=== PATIENT | female | born 1955 | race Caucasian/White ===

== ENCOUNTER → 2016-09-04 | Outpatient (CLI) | payer MEDICARE, MEDICAID ==
--- OUTSIDE RECORDS SUMMARY | 2016-09-04 11:51 | XMS REPORT | Continuity of Care Document ---
Author Author [facility] Organization [facility] Address Unknown Phone Unavailable Care Team Providers Care Train Dispatcher Name Role Phone Josh Escobar PCP [phone] Source Comments Some departments are not documenting in the electronic medical record. If you do not see the information that you expected, contact Release of Information in the Health Information Management department at [phone] for further assistance in locating additional records.[facility] Active Allergies and Adverse Reactions No Known Allergies Current Medications Prescription Sig. Disp. Refills Start End Date Status Date ASCORBIC ACID (VITAMIN C Take 1 Tab by mouth Every Active PO) 48 Hours. metoprolol (LOPRESSOR) 50 Take 1 Tab by mouth Twice Active mg tablet Daily. lisinopril (PRINIVIL, Take 1 Tab by mouth Active ZESTRIL) 40 mg tablet Daily. oxycodone/acetaminophen Take 1-2 Tabs by mouth 40 0 08/12/19 Active (PERCOCET) 5/325 mg Every 4-6 Hours as needed 10 tablet for Pain. docusate (COLACE) 100 mg Take 1 Cap by mouth Twice 60 2 08/12/19 Active capsule Daily. 10 ibuprofen (MOTRIN) 600 mg Take 1 Tab by mouth Every 40 0 08/12/19 Active tablet 6 Hours as needed for 10 Pain. famotidine (PEPCID) 20 mg Take 1 Tab by mouth Twice 14 0 08/12/19 Active tablet Daily. 10 metoclopramide (REGLAN) Take 1 Tab by mouth Four 28 0 08/12/19 Active 10 mg tablet Times Daily. 10 ferrous sulfate (IRON, Take 1 Tab by mouth Twice 60 2 08/12/19 Active FERROUS SULFATE,) 325 mg Daily. 10 (65 mg Iron) tablet ibuprofen (MOTRIN) 600 mg Take 600 mg by mouth Active tablet Every 6 Hours as needed for Pain. trimethoprim/sulfamethoxa Take 1 Tab by mouth Twice 20 0 08/17/19 Active zole (BACTRIM DS) 160/800 Daily. 10 mg tablet Active Problems Problem Noted Date Carcinoma of cervix (HCC) 07/02/2009 Overview: DIAGNOSIS: Stage IB1 SCCA of the Cervix. PRIOR THERAPY: Status post laparotomy, radical hysterectomy BSO, LND on 08/07/09. Pathology: Final Diagnosis: A. Lymph node (1), "left internal iliac lymph node", dissection: There is no evidence of malignancy in one lymph node (0/1). B. Fallopian tube and ovary, "right tube and ovary", salpingo-oophorectomy: Ovary: No diagnostic abnormalities. Fallopian tube: Endometriosis, involving paratubal soft tissue. C. Fallopian tube and ovary, "left tube and ovary", salpingo-oophorectomy: No diagnostic abnormalities. D. Fibroadipose tissue, "portion of left parametrium", biopsy: There is no evidence of malignancy. E. Uterus and cervix, "uterus and cervix", hysterectomy: Invasive squamous cell carcinoma of cervix, moderately differentiated, extending to lower uterine segment. See checklist. F. Lymph nodes (3), "left internal and external iliac lymph nodes", excision: There is no evidence of malignancy in three lymph nodes (0/3). G. Lymph nodes (5), "left obturator", excision: There is no evidence of malignancy in five lymph nodes (0/5). H. Lymph nodes (2), "left common", excision: There is no evidence of malignancy in two lymph nodes (0/2). I. Lymph nodes (2), "left perez-aortic", excision: There is no evidence of malignancy in two lymph nodes (0/2). J. Lymph nodes (7), "right internal and external iliac lymph nodes", excision: There is no evidence of malignancy in seven lymph nodes (0/7). K. Lymph nodes (4), "right obturator", excision: There is no evidence of malignancy in four lymph nodes (0/4). L. Lymph nodes (3), "right common precaval", excision: There is no evidence of malignancy in three lymph nodes (0/3). Comment: Cervical Neoplasms Specimen Type: Hysterectomy Histologic Type: Squamous cell carcinoma Histologic grade: Moderately differentiated Tumor Size: 5.6 x 5.5 x 3.0 cm Location: Cervix Depth of tumor invasion: 1.4 cm tumor invasion/ 2.5 cm cervical thickness Vascular Invasion: No Perineural invasion: Absent Vaginal extension: No Uterine corpus extension: Yes, to the lower uterine segment Parametrial involvement: No Surgical Margins: Margins uninvolved by invasive carcinoma: Distance of invasive carcinoma from closest margin: 0.3 cm Specify margin, if possible: vaginal cuff between 9:00 and 12:00 Carcinoma in situ present at distal margin: No Non-neoplastic cervix: Acute inflammation and necrosis. Lymph nodes: 0/27 Pelvic wash: See [id number], negative Prognostic Markers: No Pathologic TNM: [id number] CURRENT THERAPY: Being seen in [place] for postoperative RT. Followup with Dr. Escobar. She will need a pelvic/pap q 3 months for 2 years, q 4 months for 1 year and q 6 months for [address] at the end of the first and second year. 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
[2016-09-04 12:03] LABS: INR 2.5 (0.8-1.4); PROTHROMBIN TIME PATIENT 27.1 SEC (12.2-14.7)
== END ==
LOC: HH 11:47
PROVIDERS: ATTEND Thoracic Surgery (Cardiothoracic Vascular Surgery)
DX: Z51.81 Encounter for therapeutic drug level monitoring (principal); Z79.01 Long term (current) use of anticoagulants
CPT/HCPCS: 85610

== ENCOUNTER → 2018-06-02 | Outpatient (CLI) | payer MEDICARE, MEDICAID ==
--- NOTE | 2018-06-02 11:15 | Diagnostic Imaging Report ---
PROCEDURE: CT urinary tract, rule out kidney stone. TECHNIQUE: Multiple contiguous axial images were obtained through the abdomen and pelvis without the use of intravenous contrast. INDICATION: Left-sided flank pain. Multiple indwelling arterial bypass grafts. COMPARISON: 05/24/2009. FINDINGS: Included portions of the lung bases show mild bilateral atelectasis. CT ABDOMEN: Since the previous exam, there is been interval placement of multiple arterial bypass grafts within the lateral subcutaneous soft tissues, two on the left and one on the right. The more anterior bypass graft on the left appears to anastomose with the left common femoral artery. The inferior anastomosis site of the more posterior bypass graft is not included on this exam. There is however partially visualized large focal fluid collection within the anterior left thigh surrounding the bypass graft that measures 7.8 x 4.2 cm. This extends in a cephalad fashion essentially along the entire course of the bypass graft. The superior end of the bypass graft is also not occluded on the exam, as it extends into the chest. A single bypass graft is also identified on the right which appears to anastomosis with the right common femoral artery. Evaluation of kidneys demonstrates single nonobstructive renal calculus on the right. Ureters cannot be followed in there entirety, but no calculi are seen along the expected course of the ureters on either side. Additionally, there is no hydroureteronephrosis or other evidence of obstruction. Note is made of moderate-sized hypodense cyst on the left. The liver has mildly hypodense appearance suggestive of underlying hepatic steatosis. There is cholelithiasis. The spleen, pancreas, and adrenal glands have an unremarkable noncontrast CT appearance. Small bowel loops are nondistended. Normal appendix is identified. There is colonic diverticulosis, but no CT evidence of acute diverticulitis. There is no loculated fluid collection, free fluid, or free air within the abdomen. No abnormal mesenteric or retroperitoneal adenopathy is seen. Bony structures show no acute abnormalities. Note is also made of postsurgical changes of previous aortofemoral bypass graft placement. Please note, patency of the grafts and little shell tribe arterial structures cannot be assessed given the lack of vascular contrast. CT PELVIS: Urinary bladder is unopacified. There is small droplet of gas within the non-gravity dependent portion of the urinary bladder. No calculi are seen. There is no loculated fluid collection, free fluid, nor free air within the pelvis. No abnormal lymph nodes are identified. Bony structures show no acute abnormalities. IMPRESSION: 1. Multiple bypass grafts within the superficial soft tissues of the abdomen pelvis bilaterally. Again, there is fluid tracking along the course of the more posterior bypass graft on the left. Findings could be on the basis of postsurgical fluid collection such as hematoma or seroma. Abscess cannot be excluded. The fluid does appear to be amenable to ultrasound-guided aspiration. 2. Single nonobstructive right renal calculus. No ureteral calculi, hydroureteronephrosis, or other evidence of obstruction. 3. Hepatic steatosis. 4. Cholelithiasis. 5. Colonic diverticulosis, but no CT evidence of acute diverticulitis. 6. Small droplet of gas within the urinary bladder. Correlation with recent instrumentation is recommended. Alternatively, findings can be seen with gas forming cystitis. Dictated by: Dictated on workstation # [id number]
== END ==
LOC: RAD 10:07
PROVIDERS: ATTEND Nurse Practitioner Family
DX: N20.0 Calculus of kidney (principal); K76.0 Fatty (change of) liver, not elsewhere classified; K80.20 Calculus of gallbladder without cholecystitis without obstruction; K57.30 Diverticulosis of large intestine without perforation or abscess without bleeding; Z95.828 Presence of other vascular implants and grafts
CPT/HCPCS: 74176

== ENCOUNTER → 2018-11-16 | Outpatient (CLI) | payer MEDICARE, MEDICAID ==
[~2018-11-16] MED LIST: HOLD METFORMIN - RECEIVED CONTRAST 20 ML VIAL IV SCH; IOHEXOL 350 MG/ML 100 ML (OMNIPAQUE 350) VIAL IV ONE
--- NOTE | 2018-11-16 16:52 | Diagnostic Imaging Report ---
PROCEDURE: CT abdomen and pelvis with and without contrast. TECHNIQUE: Precontrast acquisitions were acquired through the abdomen and pelvis. Multiple contiguous axial images were obtained through the abdomen and pelvis after the administration of intravenous contrast. Auto Exposure Controls were utilized during the CT exam to meet ALARA standards for radiation dose reduction. INDICATION: Right lower quadrant pain. Patient does have history of kidney stones. Correlation is made with prior CT from 06/02/2018. FINDINGS: The lung bases are clear. No discrete liver mass is identified. There are small stones within the gallbladder. No biliary ductal dilatation is seen. The pancreas and spleen are unremarkable. No adrenal mass is detected. Left kidney does contain 4 cm low-density mass in the lower pole anteriorly most consistent with a cyst. This is stable. Right kidney contains a tiny nonobstructing calculus in the upper pole. No definite ureteral or bladder calculi are seen. Patient does have an aortoiliac graft. There are bilateral iliac stents as well. There appear to be bilateral axillary femoral grafts. A fluid collection surrounds the graft in the left groin, similar to prior study and suggestive of a seroma. Small and large bowel loops are normal caliber. There is no obstruction. The appendix is visualized in right lower quadrant and unremarkable. There is diverticulosis of the descending and sigmoid colon but no evidence of acute diverticulitis. No acute abnormality is detected. IMPRESSION: 1. Cholelithiasis. 2. Nonobstructing right renal calculus. 3. Uncomplicated diverticulosis. 4. Stable left groin seroma. Dictated by: Dictated on workstation # [id number]
== END ==
LOC: RAD 15:23
PROVIDERS: ATTEND Nurse Practitioner Family
DX: K80.20 Calculus of gallbladder without cholecystitis without obstruction (principal); K57.30 Diverticulosis of large intestine without perforation or abscess without bleeding; N20.0 Calculus of kidney; N94.89 Other specified conditions associated with female genital organs and menstrual cycle
CPT/HCPCS: 74178

== ENCOUNTER 2019-01-31 18:25 | Inpatient (IN) | payer MEDICARE, MEDICAID ==
[~2019-01-31] VITALS: Ht 167.6 cm; Wt 92.6 kg
--- NOTE | 2019-01-31 18:40 | NUR ---
i do know pt had chest pain last noc and none now. pt just c/o dyspnea. i will reeval later after tx.
--- NOTE | 2019-01-31 18:40 | NUR ---
ashleigh stick for labs by me and to lab by someone else. now i am also taking this pt, ekg been done alreay.
[2019-01-31 18:44] LABS: BASOPHILS % (AUTO) 0 % (0-10); EOSINOPHILS # (AUTO) 0.1 10^3/uL (0.0-0.3); EOSINOPHILS % (AUTO) 1 % (0-10); HEMATOCRIT 48 % (35-52); HEMOGLOBIN 16.5 G/DL (11.5-16.0); LYMPHOCYTES % (AUTO) 28 % (12-44); MEAN CORPUSCULAR HGB CONC 34 G/DL (32-36); MEAN CORPUSCULAR VOLUME 95 FL (80-99); MEAN PLATELET VOLUME 9.4 FL (7.4-10.4); MONOCYTES % (AUTO) 6 % (0-12); NEUTROPHILS # (AUTO) 11.6 X 10^3 (1.8-7.8); NEUTROPHILS % (AUTO) 65 % (42-75); PLATELET COUNT 198 10^3/uL (130-400); RED CELL DISTRIBUTION WIDTH 13.2 % (10.0-14.5); WHITE BLOOD COUNT 17.7 10^3/uL (4.3-11.0)
[2019-01-31 18:45] LABS: MEAN CORPUSCULAR HEMOGLOBIN 32 PG (25-34)
[2019-01-31] MEDS ORDERED: ASPIRIN 81 MG CHEW (CHILDREN'S ASA) PO ONE (18:45)
[2019-01-31] MEDS ORDERED: RT-ALBUTEROL/IPRATROPIUM 3 ML (DUONEB) VIAL INH ONE ×2 (18:45→19:00)
[2019-01-31] MEDS ORDERED: methylPREDNISolone 125 MG (Solu-MEDROL) VIAL IVP ONE (18:45)
--- NOTE | 2019-01-31 18:47 | NUR ---
resp in room doing neb tx and another nurse doing meds.
[2019-01-31] MEDS ORDERED: RT-ALBUTEROL SULF 2.5 MG/3 ML PRE-MIX VIAL INH STA (18:54)
--- NOTE | 2019-01-31 18:54 | ED Chest Pain ---
General Chief Complaint: Respiratory Problems Stated Complaint: SOB Nursing Triage Note: Pt presents to [facility] via [facility] with complaints of shortness of air that started last night. EMS reports O2 sat 87% on arrival to scene and reports giving a breathing treatment then putting her on 2L, O2 sat is now 94. Pt denies any chest pain at this time. Nursing Sepsis Screen: No Definite Risk Source: patient, EMS Exam Limitations: no limitations History of Present Illness Date Seen by Provider: Jan 31, 2019 Time Seen by Provider: 18:21 Initial Comments This 63-year-old woman presents to the emergency room via EMS with complaints of shortness of air and chest pain. Symptoms started last night when she had fairly abrupt onset of chest pain and then felt very short of breath. The chest pain dissipated but the shortness of breath continued. She was very tight and wheezy for EMS upon arrival. She was tripoding on her hands and knees in the bed on EMSs arrival. They noted an oxygen saturation of 87 percent on room air. After DuoNeb treatment and application of nasal cannula at 2 L/m, patient had an oxygen saturation of 92 percent. She feels much better after the DuoNeb but is still rather wheezy on exam. She reports some mild cough but denies fever. She denies any history of cardiopulmonary problems such as COPD or heart failure. She quit smoking a few years ago. Allergies and Home Medications Allergies Coded Allergies: No Allergy Information Available (Unverified , 11/16/18) Patient Home Medication List Home Medication List Reviewed: Yes Review of Systems Review of Systems Constitutional: no symptoms reported EENTM: No Symptoms Reported Respiratory: See HPI Cardiovascular: See HPI Gastrointestinal: No Symptoms Reported Genitourinary: No Symptoms Reported Musculoskeletal: no symptoms reported Skin: no symptoms reported Psychiatric/Neurological: No Symptoms Reported Endocrine: No Symptoms Reported Hematologic/Lymphatic: No Symptoms Reported Past [id number]-[id number]-Rkuvpj Hx Past Med/Social Hx: Reviewed and Corrections made Patient Social History Alcohol Use: Rarely Uses Recreational Drug Use: No Smoking Status: Former Smoker Recent Foreign Travel: No Contact w/Someone Who Travel: No Recent Infectious Disease Expo: No Recent Hopitalizations: No Physical Abuse: No Sexual Abuse: No Mistreated: No Seasonal Allergies Seasonal Allergies: No Past Medical History Surgeries: Yes (axillary femoral bypass 2011 and 2014) Hysterectomy, Vascular Surgery Respiratory: No Cardiac: Yes Hypertension, Peripheral Vascular 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 oz. 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 Norm as Tested Skin: Normal Color, Warm/Dry Progress/Results/Core Measures Results/Orders Lab Results Laboratory Tests Test 01/31/19 18:36 Range/Units White Blood Count 17.7 H 4.3-11.0 10^3/uL Red Blood Count 5.08 4.35-5.85 10^6/uL Hemoglobin 16.5 H 11.5-16.0 G/DL Hematocrit 48 35-52 % Mean Corpuscular Volume 95 80-99 FL Mean Corpuscular Hemoglobin 32 25-34 PG Mean Corpuscular Hemoglobin Concent 34 32-36 G/DL Red Cell Distribution Width 13.2 10.0-14.5 % Platelet Count 198 130-400 10^3/uL Mean Platelet Volume 9.4 7.4-10.4 FL Neutrophils (%) (Auto) 65 42-75 % Lymphocytes (%) (Auto) 28 12-44 % Monocytes (%) (Auto) 6 0-12 % Eosinophils (%) (Auto) 1 0-10 % Basophils (%) (Auto) 0 0-10 % Neutrophils # (Auto) 11.6 H 1.8-7.8 X 10^3 Lymphocytes # (Auto) 5.0 H 1.0-4.0 X 10^3 Monocytes # (Auto) 1.0 0.0-1.0 X 10^3 Eosinophils # (Auto) 0.1 0.0-0.3 10^3/uL Basophils # (Auto) 0.0 0.0-0.1 10^3/uL Neutrophils % (Manual) 77 % Lymphocytes % (Manual) 14 % Monocytes % (Manual) 5 % Band Neutrophils 4 % Blood Morphology Comment NORMAL Prothrombin Time 27.8 H 12.2-14.7 SEC INR Comment 2.5 H 0.8-1.4 Activated Partial Thromboplast Time 40 H 24-35 SEC D-Dimer 2.05 H 0.00-0.49 UG/ML Sodium Level 141 135-145 MMOL/L Potassium Level 3.6 3.6-5.0 MMOL/L Chloride Level 106 98-107 MMOL/L Carbon Dioxide Level 23 21-32 MMOL/L Anion Gap 12 5-14 MMOL/L Blood Urea Nitrogen 12 7-18 MG/DL Creatinine 0.97 0.60-1.30 MG/DL Estimat Glomerular Filtration Rate 58 BUN/Creatinine Ratio 12 Glucose Level 114 H 70-105 MG/DL Calcium Level 9.2 8.5-10.1 MG/DL Corrected Calcium 9.1 8.5-10.1 MG/DL Magnesium Level 1.7 L 1.8-2.4 MG/DL Total Bilirubin 1.0 0.1-1.0 MG/DL Aspartate Amino Transf (AST/SGOT) 16 5-34 U/L Alanine Aminotransferase (ALT/SGPT) 20 0-55 U/L Alkaline Phosphatase 100 40-136 U/L Myoglobin 67.2 10.0-92.0 NG/ML Troponin I < 0.028 <0.028 NG/ML C-Reactive Protein High Sensitivity 5.11 H 0.00-0.50 MG/DL B-Type Natriuretic Peptide 442.7 H <100.0 PG/ML Total Protein 7.3 6.4-8.2 GM/DL Albumin 4.1 3.2-4.5 GM/DL My Orders Orders - ALENA SANCHEZ MD Cbc With Automated Diff (01/31/19 18:31) Magnesium (01/31/19 18:31) Ekg Tracing (01/31/19 18:31) Cardiac Profile 1 (01/31/19 18:31) Comprehensive Metabolic Panel (01/31/19 18:31) Myoglobin Serum (01/31/19 18:31) Protime With Inr (01/31/19 18:31) Partial Thromboplastin Time (01/31/19 18:31) O2 (01/31/19 18:31) Monitor-Rhythm Ecg Trace Only (01/31/19 18:31) Ed Iv/Invasive Line Start (01/31/19 18:31) BNP (01/31/19 18:31) Fibrin Degradation Products (01/31/19 18:31) Aspirin Chewable Tablet (Baby Aspirin Ch (01/31/19 18:45) Hs C Reactive Protein (01/31/19 18:31) Methylprednisolone Sod Succ (Solu-Medrol (01/31/19 18:45) Chest Pa/Lat (2 View) (01/31/19 18:32) Albuterol/Ipra Inhalation Soln (Duoneb I (01/31/19 18:45) Svn Small Volume Nebulizer (01/31/19 18:32) Manual Differential (01/31/19 18:36) Albuterol Pre-Mix Nebs (Rt) (Proventil (01/31/19 18:54) Albuterol/Ipra Inhalation Soln (Duoneb I (01/31/19 19:00) Svn Small Volume Nebulizer (01/31/19 18:54) Svn Small Volume Nebulizer (01/31/19 18:54) Ct Angio Chest W (01/31/19 19:12) Iohexol Injection (Omnipaque 350 Mg/Ml 1 (01/31/19 19:30) Received Contrast (Hold Metformin- Contr (01/31/19 19:30) Ns (Ivpb) (Sodium Chloride 0.9% Ivpb Bag (01/31/19 19:30) Medications Given in ED Current Medications Medications Dose Ordered Sig/Radha Route Start Time Stop Time Status Last Admin Dose Admin Albuterol/ Ipratropium 3 ml ONCE ONCE INH 01/31/19 18:45 01/31/19 18:46 DC 01/31/19 19:00 3 ML Albuterol/ Ipratropium 3 ml ONCE ONCE INH 01/31/19 19:00 01/31/19 19:01 DC 01/31/19 19:01 3 ML Aspirin 324 mg ONCE ONCE PO 01/31/19 18:45 01/31/19 18:46 DC 01/31/19 18:48 324 MG Iohexol 150 ml ONCE ONCE IV 01/31/19 19:30 01/31/19 19:31 DC 01/31/19 19:37 125 ML Methylprednisolone Sodium Succinate 125 mg ONCE ONCE IVP 01/31/19 18:45 01/31/19 18:46 DC 01/31/19 18:48 125 MG Sodium Chloride 100 ml ONCE ONCE IV 01/31/19 19:30 01/31/19 19:31 DC 01/31/19 19:38 80 ML Vital Signs/I&O 01/31/19 01/31/19 01/31/19 01/31/19 18:26 18:38 19:09 19:12 Temp 97.9 Pulse 80 Resp 20 B/P (MAP) 204/111 (142) Pulse Ox 94 94 95 93 O2 Delivery Nasal Cannula Nasal Cannula Nasal Cannula Nasal Cannula O2 Flow Rate 2.00 2.00 2.00 2.00 01/31/19 19:44 Temp 97.6 Pulse 92 Resp 20 B/P (MAP) 192/88 (122) Pulse Ox 95 O2 Delivery Nasal Cannula O2 Flow Rate 3.00 Blood Pressure Mean: 142 Progress Progress Note #1: Time: 19:54 Progress Note Patient was seen promptly upon arrival. She still had wheezing and delayed expiratory phase after the DuoNeb treatment administered by EMS. A repeat DuoNeb treatment was administered but patient was still wheezy. An hour-long treatment was initiated. Solu-Medrol 125 mg IV was given. Aspirin was given because of the chest pain last night. Lab workup revealed an elevated d-dimer. CT angiogram of the chest was obtained. Report is pending. Patient is stable and has oxygen saturations in the 90s on 2 L nasal cannula. Progress Note #2: Time: 20:[address] angiogram was negative. Patient remained stable on nasal cannula. Repeat examination still demonstrates wheezing and delayed expiratory phase. She is not in respiratory distress and feels better. Case was discussed with Dr. Morrow who is agreeable to admission for COPD exacerbation. Patient also elaborated on her history stating she does actually smoke about once per month. She is also exposed to secondhand smoke and drywall dust. She recently went to a worksite with her boyfriend where there was significant dust. Initial ECG Impression Date: Jan 31, 2019 Initial ECG Impression Time: 18:27 Initial ECG Rate: 75 Initial ECG Rhythm: Normal Sinus Initial ECG Intervals: Normal Initial ECG Impression: Normal Comment Normal sinus rhythm with no ST elevation or depression. No abnormal intervals or axis deviation. Diagnostic Imaging Diagonstic Imaging: Xray Plain Films/CT/US/NM/MRI: chest Comments Chest x-ray viewed by me and report reviewed. See report below: NAME: LUIS ALDANA [facility] REC#: [id number] PT STATUS: REG ER : 1955 PHYSICIAN: ALENA SANCHEZ MD ADMIT DATE: 01/31/19/ER Signed Date of Exam: 01/31/19 CHEST PA/LAT (2 VIEW) INDICATION: Shortness of breath starting last night. O2 sats were reported at 87% upon arrival to the hospital. O2 sats have increased to 94% after breathing treatment. FINDINGS: Frontal and lateral views of the chest demonstrate surgical clips in the upper chest. The lungs are clear. The heart, mediastinum, pulmonary vascularity, and visualized bony thorax are normal. IMPRESSION: There are no acute findings. Dictated by: Dictated on workstation # [id number] Dict: 01/31/191938 Trans: 01/31/191948 Interpreted by: FELICE TOVAR MD Electronically signed by: FELICE TOVAR MD 01/31/191948 Diagonstic Imaging: CT Plain Films/CT/US/NM/MRI: chest Comments CT angiogram of the chest viewed by me and report reviewed. See report below: NAME: LUIS ALDANA [facility] REC#: [id number] PT STATUS: REG ER : 1955 PHYSICIAN: ALENA SANCHEZ MD ADMIT DATE: 01/31/19/ER Draft Date of Exam:01/31/19 CT ANGIO CHEST W PROCEDURE: CT angiography of the chest with contrast. TECHNIQUE: Multiple contiguous axial images were obtained through the chest after uneventful bolus administration of intravenous contrast. 2D reconstructed CTA MIP acquisitions were also performed. Auto Exposure Controls were utilized during the CT exam to meet ALARA standards for radiation dose reduction. INDICATION: Difficulty breathing for 24 hours. COMPARISON STUDY: CT of the abdomen from 11/16/2018. FINDINGS: CTA of the chest demonstrates no pulmonary emboli, aortic dissection, or aneurysm. Heart size is normal. There are no pleural or pericardial effusions. A few small mediastinal lymph nodes are within normal limits. Bilateral subclavian to distal bypass grafts are present. Visualized portions of these are patent. There are actually two on the left side with one being occluded. Small gallstones are present. The lungs are clear. IMPRESSION: 1. No pulmonary emboli, aortic dissection, or aneurysm is present. 2. Cholelithiasis. Dictated on workstation # [id number] Dict: 01/31/191939 Trans: 01/31/192023 [facility] [id number] Interpreted by: FELICE TOVAR MD Departure Communication (Admissions) Time/Spoke to Admitting Phy: 20:45 Dr. Morrow Impression Primary Impression: COPD exacerbation Additional Impression: Chest pain Qualified Codes: R07.9 - Chest pain, unspecified Disposition: ADMITTED INPATIENT Condition: Improved Admissions Decision to Admit Reason: Admit from ER (General) Decision to Admit/Date: Jan 31, 2019 Time/Decision to Admit Time: 18:50 Departure-Patient Inst. Referrals: [facility] (PCP) Primary Care Physician CINDY CALIXTO (Family) Primary Care Physician ALENA SANCHEZ MD Jan 31, 2019 18:54
--- NOTE | 2019-01-31 18:55 | NUR ---
per resp therapy.
--- NOTE | 2019-01-31 18:55 | NUR ---
tart when back from xr. 6 liters. resp therapy starting 1 hr neb tx then off for xr then i will res
[2019-01-31 18:57] LABS: INR 2.5 (0.8-1.4); PROTHROMBIN TIME PATIENT 27.8 SEC (12.2-14.7)
[2019-01-31 19:05] LABS: ALANINE AMINOTRANSFERASE 20 U/L (0-55); ALBUMIN 4.1 GM/DL (3.2-4.5); ALKALINE PHOSPHATASE 100 U/L (40-136); BUN/CREATININE RATIO 12; CALCIUM 9.2 MG/DL (8.5-10.1); CARBON DIOXIDE 23 MMOL/L (21-32); CHLORIDE 106 MMOL/L (98-107); CREATININE SERUM 0.97 MG/DL (0.60-1.30); GFR ESTIMATED 58; GLUCOSE 114 MG/DL (70-105); MAGNESIUM 1.7 MG/DL (1.8-2.4); POTASSIUM 3.6 MMOL/L (3.6-5.0); SODIUM 141 MMOL/L (135-145); TOTAL PROTEIN 7.3 GM/DL (6.4-8.2)
--- NOTE | 2019-01-31 19:10 | NUR ---
pt to xr
--- NOTE | 2019-01-31 19:16 | NUR ---
pt having ct after xr then back here. dr going to tell pt in xr.
[2019-01-31] MEDS ORDERED: NS 100 ML (IVPB) BAG IV ONE (19:30)
[2019-01-31] MEDS ORDERED: IOHEXOL 350 MG/ML 150 ML (OMNIPAQUE 350) VIAL IV ONE (19:30)
[2019-01-31] MEDS ORDERED: HOLD METFORMIN - RECEIVED CONTRAST 20 ML VIAL IV SCH (19:30)
--- NOTE | 2019-01-31 19:34 | NUR ---
pt here by self alert gcs 15. pt denies chest and abd pain. pt back from xr/ct. neb tx restarted 6 liters of air. pt on o2 3/n/c. pt appears with dyspnea appears denise from w/c to bed. resp somewhat labored with some accessory muscle use noted. pt skin mottled face. pt c/o dyspnea. lungs insp wheezes all love bilaterally some audible. abd ? distended tender to palpation rlq " little bit". neg to 1 plus edema bilateral letgs noted. pt has h/o and was inc ua in er. tele applied shows sr 97. bp machine is 192/88 ausc hr 92 reg ausc resp 20 recheck temp 97.[address] but feels slightly febrile like low grade temp. p ox 3/n/c is 95.
[2019-01-31 19:44] VITALS: BP 192/88
--- NOTE | 2019-01-31 19:46 | Diagnostic Imaging Report ---
INDICATION: Shortness of breath starting last night. O2 sats were reported at 87% upon arrival to the hospital. O2 sats have increased to 94% after breathing treatment. FINDINGS: Frontal and lateral views of the chest demonstrate surgical clips in the upper chest. The lungs are clear. The heart, mediastinum, pulmonary vascularity, and visualized bony thorax are normal. IMPRESSION: There are no acute findings. Dictated by: Dictated on workstation # [id number]
--- NOTE | 2019-01-31 20:24 | Diagnostic Imaging Report ---
PROCEDURE: CT angiography of the chest with contrast. TECHNIQUE: Multiple contiguous axial images were obtained through the chest after uneventful bolus administration of intravenous contrast. 2D reconstructed CTA MIP acquisitions were also performed. Auto Exposure Controls were utilized during the CT exam to meet ALARA standards for radiation dose reduction. INDICATION: Difficulty breathing for 24 hours. COMPARISON STUDY: CT of the abdomen from 11/16/2018. FINDINGS: CTA of the chest demonstrates no pulmonary emboli, aortic dissection, or aneurysm. Heart size is normal. There are no pleural or pericardial effusions. A few small mediastinal lymph nodes are within normal limits. Bilateral subclavian to distal bypass grafts are present. Visualized portions of these are patent. There are actually two on the left side with one being occluded. Small gallstones are present. The lungs are clear. IMPRESSION: 1. No pulmonary emboli, aortic dissection, or aneurysm is present. 2. Cholelithiasis. Dictated by: Dictated on workstation # [id number]
--- NOTE | 2019-01-31 20:30 | NUR ---
pt still has little bit neb tx left . i kept it going,
--- NOTE | 2019-01-31 20:39 | NUR ---
pt remains here by self alert gcs 15. neb tx completed. in room telling pt of admit dx. dr said lungs still " tight". pt appears less labored breathing and not mottled now. no audible wheezes noted. bp machine is 186/84 ausc hr 88 reg ausc resp 16 recheck temp 98.0 p ox 3/n/c is [address] 92
[2019-01-31 21:13] LABS: BAND NEUTROPHILS 4 %; LYMPHOCYTES % (MANUAL) 14 %; MONOCYTES % (MANUAL) 5 %; NEUTROPHILS % (MANUAL) 77 %
[2019-01-31 21:14] LABS: RBC MORPH NORMAL
--- NOTE | 2019-01-31 21:19 | NUR ---
i just called report to admit nurse kristine. someone will take pt to admit room timmy. o2 continues to floor. 3/n/c.
--- NOTE | 2019-01-31 21:23 | NUR ---
tech is taking pt to admit room now.
[2019-01-31 21:35] VITALS: BP 166/87
[2019-01-31] MEDS ORDERED: RT-ALBUTEROL SULF 2.5 MG/3 ML PRE-MIX VIAL IH PRN (21:45)
[2019-01-31] MEDS ORDERED: ONDANSETRON 4 MG/2 ML (SDV) Z0FRAN IV PRN (21:45)
[2019-01-31] MEDS ORDERED: KETOROLAC 30 MG/ML VIAL IVP PRN (23:15)
[2019-02-01] VITALS (7 sets, daily range): BP systolic 138–195; BP diastolic 79–90
[2019-02-01] MEDS: RT-ALBUTEROL/IPRATROPIUM 3 ML (DUONEB) VIAL IH SCH ×7 (00:12→22:42)
[2019-02-01] MEDS: methylPREDNISolone 40 MG/ML (Solu-MEDROL) VIAL IV SCH ×2 (00:25→05:44)
--- OUTSIDE RECORDS SUMMARY | 2019-02-01 02:07 | XMS REPORT | Clinical Summary ---
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 If you d o not see the information that you expected, contact Release of Information in [facility] Management department at [phone] for further assistan ce in locating additional records.[facility] Allergies No Known Allergies Medications End Date Status Medication Sig Dispensed Refills Start Date Active ASCORBIC ACID (VITAMIN C Take 1 Tab by 0 PO) mouth Every 48 Hours. Active metoprolol (LOPRESSOR) 50 Take 1 Tab by 0 mg tablet mouth Twice Daily. Active lisinopril (PRINIVIL, Take 1 Tab by 0 ZESTRIL) 40 mg tablet mouth Daily. Active oxycodone/acetaminophen Take 1-2 Tabs 40 0 (PERCOCET) 5/325 mg by mouth 0 tablet Every 4-6 Hours as needed for Pain. Active docusate (COLACE) 100 mg Take 1 Cap by 60 2 capsule mouth Twice 0 Daily. Active ibuprofen (MOTRIN) 600 mg Take 1 Tab by 40 0 tablet mouth Every 6 0 Hours as needed for Pain. Active famotidine (PEPCID) 20 mg Take 1 Tab by 14 0 tablet mouth Twice 0 Daily. Active metoclopramide (REGLAN) Take 1 Tab by 28 0 10 mg tablet mouth Four 0 Times Daily. Active ferrous sulfate (IRON, Take 1 Tab by 60 2 FERROUS SULFATE,) 325 mg mouth Twice 0 (65 mg Iron) tablet Daily. Active ibuprofen (MOTRIN) 600 mg Take 600 mg 0 tablet by mouth Every 6 Hours as needed for Pain. Active trimethoprim/sulfamethoxa Take 1 Tab by 20 0 zole (BACTRIM DS) 160/800 mouth Twice 0 mg tablet Daily. Active Problems Problem Noted Date Carcinoma of cervix 07/02/2009 Overview: DIAGNOSIS: Stage IB1 SCCA of [...] cervix: Acute inflammation and necrosis. Lymph nodes: 0 Pelvic wash: See [id number], negative Prognostic Markers: No Pathologic TNM: [id number] CURRENT THERAPY: Being seen in [place] for postoperative RT. Followup with Dr. Escobar. She will need a pelvic/pap q 3 months for 2 years, q 4 months for 1 year and q 6 months for [address] at the end of the first and second year. Social History Date Tobacco Use Types Packs/Day Years Used Current Every Day Smoker 1 30 Drinks/Week oz/Week Comments Alcohol Use 10 Glasses of wine 50.0 Yes Sex Assigned at Date Recorded Not on file Industry Job Start Date Occupation Not on file Not on file Not on file Travel End Travel History Travel Start No recent travel history available. Last Filed Vital Signs Reading Time Taken Comments Vital Sign 170/85 10/08/2009 1:41 PM CDT Blood Pressure 78 10/08/2009 1:41 PM CDT Pulse 36.8 C (98.2 F) 10/08/2009 1:41 PM CDT Temperature - - Respiratory Rate 97% 08/12/2009 11:00 AM [employer] Oxygen Saturation - - Inhaled Oxygen Concentration 89.4 kg (197 lb) 10/08/2009 1:41 PM CDT Weight 166.4 cm (5' 5.5") 10/08/2009 1:41 PM CDT Height 32.28 10/08/2009 1:41 PM CDT Body Mass Index Plan of Treatment Health Maintenance Due Date Last Done Comments HEPATITIS C SCREENING 1957 PHYSICAL (COMPREHENSIVE) 1964 EXAM HIV SCREENING 1972 DTAP/TDAP VACCINES (1 - 12/25/1975 Tdap) CERVICAL CANCER SCREENING 12/25/1987 BREAST CANCER SCREENING 1997 COLORECTAL CANCER 12/25/2007 SCREENING SHINGLES RECOMBINANT 12/25/2007 VACCINE (1 of 2) INFLUENZA VACCINE 04/12/2019 Results Not on filefrom Last 3 Months
--- OUTSIDE RECORDS SUMMARY | 2019-02-01 02:08 | XMS REPORT ---
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 Name Role Phone CINDY CALIXTO Unavailable PROBLEMS Type Condition ICD9-CM Code JMG86-SM Code Onset Dates Condition Status SNOMED Code Problem Stress incontinence N39.3 Active 05166383 Problem Hyperlipidemia, unspecified E78.5 Active 29854656 Problem Essential hypertension I10 Active 36814656 Problem PVD (peripheral vascular disease) I73.9 Active 825636027 Problem Hereditary and idiopathic peripheral neuropathy G60.9 Active 757753688 ALLERGIES Substance Reaction Event Type Date Status Protamine Sulfate Unknown Drug Allergy Sep, Active ENCOUNTERS Encounter Location Date Diagnosis [place] [id number] [place] [address] [id number] Jan, Hereditary and idiopathic peripheral neuropathy G60.9 [place] [id number] [place] [id number] Jan, [address] [id number] Jan, Acute cystitis with hematuria N30.01 [place] [id number] [place] [address] [id number] Dec, Acute cystitis with hematuria N30.[address] [id number] Dec, Hereditary and idiopathic peripheral neuropathy G60.9 [place] [id number] [place] [address] [id number] November, Hereditary and idiopathic peripheral neuropathy G60.[address] [id number] November, Acute cystitis with hematuria N30.01 [place] [id number] [place] [address] [id number] Oct, Right lower quadrant abdominal pain R10.31 [facility] [place] [id number] [id number] Oct, Hereditary and idiopathic peripheral neuropathy G60.9 [facility] [address] [id number], [place] [id number] Sep, Hereditary and idiopathic peripheral neuropathy G60.9 [facility] [address] [id number], [place] [id number] Sep, Right lower quadrant abdominal pain R10.31 [facility] [place] [id number], [place] [id number] Sep, Essential hypertension I10 ; PVD (peripheral vascular disease) I73.9 ; Hereditary and idiopathic peripheral neuropathy G60.9 and Right lower quadrant abdominal pain R10.31 [facility] [place] [id number] [place] [address] [id number] Aug, Left flank pain R10.9 [facility] [place] [address] [place] [id number] [place] [address] [id number] Jul, Left flank pain R10.9 [facility] [address] [place] [id number] [place] [address] [id number] Jun, Left flank pain R10.9 [facility] [place] [address] [place] [id number] [place] [address] [id number] Jun, Essential hypertension I10 and Abdominal discomfort in left flank R10.9 [facility] [id number] [address] May, [facility] [place] [address] [place] [id number] [place] [address] [id number] May, Left flank pain R10.9 [facility] [place] [id number] [place] [address] [id number] May, Pyelonephritis N12 [facility] [place] [id number] [place] [address] [id number] May, Hereditary and idiopathic peripheral neuropathy G60.9 [facility] [place] [id number] [place] [address] [id number] Apr, Urinary tract infection N39.0 and Back pain M54.9 [facility] [id number] [place] [address] [id number] Apr, Hereditary and idiopathic peripheral neuropathy G60.9 [place] [address] [id number] [place] [address] [id number] Mar, Hereditary and idiopathic peripheral neuropathy G60.[address] [id number] Mar, Essential hypertension I10 and Hereditary and idiopathic peripheral neuropathy G60.9 [place] [address] [place] [id number] [place] [address] [id number] Feb, Hereditary and idiopathic peripheral neuropathy G60.[address] [id number] Jan, Cystitis N30.90 and Hereditary and idiopathic peripheral neuropathy G60.[address] [id number] Dec, Acute cystitis with hematuria N30.01 [facility] [address] [id number] [place] [address] [id number] Dec, Hereditary and idiopathic peripheral neuropathy G60.9 [place] [address] [place] [id number] [place] [address] [id number] November, Hereditary and idiopathic peripheral neuropathy G60.9 and Essential hypertension I10 [place] [address] [place] [address] [id number] [place] [address] [id number] November, Hereditary and idiopathic peripheral neuropathy G60.9 [place] [address] [place] [address] [id number] [place] [address] [id number] Oct, Hereditary and idiopathic peripheral neuropathy G60.9 [place] [address] [place] [id number] [place] [address] [id number] Sep, Hereditary and idiopathic peripheral neuropathy G60.9 [place] [id number] [place] [address] [id number] Aug, Essential hypertension I10 ; Hereditary and idiopathic peripheral neuropathy G60.9 ; PVD (peripheral vascular disease) I73.9 and Infective urethritis N34.2 [place] [id number] [place] [address] [id number] Jul, Hereditary and idiopathic peripheral neuropathy G60.9 [facility] [id number], [place] [id number] May, Hereditary and idiopathic peripheral neuropathy G60.9 [facility] [id number], [place] [id number] May, [facility] [id number] [place] [address] [id number] May, Hereditary and idiopathic peripheral neuropathy G60.9 [place] [id number] [place] [address] [id number] Apr, Hereditary and idiopathic peripheral neuropathy G60.9 [place] [id number] [place] [address] [id number] Apr, Encounter for immunization Z23 [facility] [id number] [place] [address] [id number] Mar, Urinary tract infection, site not specified N39.0 ; Hematuria, unspecified R31.9 ; Hyperlipidemia, unspecified E78.5 and Essential hypertension I10 [facility] [id number] [place] [address] [id number] Mar, Essential hypertension I10 ; Hereditary and idiopathic peripheral neuropathy G60.9 and Acute cystitis with hematuria N30.01 [facility] [id number], [place] [id number] Feb, [place] [address] [place] [id number] [place] [address] [id number] Feb, Hereditary and idiopathic peripheral neuropathy G60.9 [facility] [id number], [place] [id number] Jan, Hereditary and idiopathic peripheral neuropathy G60.9 [place] [id number], [place] [id number] Dec, Essential hypertension I10 and Hereditary and idiopathic peripheral neuropathy G60.9 [facility] [id number], [place] [id number] November, Hereditary and idiopathic peripheral neuropathy G60.[address] [id number], [place] [id number] Oct, Acute cystitis with hematuria N30.01 [address]00565100[place] [id number] Oct, [place] [id number] [place] [address] [id number] Oct, Hereditary and idiopathic peripheral neuropathy G60.9 [address] [place] [address] [id number] Sep, Hereditary and idiopathic peripheral neuropathy G60.9 [place] [id number] [place] [address] [id number] Sep, Fever, unspecified fever cause R50.9 ; Nausea R11.0 and Viral syndrome B34.9 [place] [id number] [place] [address] [id number] Aug, [place] [id number] [place] [address] [id number] Aug, Dysuria R30.0 [place] [id number] [place] [address] [id number] Jul, Essential hypertension I10 and Tobacco abuse disorder Z72.0 [place] [id number] [place] [address] [id number] Apr, Hyperlipidemia, unspecified E78.5 ; Hereditary and idiopathic peripheral neuropathy G60.9 ; Essential hypertension I10 and Urinary tract infection without hematuria, site unspecified N39.0 [address] [place] [address] [id number] Apr, Hyperlipidemia, unspecified E78.5 [address] [place] [address] [id number] Mar, Hyperlipidemia, unspecified E78.5 [address] [place] [address] [id number] Feb, Essential hypertension I10 [facility] [id number] [place] [address] Feb, [address] [place] [address] [id number] Feb, Urinary tract infection, site not specified N39.0 and Hematuria, unspecified R31.9 [facility] [id number], [place] [id number] Jan, Hereditary and idiopathic peripheral neuropathy G60.9 [facility] [id number] [place] [address] [id number] Jan, [place] [id number] [place] [address] [id number] Dec, Well woman exam Z01.419 ; Colon cancer screening Z12.11 ; Breast cancer screening Z12.39 ; Bladder prolapse, female, acquired N81.10 and Rectocele N81.6 [facility] [id number] [place] [address] [id number] Dec, Hereditary and idiopathic peripheral neuropathy G60.9 and Stress incontinence N39.3 [place] [id number] [place] [address] [id number] Dec, [place] [id number] [place] [address] [id number] November, Essential hypertension I10 ; Hereditary and idiopathic peripheral neuropathy G60.9 and PVD (peripheral vascular disease) I73.9 [facility] [id number], [place] [id number] November, [place] [id number] [place] [address] [id number] Oct, [place] [id number] [place] [address] [id number] Aug, [place] [id number] [place] [address] [id number] Aug, Essential hypertension I10 [facility] [id number] [place] [address] [id number] Jul, [facility] [id number] [place] [address] [id number] May, Neuropathy G62.9 [facility] [address] [id number], [place] [phone] May, [facility] [address] [id number], [place] [id number] Jan, [facility] [address] [place] [id number] [id number] Jan, Hyperlipemia 272.4 [facility] [place] [address] [place] [id number], [place] [id number] Jan, Other and unspecified hyperlipidemia 272.4 ; Unspecified essential hypertension 401.9 and Unspecified hereditary and idiopathic peripheral neuropathy 356.9 [facility] [place] [address] [place] [id number], [place] [id number] Oct, [facility] [address]00565100[place] [address] Oct, [facility] [address]00565100[place], [place] [address] Oct, [facility] [place] [address] [place] [id number], [place] [id number] Aug, [facility] [address]00565100[place], [place] [address] Aug, [facility] [address]00565100[place], [place] [address] Jul, [facility] [address]00565100[place], [place] [address] Jul, [facility] [place] [id number], [place] 8[address] Jul, [facility] [place] [address] [place] [id number], [place] [id number] Jul, [facility] [address]65100[place], [place] [address] Jul, [facility] [address] [place] [id number] [address] Jul, [facility] [place] [id number], [place] [id number] Jul, [facility] [place] [address] [place] [id number], [place] [id number] Jun, [facility] [address]00565100[place] [address] Jun, [facility] [place] [address] [facility] [id number], [place] [id number] Jun, [facility] [address] [facility] [id number] [address] Jun, [facility] [place] [address] [facility] [id number], [place] [id number] May, [facility] [address] [facility] [id number][place] [address] May, [facility] [place] [address] [facility] [id number], [place] [id number] Apr, [facility] [address] [facility] [id number][place] [address] Apr, [facility] [place] [address] [facility] [id number], [place] [id number] Mar, [facility] [address]100[place], [place] [address] Mar, [facility] [place] [address] [facility] [id number], [place] [id number] Feb, [facility] [address]65100[place], [place] [address] Feb, [facility] [address]100[place], [place] [address] Feb, [facility] [place] [address] [facility] [id number], [place] [id number] Feb, [facility] [place] [address] [facility] [id number], [place] [id number] Dec, [facility] [address] [facility] [id number][place] [address] Dec, [facility] [address] [facility] [id number][place] [address] Aug, [facility] [address] [facility] [id number][place] [address] Aug, [facility] [address] [facility] [id number], [place] [id number] Jul, [facility] [address] [facility] [id number][place] [address] Jul, [facility] [place] [address] [id number] [place] [id number] Mar, [facility] [address] [facility] [id number][place] [address] Dec, [facility] [address] [id number] [place] [id number] Dec, [facility] [address] [id number] [place] [id number] Jun, [facility] [address] [facility] [id number][place] [address] Jun, [facility] [address] [facility] [id number][place] [address] May, [facility] [address] [place] [address] [id number] [address] May, [facility] [place] [address] [id number], [place] [id number] Apr, [facility] [address] [facility] [id number][place] [address] Apr, [facility] [place] [address] [id number], [place] [id number] Apr, [facility] [address] [facility] [id number][place] [address] Apr, [facility] [address] [id number], [place] [id number] Jan, [facility] [address] [id number] [place] [id number] Jan, [facility] [address] [id number] [place] [id number] November, [facility] [address] [id number] [place] [id number] November, [facility] [address] [id number] [place] [id number] November, [facility] [address] [id number] [place] 7195667[address] Oct, [facility] [address] [id number] [place] 955855138 Oct, [facility] [address] [id number] [place] [id number] 17 Oct, 2011 [facility] [address] [id number] [place] [id number] Oct, [facility] [address] [id number] [place] 913995988 Sep, [facility] [address] [id number] [place] [id number] Sep, [facility] [address] [facility] [id number][place] [address] Aug, [facility] [address] [id number] [address] Jun, [facility] [address] [id number] [address] Jun, [facility] [address] [address] Jun, [facility] [address]100[place], [place] [address] May, [facility] [address]100[place], [place] [address] May, [facility] [address], [place] [address] Jun, [facility] [address] [facility] [id number][place] [address] Jun, [facility] [address] [facility] [id number][place] [address] Jun, [facility] [address] [id number] [address] 13 Oct, 2009 [facility] [address] [id number] [address] Sep, [facility] [address] [facility] [id number] [address] Jun, [facility] [address] [facility] [id number] [address] Jun, [facility] [address] [facility] [id number][place] [address] May, [facility] [address] [facility] [id number] [address] May, [facility] [address] [facility] [id number][place] [address] May, [facility] [address] [id number] [address] May, IMMUNIZATIONS No Known Immunizations SOCIAL HISTORY Never Assessed REASON FOR VISIT here to follow up on PVD and blood pressure, doing well. lazara Story PLAN OF CARE Activity Details Follow Up prn Reason:after ct scan VITAL SIGNS Height 66 in 2018-09-22 Weight 210 lbs 2018-09-22 Temperature 97.5 degrees Fahrenheit 2018-09-22 Heart Rate 80 bpm 2018-09-22 Respiratory Rate 16 2018-09-22 BMI 33.89 kg/m2 2018-09-22 Blood pressure systolic 160 mmHg 2018-09-22 Blood pressure diastolic 90 mmHg 2018-09-22 MEDICATIONS Medication Instructions Dosage Frequency Start Date End Date Duration Status tramadol 50 mg orally 3 times a day PRN must last 28 days 1 Tablet Active Lisinopril 40 mg Orally 2 times a day 1tab 12h Active Plavix 75 MG TAKE ONE (1) TABLET BY MOUTH DAILY... Active Pravastatin Sodium 80 MG TAKE ONE (1) TABLET DAILY AT BEDTIME. Active Warfarin Sodium 5 MG Orally Once a day 1 tablet 24h Active Metoprolol Tartrate 50 mg TAKE 1 TABLET BY MOUTH TWICE DAILY WITH FOOD... Active Gabapentin 800 MG 1 tablet 2 times a day Orally 30 30 30 Active Hydrochlorothiazide 25 MG Orally Once a day 1 tablet in the morning 24h Sep, 30 day(s) Active RESULTS Name Result Date Reference Range CT Scan : Abdomen & Pelvis w/o & w/ Contrast 2018-11-17 PROCEDURES Procedure Date Ordered Result Body Site [facility] VISIT ESTABLISHED PATIENT September 22, 2018 INSTRUCTIONS MEDICATIONS ADMINISTERED No Known Medications MEDICAL (GENERAL) HISTORY Type Description Date Medical History hypertension Medical History cardiovascular disorder- carotid artery occlusive disease- recurrent PVD s/p aortofemoral bypass Medical History gynecologic disorder- hx cervical cancer s/p WILLIAM/BSO and radiation 2009 Medical History Unspecified hereditary and idiopathic peripheral neuropathy Medical History Other and unspecified hyperlipidemia Medical History Detached retina in right eye-surgery 10/28 Surgical History hysterectomy WILLIAM/BSO for squamous cell carcinoma of the cervix 07/2009 Surgical History Right aortofemoral bypass by Dr. Bhakta 04/2012 Surgical History stentinf left external iliac artery, angioplasty left common femoral artery, stenting right external iliac artery 11/2011 Surgical History iliac artery bypass x's 2 at [facility] Aug and September 2014 Surgical History Left aortofemoral bypass by Dr. Bhakta 10/2016 Surgical History Sarnoma drained from left femoral incision site 2 wks post bypass 10/2016 Surgical History Detached retina in right eye 10/28 Hospitalization History surgeries, childbirth
--- OUTSIDE RECORDS SUMMARY | 2019-02-01 02:08 | XMS REPORT ---
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 Name Role Phone ENETA Flores Unavailable PROBLEMS Type Condition ICD9-CM Code ZFM98-XV Code Onset Dates Condition Status SNOMED Code Problem Stress incontinence N39.3 Active 67163930 Problem Hyperlipidemia, unspecified E78.5 Active 53936138 Problem Essential hypertension I10 Active 88501625 Problem PVD (peripheral vascular disease) I73.9 Active 750294442 Problem Hereditary and idiopathic peripheral neuropathy G60.9 Active 309409368 ALLERGIES No Information ENCOUNTERS Encounter Location Date Diagnosis [place] [id number] [place] [address] [id number] Dec, Acute cystitis with hematuria N30.01 [place] [id number] [place] [address] [id number] Dec, Hereditary and idiopathic peripheral neuropathy G60.9 [place] [id number] [place] [address] [id number] November, Hereditary and idiopathic peripheral neuropathy G60.9 [place] [id number] [place] [address] [id number] November, Acute cystitis with hematuria N30.01 [place] [id number] [place] [address] [id number] Oct, Right lower quadrant abdominal pain R10.31 [place] [id number] [place] [address] [id number] Oct, Hereditary and idiopathic peripheral neuropathy G60.9 [facility] [address] [id number] [id number] Sep, Hereditary and idiopathic peripheral neuropathy G60.9 [facility] [address] [id number] [id number] Sep, Right lower quadrant abdominal pain R10.31 [facility] [id number] [place] [address] [id number] Sep, Essential hypertension I10 ; PVD (peripheral vascular disease) I73.9 ; Hereditary and idiopathic peripheral neuropathy G60.9 and Right lower quadrant abdominal pain R10.31 [facility] [address] [id number] [place] [address] [id number] Aug, Left flank pain R10.9 [facility] [address] [id number] Jul, Left flank pain R10.9 [facility] [id number] [place] [address] [id number] Jun, Left flank pain R10.9 [facility] [id number] [place] [address] [id number] Jun, Essential hypertension I10 and Abdominal discomfort in left flank R10.9 [facility] [id number] [place] [address] May, [facility] [id number] [place] [address] [id number] May, Left flank pain R10.9 [facility] [id number] [place] [address] [id number] May, Pyelonephritis N12 [facility] [id number] [place] [address] [id number] May, Hereditary and idiopathic peripheral neuropathy G60.9 [facility] [id number] [place] [address] [id number] Apr, Urinary tract infection N39.0 and Back pain M54.9 [facility] [id number] [place] [address] [id number] Apr, Hereditary and idiopathic peripheral neuropathy G60.9 [facility] [id number] [place] [address] [id number] Mar, Hereditary and idiopathic peripheral neuropathy G60.9 [facility] [id number] [place] [address] [id number] Mar, Essential hypertension I10 and Hereditary and idiopathic peripheral neuropathy G60.9 [facility] [id number] [place] [address] [id number] Feb, Hereditary and idiopathic peripheral neuropathy G60.9 [place] [id number] [place] [address] [id number] Jan, Cystitis N30.90 and Hereditary and idiopathic peripheral neuropathy G60.9 [place] [id number] [place] [address] [id number] Dec, Acute cystitis with hematuria N30.01 [facility] [id number] [place] [address] [id number] Dec, Hereditary and idiopathic peripheral neuropathy G60.[address] [id number] November, Hereditary and idiopathic peripheral neuropathy G60.9 and Essential hypertension I10 [place] [id number] [place] [address] [id number] November, Hereditary and idiopathic peripheral neuropathy G60.9 [facility] [id number] [place] [address] [id number] Oct, Hereditary and idiopathic peripheral neuropathy G60.9 [place] [address] [id number] Sep, Hereditary and idiopathic peripheral neuropathy G60.9 [place] [id number] [place] [address] [id number] Aug, Essential hypertension I10 ; Hereditary and idiopathic peripheral neuropathy G60.9 ; PVD (peripheral vascular disease) I73.9 and Infective urethritis N34.2 [facility] [address] [id number] [place] [address] [id number] Jul, Hereditary and idiopathic peripheral neuropathy G60.9 [place] [id number] [place] [address] [id number] May, Hereditary and idiopathic peripheral neuropathy G60.9 [place] [id number] [place] [address] [id number] May, [place] [id number] [place] [address] [id number] May, Hereditary and idiopathic peripheral neuropathy G60.9 [facility] [id number][place] [id number] Apr, Hereditary and idiopathic peripheral neuropathy G60.9 [place] [id number] [place] [address] [id number] Apr, Encounter for immunization Z23 [place] [id number] [place] [address] [id number] Mar, Urinary tract infection, site not specified N39.0 ; Hematuria, unspecified R31.9 ; Hyperlipidemia, unspecified E78.5 and Essential hypertension I10 [address] [place] [address] [id number] Mar, Essential hypertension I10 ; Hereditary and idiopathic peripheral neuropathy G60.9 and Acute cystitis with hematuria N30.01 [address] [place] [address] [id number] Feb, [place] [address] [place] [id number] [place] [address] [id number] Feb, Hereditary and idiopathic peripheral neuropathy G60.9 [place] [id number] [place] [address] [id number] Jan, Hereditary and idiopathic peripheral neuropathy G60.9 [place] [id number] [place] [address] [id number] Dec, Essential hypertension I10 and Hereditary and idiopathic peripheral neuropathy G60.[id number] [place] [address] [id number] November, Hereditary and idiopathic peripheral neuropathy G60.[address] [id number] [id number] Oct, Acute cystitis with hematuria N30.[id number] [place] [address] [id number] Oct, 2016 [place] [id number] [place] [address] [id number] Oct, Hereditary and idiopathic peripheral neuropathy G60.[address] [id number][place] [id number] Sep, Hereditary and idiopathic peripheral neuropathy G60.9 [address]65100[place] [id number] Sep, Fever, unspecified fever cause R50.9 ; Nausea R11.0 and Viral syndrome B34.9 [facility] [id number] [place] [address] [id number] Aug, [facility] [place] [id number] [place] [address] [id number] Aug, Dysuria R30.0 [facility] [address] [place] [address] [id number] Jul, Essential hypertension I10 and Tobacco abuse disorder Z72.0 [facility] [place] [id number] [place] [address] [id number] Apr, Hyperlipidemia, unspecified E78.5 ; Hereditary and idiopathic peripheral neuropathy G60.9 ; Essential hypertension I10 and Urinary tract infection without hematuria, site unspecified N39.0 [facility] [address] [place] [address] [id number] Apr, Hyperlipidemia, unspecified E78.5 [facility] [address] [place] [address] [id number] Mar, Hyperlipidemia, unspecified E78.5 [facility] [address] [place] [address] [id number] Feb, Essential hypertension I10 [address] [id number] [place] [address] Feb, [address] [id number] Feb, Urinary tract infection, site not specified N39.0 and Hematuria, unspecified R31.9 [address] [place] [address] [id number] Jan, Hereditary and idiopathic peripheral neuropathy G60.9 [address] [place] [address] [id number] Jan, [address] [place] [address] [id number] Dec, Well woman exam Z01.419 ; Colon cancer screening Z12.11 ; Breast cancer screening Z12.39 ; Bladder prolapse, female, acquired N81.10 and Rectocele N81.[address] [id number] Dec, Hereditary and idiopathic peripheral neuropathy G60.9 and Stress incontinence N39.3 [place] [id number] [place] [address] [id number] Dec, [address] [id number] November, Essential hypertension I10 ; Hereditary and idiopathic peripheral neuropathy G60.9 and PVD (peripheral vascular disease) I73.[address] [id number] November, [address] [id number] Oct, [place] [id number] [place] [address] [id number] Aug, [address] [id number] Aug, Essential hypertension I10 [place] [id number] [place] [address] [id number] Jul, [address] [id number] May, Neuropathy G62.[address] [facility] [address] [id number] [id number] May, [facility] [id number] [place] [address] [id number] Jan, [place] [id number] [place] [address] [id number] Jan, Hyperlipemia 272.[address] [id number] Jan, Other and unspecified hyperlipidemia 272.4 ; Unspecified essential hypertension 401.9 and Unspecified hereditary and idiopathic peripheral neuropathy 356.9 [place] [id number] [place] [address] [id number] Oct, [facility] [place] [facility] [address] [id number], [place] [address] Oct, [facility] [place] [facility] [address] [facility] [id number][place] [address] Oct, [facility] [address] [facility] [id number][place] [id number] Aug, [facility] [place] [facility] [address] [facility] [id number][place] [address] Aug, [facility] [place] [facility] [address] [facility] [id number], [place] [address] Jul, [facility] [place] [facility] [address] [facility] [id number], [place] [address] Jul, [facility] [address] [facility] [id number][place] [phone] Jul, [facility] [address] [facility] [id number][place] [id number] Jul, [facility] [place] [facility] [address] [facility] [id number], [place] [address] Jul, [facility] [place] [facility] [address] [facility] [id number][place] [address] Jul, [facility] [address] [id number][place] [id number] Jul, [facility] [address] [id number][place] [phone] Jun, [facility] [place] [facility] [address] [facility] [id number], [place] [address] Jun, [facility] [address] [id number][place] [id number] Jun, [facility] [place] [facility] [address] [facility] [id number], [place] [address] Jun, [facility] [address] [facility] [id number], [place] [id number] May, [facility] [place] [facility] [address] [facility] [id number][place] [address] May, [facility] [address] [id number] [place] [id number] Apr, [facility] [place] [facility] [address] [facility] [id number][place] [address] Apr, [facility] [address] [id number] [place] [id number] Mar, [facility] [place] [facility] [address] [id number], [place] [address] Mar, [facility] [address] [id number] [place] [id number] Feb, [facility] [place] [facility] [address] [facility] [id number][place] [address] Feb, [facility] [place] [facility] [address] [place] [id number], [place] [address] Feb, [facility] [address] [id number][place] [id number] Feb, [facility] [address] [id number], [place] [id number] Dec, [facility] [place] [facility] [address]00565100[place] [address] Dec, [facility] [place] [facility] [address] [facility] [id number], [place] [address] Aug, [facility] [place] [facility] [address] [facility] [id number][place] [address] Aug, [facility] [address] [id number], [place] [id number] Jul, [facility] [place] [facility] [address] [facility] [id number], [place] [address] Jul, [facility] [address] [facility] [id number][place] [id number] Mar, [facility] [place] [facility] [address] [facility] [id number], [place] [address] Dec, [facility] [address] [id number] [place] [id number] Dec, [facility] [address] [id number] [place] [id number] Jun, [facility] [address] [facility] [id number], [place] [address] Jun, [facility] [address] [facility] [id number], [place] [address] May, [facility] [address] [facility] [id number], [place] [address] May, [facility] [address] [id number][place] [id number] Apr, [facility] [address] [facility] [id number], [place] [address] Apr, [facility] [address] [id number], [place] [id number] Apr, [facility] [address]00565100[place], [place] [address] Apr, [facility] [address] [id number] [place] [id number] Jan, [facility] [address] [id number][place] [id number] Jan, [facility] [address] [id number], [place] [id number] November, [facility] [address] [id number] [place] [id number] November, [facility] [address] [id number], [place] [id number] November, [facility] [address] [id number] [place] [id number] Oct, [facility] [address] [id number] [place] [id number] Oct, [facility] [address] [id number][place] [id number] Oct, [facility] [address] [id number], [place] [id number] Oct, [facility] [address] [id number] [place] [id number] Sep, [facility] [address] [id number] [place] [id number] Sep, [facility] [address] [id number] [place] [address] Aug, [facility] [address] [id number] [place] [address] Jun, [facility] [place] [facility] [address] [id number] [place] [address] Jun, [facility] [address] [id number] [place] [address] Jun, [facility] [address] [facility] [id number] [place] [address] May, [facility] [address] [facility] [id number] [place] [address] May, [facility] [address] [id number] [place] [address] Jun, [facility] [place] [facility] [address] [id number] [place] [address] Jun, [facility] [address] [facility] [id number] [place] [address] Jun, [facility] [place] [facility] [address] [id number] [place] [address] Oct, [facility] [place] [facility] [address] [id number] [place] [address] Sep, [facility] [place] [facility] [address] [id number] [place] [address] Jun, [facility] [place] [facility] [address] [id number] [place] [address] Jun, [facility] [place] [facility] [address] [id number] [place] [address] May, [facility] [address] [facility] [id number] [place] [address] May, [facility] [address] [facility] [id number], [place] [address] May, [facility] [address] [facility] [id number] [place] [address] May, IMMUNIZATIONS No Known Immunizations SOCIAL HISTORY Never Assessed REASON FOR VISIT PLAN OF CARE VITAL SIGNS MEDICATIONS No Known Medications RESULTS No Results PROCEDURES Procedure Date Ordered Result Body Site COMPLETE CBC W/AUTO DIFF WBC Jul 25, 2014 RHEUMATOID FACTOR, QUANT Jul 25, 2014 C-REACTIVE PROTEIN Jul 25, 2014 RBC SED RATE, AUTOMATED Jul 25, 2014 ASSAY THYROID STIM HORMONE Jul 25, 2014 LIPID PANEL Jul 25, 2014 COMPREHEN METABOLIC PANEL Jul 25, 2014 VENIPUNCT, ROUTINE* Jul 25, 2014 INSTRUCTIONS MEDICATIONS ADMINISTERED No Known Medications MEDICAL (GENERAL) HISTORY Type Description Date Medical History hypertension Medical History cardiovascular disorder- carotid artery occlusive disease- recurrent PVD s/p aortofemoral bypass Medical History gynecologic disorder- hx cervical cancer s/p IWLLIAM/BSO and radiation 2009 Medical History Unspecified hereditary [...] History iliac artery bypass x's 2 [facility] Aug and September 2014 Surgical History Left aortofemoral bypass by Dr. Bhakta 10/2016 Surgical History Sarnoma drained from left femoral incision site 2 wks post bypass 10/2016 Surgical History Detached retina in right eye 10/28 Hospitalization History surgeries, childbirth
--- OUTSIDE RECORDS SUMMARY | 2019-02-01 02:09 | XMS REPORT ---
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 Name Role Phone Migration, Doctor Unavailable Unavailable PROBLEMS Type Condition ICD9-CM Code YPL31-OB Code Onset Dates Condition Status SNOMED Code Problem Stress incontinence N39.3 Active 29066855 Problem Hyperlipidemia, unspecified E78.5 Active 46430335 Problem Essential hypertension I10 Active 68286317 Problem PVD (peripheral vascular disease) I73.9 Active 980584020 Problem Hereditary and idiopathic peripheral neuropathy G60.9 Active 520998718 ALLERGIES No Information ENCOUNTERS Encounter Location Date Diagnosis [id number] [id number] [id number] Sep, Hereditary and idiopathic peripheral neuropathy G60.[address] [id number] [place] [id number] Sep, Right lower quadrant abdominal pain R10.31 [facility] [id number] [place] [address] [id number] Sep, Essential hypertension I10 ; PVD (peripheral vascular disease) I73.9 ; Hereditary and idiopathic peripheral neuropathy G60.9 and Right lower quadrant abdominal pain R10.31 [facility] [id number] [id number] Aug, Left flank pain R10.9 [facility] [id number] [place] [address] [id number] Jul, Left flank pain R10.9 [facility] [id number] [place] [address] [id number] Jun, Left flank pain R10.9 [facility] [id number] [place] [address] [id number] Jun, Essential hypertension I10 and Abdominal discomfort in left flank R10.9 [facility] [id number] [place] [address] May, [facility] [id number] [place] [address] [id number] May, Left flank pain R10.9 [facility] [id number] [place] [address] [id number] May, Pyelonephritis N12 [facility] [id number] [place] [address] [id number] May, Hereditary and idiopathic peripheral neuropathy G60.9 [facility] [id number] [place] [address] [id number] Apr, Urinary tract infection N39.0 and Back pain M54.9 [id number] [place] [address] [id number] Apr, Hereditary and idiopathic peripheral neuropathy G60.9 [place] [id number] [place] [address] [id number] Mar, Hereditary and idiopathic peripheral neuropathy G60.9 [place] [id number] [place] [address] [id number] Mar, Essential hypertension I10 and Hereditary and idiopathic peripheral neuropathy G60.9 [id number] [place] [address] [id number] Feb, Hereditary and idiopathic peripheral neuropathy G60.9 [place] [id number] [place] [address] [id number] Jan, Cystitis N30.90 and Hereditary and idiopathic peripheral neuropathy G60.9 [place] [id number] [place] [address] [id number] Dec, Acute cystitis with hematuria N30.01 [facility] [id number] [place] [address] [id number] Dec, Hereditary and idiopathic peripheral neuropathy G60.9 [place] [id number] [place] [address] [id number] November, Hereditary and idiopathic peripheral neuropathy G60.9 and Essential hypertension I10 [facility] [id number] [place] [address] [id number] November, Hereditary and idiopathic peripheral neuropathy G60.9 [facility] [id number] [place] [address] [id number] Oct, Hereditary and idiopathic peripheral neuropathy G60.9 [place] [id number] Sep, Hereditary and idiopathic peripheral neuropathy G60.9 [facility] [id number] [place] [address] [id number] Aug, Essential hypertension I10 ; Hereditary and idiopathic peripheral neuropathy G60.9 ; PVD (peripheral vascular disease) I73.9 and Infective urethritis N34.2 [place] [id number] [place] [address] [id number] Jul, Hereditary and idiopathic peripheral neuropathy G60.[address] [id number] May, Hereditary and idiopathic peripheral neuropathy G60.9 [id number] [place] [address] [id number] May, [place] [id number] [place] [address] [id number] May, Hereditary and idiopathic peripheral neuropathy G60.9 [id number] [place] [address] [id number] Apr, Hereditary and idiopathic peripheral neuropathy G60.9 [id number] [place] [address] [id number] Apr, Encounter for immunization Z23 [id number] [place] [address] [id number] Mar, Urinary tract infection, site not specified N39.0 ; Hematuria, unspecified R31.9 ; Hyperlipidemia, unspecified E78.5 and Essential hypertension I10 [address] [place] [address] [id number] Mar, Essential hypertension I10 ; Hereditary and idiopathic peripheral neuropathy G60.9 and Acute cystitis with hematuria N30.01 [id number] [place] [address] [id number] Feb, [id number] [place] [address] [id number] Feb, Hereditary and idiopathic peripheral neuropathy G60.9 [facility] [id number][place] [id number] Jan, Hereditary and idiopathic peripheral neuropathy G60.9 [id number] [place] [address] [id number] Dec, Essential hypertension I10 and Hereditary and idiopathic peripheral neuropathy G60.9 [address] [place] [address] [id number] November, Hereditary and idiopathic peripheral neuropathy G60.9 [facility] [address] [facility] [id number] [place] [id number] Oct, Acute cystitis with hematuria N30.01 [id number] [place] [address] [id number] Oct, [place] [id number] [place] [address] [id number] Oct, Hereditary and idiopathic peripheral neuropathy G60.9 [id number] [place] [address] [id number] Sep, Hereditary and idiopathic peripheral neuropathy G60.9 [address] [place] [address] [id number] Sep, Fever, unspecified fever cause R50.9 ; Nausea R11.0 and Viral syndrome B34.9 [address] [place] [address] [id number] Aug, [id number] [place] [address] [id number] Aug, Dysuria R30.0 [address] [place] [address] [id number] Jul, Essential hypertension I10 and Tobacco abuse disorder Z72.0 [id number] [place] [address] [id number] Apr, Hyperlipidemia, unspecified E78.5 ; Hereditary and idiopathic peripheral neuropathy G60.9 ; Essential hypertension I10 and Urinary tract infection without hematuria, site unspecified N39.0 [id number] [place] [address] [id number] Apr, Hyperlipidemia, unspecified E78.5 [facility] [id number] [place] [address] [id number] Mar, Hyperlipidemia, unspecified E78.5 [address] [place] [address] [id number] Feb, Essential hypertension I10 [address] [address] Feb, [id number] [place] [address] [id number] Feb, Urinary tract infection, site not specified N39.0 and Hematuria, unspecified R31.9 [id number] [place] [address] [id number] Jan, Hereditary and idiopathic peripheral neuropathy G60.9 [id number] [place] [address] [id number] Jan, [id number] [place] [address] [id number] Dec, Well woman exam Z01.419 ; Colon cancer screening Z12.11 ; Breast cancer screening Z12.39 ; Bladder prolapse, female, acquired N81.10 and Rectocele N81.6 [id number] [place] [address] [id number] Dec, Hereditary and idiopathic peripheral neuropathy G60.9 and Stress incontinence N39.3 [id number] [place] [address] [id number] Dec, [id number] [place] [address] [id number] November, Essential hypertension I10 ; Hereditary and idiopathic peripheral neuropathy G60.9 and PVD (peripheral vascular disease) I73.9 [id number] [place] [address] [id number] November, [id number] [place] [address] [id number] Oct, [id number] [place] [address] [id number] Aug, [address] [place] [id number] Aug, Essential hypertension I10 [facility] [place] [address] [id number] [id number] Jul, [facility] [place] [id number], [place] [id number] May, Neuropathy G62.9 [facility] [address] [id number] [place] [id number] May, [facility] [address] [id number] [place] [id number] Jan, [facility] [place] [id number], [place] [id number] Jan, Hyperlipemia 272.4 [facility] [place] [id number] [place] [address] [id number] Jan, Other and unspecified hyperlipidemia 272.4 ; Unspecified essential hypertension 401.9 and Unspecified hereditary and idiopathic peripheral neuropathy 356.9 [facility] [place] [id number], [place] [id number] Oct, [facility] [id number] [place] [address] Oct, [facility] [id number] [place] [address] Oct, [facility] [place] [address] [id number] [id number] Aug, [facility] [id number] [place] [phone] Aug, [facility] [address] [place] [address] Jul, [facility] [id number] [place] [address] Jul, [facility] [place] [address] [id number], [place] [id number] Jul, [facility] [place] [address] [id number][place] [id number] Jul, [facility] [place] [facility] [address] [facility] [id number], [place] [address] Jul, [facility] [place] [facility] [address] [facility] [id number] [place] [address] Jul, [facility] [place] [address] [id number] [place] [id number] Jul, [facility] [place] [address] [id number] [place] [id number] Jun, [facility] [place] [facility] [address] [facility] [id number] [place] [address] Jun, [facility] [place] [address] [id number] [place] [id number] Jun, [facility] [place] [facility] [address] [facility] [id number] [place] [address] Jun, [facility] [place] [address] [facility] [id number], [place] [id number] May, [facility] [place] [facility] [address] [facility] [id number], [place] [address] May, [facility] [place] [address] [facility] [id number], [place] [id number] Apr, [facility] [place] [facility] [address] [facility] [id number], [place] [address] Apr, [facility] [place] [address] [facility] [id number], [place] [id number] Mar, [facility] [place] [facility] [address] [facility] [id number], [place] [address] Mar, [facility] [place] [address] [facility] [id number], [place] [id number] Feb, [facility] [place] [facility] [address] [facility] [id number], [place] [address] Feb, [facility] [place] [facility] [address] [facility] [id number], [place] [address] Feb, [facility] [place] [address] [facility] [id number], [place] [id number] Feb, [facility] [place] [address] [facility] [id number], [place] [id number] Dec, [facility] [place] [facility] [address] [facility] [id number], [place] [address] Dec, [facility] [place] [facility] [address] [facility] [id number], [place] [address] Aug, [facility] [place] [facility] [address] [facility] [id number], [place] [address] Aug, [facility] [place] [address] [facility] [id number], [place] [id number] Jul, [facility] [place] [facility] [address] [facility] [id number], [place] [address] Jul, [facility] [place] [address] [facility] [id number], [place] [id number] Mar, [facility] [place] [facility] [address]00565100[place], [place] [address] Dec, [facility] [place] [address] [facility] [id number], [place] [id number] Dec, [facility] [place] [address] [facility] [id number], [place] [id number] Jun, [facility] [place] [facility] [address] [facility] [id number], [place] [address] Jun, [facility] [place] [facility] [address] [facility] [id number], [place] [address] May, [facility] [place] [facility] [address] [facility] [id number], [place] [address] May, [facility] [place] [address] [facility] [id number], [place] [id number] Apr, [facility] [place] [facility] [address] [facility] [id number], [place] [address] Apr, [facility] [place] [address] [facility] [id number], [place] [id number] Apr, [facility] [place] [facility] [address] [facility] [id number], [place] [address] Apr, [facility] [place] [address] [id number] [place] [id number] Jan, [facility] [place] [address] [id number] [place] [id number] Jan, [facility] [place] [address] [id number] [place] [id number] November, [facility] [place] [address] [id number] [place] [id number] November, [facility] [place] [address] [id number] [place] [id number] November, [facility] [place] [address] [id number] [place] [id number] Oct, [facility] [place] [address] [id number] [place] [id number] Oct, [facility] [place] [address] [id number] [place] [id number] Oct, [facility] [place] [address] [id number] [place] [id number] Oct, [facility] [place] [address] [id number] [place] [id number] Sep, [facility] [place] [address] [id number] [place] [id number] Sep, [facility] [address]00565100[place], [place] [address] Aug, [facility] [address]00565100[place], [place] [address] Jun, [facility] [address]00565100[place], [place] [address] Jun, [facility] [id number] [place] [address] Jun, [facility] [address] [id number], [place] [address] May, [facility] [id number] [place] [address] May, [facility] [address] [id number], [place] [address] 10 Jun, 2010 [facility] [address] [facility] [id number], [place] [address] Jun, [facility] [address] [facility] [id number], [place] [address] Jun, [facility] [address] [facility] [id number], [place] [address] Oct, [facility] [address] [facility] [id number], [place] [address] Sep, [facility] [address] [facility] [id number], [place] [address] Jun, [facility] [address]00565100[place], [place] [address] Jun, [facility] [address]00565100[place], [place] [address] May, [facility] [address]00565100[place], [place] [address] May, [facility] [address]00565100[place], [place] [address] May, [facility] [address] [id number], [place] [address] May, IMMUNIZATIONS No Known Immunizations SOCIAL HISTORY Never Assessed REASON FOR VISIT [facility] PLAN OF CARE VITAL SIGNS MEDICATIONS Medication Instructions Dosage Frequency Start Date End Date Duration Status tramadol 50 mg 1 Tablet by Oral route 2 times per day PRN Jul, Active Diclofenac Sodium 75 mg 1 tablet by Oral route 2 times per day PRN Jul, Active Lisinopril 40 mg take 1 tablet by Oral route 1 time per day NEEDS APPT PRIOR TO FURTHER REFILLS Jul, Active Neurontin 300 mg 2 Tablet by Oral route 2 times per day Aug, Active pravastatin 40 mg 1 tablet by Oral route 1 time per day Take at bedtime Avoid grapefruit juice/products with grapefruit. Jul, Active RESULTS No Results PROCEDURES No Known procedures INSTRUCTIONS MEDICATIONS ADMINISTERED No Known Medications MEDICAL (GENERAL) HISTORY Type Description Date Medical History hypertension Medical History cardiovascular disorder- carotid artery occlusive disease- recurrent PVD s/p aortofemoral bypass Medical History gynecologic disorder- hx cervixcal cancer s/p WILLIAM/BSO and radiation 2009 Medical [...] History iliac artery bypass x's 2 at [facility] Aug and September 2014 Surgical History Left aortofemoral bypass by Dr. Bhakta 10/2016 Surgical History Sarnoma drained from left femoral incision site 2 wks post bypass 10/2016 Surgical History Detached retina in right eye 10/28 Hospitalization History surgeries, childbirth
--- OUTSIDE RECORDS SUMMARY | 2019-02-01 02:09 | XMS REPORT ---
Author Author Migration, Doctor Organization [facility] Address Unknown Phone Unavailable Care Team Providers Care Filler Blender Name Role Phone Migration, Doctor Unavailable Unavailable PROBLEMS Type Condition ICD9-CM Code [id number] Code Onset Dates Condition Status SNOMED Code Problem Stress incontinence N39.3 Active 85627114 Problem Hyperlipidemia, unspecified E78.5 Active 90132245 Problem Essential hypertension I10 Active 68133579 Problem PVD (peripheral vascular disease) I73.9 Active 857625698 Problem Hereditary and idiopathic peripheral neuropathy G60.9 Active 257522574 ALLERGIES No Information ENCOUNTERS Encounter Location Date Diagnosis [id number] [place] [address] [id number] November, Acute cystitis with hematuria N30.01 [place] [id number] [place] [address] [id number] Oct, Right lower quadrant abdominal pain R10.31 [place] [id number] [place] [address] [id number] Oct, Hereditary and idiopathic peripheral neuropathy G60.9 [place] [address] [facility] [address] [id number] [id number] Sep, Hereditary and idiopathic peripheral neuropathy G60.[address] [id number][place] [id number] Sep, Right lower quadrant abdominal pain R10.31 [address] [place] [address] [id number] Sep, Essential hypertension I10 ; PVD (peripheral vascular disease) I73.9 ; Hereditary and idiopathic peripheral neuropathy G60.9 and Right lower quadrant abdominal pain R10.31 [place] [id number] [place] [address] [id number] Aug, Left flank pain R10.9 [place] [id number] [place] [address] [id number] Jul, Left flank pain R10.9 [facility] [id number] [place] [address] [id number] Jun, Left flank pain R10.9 [facility] [id number] [place] [address] [id number] Jun, Essential hypertension I10 and Abdominal discomfort in left flank R10.9 [facility] [id number] [place] [address] May, [facility] [id number] [place] [address] [id number] May, Left flank pain R10.9 [facility] [id number] [place] [address] [id number] May, Pyelonephritis N12 [facility] [id number] [place] [address] [id number] May, Hereditary and idiopathic peripheral neuropathy G60.9 [facility] [id number] [place] [address] [id number] Apr, Urinary tract infection N39.0 and Back pain M54.9 [facility] [id number] [place] [address] [id number] Apr, Hereditary and idiopathic peripheral neuropathy G60.9 [facility] [id number] [place] [address] [id number] Mar, Hereditary and idiopathic peripheral neuropathy G60.9 [facility] [id number] [place] [address] [id number] Mar, Essential hypertension I10 and Hereditary and idiopathic peripheral neuropathy G60.9 [facility] [id number] [place] [address] [id number] Feb, Hereditary and idiopathic peripheral neuropathy G60.9 [facility] [id number] [place] [address] [id number] Jan, Cystitis N30.90 and Hereditary and idiopathic peripheral neuropathy G60.9 [facility] [id number] [place] [address] [id number] Dec, Acute cystitis with hematuria N30.01 [facility] [id number] [place] [address] [id number] Dec, Hereditary and idiopathic peripheral neuropathy G60.9 [facility] [id number] [place] [address] [id number] November, Hereditary and idiopathic peripheral neuropathy G60.9 and Essential hypertension I10 [facility] [id number] [place] [address] [id number] November, Hereditary and idiopathic peripheral neuropathy G60.9 [place] [address] [id number] Oct, Hereditary and idiopathic peripheral neuropathy G60.9 [place] [address] [id number] Sep, Hereditary and idiopathic peripheral neuropathy G60.9 [facility] [address] [id number] Aug, Essential hypertension I10 ; Hereditary and idiopathic peripheral neuropathy G60.9 ; PVD (peripheral vascular disease) I73.9 and Infective urethritis N34.2 [facility] [id number] [place] [address] [id number] Jul, Hereditary and idiopathic peripheral neuropathy G60.[address] [id number] May, Hereditary and idiopathic peripheral neuropathy G60.9 [place] [id number] [place] [address] [id number] May, [place] [id number] [place] [address] [id number] May, Hereditary and idiopathic peripheral neuropathy G60.9 [place] [id number] [place] [address] [id number] Apr, Hereditary and idiopathic peripheral neuropathy G60.9 [place] [address] [id number] Apr, Encounter for immunization Z23 [place] [address] [id number] Mar, Urinary tract infection, site not specified N39.0 ; Hematuria, unspecified R31.9 ; Hyperlipidemia, unspecified E78.5 and Essential hypertension I10 [facility] [address] [id number] [place] [id number] Mar, Essential hypertension I10 ; Hereditary and idiopathic peripheral neuropathy G60.9 and Acute cystitis with hematuria N30.01 [facility] [address] [id number] [place] [id number] Feb, [facility] [id number] [place] [address] [id number] Feb, Hereditary and idiopathic peripheral neuropathy G60.9 [facility] [id number] [place] [address] [id number] Jan, Hereditary and idiopathic peripheral neuropathy G60.9 [place] [id number] [place] [address] [id number] Dec, Essential hypertension I10 and Hereditary and idiopathic peripheral neuropathy G60.9 [place] [id number] [place] [address] [id number] November, Hereditary and idiopathic peripheral neuropathy G60.[address] [id number][place] [id number] Oct, Acute cystitis with hematuria N30.01 [address] [place] [address] [id number] Oct, [place] [id number] [place] [address] [id number] Oct, Hereditary and idiopathic peripheral neuropathy G60.9 [address] [place] [address] [id number] Sep, Hereditary and idiopathic peripheral neuropathy G60.9 [address] [place] [address] [id number] Sep, Fever, unspecified fever cause R50.9 ; Nausea R11.0 and Viral syndrome B34.9 [address] [place] [address] [id number] Aug, [facility] [id number] [place] [address] [id number] Aug, Dysuria R30.0 [place] [id number] [place] [address] [id number] Jul, Essential hypertension I10 and Tobacco abuse disorder Z72.0 [facility] [address] [id number] [place] [id number] Apr, Hyperlipidemia, unspecified E78.5 ; Hereditary and idiopathic peripheral neuropathy G60.9 ; Essential hypertension I10 and Urinary tract infection without hematuria, site unspecified N39.0 [facility] [address] [id number] [place] [id number] Apr, Hyperlipidemia, unspecified E78.5 [facility] [address] [id number] [place] [id number] Mar, Hyperlipidemia, unspecified E78.5 [facility] [place] [id number] [place] [address] [id number] Feb, Essential hypertension I10 [address] [address] Feb, [place] [id number] [place] [id number] Feb, Urinary tract infection, site not specified N39.0 and Hematuria, unspecified R31.9 [facility] [id number] [place] [id number] Jan, Hereditary and idiopathic peripheral neuropathy G60.9 [facility] [address] [id number] [place] [id number] Jan, [place] [id number] [place] [id number] Dec, Well woman exam Z01.419 ; Colon cancer screening Z12.11 ; Breast cancer screening Z12.39 ; Bladder prolapse, female, acquired N81.10 and Rectocele N81.6 [facility] [address] [id number] [place] [id number] Dec, Hereditary and idiopathic peripheral neuropathy G60.9 and Stress incontinence N39.3 [facility] [id number] [place] [address] [id number] Dec, [facility] [id number] [place] [id number] November, Essential hypertension I10 ; Hereditary and idiopathic peripheral neuropathy G60.9 and PVD (peripheral vascular disease) I73.9 [facility] [address] [place] [id number] [place] [id number] November, [facility] [id number] [place] [address] [id number] Oct, [facility] [place] [id number] [place] [id number] Aug, [address] [place] [address] [id number] Aug, Essential hypertension I10 [address] [place] [address] [id number] Jul, [place] [id number] [place] [address] [id number] May, Neuropathy G62.[address] [facility] [address] [id number] [id number] May, [facility] [id number] [place] [address] [id number] Jan, [address] [id number] Jan, Hyperlipemia 272.4 [place] [id number] [place] [address] [id number] Jan, Other and unspecified hyperlipidemia 272.4 ; Unspecified essential hypertension 401.9 and Unspecified hereditary and idiopathic peripheral neuropathy 356.9 [address] [id number] Oct, [facility] [id number] [place] [id number] Oct, [facility] [address] [place] [address] Oct, [address] [place] [address] [id number] Aug, [facility] [id number] [place] [address] Aug, [facility] [address] [place] [address] Jul, [facility] [place] [facility] [address] [facility] [id number], [place] [address] Jul, [facility] [address] [id number] [place] [id number] Jul, [facility] [address] [id number] [place] [id number] Jul, [facility] [place] [facility] [address] [facility] [id number], [place] [address] Jul, [facility] [place] [facility] [address] [facility] [id number], [place] [address] Jul, [facility] [address] [id number] [place] [id number] Jul, [facility] [address] [id number] [place] [id number] Jun, [facility] [place] [facility] [address] [facility] [id number], [place] [address] Jun, [facility] [address] [id number] [place] [id number] Jun, [facility] [place] [facility] [address] [facility] [id number], [place] [address] Jun, [facility] [address] [id number] [place] [id number] May, [facility] [place] [facility] [address] [facility] [id number], [place] [address] May, [facility] [address] [id number] [place] [id number] Apr, [facility] [place] [facility] [address] [facility] [id number], [place] [address] Apr, [facility] [address] [id number] [place] [id number] Mar, [facility] [place] [facility] [address] [facility] [id number], [place] [address] Mar, [facility] [address] [facility] [id number] [place] [id number] Feb, [facility] [address] [facility] [id number], [place] [address] Feb, [facility] [place] [facility] [address] [facility] [id number], [place] [address] Feb, [facility] [address] [facility] [id number] [place] [id number] Feb, [facility] [address] [facility] [id number] [place] [id number] Dec, [facility] [place] [facility] [address] [facility] [id number], [place] [address] Dec, [facility] [place] [facility] [address]00565100[place], [place] [address] Aug, [facility] [place] [facility] [address]00565100[place], [place] [address] Aug, [facility] [address] [facility] [id number] [place] [id number] Jul, [facility] [place] [facility] [address]00565100[place], [place] [address] Jul, [facility] [address] [facility] [id number] [place] [id number] Mar, [facility] [place] [facility] [address] [id number], [place] [address] Dec, [facility] [address] [facility] [id number] [place] [id number] Dec, [facility] [address] [facility] [id number] [place] [id number] Jun, [facility] [place] [facility] [address] [facility] [id number], [place] [address] Jun, [facility] [place] [facility] [address] [facility] [id number], [place] [address] May, [facility] [place] [facility] [address] [id number], [place] [address] May, [facility] [address] [id number] [place] [id number] Apr, [facility] [id number] [place] [address] Apr, [facility] [address] [id number] [place] [id number] Apr, [facility] [address] [place] [address] Apr, [facility] [address] [id number] [place] [id number] Jan, [facility] [address] [id number] [place] [id number] Jan, [facility] [address] [id number] [place] [id number] November, [facility] [address] [id number] [place] [id number] November, [facility] [address] [id number] [place] [id number] November, [facility] [address] [id number] [place] [id number] Oct, [facility] [address] [id number] [place] [id number] Oct, [facility] [address] [id number] [place] [id number] Oct, [facility] [address] [id number] [place] [id number] Oct, [facility] [address] [id number] [place] [id number] Sep, [facility] [address] [id number] [place] [id number] Sep, [facility] [id number] [place] [address] Aug, [facility] [address]65100[place], [place] [address] Jun, [facility] [id number] [place] [address] 13 Jun, 2011 [facility] [address]65100[place], [place] [address] 09 Jun, 2011 [facility] [address]00565100[place], [place] [address] May, [facility] [address]00565100[place], [place] [address] May, [facility] [address]00565100[place], [place] [address] 10 Jun, 2010 [facility] [address] [place] [address] Jun, [facility] [address] [place] [address] Jun, [facility] [address] [place] [address] Oct, [facility] [address]00565100[place], [place] [address] Sep, [facility] [address]00565100[place], [place] [address] Jun, [facility] [address]00565100[place], [place] [address] Jun, [facility] [address]00565100[place], [place] [address] May, [facility] [address]65100[place], [place] [address] May, [facility] [address]65100[place], [place] [address] May, [facility] [address]65100[place], [place] [address] May, IMMUNIZATIONS No Known Immunizations SOCIAL HISTORY Never Assessed REASON FOR VISIT EMR-[facility] [place] PLAN OF CARE VITAL SIGNS MEDICATIONS No Known Medications RESULTS No Results PROCEDURES No Known procedures [...] History iliac artery bypass x's 2 at [facility] Aug and September 2014 Surgical History Left aortofemoral bypass by Dr. Bhakta 10/2016 Surgical History Sarnoma drained from left femoral incision site 2 wks post bypass 10/2016 Surgical History Detached retina in right eye 10/28 Hospitalization History surgeries, childbirth
--- OUTSIDE RECORDS SUMMARY | 2019-02-01 02:09 | XMS REPORT ---
Author Author CINDY CALIXTO [facility] Address [address] [place] [address] Care Team Providers [employer] Name Role Phone CINDY CALIXTO Unavailable PROBLEMS Type Condition ICD9-CM Code JTL38-[place] Code Onset Dates Condition Status SNOMED Code Problem Hyperlipidemia, unspecified E78.5 Active 10296392 Problem Stress incontinence N39.3 Active 47818364 Problem Essential hypertension I10 Active 94827320 Problem Hereditary and idiopathic peripheral neuropathy G60.9 Active 019494706 Problem PVD (peripheral vascular disease) I73.9 Active 879230804 ALLERGIES No Information ENCOUNTERS Encounter Location Date Diagnosis [facility] [address] [id number] Jun, Left flank pain R10.9 [facility] [id number] [place] [address] [id number] Jun, Essential hypertension I10 and Abdominal discomfort in left flank R10.9 [facility] [address] [id number], [place] [address] May, [facility] [id number] [place] [address] [id number] May, Left flank pain R10.9 [facility] [id number] [place] [address] [id number] May, Pyelonephritis N12 [facility] [id number] [place] [address] [id number] May, Hereditary and idiopathic peripheral neuropathy G60.[address] [id number] Apr, Urinary tract infection N39.0 and Back pain M54.9 [id number] [place] [address] [id number] Apr, Hereditary and idiopathic peripheral neuropathy G60.9 [facility] [id number] [id number] Mar, Hereditary and idiopathic peripheral neuropathy G60.9 [facility] [id number] [place] [address] [id number] Mar, Essential hypertension I10 and Hereditary and idiopathic peripheral neuropathy G60.9 [facility] [id number] [place] [address] [id number] Feb, Hereditary and idiopathic peripheral neuropathy G60.9 [facility] [id number] [place] [address] [id number] Jan, Cystitis N30.90 and Hereditary and idiopathic peripheral neuropathy G60.9 [place] [id number] [place] [address] [id number] Dec, Acute cystitis with hematuria N30.01 [facility] [id number] [place] [address] [id number] Dec, Hereditary and idiopathic peripheral neuropathy G60.9 [place] [id number] [place] [address] [id number] November, Hereditary and idiopathic peripheral neuropathy G60.9 and Essential hypertension I10 [facility] [id number] [place] [address] [id number] November, Hereditary and idiopathic peripheral neuropathy G60.9 [facility] [id number] [place] [address] [id number] Oct, Hereditary and idiopathic peripheral neuropathy G60.9 [place] [id number] [place] [address] [id number] Sep, Hereditary and idiopathic peripheral neuropathy G60.9 [facility] [id number] [place] [address] [id number] Aug, Essential hypertension I10 ; Hereditary and idiopathic peripheral neuropathy G60.9 ; PVD (peripheral vascular disease) I73.9 and Infective urethritis N34.2 [facility] [id number] [place] [address] [id number] Jul, Hereditary and idiopathic peripheral neuropathy G60.9 [place] [id number] [place] [address] [id number] May, Hereditary and idiopathic peripheral neuropathy G60.9 [facility] [address] [facility] [id number] [id number] May, [facility] [id number] [place] [address] [id number] May, Hereditary and idiopathic peripheral neuropathy G60.9 [facility] [id number][place] [id number] Apr, Hereditary and idiopathic peripheral neuropathy G60.9 [place] [id number] [place] [address] [id number] Apr, Encounter for immunization Z23 [facility] [id number] [place] [address] [id number] Mar, Urinary tract infection, site not specified N39.0 ; Hematuria, unspecified R31.9 ; Hyperlipidemia, unspecified E78.5 and Essential hypertension I10 [facility] [id number] [place] [address] [id number] Mar, Essential hypertension I10 ; Hereditary and idiopathic peripheral neuropathy G60.9 and Acute cystitis with hematuria N30.01 [facility] [address] [facility] [id number] [id number] Feb, [facility] [id number] [place] [address] [id number] Feb, Hereditary and idiopathic peripheral neuropathy G60.9 [facility] [id number], [place] [id number] Jan, Hereditary and idiopathic peripheral neuropathy G60.9 [place] [id number], [place] [id number] Dec, Essential hypertension I10 and Hereditary and idiopathic peripheral neuropathy G60.9 [facility] [address] [facility] [id number][place] [id number] November, Hereditary and idiopathic peripheral neuropathy G60.9 [facility] [address] [id number][place] [id number] Oct, Acute cystitis with hematuria N30.01 [facility] [address] [facility] [id number], [place] [id number] Oct, [facility] [id number], [place] [id number] Oct, Hereditary and idiopathic peripheral neuropathy G60.9 [place] [id number] [place] [address] [id number] Sep, Hereditary and idiopathic peripheral neuropathy G60.9 [facility] [id number] [place] [address] [id number] Sep, Fever, unspecified fever cause R50.9 ; Nausea R11.0 and Viral syndrome B34.9 [facility] [id number] [place] [address] [id number] Aug, [facility] [place] [id number] [place] [address] [id number] Aug, Dysuria R30.0 [facility] [id number] [place] [address] [id number] Jul, Essential hypertension I10 and Tobacco abuse disorder Z72.0 [place] [id number] [place] [address] [id number] Apr, Hyperlipidemia, unspecified E78.5 ; Hereditary and idiopathic peripheral neuropathy G60.9 ; Essential hypertension I10 and Urinary tract infection without hematuria, site unspecified N39.0 [address] [place] [address] [id number] Apr, Hyperlipidemia, unspecified E78.5 [address] [place] [address] [id number] Mar, Hyperlipidemia, unspecified E78.5 [address] [place] [address] [id number] Feb, Essential hypertension I[facility] [id number] [place] [address] Feb, [address] [place] [address] [id number] Feb, Urinary tract infection, site not specified N39.0 and Hematuria, unspecified R31.9 [address] [place] [address] [id number] Jan, Hereditary and idiopathic peripheral neuropathy G60.9 [facility] [id number][place] [id number] 07 Jan, 2016 [place] [id number] [place] [address] [id number] Dec, Well woman exam Z01.419 ; Colon cancer screening Z12.11 ; Breast cancer screening Z12.39 ; Bladder prolapse, female, acquired N81.10 and Rectocele N81.6 [facility] [id number] [place] [address] [id number] 13 Dec, 2015 Hereditary and idiopathic peripheral neuropathy G60.9 and Stress incontinence N39.3 [facility] [place] [id number] [place] [address] [id number] Dec, [place] [id number] [place] [address] [id number] November, Essential hypertension I10 ; Hereditary and idiopathic peripheral neuropathy G60.9 and PVD (peripheral vascular disease) I73.9 [facility] [id number] [place] [address] [id number] November, [facility] [id number] [place] [address] [id number] Oct, [place] [id number] [place] [address] [id number] Aug, [facility] [id number] [place] [address] [id number] Aug, Essential hypertension I10 [facility] [id number] [place] [address] [id number] Jul, [place] [id number] [place] [address] [id number] May, Neuropathy G62.[address] [facility] [address] [id number] [id number] May, [facility] [place] [address] [id number][place] [id number] Jan, [facility] [place] [id number] [place] [address] [id number] Jan, Hyperlipemia 272.4 [place] [id number] [place] [address] [id number] Jan, Other and unspecified hyperlipidemia 272.4 ; Unspecified essential hypertension 401.9 and Unspecified hereditary and idiopathic peripheral neuropathy 356.9 [facility] [place] [id number], [place] [id number] Oct, [facility] [address]00565[address], [place] [address] Oct, [facility] [address]00565100[place], [place] [address] Oct, [facility] [place] [id number], [place] [id number] Aug, [facility] [id number] [place] [address] Aug, [facility] [address]00565100[place], [place] [address] Jul, [facility] [address]00565100[place], [place] [address] Jul, [facility] [place] [id number], [place] [id number] Jul, [facility] [place] [id number], [place] [id number] Jul, [facility] [address]005[address], [place] [address] Jul, [facility] [address]00565100[place], [place] [address] Jul, [facility] [place] [address] [id number], [place] [id number] Jul, [facility] [place] [address] [id number], [place] [id number] Jun, [facility] [address]00565100[place], [place] [address] Jun, [facility] [place] [address] [id number], [place] [id number] Jun, [facility] [address]00565100[place], [place] [address] Jun, [facility] [place] [address] [facility] [id number] [place] [id number] May, [facility] [place] [facility] [address] [facility] [id number], [place] [address] May, [facility] [place] [address] [id number] [place] [id number] Apr, [facility] [place] [facility] [address] [facility] [id number], [place] [address] Apr, [facility] [place] [address] [facility] [id number] [place] [id number] Mar, [facility] [place] [facility] [address] [facility] [id number], [place] [address] Mar, [facility] [place] [address] [id number] [place] [id number] Feb, [facility] [place] [facility] [address]00565100[place], [place] [address] Feb, [facility] [place] [facility] [address] [id number], [place] [address] Feb, [facility] [place] [address] [id number], [place] [id number] Feb, [facility] [place] [address] [facility] [id number][place] [id number] Dec, [facility] [place] [facility] [address]65100[place], [place] [address] Dec, [facility] [place] [facility] [address] [facility] [id number], [place] [address] Aug, [facility] [place] [facility] [address] [facility] [id number], [place] [address] Aug, [facility] [place] [address] [facility] [id number], [place] [id number] Jul, [facility] [place] [facility] [address] [id number], [place] [address] Jul, [facility] [place] [address] [id number], [place] [id number] Mar, [facility] [address] [facility] [id number], [place] [address] Dec, [facility] [place] [address] [id number], [place] [id number] Dec, [facility] [place] [address] [id number], [place] [id number] Jun, [facility] [place] [facility] [address] [facility] [id number], [place] [address] Jun, [facility] [address] [facility] [id number], [place] [address] May, [facility] [place] [facility] [address] [facility] [id number], [place] [address] May, [facility] [place] [address] [id number], [place] [id number] Apr, [facility] [address] [facility] [id number], [place] [address] Apr, [facility] [place] [address] [id number], [place] [id number] Apr, [facility] [address] [facility] [id number], [place] [address] Apr, [facility] [place] [address] [id number], [place] [id number] Jan, [facility] [place] [address] [id number], [place] [id number] Jan, [facility] [address] [id number], [place] [id number] November, [facility] [address] [id number], [place] [id number] November, [facility] [place] [address] [id number], [place] [id number] November, [facility] [place] [address] [id number], [place] [id number] Oct, [facility] [place] [address] [id number], [place] [id number] Oct, [facility] [place] [address] [id number] [place] [id number] 17 Oct, 2011 [facility] [place] [address] [id number] [place] [id number] 10 Oct, 2011 [facility] [place] [address] [id number] [place] [id number] 20 Sep, 2011 [facility] [place] [address] [id number] [place] [id number] Sep, [facility] [address] [facility] [id number] [place] [address] Aug, [facility] [place] [facility] [address] [facility] [id number] [place] [address] Jun, [facility] [place] [facility] [address] [facility] [id number] [place] [address] Jun, [facility] [place] [facility] [address] [id number] [place] [address] Jun, [facility] [place] [facility] [address] [id number] [place] [address] May, [facility] [place] [facility] [address] [id number] [place] [address] May, [facility] [place] [facility] [address] [id number] [place] [address] Jun, [facility] [place] [facility] [address] [id number] [place] [address] Jun, [facility] [place] [facility] [address] [facility] [id number], [place] [address] Jun, [facility] [place] [facility] [address] [facility] [id number] [place] [address] Oct, [facility] [place] [facility] [address] [facility] [id number] [place] [address] Sep, [facility] [place] [facility] [address] [id number] [place] [address] Jun, [facility] [address] [facility] [id number], [place] [address] Jun, [facility] [address] [facility] [id number], [place] [address] May, [facility] [address] [facility] [id number], [place] [address] May, [facility] [address] [facility] [id number], [place] [address] May, [facility] [address] [facility] [id number], [place] [address] May, IMMUNIZATIONS No Known Immunizations SOCIAL HISTORY Never Assessed REASON FOR VISIT PLAN OF CARE VITAL SIGNS MEDICATIONS Medication Instructions Dosage Frequency Start Date End Date Duration Status tramadol 50 mg orally 3 times a day PRN must last 28 days 1 Tablet 28 days Active RESULTS No Results PROCEDURES No Known [...] artery bypass x's 2 at [facility] Aug and September 2014 Surgical History Left aortofemoral bypass by Dr. Bhakta 10/2016 Surgical History Sarnoma drained from left femoral incision site 2 wks post bypass 10/2016 Surgical History Detached retina in right eye 10/28 Hospitalization History surgeries, childbirth
--- OUTSIDE RECORDS SUMMARY | 2019-02-01 02:10 | XMS REPORT ---
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 Name Role Phone CINDY CALIXTO Unavailable PROBLEMS Type Condition ICD9-CM Code ZMJ77-NM Code Onset Dates Condition Status SNOMED Code Problem Hyperlipidemia, unspecified E78.5 Active 67784610 Problem Stress incontinence N39.3 Active 83683821 Problem Essential hypertension I10 Active 78247379 Problem Hereditary and idiopathic peripheral neuropathy G60.9 Active 953215633 Problem PVD (peripheral vascular disease) I73.9 Active 299761546 ALLERGIES Substance Reaction Event Type Date Status Protamine Sulfate Unknown Drug Allergy May, Active ENCOUNTERS Encounter Location Date Diagnosis [facility] [id number] [place] [address] [phone] Jun, [facility] [address] [address] May, [facility] [id number] [place] [address] [id number] May, Left flank pain R10.9 [facility] [id number] [place] [address] [id number] May, Pyelonephritis N12 [place] [id number] [place] [address] [id number] May, Hereditary and idiopathic peripheral neuropathy G60.9 [facility] [id number] [place] [address] [id number] Apr, Urinary tract infection N39.0 and Back pain M54.9 [facility] [id number] [place] [address] [id number] Apr, Hereditary and idiopathic peripheral neuropathy G60.9 [facility] [id number] [place] [address] [id number] Mar, Hereditary and idiopathic peripheral neuropathy G60.9 [facility] [id number] [place] [id number] Mar, Essential hypertension I10 and Hereditary and idiopathic peripheral neuropathy G60.9 [facility] [id number] [place] [address] [id number] Feb, Hereditary and idiopathic peripheral neuropathy G60.9 [facility] [id number] [place] [address] [id number] Jan, Cystitis N30.90 and Hereditary and idiopathic peripheral neuropathy G60.9 [facility] [id number] [place] [address] [id number] Dec, Acute cystitis with hematuria N30.01 [facility] [id number] [place] [address] [id number] Dec, Hereditary and idiopathic peripheral neuropathy G60.9 [facility] [id number] [place] [address] [id number] November, Hereditary and idiopathic peripheral neuropathy G60.9 and Essential hypertension I10 [facility] [id number] [place] [address] [id number] November, Hereditary and idiopathic peripheral neuropathy G60.9 [place] [id number] [place] [address] [id number] Oct, Hereditary and idiopathic peripheral neuropathy G60.9 [facility] [id number] [place] [address] [id number] Sep, Hereditary and idiopathic peripheral neuropathy G60.9 [place] [id number] [place] [address] [id number] Aug, Essential hypertension I10 ; Hereditary and idiopathic peripheral neuropathy G60.9 ; PVD (peripheral vascular disease) I73.9 and Infective urethritis N34.2 [facility] [id number] [place] [address] [id number] Jul, Hereditary and idiopathic peripheral neuropathy G60.9 [facility] [id number] [place] [address] [id number] May, Hereditary and idiopathic peripheral neuropathy G60.9 [place] [id number] [place] [address] [id number] May, [facility] [id number] [place] [id number] May, Hereditary and idiopathic peripheral neuropathy G60.9 [facility] [id number] [place] [address] [id number] Apr, Hereditary and idiopathic peripheral neuropathy G60.9 [place] [id number] [place] [address] [id number] Apr, Encounter for immunization Z23 [facility] [id number] [place] [address] [id number] Mar, Urinary tract infection, site not specified N39.0 ; Hematuria, unspecified R31.9 ; Hyperlipidemia, unspecified E78.5 and Essential hypertension I10 [place] [id number] [place] [address] [id number] Mar, Essential hypertension I10 ; Hereditary and idiopathic peripheral neuropathy G60.9 and Acute cystitis with hematuria N30.01 [place] [id number] [place] [address] [id number] Feb, [facility] [id number] [place] [address] [id number] Feb, Hereditary and idiopathic peripheral neuropathy G60.9 [place] [id number] [place] [address] [id number] Jan, Hereditary and idiopathic peripheral neuropathy G60.9 [place] [id number] [place] [address] [id number] Dec, Essential hypertension I10 and Hereditary and idiopathic peripheral neuropathy G60.9 [facility] [id number] [place] [id number] November, Hereditary and idiopathic peripheral neuropathy G60.9 [facility] [id number] [phone] Oct, Acute cystitis with hematuria N30.01 [facility] [address] [facility] [id number] [place] [id number] 13 Oct, 2016 [facility] [id number] [place] [address] [id number] Oct, Hereditary and idiopathic peripheral neuropathy G60.9 [place] [id number] [place] [id number] Sep, Hereditary and idiopathic peripheral neuropathy G60.9 [facility] [place] [id number] [place] [address] [id number] Sep, Fever, unspecified fever cause R50.9 ; Nausea R11.0 and Viral syndrome B34.9 [facility] [id number] [place] [address] [id number] Aug, [facility] [place] [id number] [place] [address] [id number] Aug, Dysuria R30.0 [facility] [id number] [place] [address] [id number] Jul, Essential hypertension I10 and Tobacco abuse disorder Z72.0 [facility] [id number] [place] [address] [id number] Apr, Hyperlipidemia, unspecified E78.5 ; Hereditary and idiopathic peripheral neuropathy G60.9 ; Essential hypertension I10 and Urinary tract infection without hematuria, site unspecified N39.0 [facility] [id number] [place] [address] [id number] Apr, Hyperlipidemia, unspecified E78.5 [facility] [id number] [place] [address] [id number] Mar, Hyperlipidemia, unspecified E78.5 [facility] [id number] [place] [address] [id number] Feb, Essential hypertension I10 [address] [id number] [place] [address] Feb, [address] [id number] [place] [phone] Feb, Urinary tract infection, site not specified N39.0 and Hematuria, unspecified R31.9 [facility] [address]00565100[address] [id number] Jan, Hereditary and idiopathic peripheral neuropathy G60.9 [facility] [address]00565100[place] [id number] Jan, [facility] [id number] [place] [address] [id number] Dec, Well woman exam Z01.419 ; Colon cancer screening Z12.11 ; Breast cancer screening Z12.39 ; Bladder prolapse, female, acquired N81.10 and Rectocele N81.6 [place] [id number] [place] [address] [id number] 13 Dec, 2015 Hereditary and idiopathic peripheral neuropathy G60.9 and Stress incontinence N39.3 [place] [id number] [place] [address] [id number] Dec, [id number] [place] [address] [id number] November, Essential hypertension I10 ; Hereditary and idiopathic peripheral neuropathy G60.9 and PVD (peripheral vascular disease) I73.9 [facility] [id number] [place] [address] [id number] November, [id number] [place] [address] [id number] Oct, [place] [id number] [place] [address] [id number] Aug, [place] [id number] [place] [address] [id number] Aug, Essential hypertension I10 [id number] [place] [address] [id number] Jul, [id number] [place] [address] [id number] May, Neuropathy G62.9 [facility] [address] [id number] [phone] May, [facility] [address] [id number] [id number] Jan, [id number] [place] [address] [id number] Jan, Hyperlipemia 272.[id number] [place] [address] [id number] Jan, Other and unspecified hyperlipidemia 272.4 ; Unspecified essential hypertension 401.9 and Unspecified hereditary and idiopathic peripheral neuropathy 356.9 [facility] [place] [address] [facility] [id number] [place] [id number] Oct, [facility] [address]00565100[place], [place] [address] Oct, [facility] [place] [facility] [address] [facility] [id number], [place] [address] Oct, [facility] [address] [facility] [id number] [place] [id number] Aug, [facility] [place] [facility] [address] [facility] [id number], [place] [address] Aug, [facility] [place] [facility] [address]00565100[place], [place] [address] Jul, [facility] [place] [facility] [address]00565100[place], [place] [address] Jul, [facility] [id number] [place] [id number] Jul, [facility] [address] [facility] [id number] [place] [id number] Jul, [facility] [address]00565100[place], [place] [address] Jul, [facility] [address] [id number], [place] [address] Jul, [facility] [address] [facility] [id number] [place] [id number] Jul, [facility] [address] [facility] [id number] [place] [id number] Jun, [facility] [address] [id number], [place] [address] Jun, [facility] [address] [facility] [id number] [place] [id number] Jun, [facility] [place] [facility] [address] [id number], [place] [address] Jun, [facility] [address] [id number] [place] [id number] May, [facility] [place] [facility] [address] [id number] [place] [address] May, [facility] [address] [id number] [place] [id number] Apr, [facility] [place] [facility] [address] [facility] [id number] [place] [address] Apr, [facility] [address] [id number] [place] [id number] Mar, [facility] [place] [facility] [address] [id number] [place] [address] Mar, [facility] [address] [id number] [place] [id number] Feb, [facility] [place] [facility] [address] [facility] [id number], [place] [address] Feb, [facility] [place] [facility] [address] [facility] [id number] [place] [address] Feb, [facility] [address] [id number] [place] [id number] Feb, [facility] [address] [facility] [id number] [place] [id number] Dec, [facility] [place] [facility] [address] [facility] [id number], [place] [address] Dec, [facility] [place] [facility] [address] [facility] [id number], [place] [address] Aug, [facility] [place] [facility] [address] [facility] [id number], [place] [address] Aug, [facility] [address] [id number] [place] [id number] Jul, [facility] [place] [facility] [address] [facility] [id number] [place] [address] Jul, [facility] [address] [facility] [id number] [place] [id number] Mar, [facility] [place] [facility] [address] [facility] [id number], [place] [address] Dec, [facility] [address] [id number] [place] [id number] Dec, [facility] [address] [id number] [place] [id number] Jun, [facility] [address] [facility] [id number], [place] [address] Jun, [facility] [address] [facility] [id number], [place] [address] May, [facility] [address] [facility] [id number], [place] [address] May, [facility] [address] [id number] [place] [id number] Apr, [facility] [address] [facility] [id number], [place] [address] Apr, [facility] [address] [id number] [place] [id number] Apr, [facility] [address] [facility] [id number], [place] [address] Apr, [facility] [address] [id number] [place] [id number] Jan, [facility] [address] [id number] [place] [id number] Jan, [facility] [address] [id number] [place] [id number] November, [facility] [address] [id number] [place] [id number] November, [facility] [address] [id number] [place] [id number] November, [facility] [address] [id number] [place] [id number] Oct, [facility] [address] [id number] [place] 950[address] Oct, [facility] [address] [id number] [place] 670452467 Oct, [facility] [address] [id number] [place] [id number] Oct, [facility] [address] [id number] [place] [id number] 20 Sep, 2011 [facility] [address] [id number] [place] [id number] Sep, [facility] [address] [id number] [place] [address] Aug, [facility] [address] [id number] [place] [address] Jun, [facility] [address] [facility] [id number] [place] [address], [place] [address] Jun, [facility] [id number] [address] Jun, [facility] [address] [address] May, [facility] [address] [facility] [id number], [place] [address] May, [facility] [address] [address] Jun, [facility] [address] [facility] [id number], [place] [address] 07 Jun, 2010 [facility] [place] [facility] [id number] [address] 06 Jun, 2010 [facility] [place] [facility] [address] [facility] [id number], [place] [address] 13 Oct, 2009 [facility] [place] [facility] [address] [facility] [id number] [place] [address] 11 Sep, 2009 [facility] [place] [facility] [address] [facility] [id number] [place] [address] 23 Jun, 2009 [facility] [address] [facility] [id number], [place] [address] Jun, [facility] [address] [facility] [id number], [place] [address] May, [facility] [address] [facility] [id number], [place] [address] May, [facility] [address] [facility] [id number], [place] [address] May, [facility] [address] [facility] [id number], [place] [address] May, IMMUNIZATIONS Vaccine Route Administration Date Status ROCEPHIN 1 GM (IM) IM Intramuscular May 31, 2018 Administered SOCIAL HISTORY Never Assessed REASON FOR VISIT Pt c/c left flank pain/swelling. fever on Thursday, frothy urine Addison SAMPSON PLAN OF CARE Activity Details Follow Up 2 - 3 Days Reason:flank pain VITAL SIGNS Height 66 in 2018-05-31 Weight 211.2 lbs 2018-05-31 Temperature 96.7 degrees Fahrenheit 2018-05-31 Heart Rate 100 bpm 2018-05-31 Respiratory Rate 20 2018-05-31 BMI 34.08 kg/m2 2018-05-31 Blood pressure systolic 122 mmHg 2018-05-31 Blood pressure diastolic 70 mmHg 2018-05-31 MEDICATIONS Medication Instructions Dosage Frequency Start Date End Date Duration Status Gabapentin 800 MG 1 tablet 2 times a day Orally 30 30 30 30 Active Cipro 500 MG Orally every 12 hrs 1 tablet 12h May, 10 day(s) Active Warfarin Sodium 5 MG Orally Once a day 1 tablet 24h Active Metoprolol Tartrate 50 mg TAKE 1 TABLET BY MOUTH TWICE DAILY WITH FOOD... Active Plavix 75 MG TAKE ONE (1) TABLET BY MOUTH DAILY... Active Lisinopril 40 mg Orally 2 times a day 1tab 12h 90 Active tramadol 50 mg orally 3 times a day PRN must last 28 days 1 Tablet 28 days Active Pravastatin Sodium 80 MG TAKE ONE (1) TABLET DAILY AT BEDTIME. 90 Active RESULTS No Results PROCEDURES Procedure Date Ordered Result Body Site [facility] VISIT ESTABLISHED PATIENT May 31, 2018 URINALYSIS, AUTO, W/O SCOPE May 31, 2018 LAB NOT BILLED BY [facility] May 31, 2018 THER/PROPH/DIAG INJ, SC/IM May 31, 2018 ROCEPHIN 1 GM (IM) May 31, 2018 INSTRUCTIONS MEDICATIONS ADMINISTERED No Known Medications [...]
--- OUTSIDE RECORDS SUMMARY | 2019-02-01 02:10 | XMS REPORT ---
Author Author CINDY CALIXTO Organization [facility] Address [address] [place] [address] Care Team Providers Care Insurance Claims Supervisor Name Role Phone CINDY CALIXTO Unavailable PROBLEMS Type Condition ICD9-CM Code [id number] Code Onset Dates Condition Status SNOMED Code Problem Hyperlipidemia, unspecified E78.5 Active 14743800 Problem Stress incontinence N39.3 Active 13423186 Problem Essential hypertension I10 Active 49335008 Problem Hereditary and idiopathic peripheral neuropathy G60.9 Active 885128752 Problem PVD (peripheral vascular disease) I73.9 Active [id number] ALLERGIES No Information ENCOUNTERS Encounter Location Date Diagnosis [facility] [address] [id number] Jun, [facility] [address] [address] May, [facility] [address] [id number] May, Left flank pain R10.9 [place] [address] [id number] May, Pyelonephritis N12 [address] [id number] May, Hereditary and idiopathic peripheral neuropathy G60.9 [facility] [address] [id number] Apr, Urinary tract infection N39.0 and Back pain M54.[address] [id number] Apr, Hereditary and idiopathic peripheral neuropathy G60.9 [place] [address] [id number] Mar, Hereditary and idiopathic peripheral neuropathy G60.[address] [place] [id number] Mar, Essential hypertension I10 and Hereditary and idiopathic peripheral neuropathy G60.9 [place] [address] [place] [id number] [place] [address] [id number] Feb, Hereditary and idiopathic peripheral neuropathy G60.9 [place] [address] [place] [id number] [place] [address] [id number] Jan, Cystitis N30.90 and Hereditary and idiopathic peripheral neuropathy G60.9 [place] [id number] [place] [address] [id number] Dec, Acute cystitis with hematuria N30.01 [place] [id number] [place] [address] [id number] Dec, Hereditary and idiopathic peripheral neuropathy G60.[address] [id number] November, Hereditary and idiopathic peripheral neuropathy G60.9 and Essential hypertension I10 [address] [id number] November, Hereditary and idiopathic peripheral neuropathy G60.9 [place] [id number] [place] [address] [id number] Oct, Hereditary and idiopathic peripheral neuropathy G60.9 [place] [id number] [place] [address] [id number] Sep, Hereditary and idiopathic peripheral neuropathy G60.9 [place] [id number] [place] [address] [id number] Aug, Essential hypertension I10 ; Hereditary and idiopathic peripheral neuropathy G60.9 ; PVD (peripheral vascular disease) I73.9 and Infective urethritis N34.2 [place] [id number] [place] [address] [id number] Jul, Hereditary and idiopathic peripheral neuropathy G60.9 [place] [id number] [place] [address] [id number] May, Hereditary and idiopathic peripheral neuropathy G60.9 [place] [id number] [place] [address] [id number] May, [address] [id number] May, Hereditary and idiopathic peripheral neuropathy G60.9 [facility] [id number] [place] [address] [id number] Apr, Hereditary and idiopathic peripheral neuropathy G60.9 [facility] [id number] [place] [address] [id number] Apr, Encounter for immunization Z23 [facility] [address] [place] [id number] [place] [address] [id number] Mar, Urinary tract infection, site not specified N39.0 ; Hematuria, unspecified R31.9 ; Hyperlipidemia, unspecified E78.5 and Essential hypertension I10 [place] [address] [place] [id number] [place] [address] [id number] Mar, Essential hypertension I10 ; Hereditary and idiopathic peripheral neuropathy G60.9 and Acute cystitis with hematuria N30.01 [facility] [address] [place] [address] [id number] Feb, [facility] [address] [place] [id number] [place] [address] [id number] Feb, Hereditary and idiopathic peripheral neuropathy G60.9 [facility] [id number] [place] [address] [id number] Jan, Hereditary and idiopathic peripheral neuropathy G60.9 [facility] [place] [address] [place] [id number] [place] [address] [id number] Dec, Essential hypertension I10 and Hereditary and idiopathic peripheral neuropathy G60.9 [facility] [place] [id number] [place] [address] [id number] November, Hereditary and idiopathic peripheral neuropathy G60.9 [facility] [id number] [id number] Oct, Acute cystitis with hematuria N30.[id number] [place] [address] [id number] Oct, [facility] [id number] [place] [address] [id number] Oct, Hereditary and idiopathic peripheral neuropathy G60.9 [facility] [place] [id number] [place] [id number] Sep, Hereditary and idiopathic peripheral neuropathy G60.9 [facility] [place] [id number] [place] [address] [id number] Sep, Fever, unspecified fever cause R50.9 ; Nausea R11.0 and Viral syndrome B34.9 [facility] [place] [id number] [place] [address] [id number] Aug, [facility] [address] [id number] Aug, Dysuria R30.0 [facility] [place] [id number] [place] [address] [id number] Jul, Essential hypertension I10 and Tobacco abuse disorder Z72.0 [facility] [place] [id number] [place] [address] [id number] Apr, Hyperlipidemia, unspecified E78.5 ; Hereditary and idiopathic peripheral neuropathy G60.9 ; Essential hypertension I10 and Urinary tract infection without hematuria, site unspecified N39.0 [place] [id number] [place] [address] [id number] Apr, Hyperlipidemia, unspecified E78.5 [facility] [address] [place] [address] [id number] Mar, Hyperlipidemia, unspecified E78.5 [facility] [id number] [place] [address] [id number] Feb, Essential hypertension I10 [address] [id number] [place] [address] Feb, [place] [id number] [place] [address] [id number] Feb, Urinary tract infection, site not specified N39.0 and Hematuria, unspecified R31.[address] [place] [address] [id number] Jan, Hereditary and idiopathic peripheral neuropathy G60.9 [address] [place] [address] [id number] Jan, [address] [place] [address] [id number] Dec, Well woman exam Z01.419 ; Colon cancer screening Z12.11 ; Breast cancer screening Z12.39 ; Bladder prolapse, female, acquired N81.10 and Rectocele N81.6 [place] [id number] [place] [address] [id number] Dec, Hereditary and idiopathic peripheral neuropathy G60.9 and Stress incontinence N39.3 [place] [id number] [place] [address] [id number] Dec, [address] [id number] November, Essential hypertension I10 ; Hereditary and idiopathic peripheral neuropathy G60.9 and PVD (peripheral vascular disease) I73.9 [place] [id number] [place] [address] [id number] November, [place] [id number] [place] [address] [id number] Oct, [address] [id number] Aug, [place] [id number] [place] [address] [id number] Aug, Essential hypertension I10 [place] [id number] [place] [address] [id number] Jul, [place] [id number] [place] [address] [id number] May, Neuropathy G62.[address] [facility] [address] [id number] [id number] May, [facility] [address] [id number][place] [id number] Jan, [address] [place] [address] [id number] Jan, Hyperlipemia 272.[address] [id number] Jan, Other and unspecified hyperlipidemia 272.4 ; Unspecified essential hypertension 401.9 and Unspecified hereditary and idiopathic peripheral neuropathy 356.[address] [id number] Oct, [facility] [place] [facility] [address] [facility] [id number] [place] [address] Oct, [facility] [place] [facility] [address] [facility] [id number], [place] [address] Oct, [facility] [address] [facility] [id number] [place] [id number] Aug, [facility] [place] [facility] [address] [facility] [id number], [place] [address] Aug, [facility] [place] [facility] [address] [facility] [id number] [place] [address] Jul, [facility] [place] [facility] [address] [facility] [id number], [place] [address] Jul, [facility] [address] [facility] [id number] [place] [id number] Jul, [facility] [address] [facility] [id number] [place] [id number] Jul, [facility] [place] [facility] [address], [place] [address] Jul, [facility] [place] [facility] [address]00565[address], [place] [address] Jul, [facility] [address] [id number] [place] [id number] Jul, [facility] [address] [facility] [id number] [place] [id number] Jun, [facility] [place] [facility] [address] [facility] [id number], [place] [address] Jun, [facility] [address] [facility] [id number] [place] [id number] Jun, [facility] [place] [facility] [address] [facility] [id number], [place] [address] Jun, [facility] [address] [facility] [id number] [place] [id number] May, [facility] [place] [facility] [address] [facility] [id number], [place] [address] May, [facility] [address] [facility] [id number] [place] [id number] Apr, [facility] [place] [facility] [address] [facility] [id number], [place] [address] Apr, [facility] [address] [facility] [id number] [place] [id number] Mar, [facility] [place] [facility] [address] [facility] [id number], [place] [address] Mar, [facility] [address] [facility] [id number] [place] [id number] Feb, [facility] [place] [facility] [address] [facility] [id number], [place] [address] Feb, [facility] [place] [facility] [address]00565[address], [place] [address] Feb, [facility] [address] [facility] [id number] [place] [id number] Feb, [facility] [address] [facility] [id number] [place] [id number] Dec, [facility] [place] [facility] [address] [id number], [place] [address] Dec, [facility] [place] [facility] [address] [place] [id number], [place] [address] Aug, [facility] [place] [facility] [address] [facility] [id number], [place] [address] Aug, [facility] [address] [facility] [id number] [place] [id number] Jul, [facility] [place] [facility] [address] [facility] [id number][place] [address] Jul, [facility] [address] [facility] [id number] [place] [id number] Mar, [facility] [place] [facility] [address] [facility] [id number], [place] [address] Dec, [facility] [address] [id number] [place] [id number] Dec, [facility] [address] [id number] [place] [id number] Jun, [facility] [address] [facility] [id number] [place] [address] Jun, [facility] [address] [facility] [id number], [place] [address] May, [facility] [address] [facility] [id number] [place] [address] May, [facility] [address] [id number] [place] [id number] Apr, [facility] [address] [facility] [id number] [place] [address] Apr, [facility] [address] [id number] [place] [id number] Apr, [facility] [address] [facility] [id number], [place] [address] Apr, [facility] [address] [id number] [place] [id number] Jan, [facility] [address] [id number] [place] [id number] Jan, [facility] [address] [id number] [place] [id number] November, [facility] [address] [id number] [place] [id number] November, [facility] [address] [id number] [place] [id number] November, [facility] [address] [id number] [place] [id number] Oct, [facility] [address] [id number] [place] [id number] Oct, [facility] [address] [id number] [place] [id number] Oct, [facility] [address] [id number] [place] [id number] 10 Oct, 2011 [facility] [address] [id number] [place] [id number] 20 Sep, 2011 [facility] [address] [id number] [place] [id number] Sep, [facility] [address] [facility] [id number], [place] [address] 03 Aug, 2011 [facility] [place] [facility] [address] [id number], [place] [address] Jun, [facility] [place] [facility] [address] [id number] [place] [address] Jun, [facility] [place] [facility] [address] [facility] [id number], [place] [address] Jun, [facility] [place] [facility] [address] [facility] [id number], [place] [address] May, [facility] [place] [facility] [address] [id number], [place] [address] May, [facility] [place] [facility] [address] [id number], [place] [address] Jun, [facility] [place] [facility] [address] [facility] [id number], [place] [address] Jun, [facility] [place] [facility] [address] [facility] [id number], [place] [address] Jun, [facility] [place] [facility] [address] [id number], [place] [address] 13 Oct, 2009 [facility] [place] [facility] [address] [id number], [place] [address] Sep, [facility] [place] [facility] [address] [facility] [id number], [place] [address] 23 Jun, 2009 [facility] [place] [facility] [address] [facility] [id number], [place] [address] 14 Jun, 2009 [facility] [place] [facility] [address] [facility] [id number] [place] [address] May, [facility] [address] [facility] [id number] [place] [address] May, [facility] [address] [facility] [id number] [place] [address] May, [facility] [address] [facility] [id number] [place] [address] May, IMMUNIZATIONS No Known Immunizations SOCIAL HISTORY Never Assessed REASON FOR VISIT CT scan PLAN OF CARE VITAL SIGNS MEDICATIONS Unknown Medications RESULTS No Results PROCEDURES No Known [...] History iliac artery bypass x's 2 at [facility] Aug and September 2014 Surgical History Left aortofemoral bypass by Dr. Bhakta 10/2016 Surgical History Sarnoma drained from left femoral incision site 2 wks post bypass 10/2016 Surgical History Detached retina in right eye 10/28 Hospitalization History surgeries, childbirth
--- OUTSIDE RECORDS SUMMARY | 2019-02-01 02:11 | XMS REPORT ---
Author Author CINDY CALIXTO [facility] Address [address] [place] [address] Care Team Providers Care Rate Inserter Name Role Phone CINDY CALIXTO Unavailable PROBLEMS Type Condition ICD9-CM Code QPU73-LT Code Onset Dates Condition Status SNOMED Code Problem Hyperlipidemia, unspecified E78.5 Active 28333568 Problem Stress incontinence N39.3 Active 75772313 Problem Essential hypertension I10 Active 73866705 Problem Hereditary and idiopathic peripheral neuropathy G60.9 Active 826697492 Problem PVD (peripheral vascular disease) I73.9 Active 617628990 ALLERGIES Substance Reaction Event Type Date Status Protamine Sulfate Unknown Drug Allergy May, Active ENCOUNTERS Encounter Location Date Diagnosis [facility] [id number] [place] [address] [phone] Jun, [facility] [address] [address] May, [facility] [id number] [place] [address] [id number] May, Left flank pain R10.9 [facility] [id number] [place] [address] [id number] May, Pyelonephritis N12 [place] [id number] [place] [address] [id number] May, Hereditary and idiopathic peripheral neuropathy G60.9 [facility] [id number] [place] [address] [id number] Apr, Urinary tract infection N39.0 and Back pain M54.9 [facility] [id number] [place] [address] [id number] Apr, Hereditary and idiopathic peripheral neuropathy G60.9 [facility] [id number] [place] [address] [id number] Mar, Hereditary and idiopathic peripheral neuropathy G60.9 [facility] [id number] [id number] Mar, Essential hypertension I10 and Hereditary and idiopathic peripheral neuropathy G60.9 [facility] [id number] [place] [address] [id number] Feb, Hereditary and idiopathic peripheral neuropathy G60.9 [facility] [id number] [place] [address] [id number] Jan, Cystitis N30.90 and Hereditary and idiopathic peripheral neuropathy G60.9 [facility] [id number] [place] [address] [id number] Dec, Acute cystitis with hematuria N30.01 [facility] [id number] [place] [address] [id number] Dec, Hereditary and idiopathic peripheral neuropathy G60.9 [facility] [id number] [place] [address] [id number] November, Hereditary and idiopathic peripheral neuropathy G60.9 and Essential hypertension I10 [facility] [id number] [place] [address] [id number] November, Hereditary and idiopathic peripheral neuropathy G60.9 [place] [id number] [place] [address] [id number] Oct, Hereditary and idiopathic peripheral neuropathy G60.9 [facility] [id number] [place] [address] [id number] Sep, Hereditary and idiopathic peripheral neuropathy G60.9 [place] [id number] [place] [address] [id number] Aug, Essential hypertension I10 ; Hereditary and idiopathic peripheral neuropathy G60.9 ; PVD (peripheral vascular disease) I73.9 and Infective urethritis N34.2 [facility] [id number] [place] [address] [id number] Jul, Hereditary and idiopathic peripheral neuropathy G60.9 [facility] [id number] [place] [address] [id number] May, Hereditary and idiopathic peripheral neuropathy G60.9 [place] [id number] [place] [address] [id number] May, [facility] [id number] [place] [id number] May, Hereditary and idiopathic peripheral neuropathy G60.9 [facility] [id number] [place] [address] [id number] Apr, Hereditary and idiopathic peripheral neuropathy G60.9 [place] [id number] [place] [address] [id number] Apr, Encounter for immunization Z23 [facility] [id number] [place] [address] [id number] Mar, Urinary tract infection, site not specified N39.0 ; Hematuria, unspecified R31.9 ; Hyperlipidemia, unspecified E78.5 and Essential hypertension I10 [place] [id number] [place] [address] [id number] Mar, Essential hypertension I10 ; Hereditary and idiopathic peripheral neuropathy G60.9 and Acute cystitis with hematuria N30.01 [place] [id number] [place] [address] [id number] Feb, [facility] [id number] [place] [address] [id number] Feb, Hereditary and idiopathic peripheral neuropathy G60.9 [place] [id number] [place] [address] [id number] Jan, Hereditary and idiopathic peripheral neuropathy G60.9 [place] [id number] [place] [address] [id number] Dec, Essential hypertension I10 and Hereditary and idiopathic peripheral neuropathy G60.9 [facility] [id number] [place] [phone] November, Hereditary and idiopathic peripheral neuropathy G60.9 [facility] [id number] [phone] Oct, Acute cystitis with hematuria N30.01 [facility] [address] [facility] [id number] [place] [id number] 13 Oct, 2016 [facility] [id number] [place] [address] [id number] Oct, Hereditary and idiopathic peripheral neuropathy G60.9 [place] [id number] [place] [id number] Sep, Hereditary and idiopathic peripheral neuropathy G60.9 [facility] [place] [id number] [place] [address] [id number] Sep, Fever, unspecified fever cause R50.9 ; Nausea R11.0 and Viral syndrome B34.9 [facility] [id number] [place] [address] [id number] Aug, [facility] [place] [id number] [place] [address] [id number] Aug, Dysuria R30.0 [facility] [id number] [place] [address] [id number] Jul, Essential hypertension I10 and Tobacco abuse disorder Z72.0 [facility] [address] [place] [address] [id number] Apr, Hyperlipidemia, unspecified E78.5 ; Hereditary and idiopathic peripheral neuropathy G60.9 ; Essential hypertension I10 and Urinary tract infection without hematuria, site unspecified N39.0 [facility] [address] [place] [address] [id number] Apr, Hyperlipidemia, unspecified E78.5 [facility] [address] [place] [address] [id number] Mar, Hyperlipidemia, unspecified E78.5 [facility] [address] [place] [address] [id number] Feb, Essential hypertension I10 [address] [id number] [place] [address] Feb, [address] [id number] [place] [id number] Feb, Urinary tract infection, site not specified N39.0 and Hematuria, unspecified R31.9 [facility] [address]00565100[place] [id number] Jan, Hereditary and idiopathic peripheral neuropathy G60.9 [facility] [address]00565100[place] [id number] Jan, [facility] [id number] [place] [address] [id number] Dec, Well woman exam Z01.419 ; Colon cancer screening Z12.11 ; Breast cancer screening Z12.39 ; Bladder prolapse, female, acquired N81.10 and Rectocele N81.6 [place] [id number] [place] [address] [id number] 13 Dec, 2015 Hereditary and idiopathic peripheral neuropathy G60.9 and Stress incontinence N39.3 [address] [id number] [place] [address] [id number] Dec, [id number] [place] [address] [id number] November, Essential hypertension I10 ; Hereditary and idiopathic peripheral neuropathy G60.9 and PVD (peripheral vascular disease) I73.9 [facility] [id number] [place] [address] [id number] November, [id number] [place] [address] [id number] Oct, [place] [id number] [place] [address] [id number] Aug, [address] [id number] [place] [address] [id number] Aug, Essential hypertension I10 [address] [place] [address] [id number] Jul, [id number] [place] [address] [id number] May, Neuropathy G62.9 [facility] [address] [id number] [phone] May, [facility] [address] [id number][place] [phone] Jan, [address] [place] [address] [id number] Jan, Hyperlipemia 272.[address] [place] [address] [id number] Jan, Other and unspecified hyperlipidemia 272.4 ; Unspecified essential hypertension 401.9 and Unspecified hereditary and idiopathic peripheral neuropathy 356.9 [facility] [place] [address] [facility] [id number] [place] [phone] Oct, [facility] [address]00565100[place] [address] Oct, [facility] [place] [facility] [address] [facility] [id number][place] [address] Oct, [facility] [address] [facility] [id number] [place] [phone] Aug, [facility] [place] [facility] [address] [facility] [id number][place] [address] Aug, [facility] [place] [facility] [address]00565100[place], [place] [address] Jul, [facility] [place] [facility] [address]00565100[place], [place] [address] Jul, [facility] [id number] [place] [id number] Jul, [facility] [address] [facility] [id number] [place] [id number] Jul, [facility] [address]00565100[place], [place] [address] Jul, [facility] [id number], [place] [address] Jul, [facility] [address] [facility] [id number] [place] [id number] Jul, [facility] [address] [facility] [id number] [place] [id number] Jun, [facility] [address] [id number] [address] Jun, [facility] [address] [facility] [id number] [place] [id number] Jun, [facility] [place] [facility] [address] [id number] [address] Jun, [facility] [address] [id number] [place] [id number] May, [facility] [place] [facility] [address] [id number] [place] [address] May, [facility] [address] [id number] [place] [id number] Apr, [facility] [place] [facility] [address] [facility] [id number] [place] [address] Apr, [facility] [address] [id number] [place] [id number] Mar, [facility] [place] [facility] [address] [id number] [place] [address] Mar, [facility] [address] [id number] [place] [id number] Feb, [facility] [place] [facility] [address] [facility] [id number], [place] [address] Feb, [facility] [place] [facility] [address] [facility] [id number] [place] [address] Feb, [facility] [address] [id number] [place] [id number] Feb, [facility] [address] [facility] [id number] [place] [id number] Dec, [facility] [place] [facility] [address] [facility] [id number], [place] [address] Dec, [facility] [place] [facility] [address] [facility] [id number], [place] [address] Aug, [facility] [place] [facility] [address] [facility] [id number][place] [address] Aug, [facility] [address] [id number] [place] [id number] Jul, [facility] [place] [facility] [address] [facility] [id number] [place] [address] Jul, [facility] [address] [facility] [id number] [place] [id number] Mar, [facility] [place] [facility] [address] [facility] [id number], [place] [address] Dec, [facility] [address] [id number] [place] [id number] Dec, [facility] [address] [id number] [place] [id number] Jun, [facility] [address] [facility] [id number], [place] [address] Jun, [facility] [address] [facility] [id number], [place] [address] May, [facility] [address] [facility] [id number][place] [address] May, [facility] [address] [id number] [place] [id number] Apr, [facility] [address] [facility] [id number], [place] [address] Apr, [facility] [address] [id number] [place] [id number] Apr, [facility] [address] [facility] [id number], [place] [address] Apr, [facility] [address] [id number] [place] [id number] Jan, [facility] [address] [id number] [place] [id number] Jan, [facility] [address] [id number] [place] [id number] November, [facility] [address] [id number] [place] [id number] November, [facility] [address] [id number] [place] [id number] November, [facility] [address] [id number] [place] [id number] Oct, [facility] [address] [id number] [place] [id number] Oct, [facility] [address] [id number] [place] [id number] Oct, [facility] [address] [id number] [place] [id number] Oct, [facility] [address] [id number] [place] [id number] 20 Sep, 2011 [facility] [address] [id number] [place] [id number] Sep, [facility] [address] [id number] [place] [address] Aug, [facility] [address] [id number] [place] [address] Jun, [facility] [address] [facility] [id number] [place] [address], [place] [address] Jun, [facility] [id number] [place] [address] Jun, [facility] [id number] [place] [address] May, [facility] [address] [facility] [id number], [place] [address] May, [facility] [id number] [place] [address] Jun, [facility] [address] [facility] [id number], [place] [address] 07 Jun, 2010 [facility] [place] [facility] [address] [id number] [place] [address] 06 Jun, 2010 [facility] [place] [facility] [address] [facility] [id number], [place] [address] 13 Oct, 2009 [facility] [place] [facility] [address] [facility] [id number] [place] [address] 11 Sep, 2009 [facility] [place] [facility] [address] [facility] [id number] [place] [address] 23 Jun, 2009 [facility] [address] [facility] [id number], [place] [address] Jun, [facility] [address] [facility] [id number], [place] [address] May, [facility] [address] [id number] [address] May, [facility] [address] [facility] [id number], [place] [address] May, [facility] [address] [id number], [place] [address] May, IMMUNIZATIONS Vaccine Route Administration Date Status ROCEPHIN 1 GM (IM) IM Intramuscular Jun 02, 2018 Administered SOCIAL HISTORY Never Assessed REASON FOR VISIT infection F/U from uti [facility] ADRIÁN PLAN OF CARE Activity Details Follow Up 4-5 d Reason:flank pain VITAL SIGNS Height 66 in 2018-06-02 Weight 209.2 lbs 2018-06-02 Temperature 99 degrees Fahrenheit 2018-06-02 Heart Rate 76 bpm 2018-06-02 Respiratory Rate 18 2018-06-02 BMI 33.76 kg/m2 2018-06-02 Blood pressure systolic 150 mmHg 2018-06-02 Blood pressure diastolic 92 mmHg 2018-06-02 MEDICATIONS Medication Instructions Dosage Frequency Start Date End Date Duration Status Cipro 500 MG Orally every 12 hrs 1 tablet 12h May, Active tramadol 50 mg orally 3 times a day PRN must last 28 days 1 Tablet Active Warfarin Sodium 5 MG Orally Once a day 1 tablet 24h Active Lisinopril 40 mg Orally 2 times a day 1tab 12h 90 Active Gabapentin 800 MG 1 tablet 2 times a day Orally 30 30 30 30 Active Plavix 75 MG TAKE ONE (1) TABLET BY MOUTH DAILY... Active Pravastatin Sodium 80 MG TAKE ONE (1) TABLET DAILY AT BEDTIME. 90 Active Metoprolol Tartrate 50 mg TAKE 1 TABLET BY MOUTH TWICE DAILY WITH FOOD... Active RESULTS Name Result Date Reference Range UA LONG DIP (IN HOUSE) 2018-06-02 Lot # [id number] Exp date 12/10/18 Clarity clear Color yellow Odor no GLU neg SAMEER neg KET neg SG 1.015 BLO trace pH 7.0 Protein neg URO 0.2 NIT neg [place] trace Lot # Exp date CT Scan : Abd & Pelvis w/o contrast (STONE PROTOCOL) 2018-06-02 PROCEDURES Procedure Date Ordered Result Body Site [facility] VISIT ESTABLISHED PATIENT Jun 02, 2018 THER/PROPH/DIAG INJ, SC/IM Jun 02, 2018 ROCEPHIN 1 GM (IM) Jun 02, 2018 URINALYSIS, AUTO, W/O SCOPE Jun 02, 2018 INSTRUCTIONS MEDICATIONS ADMINISTERED No Known Medications [...] iliac artery bypass x's 2 at [facility] Aug and September 2014 Surgical History Left aortofemoral bypass by Dr. Bhakta 10/2016 Surgical History Sarnoma drained from left femoral incision site 2 wks post bypass 10/2016 Surgical History Detached retina in right eye 10/28 Hospitalization History surgeries, childbirth
--- OUTSIDE RECORDS SUMMARY | 2019-02-01 02:11 | XMS REPORT ---
Author Author CINDY CALIXTO Organization [facility] Address [address] [place] [address] Care Team Providers Care Coverage Specialist Name Role Phone CINDY CALIXTO Unavailable PROBLEMS Type Condition ICD9-CM Code NSV16-VG Code Onset Dates Condition Status SNOMED Code Problem Hyperlipidemia, unspecified E78.5 Active 46552547 Problem Stress incontinence N39.3 Active 91336953 Problem Essential hypertension I10 Active 35485430 Problem Hereditary and idiopathic peripheral neuropathy G60.9 Active 618617606 Problem PVD (peripheral vascular disease) I73.9 Active [id number] ALLERGIES No Information ENCOUNTERS Encounter Location Date Diagnosis [address] [id number] May, Hereditary and idiopathic peripheral neuropathy G60.[address] [id number] Apr, Urinary tract infection N39.0 and Back pain M54.[address] [id number] Apr, Hereditary and idiopathic peripheral neuropathy G60.[address] [id number] Mar, Hereditary and idiopathic peripheral neuropathy G60.[address] [id number] Mar, Essential hypertension I10 and Hereditary and idiopathic peripheral neuropathy G60.9 [place] [id number] [place] [address] [id number] Feb, Hereditary and idiopathic peripheral neuropathy G60.[address] [id number] Jan, Cystitis N30.90 and Hereditary and idiopathic peripheral neuropathy G60.[address] [id number] Dec, Acute cystitis with hematuria N30.[address] [place] [address] [id number] Dec, Hereditary and idiopathic peripheral neuropathy G60.9 [place] [id number] [place] [address] [id number] November, Hereditary and idiopathic peripheral neuropathy G60.9 and Essential hypertension I10 [address] [id number] November, Hereditary and idiopathic peripheral neuropathy G60.9 [place] [id number] [place] [address] [id number] Oct, Hereditary and idiopathic peripheral neuropathy G60.[address] [id number] Sep, Hereditary and idiopathic peripheral neuropathy G60.9 [place] [id number] [place] [address] [id number] Aug, Essential hypertension I10 ; Hereditary and idiopathic peripheral neuropathy G60.9 ; PVD (peripheral vascular disease) I73.9 and Infective urethritis N34.2 [place] [id number] [place] [address] [id number] Jul, Hereditary and idiopathic peripheral neuropathy G60.9 [place] [id number] [place] [address] [id number] May, Hereditary and idiopathic peripheral neuropathy G60.9 [address] [place] [address] [id number] May, [address] [id number] May, Hereditary and idiopathic peripheral neuropathy G60.9 [address] [place] [address] [id number] Apr, Hereditary and idiopathic peripheral neuropathy G60.[address] [id number] Apr, Encounter for immunization Z23 [place] [id number] [place] [address] [id number] Mar, Urinary tract infection, site not specified N39.0 ; Hematuria, unspecified R31.9 ; Hyperlipidemia, unspecified E78.5 and Essential hypertension I10 [place] [id number] [place] [address] [id number] Mar, Essential hypertension I10 ; Hereditary and idiopathic peripheral neuropathy G60.9 and Acute cystitis with hematuria N30.01 [facility] [address] [place] [address] [id number] Feb, [place] [id number] [place] [address] [id number] Feb, Hereditary and idiopathic peripheral neuropathy G60.9 [place] [id number] [place] [address] [id number] Jan, Hereditary and idiopathic peripheral neuropathy G60.9 [place] [id number] [place] [address] [id number] Dec, Essential hypertension I10 and Hereditary and idiopathic peripheral neuropathy G60.9 [place] [id number] [place] [address] [id number] November, Hereditary and idiopathic peripheral neuropathy G60.[address] [id number] [id number] Oct, Acute cystitis with hematuria N30.[address] [place] [address] [id number] Oct, 2016 [address] [place] [address] [id number] Oct, Hereditary and idiopathic peripheral neuropathy G60.9 [address] [place] [address] [id number] Sep, Hereditary and idiopathic peripheral neuropathy G60.9 [address] [place] [address] [id number] Sep, Fever, unspecified fever cause R50.9 ; Nausea R11.0 and Viral syndrome B34.9 [address] [place] [address] [id number] Aug, [place] [id number] [place] [address] [id number] Aug, Dysuria R30.0 [facility] [id number] [id number] Jul, Essential hypertension I10 and Tobacco abuse disorder Z72.0 [address] [place] [address] [id number] Apr, Hyperlipidemia, unspecified E78.5 ; Hereditary and idiopathic peripheral neuropathy G60.9 ; Essential hypertension I10 and Urinary tract infection without hematuria, site unspecified N39.0 [facility] [address] [place] [address] [id number] Apr, Hyperlipidemia, unspecified E78.5 [facility] [place] [id number] [place] [address] [id number] Mar, Hyperlipidemia, unspecified E78.5 [address] [place] [address] [id number] Feb, Essential hypertension I10 [address] [address] Feb, [address] [place] [address] [id number] Feb, Urinary tract infection, site not specified N39.0 and Hematuria, unspecified R31.9 [address] [place] [address] [id number] Jan, Hereditary and idiopathic peripheral neuropathy G60.9 [address] [place] [address] [id number] Jan, [place] [id number] [place] [address] [id number] Dec, Well woman exam Z01.419 ; Colon cancer screening Z12.11 ; Breast cancer screening Z12.39 ; Bladder prolapse, female, acquired N81.10 and Rectocele N81.6 [place] [id number] [place] [address] [id number] Dec, Hereditary and idiopathic peripheral neuropathy G60.9 and Stress incontinence N39.3 [place] [id number] [place] [address] [id number] Dec, [address] [id number] November, Essential hypertension I10 ; Hereditary and idiopathic peripheral neuropathy G60.9 and PVD (peripheral vascular disease) I73.9 [facility] [id number][place] [id number] November, [facility] [id number], [place] [id number] Oct, [facility] [id number] [place] [address] [id number] Aug, [facility] [address] [place] [id number] [place] [address] [id number] Aug, Essential hypertension I10 [facility] [address] [id number] [place] [address] [id number] Jul, [facility] [address] [place] [id number] [place] [address] [id number] May, Neuropathy G62.[address] [facility] [address] [id number] [id number] May, [facility] [id number] [place] [address] [id number] Jan, [place] [id number] [place] [address] [id number] Jan, Hyperlipemia 272.4 [facility] [id number] [place] [address] [id number] Jan, Other and unspecified hyperlipidemia 272.4 ; Unspecified essential hypertension 401.9 and Unspecified hereditary and idiopathic peripheral neuropathy 356.9 [facility] [id number][place] [id number] Oct, [facility] [id number] [place] [address] Oct, [facility] [id number] [place] [address] Oct, [facility] [id number] [place] [address] [id number] Aug, [facility] [id number] [place] [address] Aug, [facility] [place] [facility] [address] [facility] [id number] [address] Jul, [facility] [place] [facility] [address] [facility] [id number] [place] [address] Jul, [facility] [address] [facility] [id number][place] [id number] Jul, [facility] [address] [facility] [id number][place] [id number] Jul, [facility] [place] [facility] [address] [facility] [id number] [place] [address] Jul, [facility] [place] [facility] [address] [facility] [id number] [place] [address] Jul, [facility] [address] [facility] [id number][place] [id number] Jul, [facility] [address] [facility] [id number][place] [id number] Jun, [facility] [place] [facility] [address] [facility] [id number] [place] [address] Jun, [facility] [address] [facility] [id number], [place] [id number] Jun, [facility] [place] [facility] [address]00565100[address] [address] Jun, [facility] [address] [facility] [id number], [place] [id number] May, [facility] [place] [facility] [address] [facility] [id number] [place] [address] May, [facility] [address] [facility] [id number], [place] [id number] Apr, [facility] [place] [facility] [address] [facility] [id number] [place] [address] Apr, [facility] [address] [facility] [id number], [place] [id number] Mar, [facility] [place] [facility] [address] [facility] [id number] [place] [address] Mar, [facility] [address] [facility] [id number] [place] [id number] Feb, [facility] [place] [facility] [address] [facility] [id number] [place] [address] Feb, [facility] [place] [facility] [address] [facility] [id number] [address] Feb, [facility] [address] [id number][place] [id number] Feb, [facility] [address] [facility] [id number] [place] [id number] Dec, [facility] [place] [facility] [address] [facility] [id number] [place] [address] Dec, [facility] [place] [facility] [address]00565100[place] [address] Aug, [facility] [place] [facility] [address]00565100[place] [address] Aug, [facility] [address] [facility] [id number] [place] [id number] Jul, [facility] [place] [facility] [address]00565100[place] [address] Jul, [facility] [address] [facility] [id number] [place] [id number] Mar, [facility] [place] [facility] [address] [facility] [id number] [place] [address] Dec, [facility] [address] [id number], [place] [id number] Dec, [facility] [address] [facility] [id number] [place] [id number] Jun, [facility] [place] [facility] [address] [facility] [id number] [place] [address] Jun, [facility] [place] [facility] [address] [facility] [id number] [place] [address] May, [facility] [place] [facility] [address] [facility] [id number] [place] [address] May, [facility] [address] [id number] [place] [id number] Apr, [facility] [place] [facility] [address] [facility] [id number] [place] [address] Apr, [facility] [address] [id number] [place] [id number] Apr, [facility] [address] [facility] [id number] [place] [address] Apr, [facility] [address] [id number] [place] [id number] Jan, [facility] [address] [id number] [place] [id number] Jan, [facility] [address] [id number] [place] [id number] November, [facility] [address] [id number] [place] [id number] November, [facility] [address] [id number] [place] [id number] November, [facility] [address] [id number] [place] [id number] Oct, [facility] [address] [id number] [place] [id number] Oct, [facility] [address] [id number] [place] [id number] Oct, [facility] [address] [id number], [place] [id number] Oct, [facility] [address] [id number] [place] [id number] Sep, [facility] [address] [id number], [place] [id number] Sep, [facility] [address] [facility] [id number] [place] [address] Aug, [facility] [address]65[address] [address] 20 Jun, 2011 [facility] [address] [facility] [id number] [place] [address] 13 Jun, 2011 [facility] [address] [facility] [id number] [place] [address] 09 Jun, 2011 [facility] [address] [facility] [id number] [place] [address] May, [facility] [address] [facility] [id number] [place] [address] May, [facility] [address] [facility] [id number] [place] [address] Jun, [facility] [address] [facility] [id number] [place] [address] 07 Jun, 2010 [facility] [address] [facility] [id number] [place] [address] Jun, [facility] [address] [facility] [id number] [place] [address] 13 Oct, 2009 [facility] [address] [facility] [id number] [place] [address] Sep, [facility] [address] [facility] [id number] [place] [address] Jun, [facility] [address] [facility] [id number] [place] [address] Jun, [facility] [address] [facility] [id number] [place] [address] May, [facility] [address] [facility] [id number] [place] [address] May, [facility] [address] [facility] [id number] [place] [address] May, [facility] [address] [facility] [id number] [place] [address] May, IMMUNIZATIONS No Known Immunizations SOCIAL HISTORY Never Assessed REASON FOR VISIT Controlled Med Refill PLAN OF CARE VITAL SIGNS MEDICATIONS Medication [...] iliac artery bypass x's 2 [facility] Aug and September 2014 Surgical History Left aortofemoral bypass by Dr. Bhakta 10/2016 Surgical History Sarnoma drained from left femoral incision site 2 wks post bypass 10/2016 Surgical History Detached retina in right eye 10/28 Hospitalization History surgeries, childbirth
--- OUTSIDE RECORDS SUMMARY | 2019-02-01 02:12 | XMS REPORT ---
Author Author CINDY CALIXTO Organization [facility] Address [address] [place] [address] Care Team Providers Care Qa Analyst Name Role Phone CINDY CALIXTO Unavailable PROBLEMS Type Condition ICD9-CM Code IQI41-MR Code Onset Dates Condition Status SNOMED Code Problem Hyperlipidemia, unspecified E78.5 Active 06714209 Problem Stress incontinence N39.3 Active 25932519 Problem Essential hypertension I10 Active 96348813 Problem Hereditary and idiopathic peripheral neuropathy G60.9 Active 577324538 Problem PVD (peripheral vascular disease) I73.9 Active 893189176 ALLERGIES No Information ENCOUNTERS Encounter Location Date Diagnosis [address] [id number] Apr, Hereditary and idiopathic peripheral neuropathy G60.[address] [id number] Mar, Hereditary and idiopathic peripheral neuropathy G60.[address] [id number] Mar, Essential hypertension I10 and Hereditary and idiopathic peripheral neuropathy G60.9 [place] [id number] [place] [address] [id number] Feb, Hereditary and idiopathic peripheral neuropathy G60.[address] [id number] Jan, Cystitis N30.90 and Hereditary and idiopathic peripheral neuropathy G60.[address] [id number] Dec, Acute cystitis with hematuria N30.[address] [id number] Dec, Hereditary and idiopathic peripheral neuropathy G60.9 [place] [id number] [place] [address] [id number] November, Hereditary and idiopathic peripheral neuropathy G60.9 and Essential hypertension I10 [place] [address] [place] [id number] [place] [address] [id number] November, Hereditary and idiopathic peripheral neuropathy G60.9 [place] [address] [place] [id number] [place] [address] [id number] Oct, Hereditary and idiopathic peripheral neuropathy G60.[address] [id number] Sep, Hereditary and idiopathic peripheral neuropathy G60.9 [place] [address] [place] [id number] [place] [address] [id number] Aug, Essential hypertension I10 ; Hereditary and idiopathic peripheral neuropathy G60.9 ; PVD (peripheral vascular disease) I73.9 and Infective urethritis N34.2 [place] [id number] [place] [address] [id number] Jul, Hereditary and idiopathic peripheral neuropathy G60.[address] [id number] May, Hereditary and idiopathic peripheral neuropathy G60.9 [place] [id number] [place] [address] [id number] May, [address] [id number] May, Hereditary and idiopathic peripheral neuropathy G60.9 [place] [id number] [place] [address] [id number] Apr, Hereditary and idiopathic peripheral neuropathy G60.9 [place] [id number] [place] [address] [id number] Apr, Encounter for immunization Z23 [place] [id number] [place] [address] [id number] Mar, Urinary tract infection, site not specified N39.0 ; Hematuria, unspecified R31.9 ; Hyperlipidemia, unspecified E78.5 and Essential hypertension I10 [address] [place] [address] [id number] Mar, Essential hypertension I10 ; Hereditary and idiopathic peripheral neuropathy G60.9 and Acute cystitis with hematuria N30.01 [facility] [address] [facility] [id number] [id number] Feb, [facility] [place] [id number] [place] [address] [id number] Feb, Hereditary and idiopathic peripheral neuropathy G60.9 [facility] [place] [id number][place] [id number] Jan, Hereditary and idiopathic peripheral neuropathy G60.9 [facility] [address] [place] [address] [id number] Dec, Essential hypertension I10 and Hereditary and idiopathic peripheral neuropathy G60.9 [facility] [place] [address] [facility] [id number] [place] [address] [id number] November, Hereditary and idiopathic peripheral neuropathy G60.[address] [id number] [place] [id number] Oct, Acute cystitis with hematuria N30.[address] [place] [address] [id number] Oct, [place] [id number] [place] [address] [id number] Oct, Hereditary and idiopathic peripheral neuropathy G60.9 [address] [place] [address] [id number] Sep, Hereditary and idiopathic peripheral neuropathy G60.9 [address] [place] [address] [id number] Sep, Fever, unspecified fever cause R50.9 ; Nausea R11.0 and Viral syndrome B34.9 [address] [id number] Aug, [id number] [place] [address] [id number] Aug, Dysuria R30.0 [place] [id number] [place] [address] [id number] Jul, Essential hypertension I10 and Tobacco abuse disorder Z72.0 [address] [place] [address] [id number] Apr, Hyperlipidemia, unspecified E78.5 ; Hereditary and idiopathic peripheral neuropathy G60.9 ; Essential hypertension I10 and Urinary tract infection without hematuria, site unspecified N39.0 [facility] [place] [id number] [place] [address] [id number] Apr, Hyperlipidemia, unspecified E78.5 [facility] [place] [address] [id number][place] [id number] Mar, Hyperlipidemia, unspecified E78.5 [facility] [place] [id number] [place] [address] [id number] Feb, Essential hypertension I10 [facility] [address] [address] Feb, [facility] [address] [place] [id number] [place] [address] [id number] Feb, Urinary tract infection, site not specified N39.0 and Hematuria, unspecified R31.9 [place] [address] [id number] [place] [address] [id number] Jan, Hereditary and idiopathic peripheral neuropathy G60.9 [facility] [address] [id number] [place] [address] [id number] Jan, [place] [address] [place] [id number] [place] [address] [id number] Dec, Well woman exam Z01.419 ; Colon cancer screening Z12.11 ; Breast cancer screening Z12.39 ; Bladder prolapse, female, acquired N81.10 and Rectocele N81.6 [facility] [address] [id number] [place] [address] [id number] Dec, Hereditary and idiopathic peripheral neuropathy G60.9 and Stress incontinence N39.3 [facility] [id number] [place] [address] [id number] Dec, [place] [id number] [place] [address] [id number] November, Essential hypertension I10 ; Hereditary and idiopathic peripheral neuropathy G60.9 and PVD (peripheral vascular disease) I73.9 [facility] [address] [id number] [place] [address] [id number] November, [facility] [address] [id number][place] [id number] Oct, [facility] [place] [address] [place] [id number][place] [id number] Aug, [facility] [place] [address] [place] [id number][place] [id number] Aug, Essential hypertension I10 [facility] [place] [id number], [place] [id number] Jul, [facility] [place] [id number] [place] [address] [id number] May, Neuropathy G62.9 [facility] [place] [id number] [place] [id number] May, [facility] [place] [address] [id number] [place] [id number] Jan, [facility] [address] [id number] Jan, Hyperlipemia 272.4 [facility] [address]65100[place] [id number] Jan, Other and unspecified hyperlipidemia 272.4 ; Unspecified essential hypertension 401.9 and Unspecified hereditary and idiopathic peripheral neuropathy 356.9 [facility] [address]65100[place] [id number] Oct, [facility] [address]005[address] [address] Oct, [facility] [address] [place] [id number] [place] [address] Oct, [facility] [place] [address] [place] [id number], [place] [id number] Aug, [facility] [address] [place] [id number] [place] [address] Aug, [facility] [address] [place] [id number] [place] [address] Jul, [facility] [address] [place] [id number] [place] [address] Jul, [facility] [place] [address] [id number] [place] [id number] Jul, [facility] [place] [address] [id number] [place] [id number] Jul, [facility] [place] [facility] [address] [facility] [id number] [place] [address] Jul, [facility] [place] [facility] [address] [facility] [id number] [place] [address] Jul, [facility] [place] [address] [id number] [place] [id number] Jul, [facility] [place] [address] [id number] [place] [id number] Jun, [facility] [place] [facility] [address] [facility] [id number] [address] Jun, [facility] [place] [address] [id number][place] [id number] Jun, [facility] [place] [facility] [address] [facility] [id number] [address] Jun, [facility] [place] [address] [id number] [place] [id number] May, [facility] [place] [facility] [address] [facility] [id number], [place] [address] May, [facility] [place] [address] [facility] [id number][place] [id number] Apr, [facility] [place] [facility] [address] [facility] [id number], [place] [address] Apr, [facility] [place] [address] [id number], [place] [id number] Mar, [facility] [place] [facility] [address] [facility] [id number][place] [address] Mar, [facility] [place] [address] [facility] [id number], [place] [id number] Feb, [facility] [place] [facility] [address] [facility] [id number][place] [address] Feb, [facility] [place] [facility] [address] [facility] [id number], [place] [address] Feb, [facility] [place] [address] [id number] [place] [id number] Feb, [facility] [place] [address] [facility] [id number] [place] [id number] Dec, [facility] [address] [facility] [id number][place] [address] Dec, [facility] [place] [facility] [address] [facility] [id number][place] [address] Aug, [facility] [place] [facility] [address] [facility] [id number], [place] [address] Aug, [facility] [place] [address] [facility] [id number], [place] [id number] Jul, [facility] [address]00565100[place], [place] [address] Jul, [facility] [place] [address] [facility] [id number], [place] [id number] Mar, [facility] [address] [facility] [id number][place] [address] Dec, [facility] [place] [address] [facility] [id number], [place] [id number] Dec, [facility] [place] [address] [facility] [id number], [place] [id number] Jun, [facility] [address] [facility] [id number][place] [address] Jun, [facility] [place] [facility] [address] [facility] [id number][place] [address] May, [facility] [place] [facility] [address] [facility] [id number], [place] [address] May, [facility] [place] [address] [facility] [id number], [place] [id number] Apr, [facility] [address] [facility] [id number][place] [address] Apr, [facility] [place] [address] [id number] [place] [id number] Apr, [facility] [address] [facility] [id number][place] [address] Apr, [facility] [place] [address] [id number] [place] [id number] Jan, [facility] [place] [address] [id number] [place] [id number] Jan, [facility] [place] [address] [id number] [place] [id number] November, [facility] [place] [address] [id number] [place] [id number] November, [facility] [place] [address] [id number] [place] [address]27[address] November, [facility] [place] [address] [id number] [place] [id number] Oct, [facility] [place] [address] [id number] [place] [id number] Oct, [facility] [place] [address] [id number] [place] [id number] Oct, [facility] [place] [address] [id number] [place] [id number] Oct, [facility] [place] [address] [id number] [place] [id number] Sep, [facility] [place] [address] [id number] [place] [id number] Sep, [facility] [address]65100[place], [place] [address] Aug, [facility] [address] [facility] [id number][place] [address] Jun, [facility] [address] [facility] [id number][place] [address] Jun, [facility] [address] [place] [id number] [address] Jun, [facility] [address]00565100[place], [place] [address] May, [facility] [address]00565100[place], [place] [address] May, [facility] [address]00565100[place], [place] [address] Jun, [facility] [address] [place] [address] Jun, [facility] [address] [facility] [id number][place] [address] Jun, [facility] [id number] [place] [address] Oct, [facility] [address]00565100[place], [place] [address] Sep, [facility] [address]00565100[place], [place] [address] Jun, [facility] [address]65100[place], [place] [address] Jun, [facility] [address]00565100[place], [place] [address] May, [facility] [address]65100[place], [place] [address] May, [facility] [address]00565100[place], [place] [address] May, [facility] [address] [place] [id number], [place] [address] May, IMMUNIZATIONS No Known Immunizations SOCIAL HISTORY Never Assessed REASON FOR VISIT RX-Tramadol refill PLAN OF CARE VITAL SIGNS MEDICATIONS Medication Instructions Dosage Frequency Start Date End Date Duration Status tramadol 50 mg orally 3 times a day PRN must last 28 days 1 Tablet Jul, Active RESULTS No Results PROCEDURES No [...] History iliac artery bypass x's [address] [facility] Aug and September 2014 Surgical History Left aortofemoral bypass by Dr. Bhakta 10/2016 Surgical History Sarnoma drained from left femoral incision site 2 wks post bypass 10/2016 Surgical History Detached retina in right eye 10/28 Hospitalization History surgeries, childbirth
--- OUTSIDE RECORDS SUMMARY | 2019-02-01 02:12 | XMS REPORT ---
Author Author CINDY CALIXTO [facility] Address [address] [place] [address] Care Team Providers Care Head Orthopedic Team Physician Name Role Phone CINDY CALIXTO Unavailable PROBLEMS ALLERGIES ENCOUNTERS IMMUNIZATIONS No Known Immunizations SOCIAL HISTORY No smoking Hx information available REASON FOR VISIT PLAN OF CARE VITAL SIGNS MEDICATIONS RESULTS No Results PROCEDURES INSTRUCTIONS MEDICATIONS ADMINISTERED No Known Medications MEDICAL (GENERAL) HISTORY
--- OUTSIDE RECORDS SUMMARY | 2019-02-01 02:12 | XMS REPORT ---
Author Author LINDSAY DOMINGUEZ [facility] Address [address] [place] [address] Care Team Providers Care Brilliandeer Lopper Name Role Phone ALBERTO LINDSAY Unavailable PROBLEMS Type Condition ICD9-CM Code CTE78-NS Code Onset Dates Condition Status SNOMED Code Problem Hyperlipidemia, unspecified E78.5 Active 08708492 Problem Stress incontinence N39.3 Active 83840600 Problem Essential hypertension I10 Active 99607161 Problem Hereditary and idiopathic peripheral neuropathy G60.9 Active 563225073 Problem PVD (peripheral vascular disease) I73.9 Active 688782527 ALLERGIES Substance Reaction Event Type Date Status Protamine Sulfate Unknown Drug Allergy Apr, Active ENCOUNTERS Encounter Location Date Diagnosis [address] [id number] Apr, Urinary tract infection N39.0 and Back pain M54.[address] [id number] Apr, Hereditary and idiopathic peripheral neuropathy G60.[address] [id number] Mar, Hereditary and idiopathic peripheral neuropathy G60.[address] [id number] Mar, Essential hypertension I10 and Hereditary and idiopathic peripheral neuropathy G60.[address] [id number] Feb, Hereditary and idiopathic peripheral neuropathy G60.[address] [id number] Jan, Cystitis N30.90 and Hereditary and idiopathic peripheral neuropathy G60.9 [place] [id number] [place] [address] [id number] Dec, Acute cystitis with hematuria N30.[id number] [place] [address] [id number] Dec, Hereditary and idiopathic peripheral neuropathy G60.9 [place] [id number] [place] [address] [id number] November, Hereditary and idiopathic peripheral neuropathy G60.9 and Essential hypertension I10 [place] [address] [id number] November, Hereditary and idiopathic peripheral neuropathy G60.9 [place] [id number] [place] [address] [id number] Oct, Hereditary and idiopathic peripheral neuropathy G60.[address] [id number] Sep, Hereditary and idiopathic peripheral neuropathy G60.9 [place] [id number] [place] [address] [id number] Aug, Essential hypertension I10 ; Hereditary and idiopathic peripheral neuropathy G60.9 ; PVD (peripheral vascular disease) I73.9 and Infective urethritis N34.2 [place] [id number] [place] [address] [id number] Jul, Hereditary and idiopathic peripheral neuropathy G60.[address] [id number] May, Hereditary and idiopathic peripheral neuropathy G60.[address] [place] [address] [id number] May, [place] [id number] [place] [address] [id number] May, Hereditary and idiopathic peripheral neuropathy G60.9 [id number] [place] [address] [id number] Apr, Hereditary and idiopathic peripheral neuropathy G60.[address] [id number] Apr, Encounter for immunization Z23 [id number] [place] [address] [id number] Mar, Urinary tract infection, site not specified N39.0 ; Hematuria, unspecified R31.9 ; Hyperlipidemia, unspecified E78.5 and Essential hypertension I10 [facility] [place] [address] [id number] [place] [id number] Mar, Essential hypertension I10 ; Hereditary and idiopathic peripheral neuropathy G60.9 and Acute cystitis with hematuria N30.01 [facility] [place] [address] [id number] [place] [id number] Feb, [facility] [place] [address] [id number] [place] [address] [id number] Feb, Hereditary and idiopathic peripheral neuropathy G60.9 [facility] [place] [id number] [place] [address] [id number] Jan, Hereditary and idiopathic peripheral neuropathy G60.9 [facility] [place] [address] [place] [id number] [place] [address] [id number] Dec, Essential hypertension I10 and Hereditary and idiopathic peripheral neuropathy G60.9 [facility] [place] [id number] [place] [address] [id number] November, Hereditary and idiopathic peripheral neuropathy G60.9 [address] [id number] Oct, Acute cystitis with hematuria N30.01 [place] [id number] [place] [address] [id number] Oct, [place] [id number] [place] [address] [id number] Oct, Hereditary and idiopathic peripheral neuropathy G60.9 [address] [place] [address] [id number] Sep, Hereditary and idiopathic peripheral neuropathy G60.9 [facility] [id number] [place] [address] [id number] Sep, Fever, unspecified fever cause R50.9 ; Nausea R11.0 and Viral syndrome B34.9 [place] [id number] [place] [address] [id number] Aug, [facility] [address] [facility] [id number] [place] [id number] Aug, Dysuria R30.0 [place] [address] [place] [id number] [place] [address] [id number] Jul, Essential hypertension I10 and Tobacco abuse disorder Z72.0 [facility] [place] [address] [id number] [place] [id number] Apr, Hyperlipidemia, unspecified E78.5 ; Hereditary and idiopathic peripheral neuropathy G60.9 ; Essential hypertension I10 and Urinary tract infection without hematuria, site unspecified N39.0 [facility] [place] [id number] [place] [address] [id number] Apr, Hyperlipidemia, unspecified E78.5 [facility] [place] [id number] [place] [address] [id number] Mar, Hyperlipidemia, unspecified E78.5 [facility] [place] [address] [place] [id number] [place] [address] [id number] Feb, Essential hypertension I10 [facility] [address] [address] Feb, [facility] [place] [id number] [place] [address] [id number] Feb, Urinary tract infection, site not specified N39.0 and Hematuria, unspecified R31.9 [facility] [place] [id number] [place] [address] [id number] Jan, Hereditary and idiopathic peripheral neuropathy G60.9 [facility] [id number] [place] [address] [id number] Jan, [facility] [place] [id number] [place] [address] [id number] Dec, Well woman exam Z01.419 ; Colon cancer screening Z12.11 ; Breast cancer screening Z12.39 ; Bladder prolapse, female, acquired N81.10 and Rectocele N81.6 [facility] [place] [id number] [place] [address] [id number] Dec, Hereditary and idiopathic peripheral neuropathy G60.9 and Stress incontinence N39.3 [facility] [address] [id number] [place] [address] [id number] Dec, [facility] [id number] [place] [address] [id number] November, Essential hypertension I10 ; Hereditary and idiopathic peripheral neuropathy G60.9 and PVD (peripheral vascular disease) I73.9 [facility] [id number] [place] [id number] November, [facility] [place] [id number] [place] [address] [id number] Oct, [facility] [place] [id number] [place] [address] [id number] Aug, [facility] [place] [address] [place] [id number] [place] [address] [id number] Aug, Essential hypertension I10 [facility] [id number] [place] [address] [id number] Jul, [facility] [place] [id number] [place] [address] [phone] May, Neuropathy G62.9 [facility] [place] [address] [id number] [phone] May, [facility] [place] [id number] [place] [address] [id number] Jan, [address]100[place] [id number] Jan, Hyperlipemia 272.[id number] [place] [address] [id number] Jan, Other and unspecified hyperlipidemia 272.4 ; Unspecified essential hypertension 401.9 and Unspecified hereditary and idiopathic peripheral neuropathy 356.9 [id number] [place] [id number] Oct, [facility] [address] [place] [id number] [place] [address] Oct, [facility] [address] [place] [id number] [place] [address] Oct, [facility] [id number] [place] [address] [id number] Aug, [facility] [address] [place] [id number] [place] [address] Aug, [facility] [place] [facility] [address] [id number] [place] [address] Jul, [facility] [place] [facility] [address] [facility] [id number] [place] [address] Jul, [facility] [address] [id number] [place] [id number] Jul, [facility] [address] [id number] [place] [id number] Jul, [facility] [place] [facility] [address] [facility] [id number] [place] [address] Jul, [facility] [place] [facility] [address] [facility] [id number] [place] [address] Jul, [facility] [address] [id number] [place] [id number] Jul, [facility] [address] [id number] [place] [id number] Jun, [facility] [place] [facility] [address] [facility] [id number], [place] [address] Jun, [facility] [address] [facility] [id number] [place] [phone] Jun, [facility] [place] [facility] [address] [facility] [id number], [place] [address] Jun, [facility] [address] [facility] [id number] [place] [phone] May, [facility] [place] [facility] [address] [facility] [id number], [place] [address] May, [facility] [address] [id number] [place] [id number] Apr, [facility] [place] [facility] [address] [facility] [id number] [place] [address] Apr, [facility] [address] [id number] [place] [id number] Mar, [facility] [place] [facility] [address] [facility] [id number], [place] [address] Mar, [facility] [address] [id number] [place] [id number] Feb, [facility] [place] [facility] [address] [facility] [id number], [place] [address] Feb, [facility] [place] [facility] [address] [facility] [id number], [place] [address] Feb, [facility] [address] [facility] [id number] [place] [id number] Feb, [facility] [address] [facility] [id number] [place] [phone] Dec, [facility] [place] [facility] [address] [facility] [id number], [place] [address] Dec, [facility] [place] [facility] [address] [place] [id number], [place] [address] Aug, [facility] [place] [facility] [address], [place] [address] Aug, [facility] [address] [facility] [id number] [place] [id number] Jul, [facility] [place] [facility] [address]65[address], [place] [address] Jul, [facility] [address] [facility] [id number] [place] [id number] Mar, [facility] [place] [facility] [address] [facility] [id number], [place] [address] Dec, [facility] [address] [facility] [id number] [place] [id number] Dec, [facility] [address] [facility] [id number] [place] [id number] Jun, [facility] [place] [facility] [address] [facility] [id number], [place] [address] Jun, [facility] [place] [facility] [address] [facility] [id number], [place] [address] May, [facility] [place] [facility] [address] [facility] [id number], [place] [address] May, [facility] [address] [id number] [place] [id number] Apr, [facility] [address] [facility] [id number], [place] [address] Apr, [facility] [address] [id number] [place] [id number] Apr, [facility] [address], [place] [address] Apr, [facility] [address] [id number] [place] [id number] Jan, [facility] [address] [id number] [place] [id number] Jan, [facility] [address] [id number] [place] [id number] November, [facility] [address] [id number] [place] [id number] November, [facility] [address] [id number] [place] [id number] November, [facility] [address] [id number] [place] [id number] Oct, [facility] [address] [id number] [place] [id number] Oct, [facility] [address] [id number] [place] [id number] Oct, [facility] [address] [id number] [place] [id number] Oct, [facility] [address] [id number] [place] [id number] Sep, [facility] [address] [id number] [place] [id number] Sep, [facility] [address]65[address], [place] [address] Aug, [facility] [address] [place] [id number], [place] [address] Jun, [facility] [address]65[address], [place] [address] 13 Jun, 2011 [facility] [address] [facility] [id number], [place] [address] 09 Jun, 2011 [facility] [address] [facility] [id number], [place] [address] May, [facility] [address] [facility] [id number], [place] [address] 21 May, 2011 [facility] [address] [facility] [id number], [place] [address] 10 Jun, 2010 [facility] [address] [facility] [id number] [place] [address] 07 Jun, 2010 [facility] [address] [facility] [id number], [place] [address] Jun, [facility] [address]65100[place], [place] [address] 13 Oct, 2009 [facility] [address]65100[place], [place] [address] Sep, [facility] [address]65100[place], [place] [address] Jun, [facility] [address]65[address], [place] [address] 14 Jun, 2009 [facility] [address]65[address], [place] [address] May, [facility] [address] [place] [id number], [place] [address] May, [facility] [address]65[address], [place] [address] May, [facility] [address]65[address], [place] [address] May, IMMUNIZATIONS No Known Immunizations SOCIAL HISTORY Never Assessed REASON FOR VISIT Pt c/c "kidney pain" started a month ago, odor has gotten worse [place] PLAN OF CARE Activity Details Follow Up prn Reason: VITAL SIGNS Height 66 in 2018-05-07 Weight 208 lbs 2018-05-07 Temperature 97.3 degrees Fahrenheit 2018-05-07 Heart Rate 80 bpm 2018-05-07 Respiratory Rate 16 2018-05-07 BMI 33.57 kg/m2 2018-05-07 Blood pressure systolic 130 mmHg 2018-05-07 Blood pressure diastolic 78 mmHg 2018-05-07 MEDICATIONS Medication Instructions Dosage Frequency Start Date End Date Duration Status Gabapentin 800 MG 1 tablet 2 times a day Orally 30 30 30 30 Active Warfarin Sodium 5 MG Orally Once a day 1 tablet 24h Active Metoprolol Tartrate 50 mg TAKE 1 TABLET BY MOUTH TWICE DAILY WITH FOOD... Active tramadol 50 mg orally 3 times a day PRN must last 28 days 1 Tablet Jul, Active Lisinopril 40 mg Orally 2 times a day 1tab 12h 90 Active Macrobid 100 mg Orally every 12 hrs 1 capsule with food 12h Apr, Apr, 5 days Active Plavix 75 MG TAKE ONE (1) TABLET BY MOUTH DAILY... Active Pravastatin Sodium 80 MG TAKE ONE (1) TABLET DAILY AT BEDTIME. 90 Active RESULTS No Results PROCEDURES Procedure Date Ordered Result Body Site [facility] VISIT ESTABLISHED PATIENT May 07, 2018 LAB NOT BILLED BY [facility] May 07, 2018 URINALYSIS, AUTO, W/O SCOPE May 07, 2018 INSTRUCTIONS MEDICATIONS ADMINISTERED No Known Medications [...]
--- OUTSIDE RECORDS SUMMARY | 2019-02-01 02:13 | XMS REPORT ---
Author Author CINDY CALIXTO [facility] Address [address] [place] [address] Care Team Providers Care [employer] Tender Name Role Phone CINDY CALIXTO Unavailable PROBLEMS Type Condition ICD9-CM Code PEX46-CA Code Onset Dates Condition Status SNOMED Code Problem Hyperlipidemia, unspecified E78.5 Active 56797073 Problem Stress incontinence N39.3 Active 29681056 Problem Essential hypertension I10 Active 53839508 Problem Hereditary and idiopathic peripheral neuropathy G60.9 Active 280056796 Problem PVD (peripheral vascular disease) I73.9 Active 655753104 ALLERGIES Substance Reaction Event Type Date Status Protamine Sulfate Unknown Drug Allergy Dec, Active ENCOUNTERS Encounter Location Date Diagnosis [address] [id number] Mar, Hereditary and idiopathic peripheral neuropathy G60.[address] [id number] Mar, Essential hypertension I10 and Hereditary and idiopathic peripheral neuropathy G60.[address] [id number] Feb, Hereditary and idiopathic peripheral neuropathy G60.[address] [id number] Jan, Cystitis N30.90 and Hereditary and idiopathic peripheral neuropathy G60.[address] [id number] Dec, Acute cystitis with hematuria N30.[address] [id number] Dec, Hereditary and idiopathic peripheral neuropathy G60.[address] [id number] November, Hereditary and idiopathic peripheral neuropathy G60.9 and Essential hypertension I10 [id number] [place] [address] [id number] November, Hereditary and idiopathic peripheral neuropathy G60.[address] [id number] Oct, Hereditary and idiopathic peripheral neuropathy G60.[address] [id number] Sep, Hereditary and idiopathic peripheral neuropathy G60.[address] [id number] Aug, Essential hypertension I10 ; Hereditary and idiopathic peripheral neuropathy G60.9 ; PVD (peripheral vascular disease) I73.9 and Infective urethritis N34.[address] [id number] Jul, Hereditary and idiopathic peripheral neuropathy G60.[address] [id number] May, Hereditary and idiopathic peripheral neuropathy G60.[address] [id number] May, [address] [id number] May, Hereditary and idiopathic peripheral neuropathy G60.[address] [id number] Apr, Hereditary and idiopathic peripheral neuropathy G60.[address] [id number] Apr, Encounter for immunization Z23 [place] [id number] [place] [address] [id number] Mar, Urinary tract infection, site not specified N39.0 ; Hematuria, unspecified R31.9 ; Hyperlipidemia, unspecified E78.5 and Essential hypertension I10 [place] [id number] [place] [address] [id number] Mar, Essential hypertension I10 ; Hereditary and idiopathic peripheral neuropathy G60.9 and Acute cystitis with hematuria N30.01 [place] [id number] [place] [address] [id number] Feb, [facility] [address] [facility] [id number][place] [id number] Feb, Hereditary and idiopathic peripheral neuropathy G60.9 [facility] [id number][place] [id number] Jan, Hereditary and idiopathic peripheral neuropathy G60.9 [place] [id number] [place] [address] [id number] Dec, Essential hypertension I10 and Hereditary and idiopathic peripheral neuropathy G60.9 [facility] [address] [facility] [id number], [place] [id number] November, Hereditary and idiopathic peripheral neuropathy G60.9 [address]65100[place] [id number] Oct, Acute cystitis with hematuria N30.[id number] [place] [address] [id number] Oct, [place] [id number] [place] [address] [id number] Oct, Hereditary and idiopathic peripheral neuropathy G60.9 [address] [place] [address] [id number] Sep, Hereditary and idiopathic peripheral neuropathy G60.9 [place] [id number] [place] [address] [id number] Sep, Fever, unspecified fever cause R50.9 ; Nausea R11.0 and Viral syndrome B34.[address] [place] [address] [id number] Aug, [address]65100[place] [id number] Aug, Dysuria R30.0 [place] [id number] [place] [address] [id number] Jul, Essential hypertension I10 and Tobacco abuse disorder Z72.0 [address] [place] [address] [id number] Apr, Hyperlipidemia, unspecified E78.5 ; Hereditary and idiopathic peripheral neuropathy G60.9 ; Essential hypertension I10 and Urinary tract infection without hematuria, site unspecified N39.0 [facility] [place] [address] [id number], [place] [id number] Apr, Hyperlipidemia, unspecified E78.5 [facility] [place] [address] [id number], [place] [id number] Mar, Hyperlipidemia, unspecified E78.5 [facility] [address] [id number], [place] [id number] Feb, Essential hypertension I10 [address]65[address], [place] [address] Feb, [facility] [id number] [place] [address] [id number] Feb, Urinary tract infection, site not specified N39.0 and Hematuria, unspecified R31.9 [facility] [address] [id number], [place] [id number] Jan, Hereditary and idiopathic peripheral neuropathy G60.9 [facility] [address] [id number] [place] [address] [id number] Jan, [facility] [id number] [place] [address] [id number] Dec, Well woman exam Z01.419 ; Colon cancer screening Z12.11 ; Breast cancer screening Z12.39 ; Bladder prolapse, female, acquired N81.10 and Rectocele N81.6 [facility] [id number] [place] [address] [id number] Dec, Hereditary and idiopathic peripheral neuropathy G60.9 and Stress incontinence N39.3 [facility] [id number] [place] [address] [id number] Dec, [facility] [address] [id number] [place] [address] [id number] November, Essential hypertension I10 ; Hereditary and idiopathic peripheral neuropathy G60.9 and PVD (peripheral vascular disease) I73.9 [facility] [address] [id number], [place] [id number] November, [place] [id number] [place] [address] [id number] Oct, [facility] [address] [id number], [place] [id number] Aug, [facility] [place] [address] [place] [id number][place] [id number] Aug, Essential hypertension I10 [facility] [place] [id number], [place] [id number] Jul, [facility] [place] [address] [place] [address] [id number], [place] [id number] May, Neuropathy G62.9 [facility] [address] [id number] [id number] May, [facility] [address] [id number], [place] [id number] Jan, [facility] [place] [id number], [place] [id number] Jan, Hyperlipemia 272.4 [facility] [address] [place] [address] [id number] Jan, Other and unspecified hyperlipidemia 272.4 ; Unspecified essential hypertension 401.9 and Unspecified hereditary and idiopathic peripheral neuropathy 356.9 [facility] [place] [id number], [place] [id number] Oct, [facility] [address]00565100[place] [address] Oct, [facility] [address]00565100[place] [address] Oct, [facility] [place] [address] [place] [address] [id number], [place] [id number] Aug, [facility] [address]00565100[place] [address] Aug, [facility] [address] [place] [id number] [place] [address] Jul, [facility] [address]00565100[place] [address] Jul, [facility] [place] [id number] [place] [address] [id number] Jul, [facility] [place] [address] [id number] [place] [id number] Jul, [facility] [address] [facility] [id number] [address] Jul, [facility] [address] [facility] [id number] [address] Jul, [facility] [place] [address] [id number] [place] [id number] Jul, [facility] [place] [address] [facility] [id number] [place] [id number] Jun, [facility] [address] [facility] [id number] [address] Jun, [facility] [place] [address] [facility] [id number], [place] [id number] Jun, [facility] [address]65100[place] [address] Jun, [facility] [place] [address] [facility] [id number], [place] [id number] May, [facility] [address] [facility] [id number] [address] May, [facility] [place] [address] [facility] [id number], [place] [id number] Apr, [facility] [address] [facility] [id number] [address] Apr, [facility] [place] [address] [facility] [id number], [place] [id number] Mar, [facility] [address] [facility] [id number] [place] [address] Mar, [facility] [place] [address] [facility] [id number], [place] [id number] Feb, [facility] [address] [facility] [id number] [place] [address] Feb, [facility] [address] [facility] [id number] [address] Feb, [facility] [place] [address] [id number] [place] [id number] Feb, [facility] [place] [address] [id number] [place] [id number] Dec, [facility] [address] [facility] [id number] [address] Dec, [facility] [address] [facility] [id number] [address] Aug, [facility] [address] [facility] [id number] [place] [address] Aug, [facility] [place] [address] [facility] [id number] [place] [id number] Jul, [facility] [address] [place] [id number] [address] Jul, [facility] [place] [address] [facility] [id number], [place] 834[address] Mar, [facility] [address] [facility] [id number] [place] [address] Dec, [facility] [place] [address] [id number], [place] [id number] Dec, [facility] [place] [address] [facility] [id number], [place] [id number] Jun, [facility] [address] [facility] [id number] [address] Jun, [facility] [address] [facility] [id number] [place] [address] May, [facility] [address] [facility] [id number] [place] [address] May, [facility] [place] [address] [facility] [id number], [place] [id number] Apr, [facility] [address] [facility] [id number] [place] [address] Apr, [facility] [place] [address] [id number] [place] [id number] Apr, [facility] [address] [facility] [id number] [place] [address] Apr, [facility] [place] [address] [id number] [place] [id number] Jan, [facility] [place] [address] [id number] [place] [address] Jan, [facility] [place] [address] [id number] [place] [id number] November, [facility] [place] [address] [id number] [place] [id number] November, [facility] [place] [address] [id number] [place] [id number] November, [facility] [place] [address] [id number] [place] [id number] Oct, [facility] [place] [address] [id number] [place] [id number] Oct, [facility] [place] [address] [id number] [place] [address]44[address] Oct, [facility] [place] [address] [id number] [place] [id number] Oct, [facility] [place] [address] [id number] [place] [id number] Sep, [facility] [place] [address] [id number] [place] [id number] Sep, [facility] [address]00565100[place] [address] Aug, [facility] [address] [facility] [id number] [place] [address] Jun, [facility] [address] [place] [id number] [place] [address] Jun, [facility] [address] [facility] [id number] [address] Jun, [facility] [id number] [place] [address] May, [facility] [address] [place] [address] [id number] [address] May, [facility] [address]00565100[place] [address] Jun, [facility] [address]00565100[place] [address] Jun, [facility] [address]00565100[place] [address] Jun, [facility] [address]00565100[place] [address] Oct, [facility] [address]00565100[place] [address] Sep, [facility] [address]00565100[place] [address] Jun, [facility] [address]00565100[place] [address] Jun, [facility] [address]00565100[place] [address] May, [facility] [address]00565100[place] [address] May, [facility] [address]00565100[place] [address] May, [facility] [address] [id number] [address] May, IMMUNIZATIONS No Known Immunizations SOCIAL HISTORY Never Assessed REASON FOR VISIT having UTI symptoms x 2 days, burning with urination and urinary urgency. Rojelio mckinney lpn PLAN OF CARE Activity Details Follow Up prn Reason: VITAL SIGNS Height 66 in 2017-12-30 Weight 208.2 lbs 2017-12-30 Temperature 98.2 degrees Fahrenheit 2017-12-30 Heart Rate 90 bpm 2017-12-30 Respiratory Rate 16 2017-12-30 BMI 33.60 kg/m2 2017-12-30 Blood pressure systolic 140 mmHg 2017-12-30 Blood pressure diastolic 76 mmHg 2017-12-30 MEDICATIONS Medication Instructions Dosage Frequency Start Date End Date Duration Status Metoprolol Tartrate 50 mg TAKE 1 TABLET BY MOUTH TWICE DAILY WITH FOOD... Active Lisinopril 40 mg Orally 2 times a day 1tab am .5 tab pm 12h 90 Active Gabapentin 800 MG 1 tablet 2 times a day Orally 30 30 30 30 Active Warfarin Sodium 5 MG Orally Once a day 1 tablet 24h Active Plavix 75 MG TAKE ONE (1) TABLET BY MOUTH DAILY... Active tramadol 50 mg orally 3 times a day PRN must last 28 days 1 Tablet 12 Jul, 2014 0 days Active Nitrofurantoin Monohyd Macro 100 mg Orally every 12 hrs 1 capsule with food 12h Dec, Dec, 7 day(s) Active Pravastatin Sodium 80 MG TAKE ONE (1) TABLET DAILY AT BEDTIME. 90 Active RESULTS Name Result Date Reference Range UA LONG DIP (IN HOUSE) 2017-12-30 Lot # [id number] Exp date 11/09/18 Clarity slightly cloudy Color yellow Odor no GLU neg SAMEER neg KET neg SG 1.020 BLO 2+ pH 7.0 Protein 1+ URO 0.2 NIT pos [place] 3+ Lot # Exp date PROCEDURES Procedure Date Ordered Result Body Site URINALYSIS, AUTO, W/O SCOPE December 30, 2017 [facility] VISIT ESTABLISHED PATIENT December 30, 2017 INSTRUCTIONS MEDICATIONS ADMINISTERED No Known Medications MEDICAL [...] History iliac artery bypass x's 2 at [facility] Aug and September 2014 Surgical History Left aortofemoral bypass by Dr. Bhakta 10/2016 Surgical History Sarnoma drained from left femoral incision site 2 wks post bypass 10/2016 Surgical History Detached retina in right eye 10/28 Hospitalization History surgeries, childbirth
--- OUTSIDE RECORDS SUMMARY | 2019-02-01 02:13 | XMS REPORT ---
Author Author CINDY CALIXTO Organization [facility] Address [address] [place] [address] Care Team Providers Care Bookie Name Role Phone CINDY CALIXTO Unavailable PROBLEMS Type Condition ICD9-CM Code KOL40-RJ Code Onset Dates Condition Status SNOMED Code Problem Hyperlipidemia, unspecified E78.5 Active 79263349 Problem Stress incontinence N39.3 Active 39822455 Problem Essential hypertension I10 Active 23168992 Problem Hereditary and idiopathic peripheral neuropathy G60.9 Active 349733514 Problem PVD (peripheral vascular disease) I73.9 Active [id number] ALLERGIES No Information ENCOUNTERS Encounter Location Date Diagnosis [address] [id number] Mar, Hereditary and idiopathic peripheral neuropathy G60.[address] [id number] Mar, Essential hypertension I10 and Hereditary and idiopathic peripheral neuropathy G60.[address] [id number] Feb, Hereditary and idiopathic peripheral neuropathy G60.[address] [id number] Jan, Cystitis N30.90 and Hereditary and idiopathic peripheral neuropathy G60.[address] [id number] Dec, Acute cystitis with hematuria N30.[address] [id number] Dec, Hereditary and idiopathic peripheral neuropathy G60.[address] [id number] November, Hereditary and idiopathic peripheral neuropathy G60.9 and Essential hypertension I10 [address] [id number] November, Hereditary and idiopathic peripheral neuropathy G60.9 [place] [id number] [place] [address] [id number] Oct, Hereditary and idiopathic peripheral neuropathy G60.9 [place] [id number] [place] [address] [id number] Sep, Hereditary and idiopathic peripheral neuropathy G60.9 [place] [id number] [place] [address] [id number] Aug, Essential hypertension I10 ; Hereditary and idiopathic peripheral neuropathy G60.9 ; PVD (peripheral vascular disease) I73.9 and Infective urethritis N34.[address] [id number] Jul, Hereditary and idiopathic peripheral neuropathy G60.9 [place] [id number] [place] [address] [id number] May, Hereditary and idiopathic peripheral neuropathy G60.9 [place] [id number] [place] [address] [id number] May, [place] [id number] [place] [address] [id number] May, Hereditary and idiopathic peripheral neuropathy G60.9 [place] [id number] [place] [address] [id number] Apr, Hereditary and idiopathic peripheral neuropathy G60.9 [place] [id number] [place] [address] [id number] Apr, Encounter for immunization Z23 [place] [id number] [place] [address] [id number] Mar, Urinary tract infection, site not specified N39.0 ; Hematuria, unspecified R31.9 ; Hyperlipidemia, unspecified E78.5 and Essential hypertension I10 [place] [id number] [place] [address] [id number] Mar, Essential hypertension I10 ; Hereditary and idiopathic peripheral neuropathy G60.9 and Acute cystitis with hematuria N30.01 [place] [id number] [place] [address] [id number] Feb, [address] [id number] Feb, Hereditary and idiopathic peripheral neuropathy G60.9 [place] [id number] [place] [address] [id number] Jan, Hereditary and idiopathic peripheral neuropathy G60.9 [facility] [id number] [place] [address] [id number] Dec, Essential hypertension I10 and Hereditary and idiopathic peripheral neuropathy G60.9 [place] [id number], [place] [id number] November, Hereditary and idiopathic peripheral neuropathy G60.[address] [id number] [id number] Oct, Acute cystitis with hematuria N30.01 [facility] [id number] [place] [address] [id number] Oct, [address] [place] [address] [id number] Oct, Hereditary and idiopathic peripheral neuropathy G60.9 [place] [id number] [place] [address] [id number] Sep, Hereditary and idiopathic peripheral neuropathy G60.9 [place] [id number] [place] [address] [id number] Sep, Fever, unspecified fever cause R50.9 ; Nausea R11.0 and Viral syndrome B34.9 [address] [place] [address] [id number] Aug, [place] [id number] [place] [address] [id number] Aug, Dysuria R30.0 [address] [place] [address] [id number] Jul, Essential hypertension I10 and Tobacco abuse disorder Z72.0 [place] [id number] [place] [address] [id number] Apr, Hyperlipidemia, unspecified E78.5 ; Hereditary and idiopathic peripheral neuropathy G60.9 ; Essential hypertension I10 and Urinary tract infection without hematuria, site unspecified N39.[address] [id number] [id number] Apr, Hyperlipidemia, unspecified E78.5 [facility] [id number] [place] [address] [id number] Mar, Hyperlipidemia, unspecified E78.5 [facility] [id number], [place] [id number] Feb, Essential hypertension I10 [id number] [place] [address] Feb, [facility] [id number] [place] [address] [id number] Feb, Urinary tract infection, site not specified N39.0 and Hematuria, unspecified R31.9 [place] [id number] [place] [address] [id number] Jan, Hereditary and idiopathic peripheral neuropathy G60.9 [address] [place] [address] [id number] Jan, [place] [id number] [place] [address] [id number] Dec, Well woman exam Z01.419 ; Colon cancer screening Z12.11 ; Breast cancer screening Z12.39 ; Bladder prolapse, female, acquired N81.10 and Rectocele N81.6 [place] [id number] [place] [address] [id number] Dec, Hereditary and idiopathic peripheral neuropathy G60.9 and Stress incontinence N39.3 [address] [place] [address] [id number] Dec, [place] [id number] [place] [address] [id number] November, Essential hypertension I10 ; Hereditary and idiopathic peripheral neuropathy G60.9 and PVD (peripheral vascular disease) I73.9 [address] [place] [address] [id number] November, [address] [place] [address] [id number] Oct, [place] [id number] [place] [address] [id number] Aug, [facility] [place] [address] [facility] [id number] [id number] Aug, Essential hypertension I10 [facility] [place] [address] [id number][place] [id number] Jul, [facility] [place] [address] [place] [id number] [id number] May, Neuropathy G62.9 [facility] [place] [address] [id number] [id number] May, [facility] [place] [address] [id number][place] [id number] Jan, [facility] [place] [id number], [place] [id number] Jan, Hyperlipemia 272.4 [facility] [place] [id number], [place] [id number] Jan, Other and unspecified hyperlipidemia 272.4 ; Unspecified essential hypertension 401.9 and Unspecified hereditary and idiopathic peripheral neuropathy 356.9 [facility] [place] [address] [place] [id number] [id number] Oct, [facility] [address] [place] [address] Oct, [facility] [address]00565100[place] [address] Oct, [facility] [place] [address] [place] [id number], [place] [id number] Aug, [facility] [address]00565100[place] [address] Aug, [facility] [address] [place] [address] Jul, [facility] [address]00565100[place] [address] Jul, [facility] [address] [place] [id number], [place] [id number] Jul, [facility] [place] [address] [place] [id number], [place] [id number] Jul, [facility] [address] [id number] [address] Jul, [facility] [place] [facility] [address] [facility] [id number] [place] [address] Jul, [facility] [place] [address] [id number], [place] [id number] Jul, [facility] [place] [address] [id number], [place] [id number] Jun, [facility] [place] [facility] [address] [facility] [id number] [place] [address] Jun, [facility] [place] [address] [facility] [id number], [place] [id number] Jun, [facility] [place] [facility] [address] [place] [id number] [address] Jun, [facility] [place] [address] [facility] [id number], [place] [id number] May, [facility] [place] [facility] [address] [facility] [id number] [place] [address] May, [facility] [place] [address] [facility] [id number], [place] [id number] Apr, [facility] [place] [facility] [address] [facility] [id number] [place] [address] Apr, [facility] [place] [address] [facility] [id number], [place] [id number] Mar, [facility] [place] [facility] [address] [facility] [id number] [place] [address] Mar, [facility] [place] [address] [facility] [id number], [place] [id number] Feb, [facility] [place] [facility] [address] [facility] [id number] [place] [address] Feb, [facility] [place] [facility] [address] [facility] [id number] [place] [address] Feb, [facility] [place] [address] [facility] [id number], [place] [id number] Feb, [facility] [place] [address] [facility] [id number], [place] [id number] Dec, [facility] [place] [facility] [address] [facility] [id number] [place] [address] Dec, [facility] [place] [facility] [address] [facility] [id number] [place] [address] Aug, [facility] [place] [facility] [address] [facility] [id number] [place] [address] Aug, [facility] [place] [address] [facility] [id number], [place] [id number] Jul, [facility] [place] [facility] [address]00565100[place] [address] Jul, [facility] [place] [id number], [place] [id number] Mar, [facility] [place] [facility] [address]00565100[place] [address] Dec, [facility] [place] [address] [facility] [id number], [place] [id number] Dec, [facility] [place] [address] [facility] [id number], [place] [id number] Jun, [facility] [place] [facility] [address]00565100[place] [address] Jun, [facility] [place] [facility] [address]00565100[place] [address] May, [facility] [place] [facility] [address] [facility] [id number] [place] [address] May, [facility] [place] [address] [facility] [id number], [place] [id number] Apr, [facility] [place] [facility] [address] [facility] [id number] [place] [address] Apr, [facility] [place] [address] [facility] [id number], [place] [id number] Apr, [facility] [address] [facility] [id number] [place] [address] Apr, [facility] [place] [address] [id number] [place] [id number] Jan, [facility] [place] [address] [id number] [place] [id number] Jan, [facility] [place] [address] [id number] [place] [id number] November, [facility] [place] [address] [id number] [place] [id number] November, [facility] [place] [address] [id number] [place] [id number] November, [facility] [place] [address] [id number] [place] [id number] Oct, [facility] [place] [address] [id number] [place] [id number] Oct, [facility] [place] [address] [id number] [place] 036753867 Oct, [facility] [place] [address] [id number] [place] [id number] Oct, [facility] [place] [address] [id number] [place] [id number] Sep, [facility] [place] [address] [id number] [place] [id number] Sep, [facility] [address]00565100[place] [address] Aug, [facility] [place] [facility] [address]00565100[place] [address] Jun, [facility] [address]00565100[place] [address] Jun, [facility] [place] [facility] [address] [place] [id number] [address] Jun, [facility] [address]00565100[place] [address] May, [facility] [address]00565100[place] [address] May, [facility] [address]00565100[place] [address] Jun, [facility] [address]00565100[place] [address] Jun, [facility] [address]00565100[place] [address] Jun, [facility] [address]00565100[place] [address] Oct, [facility] [address] [place] [address] Sep, [facility] [address] [place] [address] Jun, [facility] [address] [place] [id number] [place] [address] Jun, [facility] [address]65100[place] [address] May, [facility] [address]00565100[place] [address] May, [facility] [address]00565100[place] [address] May, [facility] [address]00565100[place] [address] May, IMMUNIZATIONS No Known Immunizations SOCIAL HISTORY [...] History iliac artery bypass x's 2 at [facility] Aug and September 2014 Surgical History Left aortofemoral bypass by Dr. Bhakta 10/2016 Surgical History Sarnoma drained from left femoral incision site 2 wks post bypass 10/2016 Surgical History Detached retina in right eye 10/28 Hospitalization History surgeries, childbirth
--- OUTSIDE RECORDS SUMMARY | 2019-02-01 02:14 | XMS REPORT ---
Author Author CINDY CALIXTO [facility] Address [address] [place] [address] Care Team Providers Care Leather Carver Name Role Phone CINDY CALIXTO Unavailable PROBLEMS Type Condition ICD9-CM Code ZGQ05-LP Code Onset Dates Condition Status SNOMED Code Problem Hyperlipidemia, unspecified E78.5 Active 62127331 Problem Stress incontinence N39.3 Active 73213542 Problem Essential hypertension I10 Active 37819486 Problem Hereditary and idiopathic peripheral neuropathy G60.9 Active 303207707 Problem PVD (peripheral vascular disease) I73.9 Active 053502363 ALLERGIES Substance Reaction Event Type Date Status Protamine Sulfate Unknown Drug Allergy Jan, Active ENCOUNTERS Encounter Location Date Diagnosis [place] [id number] [place] [address] [id number] Mar, [address] [id number] Feb, Hereditary and idiopathic peripheral neuropathy G60.9 [place] [id number] [place] [address] [id number] Jan, Cystitis N30.90 and Hereditary and idiopathic peripheral neuropathy G60.[address] [place] [id number] [place] [address] [id number] Dec, Acute cystitis with hematuria N30.[address] [id number] Dec, Hereditary and idiopathic peripheral neuropathy G60.9 [place] [id number] [place] [address] [id number] November, Hereditary and idiopathic peripheral neuropathy G60.9 and Essential hypertension I10 [place] [id number] [place] [address] [id number] November, Hereditary and idiopathic peripheral neuropathy G60.[address] [id number] Oct, Hereditary and idiopathic peripheral neuropathy G60.9 [place] [id number] [place] [address] [id number] Sep, Hereditary and idiopathic peripheral neuropathy G60.9 [place] [address] [place] [id number] [place] [address] [id number] Aug, Essential hypertension I10 ; Hereditary and idiopathic peripheral neuropathy G60.9 ; PVD (peripheral vascular disease) I73.9 and Infective urethritis N34.2 [facility] [address] [id number] [place] [address] [id number] Jul, Hereditary and idiopathic peripheral neuropathy G60.9 [place] [id number] [place] [address] [id number] May, Hereditary and idiopathic peripheral neuropathy G60.9 [place] [address] [place] [id number] [place] [address] [id number] May, [place] [id number] [place] [address] [id number] May, Hereditary and idiopathic peripheral neuropathy G60.9 [place] [address] [place] [id number] [place] [address] [id number] Apr, Hereditary and idiopathic peripheral neuropathy G60.[address] [id number] Apr, Encounter for immunization Z23 [place] [id number] [place] [address] [id number] Mar, Urinary tract infection, site not specified N39.0 ; Hematuria, unspecified R31.9 ; Hyperlipidemia, unspecified E78.5 and Essential hypertension I10 [place] [id number] [place] [address] [id number] Mar, Essential hypertension I10 ; Hereditary and idiopathic peripheral neuropathy G60.9 and Acute cystitis with hematuria N30.01 [place] [address] [place] [id number] [place] [address] [id number] Feb, [place] [id number] [place] [address] [id number] Feb, Hereditary and idiopathic peripheral neuropathy G60.9 [place] [address] [id number] [id number] Jan, Hereditary and idiopathic peripheral neuropathy G60.9 [place] [id number] [place] [address] [id number] Dec, Essential hypertension I10 and Hereditary and idiopathic peripheral neuropathy G60.9 [place] [id number], [place] [id number] November, Hereditary and idiopathic peripheral neuropathy G60.[address] [id number] [place] [id number] Oct, Acute cystitis with hematuria N30.[address] [place] [address] [id number] Oct, [place] [id number] [place] [address] [id number] Oct, Hereditary and idiopathic peripheral neuropathy G60.9 [address] [place] [address] [id number] Sep, Hereditary and idiopathic peripheral neuropathy G60.9 [address] [place] [address] [id number] Sep, Fever, unspecified fever cause R50.9 ; Nausea R11.0 and Viral syndrome B34.[address] [place] [address] [id number] Aug, [address] [place] [address] [id number] Aug, Dysuria R30.0 [address] [place] [address] [id number] Jul, Essential hypertension I10 and Tobacco abuse disorder Z72.0 [address] [place] [address] [id number] Apr, Hyperlipidemia, unspecified E78.5 ; Hereditary and idiopathic peripheral neuropathy G60.9 ; Essential hypertension I10 and Urinary tract infection without hematuria, site unspecified N39.0 [address] [place] [address] [id number] Apr, Hyperlipidemia, unspecified E78.[address] [id number][place] [id number] Mar, Hyperlipidemia, unspecified E78.5 [place] [address] [place] [id number] [place] [address] [id number] Feb, Essential hypertension I10 [address] [address] Feb, [place] [id number] [place] [address] [id number] Feb, Urinary tract infection, site not specified N39.0 and Hematuria, unspecified R31.9 [place] [id number] [place] [address] [id number] Jan, Hereditary and idiopathic peripheral neuropathy G60.9 [place] [id number] [place] [address] [id number] Jan, [place] [id number] [place] [address] [id number] Dec, Well woman exam Z01.419 ; Colon cancer screening Z12.11 ; Breast cancer screening Z12.39 ; Bladder prolapse, female, acquired N81.10 and Rectocele N81.6 [place] [id number] [place] [address] [id number] Dec, Hereditary and idiopathic peripheral neuropathy G60.9 and Stress incontinence N39.[address] [place] [address] [id number] Dec, [place] [id number] [place] [address] [id number] November, Essential hypertension I10 ; Hereditary and idiopathic peripheral neuropathy G60.9 and PVD (peripheral vascular disease) I73.9 [address] [place] [address] [id number] November, [address] [place] [address] [id number] Oct, [address] [place] [address] [id number] Aug, [place] [id number] [place] [address] [id number] Aug, Essential hypertension I10 [facility] [place] [address] [facility] [id number][place] [id number] Jul, [facility] [place] [id number], [place] [id number] May, Neuropathy G62.[address] [facility] [address] [id number] [place] [id number] May, [facility] [address] [id number] [place] [id number] Jan, [facility] [place] [address] [facility] [id number][place] [id number] Jan, Hyperlipemia 272.4 [facility] [place] [id number] [place] [address] [id number] Jan, Other and unspecified hyperlipidemia 272.4 ; Unspecified essential hypertension 401.9 and Unspecified hereditary and idiopathic peripheral neuropathy 356.9 [facility] [place] [address]00565[address] [id number] Oct, [facility] [address]00565100[place], [place] [address] Oct, [facility] [address] [place] [id number] [place] [address] Oct, [facility] [place] [address] [place] [id number][place] [id number] Aug, [facility] [address]00565100[place], [place] [address] Aug, [facility] [address]00565100[place], [place] [address] Jul, [facility] [address] [place] [address] Jul, [facility] [place] [address] [place] [id number], [place] [id number] Jul, [facility] [place] [address] [place] [id number], [place] [id number] Jul, [facility] [address] [id number], [place] [address] Jul, [facility] [address] [id number], [place] [address] Jul, [facility] [place] [address] [id number] [place] [id number] Jul, [facility] [place] [address] [id number] [place] [id number] Jun, [facility] [address] [id number], [place] [address] Jun, [facility] [place] [address] [id number] [place] [id number] Jun, [facility] [address] [facility] [id number], [place] [address] Jun, [facility] [place] [address] [id number] [place] [id number] May, [facility] [address] [facility] [id number], [place] [address] May, [facility] [place] [address] [id number], [place] [id number] Apr, [facility] [address] [facility] [id number], [place] [address] Apr, [facility] [place] [address] [id number], [place] [id number] Mar, [facility] [address] [facility] [id number], [place] [address] Mar, [facility] [place] [address] [id number], [place] [id number] Feb, [facility] [address] [facility] [id number], [place] [address] Feb, [facility] [address] [facility] [id number], [place] [address] Feb, [facility] [place] [address] [id number] [place] [id number] Feb, [facility] [place] [address] [id number], [place] [id number] Dec, [facility] [address] [facility] [id number], [place] [address] Dec, [facility] [address] [place] [address] [id number], [place] [address] Aug, [facility] [address] [facility] [id number], [place] [address] Aug, [facility] [place] [address] [facility] [id number], [place] [id number] Jul, [facility] [address] [facility] [id number], [place] [address] Jul, [facility] [place] [address] [place] [address] [id number], [place] [id number] Mar, [facility] [address]00565100[place], [place] [address] Dec, [facility] [place] [address] [facility] [id number], [place] [id number] Dec, [facility] [place] [address] [facility] [id number], [place] [id number] Jun, [facility] [address]65100[place], [place] [address] Jun, [facility] [address] [facility] [id number], [place] [address] May, [facility] [address] [facility] [id number], [place] [address] May, [facility] [place] [address] [facility] [id number], [place] [id number] Apr, [facility] [address] [facility] [id number], [place] [address] Apr, [facility] [place] [address] [facility] [id number], [place] [id number] Apr, [facility] [address] [facility] [id number], [place] [address] Apr, [facility] [place] [address] [id number] [place] [id number] Jan, [facility] [place] [address] [id number] [place] [id number] Jan, [facility] [place] [address] [id number] [place] [id number] November, [facility] [place] [address] [id number] [place] [id number] November, [facility] [place] [address] [id number] [place] [id number] November, [facility] [place] [address] [id number] [place] [id number] Oct, [facility] [place] [address] [id number] [place] [id number] Oct, [facility] [place] [address] [id number] [place] [id number] Oct, [facility] [place] [address] [id number] [place] [id number] Oct, [facility] [place] [address] [id number] [place] [id number] Sep, [facility] [place] [address] [id number] [place] [id number] Sep, [facility] [address]65100[place], [place] [address] Aug, [facility] [address]65100[place], [place] [address] Jun, [facility] [address]65100[place], [place] [address] Jun, [facility] [address]65100[place], [place] [address] Jun, [facility] [address]65100[place], [place] [address] May, [facility] [address]65100[place], [place] [address] May, [facility] [address]65100[place], [place] [address] 10 Jun, 2010 [facility] [address]65100[place], [place] [address] 07 Jun, 2010 [facility] [address]65100[place], [place] [address] 06 Jun, 2010 [facility] [address]65100[place], [place] [address] 13 Oct, 2009 [facility] [address]00565100[place], [place] [address] Sep, [facility] [id number] [place] [address] Jun, [facility] [address]65100[place], [place] [address] 14 Jun, 2009 [facility] [address]65100[place], [place] [address] May, [facility] [address]00565100[place], [place] [address] 12 May, 2009 [facility] [address]65100[place], [place] [address] May, [facility] [address]65100[place], [place] [address] May, IMMUNIZATIONS No Known Immunizations SOCIAL HISTORY Never Assessed REASON FOR VISIT UTI symptoms- burning and urgency Addison SAMPSON PLAN OF CARE Activity Details Follow Up 2 Weeks Reason:lanie ua VITAL SIGNS Height 66 in 2018-01-19 Weight 210.6 lbs 2018-01-19 Temperature 97 degrees Fahrenheit 2018-01-19 Heart Rate 88 bpm 2018-01-19 Respiratory Rate 16 2018-01-19 BMI 33.99 kg/m2 2018-01-19 Blood pressure systolic 138 mmHg 2018-01-19 Blood pressure diastolic 70 mmHg 2018-01-19 MEDICATIONS Medication Instructions Dosage Frequency Start Date End Date Duration Status tramadol 50 mg orally 3 times a day PRN must last 28 days 1 Tablet Jul, 0 days Active Gabapentin 800 MG 1 tablet 2 times a day Orally 30 30 30 30 Active Metoprolol Tartrate 50 mg TAKE 1 TABLET BY MOUTH TWICE DAILY WITH FOOD... Active Warfarin Sodium 5 MG Orally Once a day 1 tablet 24h Active Pravastatin Sodium 80 MG TAKE ONE (1) TABLET DAILY AT BEDTIME. 90 Active Lisinopril 40 mg Orally 2 times a day 1tab am .5 tab pm 12h 90 Active Plavix 75 MG TAKE ONE (1) TABLET BY MOUTH DAILY... Active Cipro 500 mg Orally every 12 hrs 1 tablet 12h 10 Jan, 2018 Jan, 07 days Active RESULTS No Results PROCEDURES Procedure Date Ordered Result Body Site LAB NOT BILLED BY [employer] January 19, 2018 [facility] VISIT ESTABLISHED PATIENT January 19, 2018 URINALYSIS, AUTO, W/O SCOPE January 19, 2018 INSTRUCTIONS MEDICATIONS ADMINISTERED No Known Medications [...] History iliac artery bypass x's 2 at [facility] Aug and September 2014 Surgical History Left aortofemoral bypass by Dr. Bahkta 10/2016 Surgical History Sarnoma drained from left femoral incision site 2 wks post bypass 10/2016 Surgical History Detached retina in right eye 10/28 Hospitalization History surgeries, childbirth
--- OUTSIDE RECORDS SUMMARY | 2019-02-01 02:14 | XMS REPORT ---
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 Name Role Phone CINDY CALIXTO Unavailable PROBLEMS Type Condition ICD9-CM Code ARL41-CE Code Onset Dates Condition Status SNOMED Code Problem Hyperlipidemia, unspecified E78.5 Active 14153257 Problem Stress incontinence N39.3 Active 16087922 Problem Essential hypertension I10 Active 13846583 Problem Hereditary and idiopathic peripheral neuropathy G60.9 Active 486129732 Problem PVD (peripheral vascular disease) I73.9 Active 915213900 ALLERGIES Substance Reaction Event Type Date Status Protamine Sulfate Unknown Drug Allergy November, Active ENCOUNTERS Encounter Location Date Diagnosis [address] [id number] Mar, [address] [id number] Jan, Cystitis N30.90 and Hereditary and idiopathic peripheral neuropathy G60.[address] [id number] Dec, Acute cystitis with hematuria N30.01 [place] [id number] [place] [address] [id number] Dec, Hereditary and idiopathic peripheral neuropathy G60.[address] [id number] November, Hereditary and idiopathic peripheral neuropathy G60.9 and Essential hypertension I10 [address] [id number] November, Hereditary and idiopathic peripheral neuropathy G60.9 [place] [id number] [place] [address] [id number] Oct, Hereditary and idiopathic peripheral neuropathy G60.[address] [id number] Sep, Hereditary and idiopathic peripheral neuropathy G60.9 [place] [id number] [place] [address] [id number] Aug, Essential hypertension I10 ; Hereditary and idiopathic peripheral neuropathy G60.9 ; PVD (peripheral vascular disease) I73.9 and Infective urethritis N34.2 [place] [id number] [place] [address] [id number] Jul, Hereditary and idiopathic peripheral neuropathy G60.9 [place] [address] [place] [id number] [place] [address] [id number] May, Hereditary and idiopathic peripheral neuropathy G60.9 [place] [id number] [place] [address] [id number] May, [place] [id number] [place] [address] [id number] May, Hereditary and idiopathic peripheral neuropathy G60.9 [place] [id number] [place] [address] [id number] Apr, Hereditary and idiopathic peripheral neuropathy G60.9 [place] [address] [place] [id number] [place] [address] [id number] Apr, Encounter for immunization Z23 [place] [id number] [place] [address] [id number] Mar, Urinary tract infection, site not specified N39.0 ; Hematuria, unspecified R31.9 ; Hyperlipidemia, unspecified E78.5 and Essential hypertension I10 [place] [id number] [place] [address] [id number] Mar, Essential hypertension I10 ; Hereditary and idiopathic peripheral neuropathy G60.9 and Acute cystitis with hematuria N30.[address] [place] [address] [id number] Feb, [place] [id number] [place] [address] [id number] Feb, Hereditary and idiopathic peripheral neuropathy G60.9 [place] [id number] [place] [address] [id number] Jan, Hereditary and idiopathic peripheral neuropathy G60.9 [place] [id number] [id number] Dec, Essential hypertension I10 and Hereditary and idiopathic peripheral neuropathy G60.[address] [place] [address] [id number] November, Hereditary and idiopathic peripheral neuropathy G60.[address] [id number] [id number] Oct, Acute cystitis with hematuria N30.[address] [place] [address] [id number] Oct, [place] [id number] [place] [address] [id number] Oct, Hereditary and idiopathic peripheral neuropathy G60.9 [place] [id number] [place] [address] [id number] Sep, Hereditary and idiopathic peripheral neuropathy G60.9 [place] [id number] [place] [address] [id number] Sep, Fever, unspecified fever cause R50.9 ; Nausea R11.0 and Viral syndrome B34.[address] [place] [address] [id number] Aug, [place] [id number] [place] [address] [id number] Aug, Dysuria R30.0 [place] [id number] [place] [address] [id number] Jul, Essential hypertension I10 and Tobacco abuse disorder Z72.0 [address] [place] [address] [id number] Apr, Hyperlipidemia, unspecified E78.5 ; Hereditary and idiopathic peripheral neuropathy G60.9 ; Essential hypertension I10 and Urinary tract infection without hematuria, site unspecified N39.0 [address] [place] [address] [id number] Apr, Hyperlipidemia, unspecified E78.5 [address] [place] [address] [id number] Mar, Hyperlipidemia, unspecified E78.[address] [id number] [id number] Feb, Essential hypertension I10 [facility] MOIS[facility] Torrez [id number] [place] [address] Feb, [facility] [id number] [place] [address] [id number] Feb, Urinary tract infection, site not specified N39.0 and Hematuria, unspecified R31.9 [facility] [address] [place] [id number] [place] [address] [id number] Jan, Hereditary and idiopathic peripheral neuropathy G60.9 [place] [id number] [place] [address] [id number] Jan, [place] [id number] [place] [address] [id number] Dec, Well woman exam Z01.419 ; Colon cancer screening Z12.11 ; Breast cancer screening Z12.39 ; Bladder prolapse, female, acquired N81.10 and Rectocele N81.6 [facility] [address] [id number] [place] [address] [id number] Dec, Hereditary and idiopathic peripheral neuropathy G60.9 and Stress incontinence N39.3 [place] [id number] [place] [address] [id number] Dec, [place] [id number] [place] [address] [id number] November, Essential hypertension I10 ; Hereditary and idiopathic peripheral neuropathy G60.9 and PVD (peripheral vascular disease) I73.9 [facility] [address] [id number] November, [id number] [place] [address] [id number] Oct, [address] [place] [address] [id number] Aug, [place] [id number] [place] [address] [id number] Aug, Essential hypertension I10 [address] [place] [address] [id number] Jul, [place] [address] [facility] [id number] [id number] May, Neuropathy G62.9 [facility] [address] [id number] [id number] May, [facility] [address] [address] [id number] [id number] Jan, [facility] [place] [id number][place] [id number] Jan, Hyperlipemia 272.4 [facility] [place] [address] [facility] [id number][place] [id number] Jan, Other and unspecified hyperlipidemia 272.4 ; Unspecified essential hypertension 401.9 and Unspecified hereditary and idiopathic peripheral neuropathy 356.9 [facility] [place] [address] [place] [id number] [id number] Oct, [facility] [address]00565100[place] [address] Oct, [facility] [address]65[address] [address] Oct, [facility] [place] [address] [facility] [id number][place] [id number] Aug, [facility] [address]65100[place] [address] Aug, [facility] [address]65100[place] [address] Jul, [facility] [address]65100[place] [address] Jul, [facility] [place] [address] [facility] [id number][place] [id number] Jul, [facility] [place] [id number][place] [id number] Jul, [facility] [address]65100[place] [address] Jul, [facility] [address]65100[place] [address] Jul, [facility] [place] [address] [id number] [place] [id number] Jul, [facility] [place] [address] [id number] [place] [id number] Jun, [facility] [address] [facility] [id number] [place] [address] Jun, [facility] [place] [address] [id number] [place] [id number] Jun, [facility] [address] [facility] [id number] [place] [address] Jun, [facility] [place] [address] [id number] [place] [id number] May, [facility] [address] [facility] [id number] [place] [address] May, [facility] [place] [address] [facility] [id number][place] [id number] Apr, [facility] [address]65100[place] [address] Apr, [facility] [place] [address] [id number], [place] [id number] Mar, [facility] [address] [address] Mar, [facility] [place] [address] [id number][place] [id number] Feb, [facility] [address] [facility] [id number] [place] [address] Feb, [facility] [address] [facility] [id number] [place] [address] Feb, [facility] [place] [address] [id number][place] [id number] Feb, [facility] [place] [address] [id number], [place] [id number] Dec, [facility] [address] [facility] [id number] [place] [address] Dec, [facility] [address] [facility] [id number] [place] [address] Aug, [facility] [address] [facility] [id number] [place] [address] Aug, [facility] [place] [address] [facility] [id number][place] [id number] Jul, [facility] [address] [facility] [id number] [place] [address] Jul, [facility] [place] [address] [facility] [id number][place] [id number] Mar, [facility] [address] [facility] [id number] [place] [address] Dec, [facility] [place] [address] [facility] [id number][place] [id number] Dec, [facility] [place] [address] [facility] [id number][place] [id number] Jun, [facility] [address] [facility] [id number] [place] [address] Jun, [facility] [address] [facility] [id number] [place] [address] May, [facility] [address] [facility] [id number] [place] [address] May, [facility] [place] [address] [id number][place] [id number] Apr, [facility] [address] [facility] [id number] [place] [address] Apr, [facility] [place] [address] [facility] [id number][place] [id number] Apr, [facility] [address] [facility] [id number] [place] [address] Apr, [facility] [place] [address] [id number], [place] [id number] Jan, [facility] [place] [address] [id number] [place] [id number] Jan, [facility] [place] [address] [id number] [place] [id number] November, [facility] [place] [address] [id number] [place] [id number] November, [facility] [place] [address] [id number] [place] [id number] November, [facility] [place] [address] [id number] [place] [id number] Oct, [facility] [place] [address] [id number] [place] [id number] Oct, [facility] [place] [address] [id number] [place] [id number] Oct, [facility] [place] [address] [id number] [place] [id number] Oct, [facility] [place] [address] [id number] [place] [id number] Sep, [facility] [place] [address] [id number] [place] [id number] Sep, [facility] [address]00565100[place] [address] Aug, [facility] [address]65100[place] [address] Jun, [facility] [address]00565100[place] [address] Jun, [facility] [address]65100[place] [address] Jun, [facility] [address] [id number] [address] May, [facility] [address] [id number] [place] [address] May, [facility] [address]00565100[place] [address] Jun, [facility] [address] [place] [id number] [address] 07 Jun, 2010 [facility] [address]65100[place] [address] 06 Jun, 2010 [facility] [address]00565100[place] [address] 13 Oct, 2009 [facility] [address]00565100[place] [address] 11 Sep, 2009 [facility] [id number] [address] Jun, [facility] [id number] [place] [address] Jun, [facility] [address]00565100[place] [address] May, [facility] [address]65100[place] [address] May, [facility] [address]65100[place] [address] May, [facility] [id number] [address] May, IMMUNIZATIONS No Known Immunizations SOCIAL HISTORY Never Assessed REASON FOR VISIT 3 month follow up on chronic pain management. Doing well. lazara Story PLAN OF CARE Activity Details Follow Up 3 Months Reason:neruopathy VITAL SIGNS Height 66 in 2017-11-19 Weight 207.6 lbs 2017-11-19 Temperature 97.6 degrees Fahrenheit 2017-11-19 Heart Rate 80 bpm 2017-11-19 Respiratory Rate 16 2017-11-19 BMI 33.50 kg/m2 2017-11-19 Blood pressure systolic 170 mmHg 2017-11-19 Blood pressure diastolic 100 mmHg 2017-11-19 MEDICATIONS Medication Instructions Dosage Frequency Start Date End Date Duration Status tramadol 50 mg orally 3 times a day PRN must last 28 days 1 Tablet Jul, Active Warfarin Sodium 5 MG Orally Once a day 1 tablet 24h Active Pravastatin Sodium 80 MG Orally Once a day at hs 1 tablet 0 Active Gabapentin 800 MG 1 tablet 2 times a day Orally 30 30 30 30 Active Lisinopril 40 mg Orally 2 times a day 1tab am .5 tab pm 12h 90 Active Metoprolol Tartrate 50 mg TAKE 1 TABLET BY MOUTH TWICE DAILY WITH FOOD... Active Plavix 75 MG TAKE ONE (1) TABLET BY MOUTH DAILY... Active RESULTS No Results PROCEDURES Procedure Date Ordered Result Body Site [facility] VISIT ESTABLISHED PATIENT November 19, 2017 INSTRUCTIONS MEDICATIONS ADMINISTERED No Known Medications [...] History iliac artery bypass x's 2 at [facility] Aug and September 2014 Surgical History Left aortofemoral bypass by Dr. Bhakta 10/2016 Surgical History Sarnoma drained from left femoral incision site 2 wks post bypass 10/2016 Surgical History Detached retina in right eye 10/28 Hospitalization History surgeries, childbirth
--- OUTSIDE RECORDS SUMMARY | 2019-02-01 02:14 | XMS REPORT ---
Author Author CINDY CALIXTO Organization [facility] Address [address] [place] [address] Care Team Providers Care Teacher Advisor Name Role Phone CINDY CALIXTO Unavailable PROBLEMS Type Condition ICD9-CM Code TEO00-DU Code Onset Dates Condition Status SNOMED Code Problem Hyperlipidemia, unspecified E78.5 Active 03461022 Problem Stress incontinence N39.3 Active 83731493 Problem Essential hypertension I10 Active 79943106 Problem Hereditary and idiopathic peripheral neuropathy G60.9 Active 398558241 Problem PVD (peripheral vascular disease) I73.9 Active 122259743 ALLERGIES No Information ENCOUNTERS Encounter Location Date Diagnosis [address] [id number] Mar, Hereditary and idiopathic peripheral neuropathy G60.[address] [id number] Mar, Essential hypertension I10 and Hereditary and idiopathic peripheral neuropathy G60.[address] [id number] Feb, Hereditary and idiopathic peripheral neuropathy G60.[address] [id number] Jan, Cystitis N30.90 and Hereditary and idiopathic peripheral neuropathy G60.[address] [id number] Dec, Acute cystitis with hematuria N30.[address] [id number] Dec, Hereditary and idiopathic peripheral neuropathy G60.[address] [id number] November, Hereditary and idiopathic peripheral neuropathy G60.9 and Essential hypertension I10 [address] [id number] November, Hereditary and idiopathic peripheral neuropathy G60.9 [place] [id number] [place] [address] [id number] Oct, Hereditary and idiopathic peripheral neuropathy G60.9 [place] [id number] [place] [address] [id number] Sep, Hereditary and idiopathic peripheral neuropathy G60.9 [place] [id number] [place] [address] [id number] Aug, Essential hypertension I10 ; Hereditary and idiopathic peripheral neuropathy G60.9 ; PVD (peripheral vascular disease) I73.9 and Infective urethritis N34.[address] [id number] Jul, Hereditary and idiopathic peripheral neuropathy G60.9 [place] [id number] [place] [address] [id number] May, Hereditary and idiopathic peripheral neuropathy G60.9 [place] [id number] [place] [address] [id number] May, [place] [id number] [place] [address] [id number] May, Hereditary and idiopathic peripheral neuropathy G60.9 [place] [id number] [place] [address] [id number] Apr, Hereditary and idiopathic peripheral neuropathy G60.9 [place] [id number] [place] [address] [id number] Apr, Encounter for immunization Z23 [place] [id number] [place] [address] [id number] Mar, Urinary tract infection, site not specified N39.0 ; Hematuria, unspecified R31.9 ; Hyperlipidemia, unspecified E78.5 and Essential hypertension I10 [place] [id number] [place] [address] [id number] Mar, Essential hypertension I10 ; Hereditary and idiopathic peripheral neuropathy G60.9 and Acute cystitis with hematuria N30.01 [place] [id number] [place] [address] [id number] Feb, [address] [id number] Feb, Hereditary and idiopathic peripheral neuropathy G60.9 [place] [id number] [place] [address] [id number] Jan, Hereditary and idiopathic peripheral neuropathy G60.9 [facility] [id number] [place] [address] [id number] Dec, Essential hypertension I10 and Hereditary and idiopathic peripheral neuropathy G60.9 [place] [id number] [id number] November, Hereditary and idiopathic peripheral neuropathy G60.[address] [id number] [id number] Oct, Acute cystitis with hematuria N30.01 [facility] [id number] [place] [address] [id number] Oct, [address] [place] [address] [id number] Oct, Hereditary and idiopathic peripheral neuropathy G60.9 [place] [id number] [place] [address] [id number] Sep, Hereditary and idiopathic peripheral neuropathy G60.9 [place] [id number] [place] [address] [id number] Sep, Fever, unspecified fever cause R50.9 ; Nausea R11.0 and Viral syndrome B34.[address] [place] [address] [id number] Aug, [place] [id number] [place] [address] [id number] Aug, Dysuria R30.[address] [place] [address] [id number] Jul, Essential hypertension I10 and Tobacco abuse disorder Z72.0 [place] [id number] [place] [address] [id number] Apr, Hyperlipidemia, unspecified E78.5 ; Hereditary and idiopathic peripheral neuropathy G60.9 ; Essential hypertension I10 and Urinary tract infection without hematuria, site unspecified N39.[address] [id number] [id number] Apr, Hyperlipidemia, unspecified E78.5 [facility] [id number] [place] [address] [id number] Mar, Hyperlipidemia, unspecified E78.5 [facility] [id number], [place] [id number] Feb, Essential hypertension I10 [id number] [place] [address] Feb, [facility] [id number] [place] [address] [id number] Feb, Urinary tract infection, site not specified N39.0 and Hematuria, unspecified R31.9 [place] [id number] [place] [address] [id number] Jan, Hereditary and idiopathic peripheral neuropathy G60.9 [address] [place] [address] [id number] Jan, [place] [id number] [place] [address] [id number] Dec, Well woman exam Z01.419 ; Colon cancer screening Z12.11 ; Breast cancer screening Z12.39 ; Bladder prolapse, female, acquired N81.10 and Rectocele N81.6 [place] [id number] [place] [address] [id number] Dec, Hereditary and idiopathic peripheral neuropathy G60.9 and Stress incontinence N39.[address] [place] [address] [id number] Dec, [place] [id number] [place] [address] [id number] November, Essential hypertension I10 ; Hereditary and idiopathic peripheral neuropathy G60.9 and PVD (peripheral vascular disease) I73.9 [address] [place] [address] [id number] November, [address] [place] [address] [id number] Oct, [place] [id number] [place] [address] [id number] Aug, [facility] [place] [address] [facility] [id number][place] [id number] Aug, Essential hypertension I10 [facility] [place] [address] [id number], [place] [phone] Jul, [facility] [place] [address] [place] [id number] [id number] May, Neuropathy G62.9 [facility] [address] [id number] [phone] May, [facility] [place] [id number][place] [phone] Jan, [facility] [place] [id number], [place] [phone] Jan, Hyperlipemia 272.4 [facility] [place] [id number][place] [phone] Jan, Other and unspecified hyperlipidemia 272.4 ; Unspecified essential hypertension 401.9 and Unspecified hereditary and idiopathic peripheral neuropathy 356.9 [facility] [place] [address] [place] [id number][place] [phone] Oct, [facility] [address] [place] [address] Oct, [facility] [address], [place] [address] Oct, [facility] [place] [address] [place] [address] [id number][place] [phone] Aug, [facility] [address], [place] [address] Aug, [facility] [address] [place] [address] Jul, [facility] [address], [place] [address] Jul, [facility] [address] [place] [id number], [place] [id number] Jul, [facility] [place] [address] [place] [id number][place] [id number] Jul, [facility] [address] [id number], [place] [address] Jul, [facility] [place] [facility] [address] [facility] [id number], [place] [address] Jul, [facility] [place] [address] [id number][place] [id number] Jul, [facility] [place] [address] [id number], [place] [id number] Jun, [facility] [place] [facility] [address] [facility] [id number] [place] [address] Jun, [facility] [place] [address] [facility] [id number], [place] [id number] Jun, [facility] [place] [facility] [address] [place] [id number], [place] [address] Jun, [facility] [place] [address] [facility] [id number][place] [id number] May, [facility] [place] [facility] [address] [facility] [id number], [place] [address] May, [facility] [place] [address] [facility] [id number][place] [id number] Apr, [facility] [place] [facility] [address] [facility] [id number], [place] [address] Apr, [facility] [place] [address] [facility] [id number][place] [id number] Mar, [facility] [place] [facility] [address] [facility] [id number], [place] [address] Mar, [facility] [place] [address] [facility] [id number][place] [id number] Feb, [facility] [place] [facility] [address] [facility] [id number] [place] [address] Feb, [facility] [place] [facility] [address] [facility] [id number], [place] [address] Feb, [facility] [place] [address] [facility] [id number], [place] [id number] Feb, [facility] [place] [address] [facility] [id number], [place] [id number] Dec, [facility] [place] [facility] [address] [facility] [id number], [place] [address] Dec, [facility] [place] [facility] [address] [facility] [id number], [place] [address] Aug, [facility] [place] [facility] [address] [facility] [id number], [place] [address] Aug, [facility] [place] [address] [facility] [id number], [place] [id number] Jul, [facility] [place] [facility] [address], [place] [address] Jul, [facility] [place] [id number], [place] [id number] Mar, [facility] [place] [facility] [address], [place] [address] Dec, [facility] [place] [address] [facility] [id number], [place] [id number] Dec, [facility] [place] [address] [facility] [id number], [place] [id number] Jun, [facility] [place] [facility] [address], [place] [address] Jun, [facility] [place] [facility] [address], [place] [address] May, [facility] [place] [facility] [address] [facility] [id number], [place] [address] May, [facility] [place] [address] [facility] [id number], [place] [id number] Apr, [facility] [place] [facility] [address] [facility] [id number], [place] [address] Apr, [facility] [place] [address] [facility] [id number], [place] [id number] Apr, [facility] [address] [facility] [id number], [place] [address] Apr, [facility] [place] [address] [id number] [place] [id number] Jan, [facility] [place] [address] [id number] [place] [id number] Jan, [facility] [place] [address] [id number] [place] [id number] November, [facility] [place] [address] [id number] [place] [id number] November, [facility] [place] [address] [id number] [place] [id number] November, [facility] [place] [address] [id number] [place] [address]79[address] Oct, [facility] [place] [address] [id number] [place] 726006566 Oct, [facility] [place] [address] [id number] [place] [id number] Oct, [facility] [place] [address] [id number] [place] [id number] Oct, [facility] [place] [address] [id number] [place] 7555[address] Sep, [facility] [place] [address] [id number] [place] [id number] Sep, [facility] [address], [place] [address] Aug, [facility] [place] [facility] [address], [place] [address] Jun, [facility] [address], [place] [address] Jun, [facility] [place] [facility] [address] [place] [id number], [place] [address] Jun, [facility] [address], [place] [address] May, [facility] [address], [place] [address] May, [facility] [address], [place] [address] Jun, [facility] [address]65100[place], [place] [address] Jun, [facility] [address], [place] [address] Jun, [facility] [address], [place] [address] Oct, [facility] [id number] [place] [address] Sep, [facility] [address] [place] [address] Jun, [facility] [id number] [place] [address] Jun, [facility] [address], [place] [address] May, [facility] [address], [place] [address] May, [facility] [address], [place] [address] May, [facility] [address], [place] [address] May, IMMUNIZATIONS No Known Immunizations SOCIAL HISTORY Never Assessed REASON FOR VISIT Controlled Med Refill PLAN OF CARE VITAL SIGNS MEDICATIONS Medication Instructions Dosage Frequency Start Date End Date Duration Status tramadol 50 mg orally 3 times a day PRN must last 28 days 1 Tablet Jul, 0 days Active RESULTS No Results PROCEDURES No [...] History iliac artery bypass x's 2 at [facility] Aug and September 2014 Surgical History Left aortofemoral bypass by Dr. Bhakta 10/2016 Surgical History Sarnoma drained from left femoral incision site 2 wks post bypass 10/2016 Surgical History Detached retina in right eye 10/28 Hospitalization History surgeries, childbirth
--- OUTSIDE RECORDS SUMMARY | 2019-02-01 02:15 | XMS REPORT ---
Author Author CINDY CALIXTO Organization [facility] Address [address] [place] [address] Care Team Providers Care Roads Supervisor Name Role Phone CINDY CALIXTO Unavailable PROBLEMS Type Condition ICD9-CM Code MPN86-OA Code Onset Dates Condition Status SNOMED Code Problem Hyperlipidemia, unspecified E78.5 Active 41565715 Problem Stress incontinence N39.3 Active 58969175 Problem Essential hypertension I10 Active 16725119 Problem Hereditary and idiopathic peripheral neuropathy G60.9 Active 766559297 Problem PVD (peripheral vascular disease) I73.9 Active [id number] ALLERGIES No Information ENCOUNTERS Encounter Location Date Diagnosis [address] [id number] Jan, Cystitis N30.90 and Hereditary and idiopathic peripheral neuropathy G60.[address] [id number] Dec, Acute cystitis with hematuria N30.01 [place] [id number] [place] [address] [id number] Dec, Hereditary and idiopathic peripheral neuropathy G60.9 [place] [id number] [place] [address] [id number] November, Hereditary and idiopathic peripheral neuropathy G60.9 and Essential hypertension I10 [facility] [address] [id number] November, Hereditary and idiopathic peripheral neuropathy G60.9 [place] [id number] [place] [address] [id number] Oct, Hereditary and idiopathic peripheral neuropathy G60.[address] [id number] Sep, Hereditary and idiopathic peripheral neuropathy G60.[address] [id number] Aug, Essential hypertension I10 ; Hereditary and idiopathic peripheral neuropathy G60.9 ; PVD (peripheral vascular disease) I73.9 and Infective urethritis N34.2 [place] [address] [place] [id number] [place] [address] [id number] Jul, Hereditary and idiopathic peripheral neuropathy G60.9 [place] [id number] [place] [address] [id number] May, Hereditary and idiopathic peripheral neuropathy G60.9 [place] [address] [place] [id number] [place] [address] [id number] May, [place] [address] [place] [id number] [place] [address] [id number] May, Hereditary and idiopathic peripheral neuropathy G60.9 [place] [id number] [place] [address] [id number] Apr, Hereditary and idiopathic peripheral neuropathy G60.9 [place] [id number] [place] [address] [id number] Apr, Encounter for immunization Z23 [place] [id number] [place] [address] [id number] Mar, Urinary tract infection, site not specified N39.0 ; Hematuria, unspecified R31.9 ; Hyperlipidemia, unspecified E78.5 and Essential hypertension I10 [place] [id number] [place] [address] [id number] Mar, Essential hypertension I10 ; Hereditary and idiopathic peripheral neuropathy G60.9 and Acute cystitis with hematuria N30.[id number] [place] [address] [id number] Feb, [place] [id number] [place] [address] [id number] Feb, Hereditary and idiopathic peripheral neuropathy G60.9 [place] [id number] [place] [address] [id number] Jan, Hereditary and idiopathic peripheral neuropathy G60.9 [id number] [place] [address] [id number] Dec, Essential hypertension I10 and Hereditary and idiopathic peripheral neuropathy G60.9 [place] [address] [id number] November, Hereditary and idiopathic peripheral neuropathy G60.9 [facility] [address] [id number] [id number] Oct, Acute cystitis with hematuria N30.01 [facility] [id number] [id number] Oct, [place] [id number] [place] [address] [id number] Oct, Hereditary and idiopathic peripheral neuropathy G60.9 [id number] [place] [address] [id number] Sep, Hereditary and idiopathic peripheral neuropathy G60.9 [place] [id number] [place] [address] [id number] Sep, Fever, unspecified fever cause R50.9 ; Nausea R11.0 and Viral syndrome B34.9 [id number] [place] [address] [id number] Aug, [place] [id number] [place] [address] [id number] Aug, Dysuria R30.0 [place] [id number] [place] [address] [id number] Jul, Essential hypertension I10 and Tobacco abuse disorder Z72.0 [address] [place] [address] [id number] Apr, Hyperlipidemia, unspecified E78.5 ; Hereditary and idiopathic peripheral neuropathy G60.9 ; Essential hypertension I10 and Urinary tract infection without hematuria, site unspecified N39.0 [id number] [place] [address] [id number] Apr, Hyperlipidemia, unspecified E78.5 [id number] [place] [address] [id number] Mar, Hyperlipidemia, unspecified E78.5 [id number] [place] [address] [id number] Feb, Essential hypertension I10 [address] [id number] [place] [address] Feb, [place] [id number] [id number] Feb, Urinary tract infection, site not specified N39.0 and Hematuria, unspecified R31.9 [facility] [id number] [place] [id number] Jan, Hereditary and idiopathic peripheral neuropathy G60.9 [id number] [place] [address] [id number] Jan, [address] [place] [address] [id number] Dec, Well woman exam Z01.419 ; Colon cancer screening Z12.11 ; Breast cancer screening Z12.39 ; Bladder prolapse, female, acquired N81.10 and Rectocele N81.[id number] [place] [address] [id number] Dec, Hereditary and idiopathic peripheral neuropathy G60.9 and Stress incontinence N39.3 [address] [place] [address] [id number] Dec, [address] [place] [address] [id number] November, Essential hypertension I10 ; Hereditary and idiopathic peripheral neuropathy G60.9 and PVD (peripheral vascular disease) I73.9 [facility] [address] [facility] [id number] [id number] November, [address] [id number] Oct, [facility] [id number] [place] [id number] Aug, [id number] [place] [address] [id number] Aug, Essential hypertension I10 [facility] [address] [id number] Jul, [address] [id number] [place] [id number] May, Neuropathy G62.9 [facility] [address] [id number] [id number] May, [facility] [address] [id number][place] [id number] Jan, [facility] [place] [address] [facility] [id number] [place]ANK[place] [id number] Jan, Hyperlipemia 272.4 [facility] [place] [address] [facility] [id number] [place] [id number] Jan, Other and unspecified hyperlipidemia 272.4 ; Unspecified essential hypertension 401.9 and Unspecified hereditary and idiopathic peripheral neuropathy 356.9 [facility] [place] [address] [facility] [id number] [place] [id number] Oct, [facility] [address]00565100[place], [place] [address] Oct, [facility] [address]00565100[place], [place] [address] Oct, [facility] [place] [address] [facility] [id number] [place] [id number] Aug, [facility] [address]00565100[place], [place] [address] Aug, [facility] [address]00565100[place], [place] [address] Jul, [facility] [address]00565100[place], [place] [address] Jul, [facility] [place] [address] [facility] [id number] [place] [id number] Jul, [facility] [place] [address] [facility] [id number] [place] [id number] Jul, [facility] [address]00565100[place], [place] [address] Jul, [facility] [address] [place] [id number], [place] [address] Jul, [facility] [place] [address] [facility] [id number] [place] [id number] Jul, [facility] [place] [address] [facility] [id number] [place] [id number] Jun, [facility] [address] [facility] [id number], [place] [address] Jun, [facility] [place] [address] [facility] [id number] [place]ANK[place] [id number] Jun, [facility] [address] [facility] [id number], [place] [address] Jun, [facility] [place] [address] [facility] [id number] [place] [id number] May, [facility] [address] [facility] [id number], [place] [address] May, [facility] [place] [address] [facility] [id number] [place]ANK[place] [id number] Apr, [facility] [address]00565100[place], [place] [address] Apr, [facility] [place] [address] [place] [id number] [id number] Mar, [facility] [address]00565100[place], [place] [address] Mar, [facility] [place] [address] [place] [id number] [place] [id number] Feb, [facility] [address]00565100[place], [place] [address] Feb, [facility] [address] [facility] [id number], [place] [address] Feb, [facility] [place] [address] [facility] [id number] [place] [id number] Feb, [facility] [place] [address] [facility] [id number] [place] [id number] Dec, [facility] [address] [facility] [id number], [place] [address] Dec, [facility] [address]00565100[place], [place] [address] Aug, [facility] [address] [facility] [id number], [place] [address] Aug, [facility] [place] [address] [id number] [place] [id number] Jul, [facility] [address] [facility] [id number], [place] [address] Jul, [facility] [place] [address] [id number] [place] [id number] Mar, [facility] [address] [facility] [id number], [place] [address] Dec, [facility] [place] [address] [id number] [place] [id number] Dec, [facility] [place] [address] [facility] [id number] [place] [id number] Jun, [facility] [address]00565100[place], [place] [address] Jun, [facility] [address] [facility] [id number], [place] [address] May, [facility] [address] [facility] [id number], [place] [address] May, [facility] [place] [address] [facility] [id number] [place] [id number] Apr, [facility] [address] [facility] [id number], [place] [address] Apr, [facility] [place] [address] [id number] [place] [id number] Apr, [facility] [address] [facility] [id number], [place] [address] Apr, [facility] [place] [address] [id number] [place]ANK[place] [id number] Jan, [facility] [place] [address] [id number] [place] [id number] Jan, [facility] [place] [address] [id number] [place] [id number] November, [facility] [place] [address] [id number] [place] [id number] November, [facility] [place] [address] [id number] [place] [id number] November, [facility] [place] [address] [id number] [place] [id number] Oct, [facility] [place] [address] [id number] [place] [id number] Oct, [facility] [place] [address] [id number] [place] [id number] Oct, [facility] [place] [address] [id number] [place] [id number] Oct, [facility] [place] [address] [id number] [place] [id number] Sep, [facility] [place] [address] [id number] [place] [id number] Sep, [facility] [address] [place] [id number] [place] [address] Aug, [facility] [address]00565100[place], [place] [address] Jun, [facility] [address] [place] [id number] [place] [address] Jun, [facility] [address]00565100[place], [place] [address] Jun, [facility] [address]00565100[place], [place] [address] May, [facility] [address]00565100[place], [place] [address] May, [facility] [address] [place] [address] [id number] [place] [address] Jun, [facility] [address]65100[place], [place] [address] Jun, [facility] [address] [place] [address] [id number] [place] [address] Jun, [facility] [address] [address] [id number], [place] [address] Oct, [facility] [address]00565100[place], [place] [address] Sep, [facility] [address] [place] [id number], [place] [address] Jun, [facility] [address]00565100[place], [place] [address] Jun, [facility] [address]00565100[place], [place] [address] May, [facility] [address]00565100[place], [place] [address] May, [facility] [address]65100[place], [place] [address] May, [facility] [address]65100[place], [place] [address] May, IMMUNIZATIONS No Known Immunizations SOCIAL HISTORY Never Assessed REASON FOR VISIT 09/21/1790-MQ-[id number] refill PLAN OF CARE VITAL SIGNS MEDICATIONS Medication Instructions Dosage Frequency Start Date End Date Duration Status tramadol 50 mg orally 3 times a day PRN must last 1 mon 1 Tablet Jul, 0 days Active RESULTS [...] History iliac artery bypass x's 2 at [facility] Aug and September 2014 Surgical History Left aortofemoral bypass by Dr. Bhakta 10/2016 Surgical History Sarnoma drained from left femoral incision site 2 wks post bypass 10/2016 Surgical History Detached retina in right eye 10/28 Hospitalization History surgeries, childbirth
--- OUTSIDE RECORDS SUMMARY | 2019-02-01 02:15 | XMS REPORT ---
Author Author CINDY CALIXTO Organization [facility] Address [address] [place] [address] Care Team Providers Care Planer Hand Name Role Phone CINDY CALIXTO Unavailable PROBLEMS Type Condition ICD9-CM Code SQV14-JA Code Onset Dates Condition Status SNOMED Code Problem Hyperlipidemia, unspecified E78.5 Active 08649642 Problem Stress incontinence N39.3 Active 36068586 Problem Essential hypertension I10 Active 85515430 Problem Hereditary and idiopathic peripheral neuropathy G60.9 Active 324873338 Problem PVD (peripheral vascular disease) I73.9 Active [id number] ALLERGIES No Information ENCOUNTERS Encounter Location Date Diagnosis [address] [id number] Mar, [address] [id number] Jan, Cystitis N30.90 and Hereditary and idiopathic peripheral neuropathy G60.[address] [id number] Dec, Acute cystitis with hematuria N30.[address] [id number] Dec, Hereditary and idiopathic peripheral neuropathy G60.[address] [id number] November, Hereditary and idiopathic peripheral neuropathy G60.9 and Essential hypertension I10 [address] [id number] November, Hereditary and idiopathic peripheral neuropathy G60.[address] [id number] Oct, Hereditary and idiopathic peripheral neuropathy G60.9 [place] [id number] [place] [address] [id number] Sep, Hereditary and idiopathic peripheral neuropathy G60.9 [facility] [id number] [id number] Aug, Essential hypertension I10 ; Hereditary and idiopathic peripheral neuropathy G60.9 ; PVD (peripheral vascular disease) I73.9 and Infective urethritis N34.2 [facility] [id number] [place] [address] [id number] Jul, Hereditary and idiopathic peripheral neuropathy G60.9 [facility] [address] [place] [id number] [place] [address] [id number] May, Hereditary and idiopathic peripheral neuropathy G60.9 [facility] [address] [place] [id number] [place] [address] [id number] May, [facility] [address] [id number] May, Hereditary and idiopathic peripheral neuropathy G60.9 [place] [address] [place] [place] [id number] [place] [address] [id number] Apr, Hereditary and idiopathic peripheral neuropathy G60.9 [facility] [address] [place] [id number] [place] [address] [id number] Apr, Encounter for immunization Z23 [place] [address] [place] [place] [id number] [place] [address] [id number] Mar, Urinary tract infection, site not specified N39.0 ; Hematuria, unspecified R31.9 ; Hyperlipidemia, unspecified E78.5 and Essential hypertension I10 [facility] [address] [place] [place] [id number] [place] [address] [id number] Mar, Essential hypertension I10 ; Hereditary and idiopathic peripheral neuropathy G60.9 and Acute cystitis with hematuria N30.01 [facility] [id number] [place] [address] [id number] Feb, [facility] [address] [place] [place] [id number] [place] [address] [id number] Feb, Hereditary and idiopathic peripheral neuropathy G60.9 [facility] [address] [place] [place] [id number] [place] [address] [id number] Jan, Hereditary and idiopathic peripheral neuropathy G60.9 [facility] [address] [place] [id number] [place] [address] [id number] Dec, Essential hypertension I10 and Hereditary and idiopathic peripheral neuropathy G60.9 [facility] [id number][place] [id number] November, Hereditary and idiopathic peripheral neuropathy G60.9 [facility] [place] [address] [facility] [id number] [id number] Oct, Acute cystitis with hematuria N30.[address] [place] [address] [id number] Oct, [facility] [place] [id number] [place] [address] [id number] Oct, Hereditary and idiopathic peripheral neuropathy G60.9 [place] [id number] [place] [address] [id number] Sep, Hereditary and idiopathic peripheral neuropathy G60.9 [place] [id number] [place] [address] [id number] Sep, Fever, unspecified fever cause R50.9 ; Nausea R11.0 and Viral syndrome B34.9 [place] [id number] [place] [address] [id number] Aug, [place] [id number] [place] [address] [id number] Aug, Dysuria R30.0 [place] [id number] [place] [address] [id number] Jul, Essential hypertension I10 and Tobacco abuse disorder Z72.0 [place] [id number] [place] [address] [id number] Apr, Hyperlipidemia, unspecified E78.5 ; Hereditary and idiopathic peripheral neuropathy G60.9 ; Essential hypertension I10 and Urinary tract infection without hematuria, site unspecified N39.0 [place] [id number] [place] [address] [id number] Apr, Hyperlipidemia, unspecified E78.[address] [place] [address] [id number] Mar, Hyperlipidemia, unspecified E78.5 [place] [id number] [place] [address] [id number] Feb, Essential hypertension I10 [facility] Tor[facility] [id number] [place] [address] Feb, [facility] [address] [place] [place] [id number] [place] [address] [id number] Feb, Urinary tract infection, site not specified N39.0 and Hematuria, unspecified R31.9 [facility] [address] [place] [id number] [place] [address] [id number] Jan, Hereditary and idiopathic peripheral neuropathy G60.9 [facility] [address] [place] [address] [id number] Jan, [place] [id number] [place] [address] [id number] Dec, Well woman exam Z01.419 ; Colon cancer screening Z12.11 ; Breast cancer screening Z12.39 ; Bladder prolapse, female, acquired N81.10 and Rectocele N81.6 [place] [id number] [place] [address] [id number] Dec, Hereditary and idiopathic peripheral neuropathy G60.9 and Stress incontinence N39.3 [facility] [id number] [place] [address] [id number] Dec, [place] [id number] [place] [address] [id number] November, Essential hypertension I10 ; Hereditary and idiopathic peripheral neuropathy G60.9 and PVD (peripheral vascular disease) I73.9 [facility] [address]00565[address] [id number] November, [facility] [id number][place] [id number] Oct, [facility] [id number], [place] [id number] Aug, [place] [id number] [place] [address] [id number] Aug, Essential hypertension I10 [facility] [id number] [place] [address] [id number] Jul, [facility] [address] [place] [id number] [place] [address] [id number] May, Neuropathy G62.9 [facility] [address] [id number] [id number] May, [facility] [place] [address] [id number][place] [id number] Jan, [facility] [place] [address] [facility] [id number][place] [id number] Jan, Hyperlipemia 272.4 [facility] [place] [id number], [place] [id number] Jan, Other and unspecified hyperlipidemia 272.4 ; Unspecified essential hypertension 401.9 and Unspecified hereditary and idiopathic peripheral neuropathy 356.9 [facility] [place] [address] [place] [id number] [id number] Oct, [facility] [address]100[place], [place] [address] Oct, [facility] [address]65100[place], [place] [address] Oct, [facility] [place] [address] [facility] [id number][place] [id number] Aug, [facility] [address]00565100[place], [place] [address] Aug, [facility] [address]00565100[place], [place] [address] Jul, [facility] [address]00565100[place], [place] [address] Jul, [facility] [place] [address] [facility] [id number], [place] [id number] Jul, [facility] [place] [address] [facility] [id number], [place] [id number] Jul, [facility] [address], [place] [address] Jul, [facility] [address] [place] [id number], [place] [address] Jul, [facility] [place] [address] [id number] [place] [id number] Jul, [facility] [place] [address] [id number] [place] [id number] Jun, [facility] [address] [facility] [id number][place] [address] Jun, [facility] [place] [address] [facility] [id number] [place] [id number] Jun, [facility] [address] [facility] [id number][place] [address] Jun, [facility] [place] [address] [facility] [id number] [place] [id number] May, [facility] [address] [facility] [id number], [place] [address] May, [facility] [place] [address] [facility] [id number], [place] [id number] Apr, [facility] [address] [facility] [id number], [place] [address] Apr, [facility] [place] [address] [facility] [id number][place] [id number] Mar, [facility] [address]100[place], [place] [address] Mar, [facility] [place] [address] [facility] [id number], [place] [id number] Feb, [facility] [address] [facility] [id number][place] [address] Feb, [facility] [address] [facility] [id number], [place] [address] Feb, [facility] [place] [address] [facility] [id number] [place] [id number] Feb, [facility] [place] [address] [facility] [id number], [place] [id number] Dec, [facility] [address] [facility] [id number], [place] [address] Dec, [facility] [address] [facility] [id number], [place] [address] Aug, [facility] [address] [facility] [id number], [place] [address] Aug, [facility] [place] [address] [id number][place] [id number] Jul, [facility] [address] [facility] [id number], [place] [address] Jul, [facility] [place] [address] [id number], [place] [id number] Mar, [facility] [address] [facility] [id number], [place] [address] Dec, [facility] [place] [address] [facility] [id number], [place] [id number] Dec, [facility] [place] [address] [facility] [id number][place] [id number] Jun, [facility] [address] [facility] [id number][place] [address] Jun, [facility] [address] [facility] [id number], [place] [address] May, [facility] [address] [facility] [id number], [place] [address] May, [facility] [place] [address] [facility] [id number], [place] [id number] Apr, [facility] [address] [facility] [id number], [place] [address] Apr, [facility] [place] [address] [facility] [id number], [place] [id number] Apr, [facility] [address] [facility] [id number], [place] [address] Apr, [facility] [place] [address] [id number], [place] [id number] Jan, [facility] [place] [address] [id number], [place] [id number] Jan, [facility] [place] [address] [id number] [place] [id number] November, [facility] [place] [address] [id number] [place] [id number] November, [facility] [place] [address] [id number] [place] [address] November, [facility] [place] [address] [id number] [place] [address] Oct, [facility] [place] [address] [id number] [place] [address] Oct, [facility] [place] [address] [id number] [place] [id number] Oct, [facility] [place] [address] [id number] [place] [id number] Oct, [facility] [place] [address] [id number] [place] [id number] Sep, [facility] [place] [address] [id number] [place] [id number] Sep, [facility] [address]65100[place], [place] [address] Aug, [facility] [address] [place] [id number] [place] [address] Jun, [facility] [address] [place] [id number] [place] [address] Jun, [facility] [address] [place] [id number] [place] [address] Jun, [facility] [id number] [place] [address] May, [facility] [address] [place] [id number] [place] [address] May, [facility] [address] [place] [id number] [place] [address] Jun, [facility] [address] [place] [id number] [place] [address] Jun, [facility] [address] [place] [id number], [place] [address] Jun, [facility] [address]65100[place], [place] [address] Oct, [facility] [address] [place] [id number], [place] [address] Sep, [facility] [address]65100[place], [place] [address] Jun, [facility] [address]65100[place], [place] [address] Jun, [facility] [address]65100[place], [place] [address] May, [facility] [address]65100[place], [place] [address] May, [facility] [address], [place] [address] May, [facility] [address] [place] [id number], [place] [address] May, IMMUNIZATIONS No Known Immunizations SOCIAL HISTORY [...] History iliac artery bypass x's 2 at [facility] Aug and September 2014 Surgical History Left aortofemoral bypass by Dr. Bhakta 10/2016 Surgical History Sarnoma drained from left femoral incision site 2 wks post bypass 10/2016 Surgical History Detached retina in right eye 10/28 Hospitalization History surgeries, childbirth
--- OUTSIDE RECORDS SUMMARY | 2019-02-01 02:15 | XMS REPORT ---
Author Author CINDY CALIXTO Organization [facility] Address [address] [place] [address] Care Team Providers Care [employer] Administrator Name Role Phone CINDY CALIXTO Unavailable PROBLEMS Type Condition ICD9-CM Code OHK16-CG Code Onset Dates Condition Status SNOMED Code Problem Hyperlipidemia, unspecified E78.5 Active 33340515 Problem Stress incontinence N39.3 Active 43506945 Problem Essential hypertension I10 Active 39994099 Problem Hereditary and idiopathic peripheral neuropathy G60.9 Active 046362604 Problem PVD (peripheral vascular disease) I73.9 Active [id number] ALLERGIES No Information ENCOUNTERS Encounter Location Date Diagnosis [address] [id number] Jan, Cystitis N30.90 and Hereditary and idiopathic peripheral neuropathy G60.[address] [id number] Dec, Acute cystitis with hematuria N30.01 [place] [id number] [place] [address] [id number] Dec, Hereditary and idiopathic peripheral neuropathy G60.9 [place] [id number] [place] [address] [id number] November, Hereditary and idiopathic peripheral neuropathy G60.9 and Essential hypertension I10 [facility] [address] [id number] November, Hereditary and idiopathic peripheral neuropathy G60.9 [place] [id number] [place] [address] [id number] Oct, Hereditary and idiopathic peripheral neuropathy G60.[address] [id number] Sep, Hereditary and idiopathic peripheral neuropathy G60.[address] [id number] Aug, Essential hypertension I10 ; Hereditary and idiopathic peripheral neuropathy G60.9 ; PVD (peripheral vascular disease) I73.9 and Infective urethritis N34.2 [place] [address] [place] [id number] [place] [address] [id number] Jul, Hereditary and idiopathic peripheral neuropathy G60.9 [place] [id number] [place] [address] [id number] May, Hereditary and idiopathic peripheral neuropathy G60.9 [place] [address] [place] [id number] [place] [address] [id number] May, [place] [address] [place] [id number] [place] [address] [id number] May, Hereditary and idiopathic peripheral neuropathy G60.9 [place] [id number] [place] [address] [id number] Apr, Hereditary and idiopathic peripheral neuropathy G60.9 [place] [id number] [place] [address] [id number] Apr, Encounter for immunization Z23 [place] [id number] [place] [address] [id number] Mar, Urinary tract infection, site not specified N39.0 ; Hematuria, unspecified R31.9 ; Hyperlipidemia, unspecified E78.5 and Essential hypertension I10 [place] [id number] [place] [address] [id number] Mar, Essential hypertension I10 ; Hereditary and idiopathic peripheral neuropathy G60.9 and Acute cystitis with hematuria N30.[address] [place] [address] [id number] Feb, [place] [id number] [place] [address] [id number] Feb, Hereditary and idiopathic peripheral neuropathy G60.9 [place] [id number] [place] [address] [id number] Jan, Hereditary and idiopathic peripheral neuropathy G60.9 [address] [place] [address] [id number] Dec, Essential hypertension I10 and Hereditary and idiopathic peripheral neuropathy G60.9 [place] [address] [id number] November, Hereditary and idiopathic peripheral neuropathy G60.9 [facility] [place] [facility] [address] [id number][place] [id number] Oct, Acute cystitis with hematuria N30.01 [facility] [id number][place] [id number] Oct, [place] [id number] [place] [address] [id number] Oct, Hereditary and idiopathic peripheral neuropathy G60.9 [address] [place] [address] [id number] Sep, Hereditary and idiopathic peripheral neuropathy G60.9 [place] [id number] [place] [address] [id number] Sep, Fever, unspecified fever cause R50.9 ; Nausea R11.0 and Viral syndrome B34.9 [address] [place] [address] [id number] Aug, [place] [id number] [place] [address] [id number] Aug, Dysuria R30.0 [place] [id number] [place] [address] [id number] Jul, Essential hypertension I10 and Tobacco abuse disorder Z72.0 [address] [place] [address] [id number] Apr, Hyperlipidemia, unspecified E78.5 ; Hereditary and idiopathic peripheral neuropathy G60.9 ; Essential hypertension I10 and Urinary tract infection without hematuria, site unspecified N39.0 [address] [place] [address] [id number] Apr, Hyperlipidemia, unspecified E78.5 [address] [place] [address] [id number] Mar, Hyperlipidemia, unspecified E78.5 [address] [place] [address] [id number] Feb, Essential hypertension I10 [address] [id number] [place] [address] Feb, [place] [id number], [place] [id number] Feb, Urinary tract infection, site not specified N39.0 and Hematuria, unspecified R31.9 [facility] [id number], [place] [id number] Jan, Hereditary and idiopathic peripheral neuropathy G60.9 [address] [place] [address] [id number] Jan, [address] [place] [address] [id number] Dec, Well woman exam Z01.419 ; Colon cancer screening Z12.11 ; Breast cancer screening Z12.39 ; Bladder prolapse, female, acquired N81.10 and Rectocele N81.[address] [place] [address] [id number] Dec, Hereditary and idiopathic peripheral neuropathy G60.9 and Stress incontinence N39.3 [address] [place] [address] [id number] Dec, [address] [place] [address] [id number] November, Essential hypertension I10 ; Hereditary and idiopathic peripheral neuropathy G60.9 and PVD (peripheral vascular disease) I73.9 [facility] [address] [facility] [id number][place] [id number] November, [address] [id number] Oct, [facility] [id number], [place] [id number] Aug, [id number] [place] [address] [id number] Aug, Essential hypertension I10 [facility] [address]100[place] [id number] Jul, [address] [id number], [place] [id number] May, Neuropathy G62.9 [facility] [place] [address] [id number][place] [id number] May, [facility] [place] [address] [id number][place] [id number] Jan, [facility] [place] [address] [facility] [id number][place] [id number] Jan, Hyperlipemia 272.4 [facility] [place] [address] [facility] [id number], [place] [id number] Jan, Other and unspecified hyperlipidemia 272.4 ; Unspecified essential hypertension 401.9 and Unspecified hereditary and idiopathic peripheral neuropathy 356.9 [facility] [place] [address] [facility] [id number], [place] [id number] Oct, [facility] [address]00565100[place], [place] [address] Oct, [facility] [address]00565100[place], [place] [address] Oct, [facility] [place] [address] [facility] [id number], [place] [id number] Aug, [facility] [address]00565100[place], [place] [address] Aug, [facility] [address]100[place], [place] [address] Jul, [facility] [address]00565100[place], [place] [address] Jul, [facility] [place] [address] [facility] [id number], [place] [id number] Jul, [facility] [place] [address] [facility] [id number], [place] [id number] Jul, [facility] [address]005[address]100[place], [place] [address] Jul, [facility] [address] [place] [id number], [place] [address] Jul, [facility] [place] [address] [facility] [id number], [place] [id number] Jul, [facility] [place] [address] [facility] [id number] [place] [id number] Jun, [facility] [address] [facility] [id number], [place] [address] Jun, [facility] [place] [address] [facility] [id number], [place] [id number] Jun, [facility] [address] [facility] [id number], [place] [address] Jun, [facility] [place] [address] [facility] [id number] [place] [id number] May, [facility] [address] [facility] [id number], [place] [address] May, [facility] [place] [address] [facility] [id number], [place] [id number] Apr, [facility] [address]00565100[place], [place] [address] Apr, [facility] [place] [address] [place] [id number], [place] [id number] Mar, [facility] [address], [place] [address] Mar, [facility] [place] [address] [place] [id number], [place] [id number] Feb, [facility] [address], [place] [address] Feb, [facility] [address] [facility] [id number], [place] [address] Feb, [facility] [place] [address] [facility] [id number], [place] [address] Feb, [facility] [place] [address] [facility] [id number], [place] [id number] Dec, [facility] [address] [facility] [id number], [place] [address] Dec, [facility] [address]00565100[place], [place] [address] Aug, [facility] [address] [facility] [id number], [place] [address] Aug, [facility] [place] [address] [id number] [place] [id number] Jul, [facility] [address] [facility] [id number], [place] [address] Jul, [facility] [place] [address] [id number] [place] [id number] Mar, [facility] [address] [facility] [id number], [place] [address] Dec, [facility] [place] [address] [id number] [place] [id number] Dec, [facility] [place] [address] [facility] [id number], [place] [id number] Jun, [facility] [address]00565100[place], [place] [address] Jun, [facility] [address] [facility] [id number], [place] [address] May, [facility] [address] [facility] [id number], [place] [address] May, [facility] [place] [address] [facility] [id number], [place] [id number] Apr, [facility] [address] [facility] [id number], [place] [address] Apr, [facility] [place] [address] [id number], [place] [id number] Apr, [facility] [address] [facility] [id number], [place] [address] Apr, [facility] [place] [address] [id number], [place] [id number] Jan, [facility] [place] [address] [id number] [place] [id number] Jan, [facility] [place] [address] [id number], [place] [id number] November, [facility] [place] [address] [id number] [place] [id number] November, [facility] [place] [address] [id number] [place] [id number] November, [facility] [place] [address] [id number] [place] [address] Oct, [facility] [place] [address] [id number] [place] [id number] Oct, [facility] [place] [address] [id number] [place] [address] Oct, [facility] [place] [address] [id number] [place] [id number] Oct, [facility] [place] [address] [id number] [place] [id number] Sep, [facility] [place] [address] [id number] [place] [id number] Sep, [facility] [address] [place] [id number] [place] [address] Aug, [facility] [address]00565100[place], [place] [address] Jun, [facility] [address] [place] [id number] [place] [address] Jun, [facility] [address]00565100[place], [place] [address] Jun, [facility] [address]00565100[place], [place] [address] May, [facility] [address]65100[place], [place] [address] May, [facility] [address] [place] [address] [id number] [place] [address] Jun, [facility] [address]00565100[place], [place] [address] Jun, [facility] [address] [place] [address] [id number] [place] [address] 06 Jun, 2010 [facility] [id number], [place] [address] Oct, [facility] [address]00565100[place], [place] [address] Sep, [facility] [address] [place] [id number], [place] [address] Jun, [facility] [address]00565100[place], [place] [address] Jun, [facility] [address]00565100[place], [place] [address] May, [facility] [address]00565100[place], [place] [address] May, [facility] [address]00565100[place], [place] [address] May, [facility] [address] [place] [id number], [place] [address] May, IMMUNIZATIONS No Known Immunizations SOCIAL HISTORY Never Assessed REASON FOR VISIT Controlled Med Refill PLAN OF CARE VITAL SIGNS MEDICATIONS Medication Instructions Dosage Frequency Start Date End Date Duration Status tramadol 50 mg orally 3 times a day PRN must last 28 days 1 Tablet Jul, Oct, 0 days Active RESULTS No Results PROCEDURES [...] History iliac artery bypass x's 2 at [facility] Aug and September 2014 Surgical History Left aortofemoral bypass by Dr. Bhakta 10/2016 Surgical History Sarnoma drained from left femoral incision site 2 wks post bypass 10/2016 Surgical History Detached retina in right eye 10/28 Hospitalization History surgeries, childbirth
--- OUTSIDE RECORDS SUMMARY | 2019-02-01 02:16 | XMS REPORT ---
Author Author CINDY CALIXTO Organization [facility] Address [address] [place] [address] Care Team Providers Care Speech And Language Tutor Name Role Phone CINDY CALIXTO Unavailable PROBLEMS Type Condition ICD9-CM Code EPQ71-OB Code Onset Dates Condition Status SNOMED Code Problem Hyperlipidemia, unspecified E78.5 Active 10300398 Problem Stress incontinence N39.3 Active 50145575 Problem Essential hypertension I10 Active 14283650 Problem Hereditary and idiopathic peripheral neuropathy G60.9 Active 628923421 Problem PVD (peripheral vascular disease) I73.9 Active 877637445 ALLERGIES No Information ENCOUNTERS Encounter Location Date Diagnosis [address] [id number] November, Hereditary and idiopathic peripheral neuropathy G60.9 and Essential hypertension I10 [address] [id number] November, Hereditary and idiopathic peripheral neuropathy G60.[address] [id number] Oct, Hereditary and idiopathic peripheral neuropathy G60.[address] [id number] Sep, Hereditary and idiopathic peripheral neuropathy G60.[address] [id number] Aug, Essential hypertension I10 ; Hereditary and idiopathic peripheral neuropathy G60.9 ; PVD (peripheral vascular disease) I73.9 and Infective urethritis N34.[address] [id number] Jul, Hereditary and idiopathic peripheral neuropathy G60.[address] [id number] May, Hereditary and idiopathic peripheral neuropathy G60.[address] [id number] [place] [id number] May, [facility] [id number] [place] [address] [id number] May, Hereditary and idiopathic peripheral neuropathy G60.9 [facility] [id number] [place] [id number] Apr, Hereditary and idiopathic peripheral neuropathy G60.9 [place] [id number] [place] [address] [id number] Apr, Encounter for immunization Z23 [facility] [id number] [place] [id number] Mar, Urinary tract infection, site not specified N39.0 ; Hematuria, unspecified R31.9 ; Hyperlipidemia, unspecified E78.5 and Essential hypertension I10 [facility] [id number] [place] [id number] Mar, Essential hypertension I10 ; Hereditary and idiopathic peripheral neuropathy G60.9 and Acute cystitis with hematuria N30.01 [facility] [id number] [place] [id number] Feb, [facility] [id number] [place] [address] [id number] Feb, Hereditary and idiopathic peripheral neuropathy G60.9 [facility] [id number] [place] [id number] Jan, Hereditary and idiopathic peripheral neuropathy G60.9 [place] [id number] [place] [id number] Dec, Essential hypertension I10 and Hereditary and idiopathic peripheral neuropathy G60.9 [facility] [address] [facility] [id number] [place] [id number] November, Hereditary and idiopathic peripheral neuropathy G60.9 [facility] [id number] [id number] Oct, Acute cystitis with hematuria N30.01 [facility] [address] [facility] [id number] [place] [id number] Oct, [facility] [id number] [place] [address] [id number] Oct, Hereditary and idiopathic peripheral neuropathy G60.9 [place] [id number] [place] [address] [id number] Sep, Hereditary and idiopathic peripheral neuropathy G60.9 [place] [address] [place] [id number] [place] [address] [id number] Sep, Fever, unspecified fever cause R50.9 ; Nausea R11.0 and Viral syndrome B34.9 [facility] [address] [place] [id number] [place] [address] [id number] Aug, [facility] [place] [address] [place] [id number] [place] [address] [id number] Aug, Dysuria R30.0 [place] [address] [place] [id number] [place] [address] [id number] Jul, Essential hypertension I10 and Tobacco abuse disorder Z72.0 [place] [id number] [place] [address] [id number] Apr, Hyperlipidemia, unspecified E78.5 ; Hereditary and idiopathic peripheral neuropathy G60.9 ; Essential hypertension I10 and Urinary tract infection without hematuria, site unspecified N39.[id number] [place] [address] [id number] Apr, Hyperlipidemia, unspecified E78.5 [facility] [id number] [place] [address] [id number] Mar, Hyperlipidemia, unspecified E78.5 [facility] [id number] [place] [address] [id number] Feb, Essential hypertension I10 [address] [id number] [place] [address] Feb, [id number] [place] [address] [id number] Feb, Urinary tract infection, site not specified N39.0 and Hematuria, unspecified R31.9 [facility] [place] [id number] [place] [id number] Jan, Hereditary and idiopathic peripheral neuropathy G60.9 [address] [place] [address] [id number] Jan, [facility] [address] [place] [id number] [place] [id number] Dec, Well woman exam Z01.419 ; Colon cancer screening Z12.11 ; Breast cancer screening Z12.39 ; Bladder prolapse, female, acquired N81.10 and Rectocele N81.6 [facility] [address] [place] [id number] [place] [address] [id number] Dec, Hereditary and idiopathic peripheral neuropathy G60.9 and Stress incontinence N39.3 [facility] [address] [place] [id number] [place] [address] [id number] Dec, [place] [id number] [place] [address] [id number] November, Essential hypertension I10 ; Hereditary and idiopathic peripheral neuropathy G60.9 and PVD (peripheral vascular disease) I73.9 [facility] [address] [place] [id number] [place] [address] [id number] November, [facility] [address] [place] [id number] [place] [address] [id number] Oct, [facility] [id number] [place] [address] [id number] Aug, [place] [address] [place] [id number] [place] [address] [id number] Aug, Essential hypertension I10 [facility] [id number] [place] [address] [id number] Jul, [place] [id number] [place] [address] [id number] May, Neuropathy G62.9 [facility] [place] [address] [id number] [id number] May, [facility] [place] [address] [id number][place] [id number] Jan, [facility] [place] [address] [place] [id number] [place] [address] [id number] Jan, Hyperlipemia 272.4 [facility] [place] [id number] [place] [address] [id number] Jan, Other and unspecified hyperlipidemia 272.4 ; Unspecified essential hypertension 401.9 and Unspecified hereditary and idiopathic peripheral neuropathy 356.9 [facility] [id number] [place] [id number] Oct, [facility] [address]00565100[place], [place] [address] Oct, [facility] [address]00565100[place], [place] [address] Oct, [facility] [id number] [place] [id number] Aug, [facility] [address]00565100[place], [place] [address] Aug, [facility] [address] [place] [id number] [place] [address] Jul, [facility] [address]00565100[place], [place] [address] Jul, [facility] [id number] [place] [id number] Jul, [facility] [id number] [place] [id number] Jul, [facility] [address]00565100[place], [place] [address] Jul, [facility] [address]00565100[place], [place] [address] Jul, [facility] [id number] [place] [id number] Jul, [facility] [address] [place] [id number] [place] [id number] Jun, [facility] [address]00565100[place], [place] [address] Jun, [facility] [address] [place] [id number] [place] [id number] Jun, [facility] [address]00565100[place], [place] [address] Jun, [facility] [address] [facility] [id number] [place] [id number] May, [facility] [address] [facility] [id number], [place] [address] May, [facility] [address] [facility] [id number] [place] [id number] Apr, [facility] [address] [facility] [id number], [place] [address] Apr, [facility] [address] [facility] [id number] [place] [id number] Mar, [facility] [address] [facility] [id number], [place] [address] Mar, [facility] [address] [facility] [id number] [place] [id number] Feb, [facility] [address]00565100[place], [place] [address] Feb, [facility] [address]00565100[place], [place] [address] Feb, [facility] [address] [facility] [id number] [place] [id number] Feb, [facility] [address] [facility] [id number] [place] [id number] Dec, [facility] [address]00565100[place], [place] [address] Dec, [facility] [address] [facility] [id number], [place] [address] Aug, [facility] [address] [facility] [id number], [place] [address] Aug, [facility] [address] [facility] [id number] [place] [id number] Jul, [facility] [address] [facility] [id number], [place] [address] Jul, [facility] [address] [facility] [id number] [place] [id number] Mar, [facility] [address] [facility] [id number], [place] [address] Dec, [facility] [address] [id number] [place] [id number] Dec, [facility] [address] [id number] [place] [id number] Jun, [facility] [address] [facility] [id number], [place] [address] Jun, [facility] [address] [facility] [id number], [place] [address] May, [facility] [address] [facility] [id number], [place] [address] May, [facility] [address] [id number] [place] [id number] Apr, [facility] [address] [facility] [id number], [place] [address] Apr, [facility] [address] [id number] [place] [id number] Apr, [facility] [address] [facility] [id number], [place] [address] Apr, [facility] [address] [id number] [place] [id number] Jan, [facility] [address] [id number] [place] [id number] Jan, [facility] [address] [id number] [place] [id number] November, [facility] [address] [id number] [place] [id number] November, [facility] [address] [id number] [place] [address] November, [facility] [address] [id number] [place] [address] Oct, [facility] [address] [id number] [place] [id number] Oct, [facility] [address] [id number] [place] [id number] 17 Oct, 2011 [facility] [address] [id number] [place] [id number] 10 Oct, 2011 [facility] [address] [id number] [place] [id number] 20 Sep, 2011 [facility] [address] [facility] [id number] [place] [id number] Sep, [facility] [address] [id number], [place] [address] Aug, [facility] [address] [facility] [id number], [place] [address] Jun, [facility] [address] [facility] [id number], [place] [address] Jun, [facility] [address] [place] [id number], [place] [address] Jun, [facility] [address] [facility] [id number], [place] [address] May, [facility] [address] [facility] [id number], [place] [address] May, [facility] [address] [place] [id number], [place] [address] Jun, [facility] [address] [place] [id number], [place] [address] Jun, [facility] [address] [facility] [id number], [place] [address] Jun, [facility] [address] [facility] [id number], [place] [address] 13 Oct, 2009 [facility] [address] [facility] [id number], [place] [address] Sep, [facility] [address] [facility] [id number], [place] [address] Jun, [facility] [address] [facility] [id number] [place] [address] Jun, [facility] [address] [facility] [id number], [place] [address] May, [facility] [address] [facility] [id number], [place] [address] May, [facility] [address] [facility] [id number], [place] [address] May, [facility] [address] [facility] [id number], [place] [address] May, IMMUNIZATIONS No Known Immunizations SOCIAL HISTORY Never Assessed REASON FOR VISIT med refill PLAN OF CARE VITAL SIGNS MEDICATIONS [...]
--- OUTSIDE RECORDS SUMMARY | 2019-02-01 02:16 | XMS REPORT ---
Author Author CINDY CALIXTO Organization [facility] Address [address] [place] [address] Care Team Providers Care General Maintenance Technician Name Role Phone CINDY CALIXTO Unavailable PROBLEMS Type Condition ICD9-CM Code YXV51-WA Code Onset Dates Condition Status SNOMED Code Problem Hyperlipidemia, unspecified E78.5 Active 72937833 Problem Stress incontinence N39.3 Active 84902763 Problem Essential hypertension I10 Active 18605810 Problem Hereditary and idiopathic peripheral neuropathy G60.9 Active 155420748 Problem PVD (peripheral vascular disease) I73.9 Active 166052671 ALLERGIES No Information ENCOUNTERS Encounter Location Date Diagnosis [address] [id number] November, Hereditary and idiopathic peripheral neuropathy G60.9 and Essential hypertension I10 [address] [id number] November, Hereditary and idiopathic peripheral neuropathy G60.[address] [id number] Oct, Hereditary and idiopathic peripheral neuropathy G60.[address] [id number] Sep, Hereditary and idiopathic peripheral neuropathy G60.[address] [id number] Aug, Essential hypertension I10 ; Hereditary and idiopathic peripheral neuropathy G60.9 ; PVD (peripheral vascular disease) I73.9 and Infective urethritis N34.[address] [id number] Jul, Hereditary and idiopathic peripheral neuropathy G60.[address] [id number] May, Hereditary and idiopathic peripheral neuropathy G60.[address] [id number] [place] [id number] May, [facility] [id number] [place] [address] [id number] May, Hereditary and idiopathic peripheral neuropathy G60.9 [facility] [id number] [place] [id number] Apr, Hereditary and idiopathic peripheral neuropathy G60.9 [place] [id number] [place] [address] [id number] Apr, Encounter for immunization Z23 [facility] [id number] [place] [id number] Mar, Urinary tract infection, site not specified N39.0 ; Hematuria, unspecified R31.9 ; Hyperlipidemia, unspecified E78.5 and Essential hypertension I10 [facility] [id number] [place] [id number] Mar, Essential hypertension I10 ; Hereditary and idiopathic peripheral neuropathy G60.9 and Acute cystitis with hematuria N30.01 [facility] [id number] [place] [id number] Feb, [facility] [id number] [place] [address] [id number] Feb, Hereditary and idiopathic peripheral neuropathy G60.9 [facility] [id number] [place] [id number] Jan, Hereditary and idiopathic peripheral neuropathy G60.9 [place] [address] [id number] [place] [id number] Dec, Essential hypertension I10 and Hereditary and idiopathic peripheral neuropathy G60.9 [facility] [address] [facility] [id number] [place] [id number] November, Hereditary and idiopathic peripheral neuropathy G60.9 [facility] [place] [facility] [id number] [id number] Oct, Acute cystitis with hematuria N30.01 [facility] [address] [facility] [id number] [place] [id number] Oct, [facility] [id number] [place] [address] [id number] Oct, Hereditary and idiopathic peripheral neuropathy G60.9 [place] [id number] [place] [address] [id number] Sep, Hereditary and idiopathic peripheral neuropathy G60.9 [place] [address] [place] [id number] [place] [address] [id number] Sep, Fever, unspecified fever cause R50.9 ; Nausea R11.0 and Viral syndrome B34.9 [facility] [address] [place] [id number] [place] [address] [id number] Aug, [facility] [place] [address] [place] [id number] [place] [address] [id number] Aug, Dysuria R30.0 [place] [address] [place] [id number] [place] [address] [id number] Jul, Essential hypertension I10 and Tobacco abuse disorder Z72.0 [place] [id number] [place] [address] [id number] Apr, Hyperlipidemia, unspecified E78.5 ; Hereditary and idiopathic peripheral neuropathy G60.9 ; Essential hypertension I10 and Urinary tract infection without hematuria, site unspecified N39.0 [id number] [place] [address] [id number] Apr, Hyperlipidemia, unspecified E78.5 [facility] [id number] [place] [address] [id number] Mar, Hyperlipidemia, unspecified E78.5 [facility] [id number] [place] [address] [id number] Feb, Essential hypertension I10 [address] [id number] [place] [address] Feb, [id number] [place] [address] [id number] Feb, Urinary tract infection, site not specified N39.0 and Hematuria, unspecified R31.9 [facility] [place] [id number] [place] [id number] Jan, Hereditary and idiopathic peripheral neuropathy G60.9 [address] [place] [address] [id number] Jan, [facility] [address] [place] [id number] [place] [id number] Dec, Well woman exam Z01.419 ; Colon cancer screening Z12.11 ; Breast cancer screening Z12.39 ; Bladder prolapse, female, acquired N81.10 and Rectocele N81.6 [facility] [address] [place] [id number] [place] [address] [id number] Dec, Hereditary and idiopathic peripheral neuropathy G60.9 and Stress incontinence N39.3 [facility] [address] [place] [id number] [place] [address] [id number] Dec, [place] [id number] [place] [address] [id number] November, Essential hypertension I10 ; Hereditary and idiopathic peripheral neuropathy G60.9 and PVD (peripheral vascular disease) I73.9 [facility] [address] [place] [id number] [place] [address] [id number] November, [facility] [address] [place] [id number] [place] [address] [id number] Oct, [facility] [id number] [place] [address] [id number] Aug, [place] [address] [place] [id number] [place] [address] [id number] Aug, Essential hypertension I10 [facility] [id number] [place] [address] [id number] Jul, [place] [id number] [place] [address] [id number] May, Neuropathy G62.9 [facility] [place] [id number][place] [id number] May, [facility] [place] [address] [id number][place] [id number] Jan, [facility] [address] [place] [id number] [place] [address] [id number] Jan, Hyperlipemia 272.4 [facility] [place] [id number] [place] [address] [id number] Jan, Other and unspecified hyperlipidemia 272.4 ; Unspecified essential hypertension 401.9 and Unspecified hereditary and idiopathic peripheral neuropathy 356.9 [facility] [id number] [place] [id number] Oct, [facility] [address]00565100[place], [place] [address] Oct, [facility] [address]00565100[place], [place] [address] Oct, [facility] [id number] [place] [id number] Aug, [facility] [address]00565100[place], [place] [address] Aug, [facility] [address] [place] [id number] [place] [address] Jul, [facility] [address]00565100[place], [place] [address] Jul, [facility] [id number] [place] [id number] Jul, [facility] [id number] [place] [id number] Jul, [facility] [address]00565100[place], [place] [address] Jul, [facility] [address]00565100[place], [place] [address] Jul, [facility] [id number] [place] [id number] Jul, [facility] [address] [place] [id number] [place] [id number] Jun, [facility] [address]65100[place], [place] [address] Jun, [facility] [address] [place] [id number] [place] [id number] Jun, [facility] [address]00565100[place], [place] [address] Jun, [facility] [address] [facility] [id number] [place] [id number] May, [facility] [address] [facility] [id number], [place] [address] May, [facility] [address] [facility] [id number] [place] [id number] Apr, [facility] [address] [facility] [id number], [place] [address] Apr, [facility] [address] [facility] [id number] [place] [id number] Mar, [facility] [address] [facility] [id number], [place] [address] Mar, [facility] [address] [facility] [id number] [place] [id number] Feb, [facility] [address]65100[place], [place] [address] Feb, [facility] [address]00565100[place], [place] [address] Feb, [facility] [address] [facility] [id number] [place] [id number] Feb, [facility] [address] [facility] [id number] [place] [id number] Dec, [facility] [address]00565100[place], [place] [address] Dec, [facility] [address] [facility] [id number], [place] [address] Aug, [facility] [address] [facility] [id number], [place] [address] Aug, [facility] [address] [facility] [id number] [place] [id number] Jul, [facility] [address] [facility] [id number], [place] [address] Jul, [facility] [address] [facility] [id number] [place] [id number] Mar, [facility] [address] [facility] [id number], [place] [address] Dec, [facility] [address] [id number] [place] 12[address] Dec, [facility] [address] [id number] [place] [id number] Jun, [facility] [address] [facility] [id number], [place] [address] Jun, [facility] [address] [facility] [id number], [place] [address] May, [facility] [address] [facility] [id number], [place] [address] May, [facility] [address] [id number] [place] [id number] Apr, [facility] [address] [facility] [id number], [place] [address] Apr, [facility] [address] [id number] [place] [id number] Apr, [facility] [address] [facility] [id number], [place] [address] Apr, [facility] [address] [id number] [place] [id number] Jan, [facility] [address] [id number] [place] [address] Jan, [facility] [address] [id number] [place] [id number] November, [facility] [address] [id number] [place] [id number] November, [facility] [address] [id number] [place] [id number] November, [facility] [address] [id number] [place] [id number] Oct, [facility] [address] [id number] [place] [id number] Oct, [facility] [address] [id number] [place] [id number] 17 Oct, 2011 [facility] [address] [id number] [place] [id number] 10 Oct, 2011 [facility] [address] [id number] [place] [id number] 20 Sep, 2011 [facility] [address] [facility] [id number] [place] [phone] Sep, [facility] [address] [id number], [place] [address] Aug, [facility] [address] [facility] [id number], [place] [address] Jun, [facility] [address] [facility] [id number], [place] [address] Jun, [facility] [address] [place] [id number], [place] [address] Jun, [facility] [address] [facility] [id number], [place] [address] May, [facility] [address] [facility] [id number], [place] [address] May, [facility] [address] [place] [id number], [place] [address] Jun, [facility] [address] [place] [id number], [place] [address] Jun, [facility] [address] [facility] [id number], [place] [address] Jun, [facility] [address] [facility] [id number], [place] [address] 13 Oct, 2009 [facility] [address] [facility] [id number], [place] [address] Sep, [facility] [address] [facility] [id number], [place] [address] Jun, [facility] [address] [facility] [id number] [place] [address] 14 Jun, 2009 [facility] [address] [facility] [id number], [place] [address] May, [facility] [address] [facility] [id number], [place] [address] May, [facility] [address] [facility] [id number], [place] [address] May, [facility] [address] [facility] [id number], [place] [address] May, IMMUNIZATIONS No Known Immunizations SOCIAL HISTORY Never Assessed REASON FOR VISIT Refill request PLAN OF CARE VITAL SIGNS MEDICATIONS No [...] History iliac artery bypass x's 2 at [facility] Aug and September 2014 Surgical History Left aortofemoral bypass by Dr. Bhakta 10/2016 Surgical History Sarnoma drained from left femoral incision site 2 wks post bypass 10/2016 Surgical History Detached retina in right eye 10/28 Hospitalization History surgeries, childbirth
--- OUTSIDE RECORDS SUMMARY | 2019-02-01 02:16 | XMS REPORT ---
Author Author NEETA SAUCEDO [facility] [employer] Address Unknown Phone Unavailable Care Team Providers Care Wireless Team Member Name Role Phone NEETA SAUCEDO Unavailable Allergies No Known Allergies Problems Problem Type Condition Code Onset Dates Condition Status Problem Pain in joint, multiple sites 719.49 Active Problem Unspecified hereditary and idiopathic peripheral neuropathy 356.9 Active Problem Hyperlipemia 272.4 Active Problem Other and unspecified hyperlipidemia 272.4 Active Problem Unspecified essential hypertension 401.9 Active Medications Medication Code System Code Instructions Start Date End Date Status Dosage tramadol NDC 0 50 mg orally 2 times a day as needed Jul 24, 2014 1 Tablet Results No Known Results Summary Purpose eClinical[employer] Submission
--- OUTSIDE RECORDS SUMMARY | 2019-02-01 02:17 | XMS REPORT ---
Author Author NEETA SAUCEDO [facility] [employer] Address Unknown Phone Unavailable Care Team Providers Care Patient Case Manager Name Role Phone NEETA SAUCEDO Unavailable Allergies No Known Allergies Problems Problem Type Condition Code Onset Dates Condition Status Problem Pain in joint, multiple sites 719.49 Active Problem Unspecified hereditary and idiopathic peripheral neuropathy 356.9 Active Problem Hyperlipemia 272.4 Active Problem Other and unspecified hyperlipidemia 272.4 Active Problem Unspecified essential hypertension 401.9 Active Medications No Known Medications Results No Known Results Summary Purpose [employer]ClinicalWorks Submission
--- OUTSIDE RECORDS SUMMARY | 2019-02-01 02:17 | XMS REPORT ---
Author Author CINDY CALIXTO Organization [employer] Address Unknown Phone Unavailable Care Team Providers Care Wrecking Supervisor Name Role Phone CINDY CALIXTO CP Unavailable Allergies No Known Allergies Problems Problem Type Condition Code Onset Dates Condition Status Problem Essential hypertension I10 Active Problem Hereditary and idiopathic peripheral neuropathy G60.9 Active Problem Stress incontinence N39.3 Active Problem Pain in joint, multiple sites 719.49 Active Assessment Essential hypertension I10 Active Problem PVD (peripheral vascular disease) I73.9 Active Problem Hyperlipemia 272.4 Active Medications Medication Code System Code Instructions Start Date End Date Status Dosage Norvasc [facility] [address]-69 5 mg Orally Once a day 1 tablet Lisinopril [facility] [address]-52 40 mg Orally Once a day Jul 24, 2014 1 tablet Results No Known Results Summary Purpose [employer] Submission
--- OUTSIDE RECORDS SUMMARY | 2019-02-01 02:17 | XMS REPORT ---
Author Author CINDY CALIXTO Organization [employer] Address Unknown Phone Unavailable Care Team Providers Care Collection Systems Consultant Name Role Phone CINDY CALIXTO CP Unavailable Allergies No Known Allergies Problems Problem Type Condition Code Onset Dates Condition Status Problem Essential hypertension I10 Active Problem Hereditary and idiopathic peripheral neuropathy G60.9 Active Problem Stress incontinence N39.3 Active Problem Pain in joint, multiple sites 719.49 Active Problem PVD (peripheral vascular disease) I73.9 Active Problem Hyperlipemia 272.4 Active Medications Medication Code System Code Instructions Start Date End Date Status Dosage tramadol NDC 0 50 mg orally 3 times a day PRN Jul 24, 2014 1 Tablet Results No Known Results Summary Purpose [employer]ClinicalWorks Submission
--- OUTSIDE RECORDS SUMMARY | 2019-02-01 02:17 | XMS REPORT ---
Author Author CINDY CALIXTO Organization [facility] Address [address] [place] [address] Care Team Providers Care Postal Supervisor Name Role Phone CINDY CALIXTO Unavailable PROBLEMS Type Condition ICD9-CM Code WWY33-AR Code Onset Dates Condition Status SNOMED Code Problem Hyperlipidemia, unspecified E78.5 Active 72995095 Problem Stress incontinence N39.3 Active 91937318 Problem Essential hypertension I10 Active 19887718 Problem Hereditary and idiopathic peripheral neuropathy G60.9 Active 116073967 Problem PVD (peripheral vascular disease) I73.9 Active 275632924 ALLERGIES No Information ENCOUNTERS Encounter Location Date Diagnosis [address] [id number] Sep, Hereditary and idiopathic peripheral neuropathy G60.[address] [id number] Aug, Essential hypertension I10 ; Hereditary and idiopathic peripheral neuropathy G60.9 ; PVD (peripheral vascular disease) I73.9 and Infective urethritis N34.2 [place] [id number] [place] [address] [id number] Jul, Hereditary and idiopathic peripheral neuropathy G60.[address] [id number] May, Hereditary and idiopathic peripheral neuropathy G60.[address] [id number] May, [address] [id number] May, Hereditary and idiopathic peripheral neuropathy G60.9 [place] [id number] [place] [address] [id number] Apr, Hereditary and idiopathic peripheral neuropathy G60.[address] [id number] Apr, Encounter for immunization Z23 [facility] [address] [facility] [id number][place] [id number] Mar, Urinary tract infection, site not specified N39.0 ; Hematuria, unspecified R31.9 ; Hyperlipidemia, unspecified E78.5 and Essential hypertension I10 [facility] [id number] [id number] Mar, Essential hypertension I10 ; Hereditary and idiopathic peripheral neuropathy G60.9 and Acute cystitis with hematuria N30.01 [facility] [id number], [place] [id number] Feb, [place] [id number] [place] [address] [id number] Feb, Hereditary and idiopathic peripheral neuropathy G60.9 [place] [id number] [place] [address] [id number] Jan, Hereditary and idiopathic peripheral neuropathy G60.9 [place] [id number] [place] [address] [id number] Dec, Essential hypertension I10 and Hereditary and idiopathic peripheral neuropathy G60.[address] [id number], [place] [id number] November, Hereditary and idiopathic peripheral neuropathy G60.[address] [id number] [place] [id number] Oct, Acute cystitis with hematuria N30.[address] [id number], [place] [id number] Oct, [facility] [id number], [place] [id number] Oct, Hereditary and idiopathic peripheral neuropathy G60.[address] [id number][place] [id number] Sep, Hereditary and idiopathic peripheral neuropathy G60.9 [facility] [id number] [place] [address] [id number] Sep, Fever, unspecified fever cause R50.9 ; Nausea R11.0 and Viral syndrome B34.9 [facility] [id number] Aug, [facility] [address] [place] [address] [id number] Aug, Dysuria R30.0 [facility] [address] [place] [address] [id number] Jul, Essential hypertension I10 and Tobacco abuse disorder Z72.0 [facility] [address] [place] [address] [id number] Apr, Hyperlipidemia, unspecified E78.5 ; Hereditary and idiopathic peripheral neuropathy G60.9 ; Essential hypertension I10 and Urinary tract infection without hematuria, site unspecified N39.0 [facility] [address] [place] [address] [id number] Apr, Hyperlipidemia, unspecified E78.5 [facility] [address] [place] [address] [id number] Mar, Hyperlipidemia, unspecified E78.5 [facility] [place] [id number] [place] [address] [id number] Feb, Essential hypertension I10 [address] [id number] [place] [address] Feb, [address] [place] [address] [id number] Feb, Urinary tract infection, site not specified N39.0 and Hematuria, unspecified R31.[address] [place] [address] [id number] Jan, Hereditary and idiopathic peripheral neuropathy G60.9 [address] [place] [address] [id number] Jan, [address] [place] [address] [id number] Dec, Well woman exam Z01.419 ; Colon cancer screening Z12.11 ; Breast cancer screening Z12.39 ; Bladder prolapse, female, acquired N81.10 and Rectocele N81.[address] [place] [address] [id number] Dec, Hereditary and idiopathic peripheral neuropathy G60.9 and Stress incontinence N39.3 [address]65[address] [id number] Dec, [place] [id number] [place] [address] [id number] November, Essential hypertension I10 ; Hereditary and idiopathic peripheral neuropathy G60.9 and PVD (peripheral vascular disease) I73.9 [address] [place] [address] [id number] November, [place] [id number] [place] [address] [id number] Oct, [address] [place] [address] [id number] Aug, [place] [id number] [place] [address] [id number] Aug, Essential hypertension I10 [place] [id number] [place] [address] [id number] Jul, [place] [id number] [place] [address] [id number] May, Neuropathy G62.9 [facility] [address] [id number] [place] [phone] May, [facility] [address] [id number] [place] [id number] Jan, [address] [place] [address] [id number] Jan, Hyperlipemia 272.[address] [place] [address] [id number] Jan, Other and unspecified hyperlipidemia 272.4 ; Unspecified essential hypertension 401.9 and Unspecified hereditary and idiopathic peripheral neuropathy 356.9 [place] [id number] [place] [address] [id number] Oct, [facility] [id number] [place] [address] Oct, [facility] [address] [place] [address] Oct, [facility] [address] [facility] [id number][place] [id number] Aug, [facility] [place] [facility] [address] [facility] [id number] [place] [address] Aug, [facility] [place] [facility] [address] [facility] [id number], [place] [address] Jul, [facility] [place] [facility] [address] [facility] [id number] [place] [address] Jul, [facility] [address] [id number], [place] [id number] Jul, [facility] [address] [facility] [id number] [place] [id number] Jul, [facility] [place] [facility] [address] [facility] [id number], [place] [address] Jul, [facility] [place] [facility] [address]005[address], [place] [address] Jul, [facility] [address] [facility] [id number], [place] [phone] Jul, [facility] [address] [facility] [id number] [place] [id number] Jun, [facility] [place] [facility] [address] [facility] [id number], [place] [address] Jun, [facility] [address] [facility] [id number], [place] [id number] Jun, [facility] [place] [facility] [address] [facility] [id number], [place] [address] Jun, [facility] [address] [facility] [id number], [place] [id number] May, [facility] [place] [facility] [address] [facility] [id number], [place] [address] May, [facility] [address] [facility] [id number], [place] [phone] Apr, [facility] [place] [facility] [address] [facility] [id number], [place] [address] Apr, [facility] [address] [id number] [place] [id number] Mar, [facility] [place] [facility] [address] [facility] [id number] [place] [address] Mar, [facility] [address] [id number] [place] [id number] Feb, [facility] [place] [facility] [address] [facility] [id number] [place] [address] Feb, [facility] [place] [facility] [address] [facility] [id number], [place] [address] Feb, [facility] [address] [id number] [place] [id number] Feb, [facility] [address] [facility] [id number], [place] [id number] Dec, [facility] [place] [facility] [address] [facility] [id number], [place] [address] Dec, [facility] [place] [facility] [address] [facility] [id number], [place] [address] Aug, [facility] [place] [facility] [address] [facility] [id number], [place] [address] Aug, [facility] [address] [facility] [id number], [place] [id number] Jul, [facility] [place] [facility] [address] [facility] [id number], [place] [address] Jul, [facility] [address] [facility] [id number], [place] [id number] Mar, [facility] [place] [facility] [address] [facility] [id number], [place] [address] Dec, [facility] [address] [id number], [place] [id number] Dec, [facility] [address] [id number] [place] [phone] Jun, [facility] [place] [facility] [address] [facility] [id number], [place] [address] Jun, [facility] [address] [facility] [id number], [place] [address] May, [facility] [address] [facility] [id number], [place] [address] May, [facility] [address] [id number], [place] [id number] Apr, [facility] [address] [facility] [id number], [place] [address] Apr, [facility] [address] [id number], [place] [id number] Apr, [facility] [address]00565[address], [place] [address] Apr, [facility] [address] [id number], [place] [id number] Jan, [facility] [id number] [place] [address] [id number] Jan, [facility] [address] [id number], [place] [phone] November, [facility] [address] [id number] [place] [id number] November, [facility] [address] [id number], [place] [id number] November, [facility] [address] [id number], [place] [id number] Oct, [facility] [address] [id number], [place] [id number] Oct, [facility] [address] [id number], [place] [phone] Oct, [facility] [address] [id number] [place] [id number] Oct, [facility] [address] [id number], [place] [id number] Sep, [facility] [address] [id number], [place] [id number] Sep, [facility] [id number] [place] [address] 03 Aug, 2011 [facility] [address] [id number] [place] [address] 20 Jun, 2011 [facility] [address] [id number] [place] [address] 13 Jun, 2011 [facility] [address] [id number] [place] [address] Jun, [facility] [address] [id number] [place] [address] May, [facility] [address] [id number] [place] [address] May, [facility] [address] [id number] [place] [address] Jun, [facility] [address] [id number] [place] [address] Jun, [facility] [address] [id number] [place] [address] Jun, [facility] [address] [id number] [place] [address] Oct, [facility] [address] [id number] [place] [address] Sep, [facility] [address] [id number] [place] [address] Jun, [facility] [address] [id number] [place] [address] 14 Jun, 2009 [facility] [address] [id number] [place] [address] May, [facility] [address] [id number] [place] [address] May, [facility] [address] [id number] [place] [address] May, [facility] [address] [facility] [id number] [place] [address] May, IMMUNIZATIONS No Known Immunizations SOCIAL HISTORY Never Assessed REASON FOR VISIT Pain management (chronic)--NAGI Thompson, HTN f/u PLAN OF CARE Activity Details Follow Up 3 Months Reason:htn VITAL SIGNS Height 66 in 2016-12-22 Weight 208.0 lbs 2016-12-22 Temperature 98.4 degrees Fahrenheit 2016-12-22 Heart Rate 84 bpm 2016-12-22 Respiratory Rate 18 2016-12-22 BMI 33.57 kg/m2 2016-12-22 Blood pressure systolic 186 mmHg 2016-12-22 Blood pressure diastolic 110 mmHg 2016-12-22 MEDICATIONS Medication Instructions Dosage Frequency Start Date End Date Duration Status Lisinopril 40 mg 1 tablet Once a day Orally Active tramadol 50 mg orally 3 times a day PRN must last 1 mon 1 Tablet Jul, Active Plavix 75 MG 1 tablet Once a day Orally Active Metoprolol Tartrate 50 MG Orally Twice a day 1 tablet with food 12h Active Gabapentin 800 MG 1 tablet 2 times a day Orally 30 30 30 Active Pravastatin Sodium 80 MG Orally Once a day at hs 1 tablet Active Warfarin Sodium ... Orally Once a day 1 tablet 24h Active RESULTS No Results PROCEDURES Procedure Date Ordered Result Body Site [facility] VISIT ESTABLISHED PATIENT December 22, 2016 INSTRUCTIONS MEDICATIONS ADMINISTERED No Known Medications MEDICAL (GENERAL) HISTORY Type Description Date Medical History hypertension Medical History cardiovascular disorder- carotid artery occlusive disease- recurrent PVD s/p aortofemoral bypass Medical History gynecologic disorder- hx cervixcal cancer s/p WILLIAM/BSO and radiation 2009 Medical History Unspecified hereditary and idiopathic peripheral neuropathy Medical History Other and unspecified hyperlipidemia Surgical History hysterectomy WILLIAM/BSO for squamous cell carcinoma of the cervix 07/2009 Surgical History Right aortofemoral bypass by Dr. Bhakta 04/2012 Surgical History stentinf left external iliac artery, angioplasty left common femoral artery, stenting right external iliac artery 11/2011 Surgical History iliac artery bypass x's 2 at [facility] Aug and September 2014 Surgical History Left aortofemoral bypass by Dr. Bhakta 10/2016 Surgical History Sarnoma drained from left femoral incision site 2 wks post bypass 10/2016 Hospitalization History surgeries, childbirth
--- OUTSIDE RECORDS SUMMARY | 2019-02-01 02:17 | XMS REPORT ---
Author Author CINDY CALIXTO [facility] Address [address] [place] [address] Care Team Providers Care Disability Insurance Hearing Officer Name Role Phone CINDY CALIXTO Unavailable PROBLEMS Type Condition ICD9-CM Code SOF72-MI Code Onset Dates Condition Status SNOMED Code Problem Pain in joint, multiple sites 719.49 Active 25980651 Problem Hyperlipidemia, unspecified E78.5 Active 38786151 Problem Stress incontinence N39.3 Active 36440287 Problem Essential hypertension I10 Active 11522012 Problem Hyperlipemia 272.4 Active 26105047 Problem Hereditary and idiopathic peripheral neuropathy G60.9 Active 569264291 Problem PVD (peripheral vascular disease) I73.9 Active 175214506 ALLERGIES No Information SOCIAL HISTORY Never Assessed PLAN OF CARE VITAL SIGNS MEDICATIONS Medication Instructions Dosage Frequency Start Date End Date Duration Status tramadol 50 mg orally 3 times a day PRN must last 1 mon 1 Tablet Jul, Active RESULTS No Results PROCEDURES No Known procedures IMMUNIZATIONS No Known Immunizations MEDICAL (GENERAL) HISTORY Type Description Date Medical [...] History iliac artery bypass x's 2 at [facility] Aug and September 2014 Surgical History Left aortofemoral bypass by Dr. Bhakta 10/2016 Surgical History Sarnoma drained from left femoral incision site 2 wks post bypass 10/2016 Hospitalization History surgeries, childbirth
--- OUTSIDE RECORDS SUMMARY | 2019-02-01 02:17 | XMS REPORT ---
Author Author CINDY CALIXTO Organization [facility] Address [address] [place] [address] Care Team Providers Care Steel Chipper Name Role Phone CINDY CALIXTO Unavailable PROBLEMS Type Condition ICD9-CM Code SYP26-GV Code Onset Dates Condition Status SNOMED Code Problem Pain in joint, multiple sites 719.49 Active 08093988 Problem Hyperlipidemia, unspecified E78.5 Active 33012533 Problem Stress incontinence N39.3 Active 69997498 Problem Essential hypertension I10 Active 63495775 Problem Hyperlipemia 272.4 Active 03684198 Problem Hereditary and idiopathic peripheral neuropathy G60.9 Active 394139277 Problem PVD (peripheral vascular disease) I73.9 Active 036140929 ALLERGIES No Known Allergies SOCIAL HISTORY No smoking Hx information available PLAN OF CARE VITAL SIGNS MEDICATIONS Medication Instructions Dosage Frequency Start Date End Date Duration Status Macrobid 100 mg Orally every 12 hrs 1 capsule with food 12h Aug, Aug, 7 day(s) Active RESULTS Name Result Date Reference Range UA LONG DIP (IN HOUSE) 2016-08-20 Lot # [id number] Exp date 05/29 Clarity sl cloudy Color dark yellow Odor no GLU neg SAMEER neg KET neg SG 1.020 BLO 3+ pH 6.0 Protein 2+ URO 0.2 NIT positive [place] 3+ Lot # Exp date PROCEDURES Procedure Date Ordered Related Diagnosis Body Site URINALYSIS, AUTO, W/O SCOPE Aug 20, 2016 IMMUNIZATIONS No Known Immunizations
--- OUTSIDE RECORDS SUMMARY | 2019-02-01 02:17 | XMS REPORT ---
Author Author CIND[facility] CALIXTO [facility] Address [address] [place] [address] Care Team Providers Care Laborer [employer] Name Role Phone CINDY CALIXTO Unavailable PROBLEMS Type Condition ICD9-CM Code LNE30-WH Code Onset Dates Condition Status SNOMED Code Problem Pain in joint, multiple sites 719.49 Active 15996391 Problem Hyperlipidemia, unspecified E78.5 Active 07889203 Problem Stress incontinence N39.3 Active 83526202 Problem Essential hypertension I10 Active 88838729 Problem Hyperlipemia 272.4 Active 78424437 Problem Hereditary and idiopathic peripheral neuropathy G60.9 Active 307490041 Problem PVD (peripheral vascular disease) I73.9 Active 455822681 ALLERGIES No Information SOCIAL HISTORY Never Assessed PLAN OF CARE VITAL SIGNS MEDICATIONS No [...] History iliac artery bypass x's 2 at [facility] Aug and September 2014 Surgical History Left aortofemoral bypass by Dr. Bhakta 10/2016 Surgical History Sarnoma drained from left femoral incision site 2 wks post bypass 10/2016 Hospitalization History surgeries, childbirth
--- OUTSIDE RECORDS SUMMARY | 2019-02-01 02:17 | XMS REPORT ---
Author Author NEETA SAUCEDO [facility] [employer] Address Unknown Phone Unavailable Care Team Providers Care Public Address Systems Mechanic Name Role Phone NEETA SAUCEDO Unavailable Allergies No Known Allergies Problems Problem Type Condition Code Onset Dates Condition Status Assessment Hematuria, unspecified R31.9 Active Problem Essential hypertension I10 Active Problem Hereditary and idiopathic peripheral neuropathy G60.9 Active Problem Stress incontinence N39.3 Active Problem Pain in joint, multiple sites 719.49 Active Assessment Urinary tract infection, site not specified N39.0 Active Problem PVD (peripheral vascular disease) I73.9 Active Problem Hyperlipemia 272.4 Active Medications Medication Code System Code Instructions Start Date End Date Status Dosage Pyridium [facility] [address]-74 200 mg Orally Three times a day Feb 18, 2016 Feb 21, 2016 1 tablet after meals Ciprofloxacin HCl [facility] [address]-76 500 MG Orally Twice a day Feb 18, 2016 Feb 25, 2016 1 tablet Procedures Procedure Coding System Code Date URINALYSIS, AUTO, W/O SCOPE CPT-4 25578 Feb 18, 2016 [facility] NO[facility] Feb 18, 2016 Results No Known Results Summary Purpose eClinical[employer] Submission
--- OUTSIDE RECORDS SUMMARY | 2019-02-01 02:17 | XMS REPORT ---
Author Author CINDY CALIXTO Organization [employer] Address Unknown Phone Unavailable Care Team Providers Care Truck Loader And Unloader Name Role Phone CINDY CALIXTO CP Unavailable Allergies, Adverse Reactions, Alerts Substance Reaction Event Type N.K.D.A. Info Not Available Non Drug Allergy Problems Problem Type Condition Code Onset Dates Condition Status Problem Essential hypertension I10 Active Problem Hereditary and idiopathic peripheral neuropathy G60.9 Active Problem Stress incontinence N39.3 Active Problem Pain in joint, multiple sites 719.49 Active Assessment Hereditary and idiopathic peripheral neuropathy G60.9 Active Problem PVD (peripheral vascular disease) I73.9 Active Problem Hyperlipemia 272.4 Active Medications Medication Code System Code Instructions Start Date End Date Status Dosage Plavix [facility] [address]-51 75 MG Orally Once a day 1 tablet Norvasc [facility] [address]-37 5 MG Orally Once a day 1 tablet Gabapentin [facility] [address]-67 800 MG Orally 2 times a day 1 tablet tramadol NDC 0 50 mg orally 3 times a day PRN must last 1 mon Jul 24, 2014 1 Tablet Lisinopril [facility] [address]-02 40 MG Orally Once a day Jul 24, 2014 1 tablet Pravastatin Sodium [facility] 44948855639 40MG Orally Once a day at hs 1 tablet Procedures Procedure Coding System Code Date Office Visit, Est Pt., Level 3 CPT-4 28541 February 05, 2016 [facility] V[facility]IT ESTABLISHED PATIENT CPT-4 G0467 February 05, 2016 Vital Signs Date/Time: February 05, 2016 Cardiac Monitoring Heart Rate 77 bpm Weight 208 lbs Height 66 in BMI 33.57 Index Blood Pressure Diastolic 84 mmHg Blood Pressure Systolic 130 mmHg Results No Known Results Summary Purpose [employer]Clinical[employer] Submission
--- OUTSIDE RECORDS SUMMARY | 2019-02-01 02:17 | XMS REPORT ---
Author Author NEETA SAUCEDO [facility] [employer] Address Unknown Phone Unavailable Care Team Providers Care Senior Sas Programmer Name Role Phone NEETA SAUCEDO Unavailable Allergies [...]
--- OUTSIDE RECORDS SUMMARY | 2019-02-01 02:17 | XMS REPORT ---
Author Author CINDY CALIXTO Organization [facility] Address [address] [place] [address] Care Team Providers Care Aluminum Can Collector Name Role Phone CINDY CALIXTO Unavailable PROBLEMS Type Condition ICD9-CM Code ZEF55-YV Code Onset Dates Condition Status SNOMED Code Problem Hyperlipidemia, unspecified E78.5 Active 44026443 Problem Stress incontinence N39.3 Active 96812889 Problem Essential hypertension I10 Active 72959894 Problem Hereditary and idiopathic peripheral neuropathy G60.9 Active 107209029 Problem PVD (peripheral vascular disease) I73.9 Active 525471450 ALLERGIES No Information ENCOUNTERS Encounter Location Date Diagnosis [address] [id number] November, Hereditary and idiopathic peripheral neuropathy G60.9 and Essential hypertension I10 [address] [id number] November, Hereditary and idiopathic peripheral neuropathy G60.[address] [id number] Oct, Hereditary and idiopathic peripheral neuropathy G60.[address] [id number] Sep, Hereditary and idiopathic peripheral neuropathy G60.[address] [id number] Aug, Essential hypertension I10 ; Hereditary and idiopathic peripheral neuropathy G60.9 ; PVD (peripheral vascular disease) I73.9 and Infective urethritis N34.[address] [id number] Jul, Hereditary and idiopathic peripheral neuropathy G60.[address] [id number] May, Hereditary and idiopathic peripheral neuropathy G60.[address] [id number][place] [id number] May, [facility] [id number] [place] [address] [id number] May, Hereditary and idiopathic peripheral neuropathy G60.9 [facility] [id number], [place] [id number] Apr, Hereditary and idiopathic peripheral neuropathy G60.9 [place] [id number] [place] [address] [id number] Apr, Encounter for immunization Z23 [facility] [id number], [place] [id number] Mar, Urinary tract infection, site not specified N39.0 ; Hematuria, unspecified R31.9 ; Hyperlipidemia, unspecified E78.5 and Essential hypertension I10 [facility] [id number], [place] [id number] Mar, Essential hypertension I10 ; Hereditary and idiopathic peripheral neuropathy G60.9 and Acute cystitis with hematuria N30.01 [facility] [id number], [place] [id number] Feb, [facility] [id number] [place] [address] [id number] Feb, Hereditary and idiopathic peripheral neuropathy G60.9 [facility] [id number], [place] [id number] Jan, Hereditary and idiopathic peripheral neuropathy G60.9 [place] [id number], [place] [id number] Dec, Essential hypertension I10 and Hereditary and idiopathic peripheral neuropathy G60.9 [facility] [address] [facility] [id number], [place] [id number] November, Hereditary and idiopathic peripheral neuropathy G60.9 [facility] [place] [facility] [id number][place] [id number] Oct, Acute cystitis with hematuria N30.01 [facility] [address] [facility] [id number][place] [id number] Oct, [facility] [id number] [place] [address] [id number] Oct, Hereditary and idiopathic peripheral neuropathy G60.9 [place] [id number] [place] [address] [id number] Sep, Hereditary and idiopathic peripheral neuropathy G60.9 [place] [address] [place] [id number] [place] [address] [id number] Sep, Fever, unspecified fever cause R50.9 ; Nausea R11.0 and Viral syndrome B34.9 [facility] [address] [place] [id number] [place] [address] [id number] Aug, [facility] [place] [address] [place] [id number] [place] [address] [id number] Aug, Dysuria R30.0 [place] [address] [place] [id number] [place] [address] [id number] Jul, Essential hypertension I10 and Tobacco abuse disorder Z72.0 [place] [id number] [place] [address] [id number] Apr, Hyperlipidemia, unspecified E78.5 ; Hereditary and idiopathic peripheral neuropathy G60.9 ; Essential hypertension I10 and Urinary tract infection without hematuria, site unspecified N39.0 [id number] [place] [address] [id number] Apr, Hyperlipidemia, unspecified E78.5 [facility] [id number] [place] [address] [id number] Mar, Hyperlipidemia, unspecified E78.5 [facility] [id number] [place] [address] [id number] Feb, Essential hypertension I10 [address] [id number] [place] [address] Feb, [id number] [place] [address] [id number] Feb, Urinary tract infection, site not specified N39.0 and Hematuria, unspecified R31.9 [facility] [place] [id number], [place] [id number] Jan, Hereditary and idiopathic peripheral neuropathy G60.9 [id number] [place] [address] [id number] Jan, [facility] [address] [place] [id number], [place] [id number] Dec, Well woman exam Z01.419 ; Colon cancer screening Z12.11 ; Breast cancer screening Z12.39 ; Bladder prolapse, female, acquired N81.10 and Rectocele N81.6 [facility] [address] [place] [id number] [place] [address] [id number] Dec, Hereditary and idiopathic peripheral neuropathy G60.9 and Stress incontinence N39.3 [facility] [address] [place] [id number] [place] [address] [id number] Dec, [place] [id number] [place] [address] [id number] November, Essential hypertension I10 ; Hereditary and idiopathic peripheral neuropathy G60.9 and PVD (peripheral vascular disease) I73.9 [facility] [address] [place] [id number] [place] [address] [id number] November, [facility] [address] [place] [id number] [place] [address] [id number] Oct, [facility] [id number] [place] [address] [id number] Aug, [place] [address] [place] [id number] [place] [address] [id number] Aug, Essential hypertension I10 [facility] [id number] [place] [address] [id number] Jul, [place] [id number] [place] [address] [id number] May, Neuropathy G62.9 [facility] [address] [id number][place] [id number] May, [facility] [place] [id number], [place] [id number] Jan, [facility] [place] [address] [place] [id number] [place] [address] [id number] Jan, Hyperlipemia 272.4 [facility] [place] [id number] [place] [address] [id number] Jan, Other and unspecified hyperlipidemia 272.4 ; Unspecified essential hypertension 401.9 and Unspecified hereditary and idiopathic peripheral neuropathy 356.9 [facility] [id number], [place] [id number] Oct, [facility] [address]00565100[place], [place] [address] Oct, [facility] [address]00565100[place], [place] [address] Oct, [facility] [id number], [place] [id number] Aug, [facility] [address]00565100[place], [place] [address] Aug, [facility] [address] [place] [id number] [place] [address] Jul, [facility] [address]00565100[place], [place] [address] Jul, [facility] [id number], [place] [id number] Jul, [facility] [id number], [place] [id number] Jul, [facility] [address]00565100[place], [place] [address] Jul, [facility] [address]00565100[place], [place] [address] Jul, [facility] [id number], [place] [id number] Jul, [facility] [address] [place] [id number], [place] [id number] Jun, [facility] [address]00565100[place], [place] [address] Jun, [facility] [address] [place] [id number], [place] [id number] Jun, [facility] [address]00565100[place], [place] [address] Jun, [facility] [address] [facility] [id number], [place] [id number] May, [facility] [address] [facility] [id number], [place] [address] May, [facility] [address] [facility] [id number] [place] [id number] Apr, [facility] [address] [facility] [id number], [place] [address] Apr, [facility] [address] [facility] [id number], [place] [id number] Mar, [facility] [address] [facility] [id number], [place] [address] Mar, [facility] [address] [facility] [id number], [place] [id number] Feb, [facility] [address]00565100[place], [place] [address] Feb, [facility] [address]00565100[place], [place] [address] Feb, [facility] [address] [facility] [id number], [place] [id number] Feb, [facility] [address] [facility] [id number], [place] [id number] Dec, [facility] [address]00565100[place], [place] [address] Dec, [facility] [address] [facility] [id number], [place] [address] Aug, [facility] [address] [facility] [id number], [place] [address] Aug, [facility] [address] [facility] [id number], [place] [id number] Jul, [facility] [address] [facility] [id number], [place] [address] Jul, [facility] [address] [facility] [id number], [place] [id number] Mar, [facility] [address] [facility] [id number], [place] [address] Dec, [facility] [address] [id number], [place] [id number] Dec, [facility] [address] [id number], [place] [id number] Jun, [facility] [address] [facility] [id number], [place] [address] Jun, [facility] [address] [facility] [id number], [place] [address] May, [facility] [address] [facility] [id number], [place] [address] May, [facility] [address] [id number], [place] [id number] Apr, [facility] [address] [facility] [id number], [place] [address] Apr, [facility] [address] [id number], [place] [id number] Apr, [facility] [address] [facility] [id number], [place] [address] Apr, [facility] [address] [id number], [place] [id number] Jan, [facility] [address] [id number], [place] [id number] Jan, [facility] [address] [id number], [place] [id number] November, [facility] [address] [id number], [place] [id number] November, [facility] [address] [id number], [place] [id number] November, [facility] [address] [id number], [place] [id number] Oct, [facility] [address] [id number], [place] [id number] Oct, [facility] [address] [id number] [place] [id number] 17 Oct, 2011 [facility] [address] [id number] [place] [id number] 10 Oct, 2011 [facility] [address] [id number] [place] [id number] 20 Sep, 2011 [facility] [address] [facility] [id number] [place] [id number] Sep, [facility] [address] [id number], [place] [address] Aug, [facility] [address] [facility] [id number], [place] [address] Jun, [facility] [address] [facility] [id number], [place] [address] Jun, [facility] [address] [place] [id number], [place] [address] Jun, [facility] [address] [facility] [id number], [place] [address] May, [facility] [address] [facility] [id number], [place] [address] May, [facility] [address] [place] [id number], [place] [address] Jun, [facility] [address] [place] [id number], [place] [address] Jun, [facility] [address] [facility] [id number], [place] [address] Jun, [facility] [address] [facility] [id number], [place] [address] 13 Oct, 2009 [facility] [address] [facility] [id number], [place] [address] Sep, [facility] [address] [facility] [id number], [place] [address] Jun, [facility] [address] [facility] [id number] [place] [address] Jun, [facility] [address] [facility] [id number], [place] [address] May, [facility] [address] [facility] [id number], [place] [address] May, [facility] [address] [facility] [id number], [place] [address] May, [facility] [address] [facility] [id number], [place] [address] May, IMMUNIZATIONS No Known Immunizations SOCIAL HISTORY Never Assessed REASON FOR VISIT 05/28/1752-RS-Tzesqftw refill PLAN OF CARE VITAL SIGNS MEDICATIONS [...] History iliac artery bypass x's 2 at [facility] Aug and September 2014 Surgical History Left aortofemoral bypass by Dr. Bhakta 10/2016 Surgical History Sarnoma drained from left femoral incision site 2 wks post bypass 10/2016 Surgical History Detached retina in right eye 10/28 Hospitalization History surgeries, childbirth
--- OUTSIDE RECORDS SUMMARY | 2019-02-01 02:18 | XMS REPORT ---
Author Author CINDY CALIXTO Organization [employer] Address Unknown Phone Unavailable Care Team Providers Care Business Process Representative Name Role Phone CINDY CALIXTO CP Unavailable Allergies No Known Allergies Problems Problem Type Condition Code Onset Dates Condition Status Assessment Hyperlipidemia, unspecified E78.5 Active Problem Stress incontinence N39.3 Active Problem Essential hypertension I10 Active Problem Hyperlipidemia, unspecified E78.5 Active Problem Hyperlipemia 272.4 Active Problem Pain in joint, multiple sites 719.49 Active Problem Hereditary and idiopathic peripheral neuropathy G60.9 Active Problem PVD (peripheral vascular disease) I73.9 Active Medications Medication Code System Code Instructions Start Date End Date Status Dosage Pravastatin Sodium [facility] [address]-40 80 MG Orally Once a day at hs 1 tablet Results No Known Results Summary Purpose [employer] Submission
--- OUTSIDE RECORDS SUMMARY | 2019-02-01 02:18 | XMS REPORT ---
Author Author BIPIN RAMIREZ [facility] Address [address] [place] [address] Care Team Providers Care Director Talent Acquisition Name Role Phone BIPIN RAMIREZ Unavailable PROBLEMS Type Condition ICD9-CM Code BDA33-OG Code Onset Dates Condition Status SNOMED Code Problem Pain in joint, multiple sites 719.49 Active 82274555 Problem Hyperlipidemia, unspecified E78.5 Active 56798282 Problem Stress incontinence N39.3 Active 25776175 Problem Essential hypertension I10 Active 12758041 Problem Hyperlipemia 272.4 Active 43223676 Problem Hereditary and idiopathic peripheral neuropathy G60.9 Active 894907333 Problem PVD (peripheral vascular disease) I73.9 Active 401350096 ALLERGIES No Known Allergies SOCIAL HISTORY Never Assessed PLAN OF CARE Activity Details Follow Up prn Reason: VITAL SIGNS Height 66 in 2016-09-11 Weight 202.6 lbs 2016-09-11 Temperature 99.9 degrees Fahrenheit 2016-09-11 Heart Rate 122 bpm 2016-09-11 Respiratory Rate 18 2016-09-11 BMI 32.70 kg/m2 2016-09-11 Blood pressure systolic 100 mmHg 2016-09-11 Blood pressure diastolic 58 mmHg 2016-09-11 MEDICATIONS Medication Instructions Dosage Frequency Start Date End Date Duration Status Pravastatin Sodium 80 MG Orally Once a day at hs 1 tablet Active Zofran 8 MG Orally every 8 hours, PRN 1 tablet Sep, Active tramadol 50 mg orally 3 times a day PRN must last 1 mon 1 Tablet Jul, Active Norvasc 5 mg Orally Once a day 1 tablet 24h Active Zithromax Z-Alex 250 MG Orally Once a day 2 tablets on the first day, then 1 tablet daily for 4 days 24h Sep, Sep, 5 day(s) Active Plavix 75 MG 1 tablet Once a day Orally Active Gabapentin 800 MG 1 tablet 2 times a day Orally 30 30 30 Active Lisinopril 40 mg 1 tablet Once a day Orally Active RESULTS No Results PROCEDURES Procedure Date Ordered Result Body Site [facility] VISIT ESTABLISHED PATIENT September 11, 2016 IMMUNIZATIONS No Known Immunizations MEDICAL (GENERAL) HISTORY [...] History iliac artery bypass x's 2 at [facility] Aug and September 2014 Surgical History Left aortofemoral bypass by Dr. Bhakta 10/2016 Surgical History Sarnoma drained from left femoral incision site 2 wks post bypass 10/2016 Hospitalization History surgeries, childbirth
--- OUTSIDE RECORDS SUMMARY | 2019-02-01 02:18 | XMS REPORT ---
Author Author NEETA SAUCEDO Organization [employer] Address Unknown Phone Unavailable Care Team Providers Care Coal Trammer Name Role Phone NEETA SAUCEDO CP Unavailable Allergies, Adverse Reactions, Alerts Substance Reaction Event Type N.K.D.A. Info Not Available Non Drug Allergy Problems Problem Type Condition Code Onset Dates Condition Status Problem Pain in joint, multiple sites 719.49 Active Problem Unspecified hereditary and idiopathic peripheral neuropathy 356.9 Active Problem Hyperlipemia 272.4 Active Assessment Neuropathy G62.9 Active Problem Other and unspecified hyperlipidemia 272.4 Active Problem Unspecified essential hypertension 401.9 Active Medications Medication Code System Code Instructions Start Date End Date Status Dosage Plavix [facility] [address]-42 75 MG Orally Once a day 1 tablet pravastatin [facility] [address]-66 40 mg Jul 24, 2014 1 tablet by Oral route 1 time per day Take at bedtime Avoid grapefruit juice/products with grapefruit. tramadol NDC 0 50 mg Jul 24, 2014 1 Tablet by Oral route 2 times per day PRN Diclofenac Sodium [facility] [address]-98 75 mg Jul 24, 2014 1 tablet by Oral route 2 times per day PRN Lisinopril [facility] [address]-20 40 mg Jul 24, 2014 take 1 tablet by Oral route 1 time per day NEEDS APPT PRIOR TO FURTHER REFILLS Gabapentin [facility] [address]-88 800 MG Orally 2 times a day 1 tablet Procedures Procedure Coding System Code Date Office Visit, Est Pt., Level 3 CPT-4 55993 May 18, 2015 Vital Signs Date/Time: May 18, 2015 Temperature 97.8 F Weight 201 lbs Height 66 in BMI 32.44 Index Blood Pressure Diastolic 68 mmHg Blood Pressure Systolic 126 mmHg Cardiac Monitoring Heart Rate 78 bpm Results No Known Results Summary Purpose [employer] Submission
--- OUTSIDE RECORDS SUMMARY | 2019-02-01 02:18 | XMS REPORT ---
Author Author CINDY CALIXTO Organization [facility] Address [address] [place] [address] Care Team Providers Care Sports Lawyer Name Role Phone CINDY CALIXTO Unavailable PROBLEMS Type Condition ICD9-CM Code LAH04-NJ Code Onset Dates Condition Status SNOMED Code Problem Hyperlipidemia, unspecified E78.5 Active 20697419 Problem Stress incontinence N39.3 Active 54723885 Problem Essential hypertension I10 Active 43010989 Problem Hereditary and idiopathic peripheral neuropathy G60.9 Active 551761419 Problem PVD (peripheral vascular disease) I73.9 Active 325791532 ALLERGIES No Information ENCOUNTERS Encounter Location Date Diagnosis [address] [id number] Dec, Hereditary and idiopathic peripheral neuropathy G60.[address] [id number] November, Hereditary and idiopathic peripheral neuropathy G60.9 and Essential hypertension I10 [address] [id number] November, Hereditary and idiopathic peripheral neuropathy G60.[address] [id number] Oct, Hereditary and idiopathic peripheral neuropathy G60.[address] [id number] Sep, Hereditary and idiopathic peripheral neuropathy G60.[address] [id number] Aug, Essential hypertension I10 ; Hereditary and idiopathic peripheral neuropathy G60.9 ; PVD (peripheral vascular disease) I73.9 and Infective urethritis N34.[address] [id number] Jul, Hereditary and idiopathic peripheral neuropathy G60.[address] [id number], [place] [id number] May, Hereditary and idiopathic peripheral neuropathy G60.[address] [place] [address] [id number] May, [facility] [id number] [place] [address] [id number] May, Hereditary and idiopathic peripheral neuropathy G60.[address] [place] [address] [id number] Apr, Hereditary and idiopathic peripheral neuropathy G60.9 [place] [address] [id number] [place] [address] [id number] Apr, Encounter for immunization Z23 [address] [place] [address] [id number] Mar, Urinary tract infection, site not specified N39.0 ; Hematuria, unspecified R31.9 ; Hyperlipidemia, unspecified E78.5 and Essential hypertension I10 [address] [place] [address] [id number] Mar, Essential hypertension I10 ; Hereditary and idiopathic peripheral neuropathy G60.9 and Acute cystitis with hematuria N30.01 [address]005[address] [id number] Feb, [address] [place] [address] [id number] Feb, Hereditary and idiopathic peripheral neuropathy G60.9 [address], [place] [id number] Jan, Hereditary and idiopathic peripheral neuropathy G60.9 [place] [address] [id number], [place] [id number] Dec, Essential hypertension I10 and Hereditary and idiopathic peripheral neuropathy G60.9 [address]005[address] [id number] November, Hereditary and idiopathic peripheral neuropathy G60.9 [place] [address] [facility] [id number] [id number] Oct, Acute cystitis with hematuria N30.[address] [id number], [place] [id number] Oct, [facility] [id number] [place] [address] [id number] Oct, Hereditary and idiopathic peripheral neuropathy G60.9 [place] [address] [id number] [place] [address] [id number] Sep, Hereditary and idiopathic peripheral neuropathy G60.9 [place] [id number] [place] [address] [id number] Sep, Fever, unspecified fever cause R50.9 ; Nausea R11.0 and Viral syndrome B34.9 [place] [id number] [place] [address] [id number] Aug, [place] [id number] [place] [address] [id number] Aug, Dysuria R30.0 [place] [id number] [place] [address] [id number] Jul, Essential hypertension I10 and Tobacco abuse disorder Z72.0 [place] [id number] [place] [address] [id number] Apr, Hyperlipidemia, unspecified E78.5 ; Hereditary and idiopathic peripheral neuropathy G60.9 ; Essential hypertension I10 and Urinary tract infection without hematuria, site unspecified N39.[address] [place] [address] [id number] Apr, Hyperlipidemia, unspecified E78.5 [place] [id number] [place] [address] [id number] Mar, Hyperlipidemia, unspecified E78.5 [address] [place] [address] [id number] Feb, Essential hypertension I10 [place] [id number] [address] Feb, [address] [place] [address] [id number] Feb, Urinary tract infection, site not specified N39.0 and Hematuria, unspecified R31.9 [place] [id number] [place] [address] [id number] Jan, Hereditary and idiopathic peripheral neuropathy G60.9 [facility] [id number] [place] [address] [id number] Jan, [place] [id number] [place] [address] [id number] Dec, Well woman exam Z01.419 ; Colon cancer screening Z12.11 ; Breast cancer screening Z12.39 ; Bladder prolapse, female, acquired N81.10 and Rectocele N81.6 [facility] [id number] [place] [address] [id number] Dec, Hereditary and idiopathic peripheral neuropathy G60.9 and Stress incontinence N39.3 [facility] [place] [id number] [place] [address] [id number] Dec, [facility] [id number] [place] [address] [id number] November, Essential hypertension I10 ; Hereditary and idiopathic peripheral neuropathy G60.9 and PVD (peripheral vascular disease) I73.9 [facility] [id number], [place] [id number] November, [facility] [id number] [place] [address] [id number] Oct, [facility] [id number] [place] [address] [id number] Aug, [facility] [id number] [place] [address] [id number] Aug, Essential hypertension I10 [facility] [id number], [place] [id number] Jul, [facility] [id number] [place] [address] [id number] May, Neuropathy G62.9 [facility] [place] [id number] [id number] May, [facility] [address] [id number] [id number] Jan, [facility] [address] [id number] [place] [address] [id number] Jan, Hyperlipemia 272.4 [facility] [place] [address] [facility] [id number][place] [id number] Jan, Other and unspecified hyperlipidemia 272.4 ; Unspecified essential hypertension 401.9 and Unspecified hereditary and idiopathic peripheral neuropathy 356.9 [facility] [place] [address] [id number], [place] [id number] Oct, [facility] [address]00565100[place], [place] [address] Oct, [facility] [address]00565100[place], [place] [address] Oct, [facility] [place] [id number], [place] [id number] Aug, [facility] [address]00565100[place], [place] [address] Aug, [facility] [address]00565100[place], [place] [address] Jul, [facility] [address]00565100[place], [place] [address] Jul, [facility] [place] [address] [id number], [place] [id number] Jul, [facility] [place] [id number], [place] [id number] Jul, [facility] [address]00565100[place], [place] [address] Jul, [facility] [address]00565100[place], [place] [address] Jul, [facility] [place] [address] [id number], [place] [id number] Jul, [facility] [place] [address] [id number], [place] [id number] Jun, [facility] [address]00565100[place], [place] [address] Jun, [facility] [place] [address] [id number], [place] [id number] Jun, [facility] [address] [facility] [id number][place] [address] Jun, [facility] [address] [facility] [id number] [place] [id number] May, [facility] [address] [facility] [id number], [place] [address] May, [facility] [address] [facility] [id number] [place] [id number] Apr, [facility] [address] [facility] [id number], [place] [address] Apr, [facility] [address] [facility] [id number] [place] [id number] Mar, [facility] [address] [id number], [place] [address] Mar, [facility] [address] [id number] [place] [id number] Feb, [facility] [address] [id number], [place] [address] Feb, [facility] [address]00565100[place], [place] [address] Feb, [facility] [address] [facility] [id number], [place] [id number] Feb, [facility] [address] [id number], [place] [id number] Dec, [facility] [address] [facility] [id number], [place] [address] Dec, [facility] [address] [facility] [id number], [place] [address] Aug, [facility] [address] [facility] [id number][place] [address] Aug, [facility] [address] [facility] [id number], [place] [id number] Jul, [facility] [address] [facility] [id number], [place] [address] Jul, [facility] [address] [id number] [place] [id number] Mar, [facility] [address] [facility] [id number], [place] [address] Dec, [facility] [address] [id number] [place] [id number] Dec, [facility] [address] [id number], [place] [id number] Jun, [facility] [address] [facility] [id number], [place] [address] Jun, [facility] [address] [facility] [id number], [place] [address] May, [facility] [address] [facility] [id number], [place] [address] May, [facility] [place] [address] [facility] [id number], [place] [id number] Apr, [facility] [address] [facility] [id number], [place] [address] Apr, [facility] [address] [facility] [id number], [place] [id number] Apr, [facility] [address] [facility] [id number], [place] [address] Apr, [facility] [address] [id number], [place] [id number] Jan, [facility] [address] [id number], [place] [id number] Jan, [facility] [address] [id number] [place] [address] November, [facility] [address] [id number], [place] [id number] November, [facility] [address] [id number], [place] [id number] November, [facility] [address] [id number], [place] [id number] Oct, [facility] [address] [id number] [place] [id number] 19 Oct, 2011 [facility] [address] [id number] [place] [id number] 17 Oct, 2011 [facility] [address] [id number] [place] 544622538 10 Oct, 2011 [facility] [address] [id number] [place] [id number] 20 Sep, 2011 [facility] [address] [id number] [place] [id number] Sep, [facility] [address] [facility] [id number], [place] [address] Aug, [facility] [address]00565100[place], [place] [address] Jun, [facility] [address] [id number], [place] [address] Jun, [facility] [address]00565100[place], [place] [address] Jun, [facility] [address]00565100[place], [place] [address] May, [facility] [address]00565100[place], [place] [address] May, [facility] [address]00565100[place], [place] [address] Jun, [facility] [address]00565100[place], [place] [address] Jun, [facility] [address]00565100[place], [place] [address] 06 Jun, 2010 [facility] [address] [id number], [place] [address] 13 Oct, 2009 [facility] [address]00565100[place], [place] [address] 11 Sep, 2009 [facility] [address] [facility] [id number] [place] [address] Jun, [facility] [address] [id number], [place] [address] Jun, [facility] [address] [id number], [place] [address] May, [facility] [address] [id number], [place] [address] May, [facility] [address] [id number], [place] [address] May, [facility] [id number], [place] [address] May, IMMUNIZATIONS No Known Immunizations SOCIAL HISTORY Never Assessed REASON FOR VISIT RX-Tramadol refill PLAN OF CARE VITAL SIGNS MEDICATIONS Medication Instructions Dosage Frequency Start Date End Date Duration Status tramadol 50 mg orally 3 times a day PRN must last 1 thu 1 Tablet Jul, 0 days Active RESULTS [...] History iliac artery bypass x's 2 at [facility] Aug and September 2014 Surgical History Left aortofemoral bypass by Dr. Bhakta 10/2016 Surgical History Sarnoma drained from left femoral incision site 2 wks post bypass 10/2016 Surgical History Detached retina in right eye 10/28 Hospitalization History surgeries, childbirth
--- OUTSIDE RECORDS SUMMARY | 2019-02-01 02:18 | XMS REPORT ---
Author Author [facility] Address [address] [place] [address] Care Team Providers Care Anesthesiologist Physician Name Role Phone CINDY CALIXTO Unavailable PROBLEMS Type Condition ICD9-CM Code VYF89-EH Code Onset Dates Condition Status SNOMED Code Problem Pain in joint, multiple sites 719.49 Active 74980585 Problem Hyperlipidemia, unspecified E78.5 Active 40008502 Problem Stress incontinence N39.3 Active 29386830 Problem Essential hypertension I10 Active 67828330 Problem Hyperlipemia 272.4 Active 84876198 Problem Hereditary and idiopathic peripheral neuropathy G60.9 Active 839242570 Problem PVD (peripheral vascular disease) I73.9 Active 138241691 ALLERGIES No Information SOCIAL HISTORY Never Assessed [...] History iliac artery bypass x's 2 at [facility] Aug and September 2014 Surgical History Left aortofemoral bypass by Dr. Bhakta 10/2016 Surgical History Sarnoma drained from left femoral incision site 2 wks post bypass 10/2016 Hospitalization History surgeries, childbirth
--- OUTSIDE RECORDS SUMMARY | 2019-02-01 02:18 | XMS REPORT ---
Author Author NEETA SAUCEDO [employer] Address Unknown Phone Unavailable Care Team Providers Care Cash Applications Representative Name Role Phone NEETA SAUCEDO Unavailable Allergies, Adverse Reactions, Alerts Substance Reaction Event Type N.K.D.A. Info Not Available Non Drug Allergy Problems Problem Type Condition Code Onset Dates Condition Status Problem Pain in joint, multiple sites 719.49 Active Problem Unspecified hereditary and idiopathic peripheral neuropathy 356.9 Active Problem Hyperlipemia 272.4 Active Assessment Essential hypertension I10 Active Problem Other and unspecified hyperlipidemia 272.4 Active Problem Unspecified essential hypertension 401.9 Active Medications Medication Code System Code Instructions Start Date End Date Status Dosage Plavix [facility] [address]-03 75 MG Orally Once a day 1 tablet Norvasc [facility] [address]-10 5 MG Orally Once a day 1 tablet Lisinopril [facility] [address]-77 40 MG Orally Once a day Jul 24, 2014 1 tablet Pravastatin Sodium [facility] 49337288682 40MG Orally Once a day at hs 1 tablet Gabapentin [facility] [address]-03 800 MG Orally 2 times a day 1 tablet tramadol NDC 0 50 mg orally 3 times a day PRN Jul 24, 2014 1 Tablet Procedures Procedure Coding System Code Date VENIPUNCT, ROUTINE* CPT-4 33474 Aug 17, 2015 [facility] VISIT ESTABLISHED PATIENT CPT-4 G0467 Aug 17, 2015 [facility] C[facility]-4 NOBLL Aug 17, 2015 Office Visit, Est Pt., Level 3 CPT-4 55478 Aug 17, 2015 Vital Signs Date/Time: Aug 17, 2015 Temperature 98 F Weight 202 lbs Height 66 in BMI 32.60 Index Blood Pressure Diastolic 84 mmHg Blood Pressure Systolic 150 mmHg Cardiac Monitoring Heart Rate 72 bpm Results Name Result Date Reference Range Unit Abnormality Flag LIPID PANEL ----HDL Cholesterol 46 20150817 >39 mg/dL ----VLDL Cholesterol Zachary 36 20150817 5-40 mg/dL ----LDL Cholesterol Calc 125 34204940 0-99 mg/dL H ----Cholesterol, Total 207 56207110 100-199 mg/dL H ----Triglycerides 178 67734725 0-149 mg/dL H CMP ----Globulin, Total 2.8 30555122 1.5-4.5 g/dL ----eGFR If Africn Am 87 52324420 >59 mL/min/1.73 ----eGFR If NonAfricn Am 75 92918699 >59 mL/min/1.73 ----Albumin, Serum 4.3 88474985 3.5-5.5 g/dL ----Sodium, Serum 143 37119144 134-144 mmol/L ----Protein, Total, Serum 7.1 71290484 6.0-8.5 g/dL ----BUN/Creatinine Ratio 13 20150817 9-23 ----Calcium, Serum 9.4 55193781 8.7-10.2 mg/dL ----AST (SGOT) 26 20150817 0-40 IU/L ----Glucose, Serum 104 32846877 65-99 mg/dL H ----Alkaline Phosphatase, S 105 20150817 39-117 IU/L ----Bilirubin, Total 0.7 20150817 0.0-1.2 mg/dL ----Creatinine, Serum 0.86 61803672 0.57-1.00 mg/dL ----A/G Ratio 1.5 20150817 1.1-2.5 ----BUN 11 20150817 6-24 mg/dL ----Carbon Dioxide, Total 23 20150817 18-29 mmol/L ----ALT (SGPT) 29 20150817 0-32 IU/L ----Potassium, Serum 4.0 40693269 3.5-5.2 mmol/L ----Chloride, Serum 100 63749090 97-108 mmol/L ROUTINE VENIPUNCTURE TSH ----TSH 0.600 90575698 0.450-4.500 uIU/mL Summary Purpose eClinicalWorks Submission
--- OUTSIDE RECORDS SUMMARY | 2019-02-01 02:19 | XMS REPORT | Continuity of Care Document ---
Author Organization Unknown Address Unknown Allergies Active Description Code Type Severity Reaction Onset Reported/Identified Relationship to Patient Clinical Status Yes No Allergy Information Available [id number] Drug Allergy Unknown N/A 11/16/2018 Medications There is no data. Problems Date Dx Coded Attending Type Code Diagnosis Diagnosed By 05/23/2009 239.5 Cervical Neoplasm - Exocervix 05/23/2009 616.0 Cervicitis 05/23/2009 627.1 Postmenopausal Bleeding 05/23/2009 CINDY CALIXTO APRN 239.5 Cervical Neoplasm - Exocervix 05/23/2009 CINDY CALIXTO APRN 616.0 Cervicitis 05/23/2009 CINDY CALIXTO APRN 627.1 Postmenopausal Bleeding 05/23/2009 239.5 Cervical Neoplasm - Exocervix 05/23/2009 616.0 Cervicitis 05/23/2009 627.1 Postmenopausal Bleeding 05/23/2009 JUARES DO, JASVIR K 239.5 Cervical Neoplasm - Exocervix 05/23/2009 JUARES DO, JASVIR K 616.0 Cervicitis 05/23/2009 JUARES DO, JASVIR K 627.1 Postmenopausal Bleeding 05/23/2009 HELLKENNETH HADOOP ADMIN, NEETA E 239.5 Cervical Neoplasm - Exocervix 05/23/2009 HELLWIG HADOOP ADMIN, NEETA E 616.0 Cervicitis 05/23/2009 HELLWIG HADOOP ADMIN, NEETA E 627.1 Postmenopausal Bleeding 05/23/2009 HELLWIG HADOOP ADMIN, NEETA E 239.5 Cervical Neoplasm - Exocervix 05/23/2009 HELLWIG HADOOP ADMIN, NEETA E 616.0 Cervicitis 05/23/2009 HELLWIG HADOOP ADMIN, NEETA E 627.1 Postmenopausal Bleeding 05/23/2009 HELLKENNETH HADOOP ADMIN, NEETA E 239.5 Cervical Neoplasm - Exocervix 05/23/2009 HELLWIG HADOOP ADMIN, NEETA E 616.0 Cervicitis 05/23/2009 HELLKENNETH BRICEÑO, NEETA E 627.1 Postmenopausal Bleeding 07/04/2009 180.9 Malignant Neoplasm Of Cervix Uteri, Unspecified 07/04/2009 305.1 NONDEPENDENT ABUSE OF DRUGS, TOBACCO USE DISORDER 07/04/2009 401.1 BENIGN ESSENTIAL HYPERTENSION 07/04/2009 CALIXTOCINDY SIDHU APRN R 180.9 Malignant Neoplasm Of Cervix Uteri, Unspecified 07/04/2009 CINDY CALIXTO APRN R 305.1 NONDEPENDENT ABUSE OF DRUGS, TOBACCO USE DISORDER 07/04/2009 CALIXTOCINDY SIDHU APRN R 401.1 BENIGN ESSENTIAL HYPERTENSION 07/04/2009 180.9 Malignant Neoplasm Of Cervix Uteri, Unspecified 07/04/2009 305.1 NONDEPENDENT ABUSE OF DRUGS, TOBACCO USE DISORDER 07/04/2009 401.1 BENIGN ESSENTIAL HYPERTENSION 07/04/2009 JUARES DO JASVIR K 180.9 Malignant Neoplasm Of Cervix Uteri, Unspecified 07/04/2009 JUARES DO JASVIR K 305.1 NONDEPENDENT ABUSE OF DRUGS, TOBACCO USE DISORDER 07/04/2009 JUARES DO JASVIR K 401.1 BENIGN ESSENTIAL HYPERTENSION 07/04/2009 HELLKENNETH THOMASN, NEETA E 180.9 Malignant Neoplasm Of Cervix Uteri, Unspecified 07/04/2009 SHERYL THOMASN, NEETA E 305.1 NONDEPENDENT ABUSE OF DRUGS, TOBACCO USE DISORDER 07/04/2009 HELMARLENE THOMASN, NEETA E 401.1 BENIGN ESSENTIAL HYPERTENSION 07/04/2009 SHERYL BRICEÑO NEETA E 180.9 Malignant Neoplasm Of Cervix Uteri, Unspecified 07/04/2009 HELLWIG HADOOP ADMIN, NEETA E 305.1 NONDEPENDENT ABUSE OF DRUGS, TOBACCO USE DISORDER 07/04/2009 HELLWIG HADOOP ADMIN, NEETA E 401.1 BENIGN ESSENTIAL HYPERTENSION 07/04/2009 HELLWIG HADOOP ADMIN, NEETA E 180.9 Malignant Neoplasm Of Cervix Uteri, Unspecified 07/04/2009 HELLWIG HADOOP ADMIN, NEETA E 305.1 NONDEPENDENT ABUSE OF DRUGS, TOBACCO USE DISORDER 07/04/2009 HELLKENNETH BRICEÑO NEETA E 401.1 BENIGN ESSENTIAL HYPERTENSION 09/20/2009 401.1 ESSENTIAL HYPERTENSION BENIGN 09/20/2009 599.0 URINARY TRACT INFECTION 09/20/2009 CINDY CALIXTO APRN R 401.1 ESSENTIAL HYPERTENSION BENIGN 09/20/2009 CINDY CALIXTO APRN 599.0 URINARY TRACT INFECTION 09/20/2009 401.1 ESSENTIAL HYPERTENSION BENIGN 09/20/2009 599.0 URINARY TRACT INFECTION 09/20/2009 JURAES DO, JASVIR K 401.1 ESSENTIAL HYPERTENSION BENIGN 09/20/2009 JUARES DO, JASVIR K 599.0 URINARY TRACT INFECTION 09/20/2009 HELLWIG HADOOP ADMIN, NEETA E 401.1 ESSENTIAL HYPERTENSION BENIGN 09/20/2009 HELLWIG HADOOP ADMIN, NEETA E 599.0 URINARY TRACT INFECTION 09/20/2009 HELWIG HADOOP ADMIN, NEETA E 401.1 ESSENTIAL HYPERTENSION BENIGN 09/20/2009 HELLWIG HADOOP ADMIN, NEETA E 599.0 URINARY TRACT INFECTION 09/20/2009 HELLWIG HADOOP ADMIN, NEETA E 401.1 ESSENTIAL HYPERTENSION BENIGN 09/20/2009 HELWIG HADOOP ADMIN, NEETA E 599.0 URINARY TRACT INFECTION 10/16/2009 599.70 blood in urine 10/16/2009 788.1 pain during urination (dysuria) 10/16/2009 788.41 urinary frequency increased 10/16/2009 788.63 feelings of urinary urgency 10/16/2009 CINDY CALIXTO APRN 599.70 blood in urine 10/16/2009 CINDY CALIXTO APRN 788.1 pain during urination (dysuria) 10/16/2009 CINDY CALIXTO APRN 788.41 urinary frequency increased 10/16/2009 CNIDY CALIXTO APRN 788.63 feelings of urinary urgency 10/16/2009 599.70 blood in urine 10/16/2009 788.1 pain during urination (dysuria) 10/16/2009 788.41 urinary frequency increased 10/16/2009 788.63 feelings of urinary urgency 10/16/2009 JUARES DO, JASVIR K 599.70 blood in urine 10/16/2009 JUARES DO, JASVIR K 788.1 pain during urination (dysuria) 10/16/2009 JUARES DO, JASVIR K 788.41 urinary frequency increased 10/16/2009 JUARES DO, JASVIR K 788.63 feelings of urinary urgency 10/16/2009 HELLWIG HADOOP ADMIN, NEETA E 599.70 blood in urine 10/16/2009 HELLWIG HADOOP ADMIN, NEETA E 788.1 pain during urination (dysuria) 10/16/2009 HELLWIG HADOOP ADMIN, NEETA E 788.41 urinary frequency increased 10/16/2009 HELLWIG HADOOP ADMIN, NEETA E 788.63 feelings of urinary urgency 10/16/2009 HELLWIG HADOOP ADMIN, NEETA E 599.70 blood in urine 10/16/2009 HELLWIG HADOOP ADMIN, NEETA E 788.1 pain during urination (dysuria) 10/16/2009 HELLWIG HADOOP ADMIN, NEETA E 788.41 urinary frequency increased 10/16/2009 HELLWIG HADOOP ADMIN, NEETA E 788.63 feelings of urinary urgency 10/16/2009 HELLWIG HADOOP ADMIN, NEETA E 599.70 BLOOD IN URINE 10/16/2009 HELLWIG HADOOP ADMIN, NEETA E 788.1 PAIN DURING URINATION (DYSURIA) 10/16/2009 HELLWIG HADOOP ADMIN, NEETA E 788.41 URINARY FREQUENCY INCREASED 10/16/2009 HELLWIG HADOOP ADMIN, NEETA E 788.63 FEELINGS OF URINARY URGENCY 10/23/2009 788.20 RETENTION OF URINE, UNSPECIFIED 10/23/2009 CINDY CALIXTO APRN 788.20 RETENTION OF URINE, UNSPECIFIED 10/23/2009 788.20 RETENTION OF URINE, UNSPECIFIED 10/23/2009 JASVIR JUARES DO 788.20 RETENTION OF URINE, UNSPECIFIED 10/23/2009 HELLWIG HADOOP ADMIN, NEETA E 788.20 RETENTION OF URINE, UNSPECIFIED 10/23/2009 HELLWIG HADOOP ADMIN, NEETA E 788.20 RETENTION OF URINE, UNSPECIFIED 10/23/2009 HELLWIG HADOOP ADMIN, NEETA E 788.20 RETENTION OF URINE, UNSPECIFIED 06/17/2010 180.9 Malignant Neoplasm Of Cervix Uteri, Unspecified 06/17/2010 CINDY CALIXTO APRN 180.9 Malignant Neoplasm Of Cervix Uteri, Unspecified 06/17/2010 180.9 Malignant Neoplasm Of Cervix Uteri, Unspecified 06/17/2010 JUARES DO, JASVIR K 180.9 Malignant Neoplasm Of Cervix Uteri, Unspecified 06/17/2010 BRAD SAUCEDO APRNSIE E 180.9 Malignant Neoplasm Of Cervix Uteri, Unspecified 06/17/2010 HELLWIG BRAD BRICEÑOSIE E 180.9 Malignant Neoplasm Of Cervix Uteri, Unspecified 06/17/2010 JUVENTINOLKENNETH BRICEÑO NEETA E 180.9 Malignant Neoplasm Of Cervix Uteri, Unspecified 02/11/2011 782.0 DISTURBANCE OF SKIN SENSATION 02/11/2011 CINDY CALIXTO APRN 782.0 DISTURBANCE OF SKIN SENSATION 02/11/2011 782.0 DISTURBANCE OF SKIN SENSATION 02/11/2011 JASVIR JUARES DO 782.0 DISTURBANCE OF SKIN SENSATION 02/11/2011 BRAD SAUCEDO APRNSIE E 782.0 DISTURBANCE OF SKIN SENSATION 02/11/2011 BRAD SAUCEDO APRNSIE E 782.0 DISTURBANCE OF SKIN SENSATION 02/11/2011 BRAD SAUCEDO APRNSIE E 782.0 DISTURBANCE OF SKIN SENSATION 06/06/2011 729.5 pain in the leg (below the knee) 06/06/2011 CINDY CALIXTO APRN 729.5 pain in the leg (below the knee) 06/06/2011 729.5 pain in the leg (below the knee) 06/06/2011 JASVIR JUARES DO K 729.5 pain in the leg (below the knee) 06/06/2011 BRAD SAUCEDO APRNSIE E 729.5 pain in the leg (below the knee) 06/06/2011 BRAD SAUCEDO APRNSIE E 729.5 pain in the leg (below the knee) 06/06/2011 BRAD SAUCEDO APRNSIE E 729.5 PAIN IN THE LEG (BELOW THE KNEE) 12/05/2011 401.9 UNSPECIFIED ESSENTIAL HYPERTENSION 12/05/2011 CINDY CALIXTO APRN 401.9 UNSPECIFIED ESSENTIAL HYPERTENSION 12/05/2011 401.9 UNSPECIFIED ESSENTIAL HYPERTENSION 12/05/2011 JASVIR JUARES DO 401.9 UNSPECIFIED ESSENTIAL HYPERTENSION 12/05/2011 BRAD SAUCEDO APRNSIE E 401.9 UNSPECIFIED ESSENTIAL HYPERTENSION 12/05/2011 HELLWIG HADOOP ADMIN, NEETA E 401.9 UNSPECIFIED ESSENTIAL HYPERTENSION 12/05/2011 HELLWIG HADOOP ADMIN, NEETA E 401.9 UNSPECIFIED ESSENTIAL HYPERTENSION 08/01/2013 JUARES DO, JASVIR K 272.4 OTHER AND UNSPECIFIED HYPERLIPIDEMIA 08/01/2013 JUARES DO, JASVIR K 356.9 UNSPECIFIED IDIOPATHIC PERIPHERAL NEUROPATHY 08/01/2013 HELLWIG HADOOP ADMIN, ENETA E 272.4 OTHER AND UNSPECIFIED HYPERLIPIDEMIA 08/01/2013 HELLWIG HADOOP ADMIN, NEETA E 356.9 UNSPECIFIED IDIOPATHIC PERIPHERAL NEUROPATHY 08/01/2013 HELLWIG HADOOP ADMIN, NEETA E 272.4 OTHER AND UNSPECIFIED HYPERLIPIDEMIA 08/01/2013 HELLWIG HADOOP ADMIN, NEETA E 356.9 UNSPECIFIED IDIOPATHIC PERIPHERAL NEUROPATHY 08/01/2013 HELLWIG HADOOP ADMIN, NEETA E 272.4 OTHER AND UNSPECIFIED HY[facility]LIPIDEMIA 08/01/[facility] 356.9 UNSPECIFIED IDIOPATHIC PERIPHERAL NEUROPATHY 07/24/2014 [facility] 719.49 PAIN IN JOINT INVOLVING MULTIPLE SITES 09/04/2016 Ot 729.5 PAIN IN LIMB 09/04/2016 Ot 443.9 PERIPH VASCULAR DIS NOS 09/05/2016 ISACC WAITE MD Ot Z51.81 ENCOUNTER FOR THERAPEUTIC DRUG LEVEL MON 09/05/2016 ISACC WAITE MD Ot Z79.01 [facility] (CURRENT) USE OF ANTICOAGULANT 09/10/2016 ISACC WAITE MD Ot Z51.81 ENCOUNTER FOR THERAPEUTIC DRUG LEVEL MON 09/10/2016 ISACC WAITE MD Ot Z79.01 [facility] (CURRENT) USE OF ANTICOAGULANT 09/26/2016 ISACC WAITE MD Ot Z51.81 ENCOUNTER FOR THERAPEUTIC DRUG LEVEL MON 09/26/2016 ISACC WAITE MD Ot Z79.01 SHIP BOAT OR BARGE MATE (CURRENT) USE OF ANTICOAGULANT 10/07/2016 ISACC WAITE MD Ot Z51.81 ENCOUNTER FOR THERAPEUTIC DRUG LEVEL MON 10/07/2016 ISACC WAITE MD Ot Z79.01 [facility] (CURRENT) USE OF ANTICOAGULANT 10/07/2016 Ot 729.5 PAIN IN LIMB 10/07/2016 Ot 443.9 PERIPH VASCULAR DIS NOS 10/07/2016 ISACC WAITE MD Ot Z51.81 ENCOUNTER FOR THERAPEUTIC DRUG LEVEL MON 10/07/2016 ISACC WAITE MD Ot Z79.01 SHIP BOAT OR BARGE MATE (CURRENT) USE OF ANTICOAGULANT 10/07/2016 ISACC WAITE MD Ot Z51.81 ENCOUNTER FOR THERAPEUTIC DRUG LEVEL MON 10/07/2016 ISACC WAITE MD, Ot Z79.01 [facility] (CURRENT) USE OF ANTICOAGULANT 06/02/2018 ISACC WAITE MD, Ot Z51.81 ENCOUNTER FOR THERAPEUTIC DRUG LEVEL MON 06/02/2018 ISACC WAITE MD Ot Z79.01 [facility] (CURRENT) USE OF ANTICOAGULANT 06/02/2018 ISACC WAITE MD Ot Z51.81 ENCOUNTER FOR THERAPEUTIC DRUG LEVEL MON 06/02/2018 ISACC WAITE MD, Ot Z79.01 SHIP BOAT OR BARGE MATE (CURRENT) USE OF ANTICOAGULANT 06/04/2018 CINDY CALIXTO R CFNP Ot K57.30 DVRTCLOS OF LG INT W/O PERFORATION OR AB 06/04/2018 CALIXTOCINDY SIDHU R CFNP Ot K76.0 FATTY (CHANGE OF) LIVER, NOT ELSEWHERE C 06/04/2018 CALIXTOCINDY SIDHU R CFNP Ot K80.20 CALCULUS OF GALLBLADDER W/O CHOLECYSTITI 06/04/2018 CALIXTOCINDY Ramirez R CFNP Ot N20.0 CALCULUS OF KIDNEY 06/04/2018 CALIXTOCINDY Ramirez R CFNP Ot Z95.828 PRESENCE OF OTHER VASCULAR IMPLANTS AND 06/24/2018 CALIXTOCINDY SIDHU R CFNP Ot K57.30 DVRTCLOS OF LG INT W/O PERFORATION OR AB 06/24/2018 CALIXTOCINDY Ramirez R CFNP Ot K76.0 FATTY (CHANGE OF) LIVER, NOT ELSEWHERE C 06/24/2018 CALIXTOCINDY SIDHU R CFNP Ot K80.20 CALCULUS OF GALLBLADDER W/O CHOLECYSTITI 06/24/2018 CALIXTOCINDY R CFNP Ot N20.0 CALCULUS OF KIDNEY 06/24/2018 CALIXTOCINDY Ramirez R CFNP Ot Z95.828 PRESENCE OF OTHER VASCULAR IMPLANTS AND 12/08/2018 CALIXTOCINDY R CFNP Ot K57.30 DVRTCLOS OF LG INT W/O PERFORATION OR AB 12/08/2018 CALIXTOCINDY R CFNP Ot K80.20 CALCULUS OF GALLBLADDER W/O CHOLECYSTITI 12/08/2018 CALIXTOCINDY R CFNP Ot N20.0 CALCULUS OF KIDNEY 12/08/2018 CINDY CALIXTO KIMANINP Ot N94.89 [facility] FEMALE GENITAL ORGANS A 12/21/2018 CINDY CALIXTO CFKOMAL Ot K57.30 DVRTCLOS OF LG INT W/O PERFORATION OR AB 12/21/2018 CINDY CALIXTO ERICK Ot K80.20 CALCULUS OF GALLBLADDER W/O CHOLECYSTITI 12/21/2018 CINDY CALIXTO ERICK Ot N20.0 CALCULUS OF KIDNEY 12/21/2018 CINDY CALIXTOKOMAL Ot N94.89 [facility] W FEMALE GENITAL ORGANS A Procedures Code [place] [address] ROUTINE VENIPUNCTURE 12/16/2012 53458 CBC W/MANUAL DIF 12/16/2012 44895 LIPID PANEL 12/16/2012 96191 CMP 12/16/2012 [id number] GFR CALC (RESULT ONLY) 12/16/2012 11898 TSH 12/16/2012 [id number] COMPLETE BLOOD COUNT NO DIFF (CBC Result) 12/17/2012 83617 ROUTINE VENIPUNCTURE 03/06/2014 [id number] GFR CALC (RESULT ONLY) 03/06/2014 37099 CMP 03/06/2014 83566 LIPID PANEL 03/06/2014 67098 TSH 03/06/2014 [id number] NCDF 03/06/2014 88497 CBC 03/06/2014 32569 ROUTINE VENIPUNCTURE 07/25/2014 [id number] GFR CALC (RESULT ONLY) 07/25/2014 37303 CMP 07/25/2014 32397 LIPID PANEL 07/25/2014 30550 CRP 07/25/2014 37230 SED/ESR RATE RML 07/25/2014 49554 TSH 07/25/2014 18853 CBC 07/25/2014 01338 RA FACTOR 07/26/2014 ANAANA MIRIAM ANALYZER (SCREEN) 07/26/2014 Results Test Result Range PT panel in platelet poor plasma by coagulation assay - 09/04/16 11:00 Prothrombin time (PT) in platelet poor plasma by coagulation assay 27.1 s 12.2-14.7 INR in platelet poor plasma or blood by coagulation assay 2.5 0.8-1.4 CULTURE, URINE - 04/07/17 10:11 CULTURE, URINE, ROUTINE SEE NOTE NRG CULTURE, URINE - 01/19/18 14:46 CULTURE, URINE, ROUTINE SEE NOTE NRG CULTURE, URINE - 05/07/18 14:58 CULTURE, URINE, ROUTINE SEE NOTE [facility] CULTURE, URINE - 05/31/18 15:10 CULTURE, URINE, ROUTINE SEE NOTE [facility] CMP - 11/03/18 08:43 GLUCOSE 130 mg/dL 65-99 UREA NITROGEN (BUN) 11 mg/dL 7-25 CREATININE 0.91 mg/dL 0.50-0.99 eGFR NON-AFR. IRANIAN 69 mL/min/1.73m2 > OR=60 eGFR 79 mL/min/1.73m2 > OR=60 BUN/CREATININE RATIO NOT APPLICABLE (calc) 6-22 SODIUM 144 mmol/L 135-146 POTASSIUM 4.1 mmol/L 3.5-5.3 CHLORIDE 109 mmol/L 98-110 CARBON DIOXIDE 32 mmol/L 20-32 CALCIUM 9.1 mg/dL 8.6-10.4 PROTEIN, TOTAL 6.6 g/dL 6.1-8.1 ALBUMIN 3.9 g/dL 3.6-5.1 GLOBULIN 2.7 g/dL (calc) 1.9-3.7 ALBUMIN/GLOBULIN RATIO 1.4 (calc) 1.0-2.5 BILIRUBIN, TOTAL 0.6 mg/dL 0.2-1.2 ALKALINE PHOSPHATASE 102 U/L 33-130 AST 19 U/L 10-35 ALT 23 U/L 6-29 CULTURE, URINE - 11/23/18 11:50 CULTURE, URINE, ROUTINE SEE NOTE [facility] Complete blood count (CBC) with automated white blood cell (WBC) differential - 01/31/19 18:36 Blood leukocytes automated count (number/volume) 17.7 10*3/uL 4.3-11.0 Blood erythrocytes automated count (number/volume) 5.08 10*6/uL 4.35-5.85 Venous blood hemoglobin measurement (mass/volume) 16.5 g/dL 11.5-16.0 Blood hematocrit (volume fraction) 48 % 35-52 Automated erythrocyte mean corpuscular volume 95 [foz_us] 80-99 Automated erythrocyte mean corpuscular hemoglobin (mass per erythrocyte) 32 pg 25-34 Automated erythrocyte mean corpuscular hemoglobin concentration measurement (mass/volume) 34 g/dL 32-36 Automated erythrocyte distribution width ratio 13.2 % 10.0- 14.5 Automated blood platelet count (count/volume) 198 10*3/uL 130-400 Automated blood platelet mean volume measurement 9.4 [foz_us] 7.4-10.4 Automated blood neutrophils/100 leukocytes 65 % 42-75 Automated blood lymphocytes/100 leukocytes 28 % 12-44 Blood monocytes/100 leukocytes 6 % 0-12 Automated blood eosinophils/100 leukocytes 1 % 0-10 Automated blood basophils/100 leukocytes 0 % 0-10 Blood neutrophils automated count (number/volume) 11.6 10*3 1.8-7.8 Blood lymphocytes automated count (number/volume) 5.0 10*3 1.0-4.0 Blood monocytes automated count (number/volume) 1.0 10*3 0.0- 1.0 Automated eosinophil count 0.1 10*3/uL 0.0-0.3 Automated blood basophil count (count/volume) 0.0 10*3/uL 0.0-0.1 Serum or plasma C reactive protein measurement (mass/volume) - 01/31/19 18:36 Serum or plasma C reactive protein measurement (mass/volume) 5.11 mg/dL 0.00-0.50 PT panel in platelet poor plasma by coagulation assay - 01/31/19 18:36 Prothrombin time (PT) in platelet poor plasma by coagulation assay 27.8 s 12.2-14.7 INR in platelet poor plasma or blood by coagulation assay 2.5 0.8-1.4 Activated partial thromboplastin time (aPTT) in platelet poor plasma bycoagulation assay - 01/31/19 18:36 Activated partial thromboplastin time (aPTT) in platelet poor plasma bycoagulation assay 40 s 24-35 Fibrin D-dimer FEU measurement in platelet poor plasma (mass/volume) - 01/31/19 18:36 Fibrin D-dimer FEU measurement in platelet poor plasma (mass/volume) 2.05 ug/mL 0.00-0.49 Comprehensive metabolic panel - 01/31/19 18:36 Serum or plasma sodium measurement (moles/volume) 141 mmol/L 135-145 Serum or plasma potassium measurement (moles/volume) 3.6 mmol/L 3.6-5.0 Serum or plasma chloride measurement (moles/volume) 106 mmol/L 98-107 Carbon dioxide 23 mmol/L 21-32 Serum or plasma anion gap determination (moles/volume) 12 mmol/L 5-14 Serum or plasma urea nitrogen measurement (mass/volume) 12 mg/dL 7-18 Serum or plasma creatinine measurement (mass/volume) 0.97 mg/dL 0.60-1.30 Serum or plasma urea nitrogen/creatinine mass ratio 12 NRG Serum or plasma creatinine measurement with calculation of estimated glomerular filtration rate 58 NRG Serum or plasma glucose measurement (mass/volume) 114 mg/dL 70-105 Serum or plasma calcium measurement (mass/volume) 9.2 mg/dL 8.5-10.1 Serum or plasma total bilirubin measurement (mass/volume) 1.0 mg/dL 0.1-1.0 Serum or plasma alkaline phosphatase measurement (enzymatic activity/volume) 100 U/L 40-136 Serum or plasma aspartate aminotransferase measurement (enzymatic activity/volume) 16 U/L 5-34 Serum or plasma alanine aminotransferase measurement (enzymatic activity/volume) 20 U/L 0-55 Serum or plasma protein measurement (mass/volume) 7.3 g/dL 6.4-8.2 Serum or plasma albumin measurement (mass/volume) 4.1 g/dL 3.2-4.5 CALCIUM CORRECTED 9.1 mg/dL 8.5-10.1 Magnesium - 01/31/19 18:36 Magnesium 1.7 mg/dL 1.8-2.4 Serum or plasma troponin i.cardiac measurement (mass/volume) - 01/31/19 18:36 Serum or plasma troponin i.cardiac measurement (mass/volume) < ng/mL <0.028 Myoglobin, serum - 01/31/19 18:36 Myoglobin, serum 67.2 ng/mL 10.0-92.0 Serum or plasma lithium measurement (moles/volume) - 01/31/19 18:36 BNP PT 442.7 pg/mL <100.0 Manual absolute plasma cell count - 01/31/19 18:36 Blood monocytes/100 leukocytes 5 % NRG Manual blood segmented neutrophils/100 leukocytes 77 % NRG Blood band neutrophils/100 leukocytes 4 % NRG Manual blood lymphocytes/100 leukocytes 14 % NRG Blood erythrocyte morphology finding identification NORMAL NRG Encounters ACCT No. Visit Date/Time Discharge Status Pt. Type Provider Facility Loc./Unit Complaint [id number] 01/18/2019 11:40:00 01/18/2019 23:59:59 CLS Outpatient CALIXTO HADOOP ADMIN, CINDY R [facility] [place] [place] [id number] 11/23/2018 11:40:00 Document Registration [id number] 11/03/2018 08:20:00 Document Registration [id number] 05/31/2018 14:40:00 Document Registration [id number] 05/07/2018 14:20:00 Document Registration [id number] 01/19/2018 14:40:00 Document Registration [id number] 04/07/2017 09:00:00 Document Registration [id number] 11/16/2018 15:23:00 11/16/2018 23:59:59 CLS Outpatient CINDY CALIXTO CFNP [facility] RAD RLQ ABD PAIN [id number] 09/22/2018 12:10:00 09/22/2018 23:59:59 CLS Preadmit CINDY CALIXTO CFNP [facility] RAD RLQ ABD PAIN [id number] 06/02/2018 10:07:00 06/02/2018 23:59:59 CLS Outpatient CINDY CALIXTO CFNP [facility] RAD LEFT FLANK PAIN [id number] 09/04/2016 11:47:00 09/04/2016 23:59:59 CLS Outpatient ISACC WAITE MD [facility] ANTICOAG THERAPY [id number] 12/22/2013 13:47:00 12/22/2013 23:59:59 CLS Outpatient [id number] 11/28/2013 10:02:00 11/28/2013 23:59:59 CLS Outpatient [id number] 01/31/2019 18:45:00 Document Registration [id number] 06/24/2011 12:41:00 Document Registration [id number] 06/12/2011 10:44:00 Document Registration [id number] 07/25/2014 08:50:00 07/25/2014 23:59:59 CLS Outpatient NEETA SAUCEDO APRN [id number] 03/06/2014 08:59:00 03/06/2014 23:59:59 CLS Outpatient NEETA SAUCEDO APRN [id number] 12/16/2013 14:08:00 12/16/2013 23:59:59 CLS Outpatient NEETA SAUCEDO APRN [id number] 08/01/2013 10:09:00 08/01/2013 23:59:59 CLS Outpatient JASVIR JUARES DO [id number] 12/16/2012 09:31:00 12/16/2012 23:59:59 CLS Outpatient CINDY CALIXTO APRN [id number] 12/05/2011 08:42:00 12/05/2011 23:59:59 CLS Outpatient [id number] 12/05/2011 08:42:00 12/05/2011 23:59:59 CLS Outpatient
[2019-02-01 06:05] LABS: BASOPHILS % (AUTO) 0 % (0-10); EOSINOPHILS % (AUTO) 0 % (0-10); HEMATOCRIT 47 % (35-52); HEMOGLOBIN 15.9 G/DL (11.5-16.0); LYMPHOCYTES # (AUTO) 5.1 X 10^3 (1.0-4.0); LYMPHOCYTES % (AUTO) 32 % (12-44); MEAN CORPUSCULAR HEMOGLOBIN 32 PG (25-34); MEAN CORPUSCULAR HGB CONC 34 G/DL (32-36); MEAN CORPUSCULAR VOLUME 96 FL (80-99); MEAN PLATELET VOLUME 9.7 FL (7.4-10.4); MONOCYTES # (AUTO) 0.1 X 10^3 (0.0-1.0); MONOCYTES % (AUTO) 1 % (0-12); NEUTROPHILS # (AUTO) 10.8 X 10^3 (1.8-7.8); NEUTROPHILS % (AUTO) 67 % (42-75); PLATELET COUNT 231 10^3/uL (130-400); RED CELL DISTRIBUTION WIDTH 13.5 % (10.0-14.5)
[2019-02-01 06:31] LABS: CALCIUM 9.4 MG/DL (8.5-10.1); CREATININE SERUM 1.1 MG/DL (0.60-1.30); POTASSIUM 3.2 MMOL/L (3.6-5.0)
[2019-02-01] MEDS ORDERED: KCL 20 MEQ TAB (K-DUR) PO ONE (08:00)
[2019-02-01] MEDS ORDERED: PRAV80TA2 PO (08:52)
[2019-02-01] MEDS ORDERED: IBUP-30 PO ×2 (08:52)
[2019-02-01] MEDS ORDERED: LISI40TA PO (08:52)
[2019-02-01] MEDS ORDERED: MULT1TAB69 PO (08:52)
[2019-02-01] MEDS ORDERED: GABA800T10 PO (08:52)
[2019-02-01] MEDS ORDERED: CLOP75TA28 PO (08:52)
[2019-02-01] MEDS ORDERED: TRAM50TA2 PO (08:52)
[2019-02-01] MEDS ORDERED: WARF-48 PO (08:52)
[2019-02-01] MEDS ORDERED: METO50TA15 PO (08:52)
--- NOTE | 2019-02-01 08:54 | NUR ---
WENT OVER THE EXT MED HX WITH THE PATIENT. SHE VERIFIED HOW SHE TAKES HER PRESCRIPTIONS. SHE ALSO STATES SHE USES [employer] AND A [employer].
--- NOTE | 2019-02-01 09:45 | History & Physical ---
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 Denies fever, cu rrent chest pain but did have chest pain on Thursday night. Admits cough. Date seen by provider: Feb 01, 2019 Time Seen by Provider: 09:41 Attending Physician Maame Morrow MD PCP Center/[facility] Consult Date of Admission Jan 31, 2019 at 20:49 Home Medications Home Medications Reviewed patient Home Medication Reconciliation performed by pharmacy medication reconciliations reprographics technician and/or nursing. Patients Allergies have been reviewed. Allergies Coded Allergies: No Allergy Information Available (Unverified , 11/16/18) RQI-Iuaenk-Skxkyf Hx Patient Social History Alcohol Use: Rarely Uses Recreational Drug Use: No Smoking Status: Former Smoker Recent Foreign Travel: No Contact w/other who traveled: No Recent Hopitalizations: No Recent Infectious Disease Expo: No Past Medical History PMHx: Atherosclerotic occlusive disease with stenting HTN HLD Chronic pain- legs, back, sides Cervical cancer treated with hysterectomy and radiation SurgHx: Stents to bilateral legs 2009, followed by bypass in 2010 due to failure of stents Repeat bypass to legs in 2012, 2014 (axillary femoral bypass) Family Medical History Other Significan Family Hx: Unknown, adopted Review of Systems (CHC) Constitutional: No fever, No weight loss EENTM: nose congestion; No throat pain Respiratory: see HPI Cardiovascular: see HPI Gastrointestinal: No abdominal pain, No constipation, No diarrhea; nausea; No vomiting Genitourinary: No dysuria Musculoskeletal: joint pain, muscle pain Skin: rash (she reports psoriasis or eczema but that it has not been diagnosed) Psychiatric/Neurological: Anxiety; Denies Depressed Reviewed Test Results Reviewed Test Results Lab Laboratory Tests Test 01/31/19 18:36 02/01/19 05:21 Range/Units White Blood Count 17.7 H 16.0 H 4.3-11.0 10^3/uL Red Blood Count 5.08 4.93 4.35-5.85 10^6/uL Hemoglobin 16.5 H 15.9 11.5-16.0 G/DL Hematocrit 48 47 35-52 % Mean Corpuscular Volume 95 96 80-99 FL Mean Corpuscular Hemoglobin 32 32 25-34 PG Mean Corpuscular Hemoglobin Concent 34 34 32-36 G/DL Red Cell Distribution Width 13.2 13.5 10.0-14.5 % Platelet Count 198 231 130-400 10^3/uL Mean Platelet Volume 9.4 9.7 7.4-10.4 FL Neutrophils (%) (Auto) 65 67 42-75 % Lymphocytes (%) (Auto) 28 32 12-44 % Monocytes (%) (Auto) 6 1 0-12 % Eosinophils (%) (Auto) 1 0 0-10 % Basophils (%) (Auto) 0 0 0-10 % Neutrophils # (Auto) 11.6 H 10.8 H 1.8-7.8 X 10^3 Lymphocytes # (Auto) 5.0 H 5.1 H 1.0-4.0 X 10^3 Monocytes # (Auto) 1.0 0.1 0.0-1.0 X 10^3 Eosinophils # (Auto) 0.1 0.0 0.0-0.3 10^3/uL Basophils # (Auto) 0.0 0.0 0.0-0.1 10^3/uL Neutrophils % (Manual) 77 % Lymphocytes % (Manual) 14 % Monocytes % (Manual) 5 % Band Neutrophils 4 % Blood Morphology Comment NORMAL Prothrombin Time 27.8 H 12.2-14.7 SEC INR Comment 2.5 H 0.8-1.4 Activated Partial Thromboplast Time 40 H 24-35 SEC D-Dimer 2.05 H 0.00-0.49 UG/ML Sodium Level 141 140 135-145 MMOL/L Potassium Level 3.6 3.2 L 3.6-5.0 MMOL/L Chloride Level 106 103 98-107 MMOL/L Carbon Dioxide Level 23 21 21-32 MMOL/L Anion Gap 12 16 H 5-14 MMOL/L Blood Urea Nitrogen 12 13 7-18 MG/DL Creatinine 0.97 1.10 0.60-1.30 MG/DL Estimat Glomerular Filtration Rate 58 50 BUN/Creatinine Ratio 12 12 Glucose Level 114 H 245 H 70-105 MG/DL Calcium Level 9.2 9.4 8.5-10.1 MG/DL Corrected Calcium 9.1 8.5-10.1 MG/DL Magnesium Level 1.7 L 1.8-2.4 MG/DL Total Bilirubin 1.0 0.1-1.0 MG/DL Aspartate Amino Transf (AST/SGOT) 16 5-34 U/L Alanine Aminotransferase (ALT/SGPT) 20 0-55 U/L Alkaline Phosphatase 100 40-136 U/L Myoglobin 67.2 10.0-92.0 NG/ML Troponin I < 0.028 <0.028 NG/ML C-Reactive Protein High Sensitivity 5.11 H 0.00-0.50 MG/DL B-Type Natriuretic Peptide 442.7 H <100.0 PG/ML Total Protein 7.3 6.4-8.2 GM/DL Albumin 4.1 3.2-4.5 GM/DL Triglycerides Level 96 <150 MG/DL Cholesterol Level 201 H < 200 MG/DL LDL Cholesterol Direct 133 H 1-129 MG/DL VLDL Cholesterol 19 5-40 MG/DL HDL Cholesterol 63 H 40-60 MG/DL Radiology CXR 01/31 no acute findings CTA no PE Physical Exam-(CHC) Physical Exam Vital Signs VS - Last 72 Hours, by Label 01/31/19 01/31/19 01/31/19 01/31/19 18:26 18:38 19:09 19:12 Temp 97.9 Pulse 80 Resp 20 B/P (MAP) 204/111 (142) Pulse Ox 94 94 95 93 O2 Delivery Nasal Cannula Nasal Cannula Nasal Cannula Nasal Cannula O2 Flow Rate 2.00 2.00 2.00 2.00 01/31/19 01/31/19 01/31/19 01/31/19 19:44 21:20 21:35 21:35 Temp 97.6 98.0 98.8 Pulse 92 88 77 Resp 20 16 22 B/P (MAP) 192/88 (122) 186/84 (118) 166/87 Pulse Ox 95 95 94 O2 Delivery Nasal Cannula Nasal Cannula Nasal Cannula Nasal Cannula O2 Flow Rate 3.00 3.00 3.00 3.00 01/31/19 01/31/19 01/31/19 02/01/19 21:35 22:50 23:45 00:08 Temp 98.8 98.2 Pulse 77 71 74 Resp 22 19 B/P (MAP) 166/87 (113) 154/82 (106) Pulse Ox 94 95 O2 Delivery Nasal Cannula Nasal Cannula Nasal Cannula O2 Flow Rate 3.00 3.00 3.00 02/01/19 02/01/19 02/01/19 02/01/19 01:00 02:50 04:00 07:00 Temp 97.9 Pulse 70 68 82 Resp 19 B/P (MAP) 175/82 (113) Pulse Ox 96 68 O2 Delivery Nasal Cannula Nasal Cannula O2 Flow Rate 2.00 3.00 02/01/19 02/01/19 07:22 08:00 Temp 98.5 Pulse 85 Resp 18 B/P (MAP) 188/90 (122) Pulse Ox 92 94 O2 Delivery Nasal Cannula Nasal Cannula O2 Flow Rate 2.00 3.00 Capillary Refill : Less Than 3 Seconds General Appearance: no apparent distress Respiratory: no respiratory distress; No decreased breath sounds; wheezing (at bases bilaterally) Cardiovascular: regular rate, rhythm, no murmur Gastrointestinal: normal bowel sounds, soft, tenderness (diffuse) Extremities: no pedal edema Neurologic/Psychiatric: alert, normal mood/affect Skin: warm/dry, ecchymosis Assessment/Plan Assessment/Plan Admission Dx COPD exacerbation Admission Status: Inpatient Order (span 2 midnights) Reason for Inpatient Admission: New diagnosis of COPD with severe exacerbation, will need two nights at least (1) COPD exacerbation Status: Acute Assessment & Plan: No previous dx of COPD, will need PFT/spirometry when improved. Required hour long treatment and has hypoxia. Started on IV solumedrol and scheduled plus prn Duonebs. Improved this am, but still requiring 2 lpm supplemental oxygen. Transition to oral prednisone and wean oxygen as tolerated. No evidence of infection on CXR or per vitals. CTA chest without PE. Already quit smoking 2 years ago but has 40 pack year history prior. (2) Hypertension Status: Chronic Assessment & Plan: Resume home medications Qualifiers: Qualified Codes: I10 - Essential (primary) hypertension (3) Atherosclerotic occlusive disease Status: Chronic Assessment & Plan: Severe with history of bilateral femoral bypass multiple times. On chronic anticoagulation. (4) DVT prophylaxis Status: Acute Assessment & Plan: On warfarin chronically, INR at goal on admit, continue warfarin. Clinical Quality Measures DVT/VTE Risk/Contraindication: Risk Factor Score Per Nursin RFS Level Per Nursing on Admit: 4+=Very High MAAME MORROW MD Feb 01, 2019 09:45
[2019-02-01] MEDS ORDERED: IBUPROFEN 600 MG (MOTRIN) TAB PO PRN (11:45)
[2019-02-01] MEDS: predniSONE 10 MG TAB PO SCH (12:28)
--- NOTE | 2019-02-01 15:17 | NUR ---
PT FOUND ON ROOM AIR @ REST WITH SPO2 OF 88%. REPLACED O2 @ 1 LPM. SPO2 INCREASED TO 92%. NURSE NOTIFIED.
[2019-02-01] MEDS: meTOprolol TARTRATE 50 MG (LOPRESSOR) TAB PO SCH (20:40)
[2019-02-01] MEDS: lisINopril 40 MG (PRINIVIL) TABLET PO SCH (20:40)
[2019-02-01] MEDS: GABAPENTIN 400 MG (NEURONTIN) CAP PO SCH (20:40)
[2019-02-01] MEDS ORDERED: warFARin 5 MG (COUMADIN) TAB PO SCH (21:00)
[2019-02-01] MEDS ORDERED: ATORVASTATIN 20 MG (LIPITOR) TABLET PO SCH (21:00)
[2019-02-02] MEDS: RT-ALBUTEROL/IPRATROPIUM 3 ML (DUONEB) VIAL IH SCH ×3 (03:02→11:13)
[2019-02-02 03:43] VITALS: BP 143/86
[2019-02-02 05:44] LABS: HEMOGLOBIN 15.2 G/DL (11.5-16.0); MEAN PLATELET VOLUME 9.7 FL (7.4-10.4); RED CELL DISTRIBUTION WIDTH 13.7 % (10.0-14.5); WHITE BLOOD COUNT 26.5 10^3/uL (4.3-11.0)
[2019-02-02 05:56] LABS: PROTHROMBIN TIME PATIENT 32.5 SEC (12.2-14.7)
[2019-02-02 06:04] LABS: BUN/CREATININE RATIO 20; CALCIUM 9.2 MG/DL (8.5-10.1); CARBON DIOXIDE 23 MMOL/L (21-32); CHLORIDE 108 MMOL/L (98-107); CREATININE SERUM 0.92 MG/DL (0.60-1.30); GFR ESTIMATED > 60; GLUCOSE 126 MG/DL (70-105); SODIUM 142 MMOL/L (135-145)
[2019-02-02] MEDS ORDERED: IPRA4AER IH (07:03)
[2019-02-02] MEDS ORDERED: PRD10T PO (07:03)
--- NOTE | 2019-02-02 07:11 | NUR ---
PATIENT IS DOING GOOD ON RA WITH O2 SAT 94%: NO DISTRESS NOTED, SHE DID COUGH UP SOME YELLOW SPUTUM.
[2019-02-02 08:00] VITALS: BP 154/83
[2019-02-02] MEDS ORDERED: CLOPIDOGREL 75 MG (PLAVIX) TABLET PO SCH (09:00)
[2019-02-02] MEDS ORDERED: IBUPROFEN 600 MG (MOTRIN) TAB PO SCH (09:00)
[2019-02-02] MEDS: predniSONE 10 MG TAB PO SCH (09:07)
[2019-02-02] MEDS: meTOprolol TARTRATE 50 MG (LOPRESSOR) TAB PO SCH (09:07)
[2019-02-02] MEDS: lisINopril 40 MG (PRINIVIL) TABLET PO SCH (09:08)
[2019-02-02] MEDS: GABAPENTIN 400 MG (NEURONTIN) CAP PO SCH (09:08)
--- NOTE | 2019-02-02 11:17 | Discharge Instructions ---
Discharge [facility] Discharge Medications New, Converted or Re-Newed RX: Transmitted to Pharmacy New Medications: Albuterol/Ipratropium (Combivent Respimat Inhal [place]) 4 Gm Aero 2 PUFF IH QID, #1 INH 0 Refills Prednisone (Prednisone) 10 Mg Tab 0 PO UD, #42 TAB 0 Refills Take 6 tabs(60mg)daily, decrease by 1 tab(10mg) every other day. Continued Medications: Clopidogrel Bisulfate (Clopidogrel) 75 Mg Tablet 75 MG PO DAILY, TAB Gabapentin (Gabapentin) 800 Mg Tablet 800 MG PO BID, TAB Ibuprofen (Advil) 200 Mg Tablet 600 MG PO DAILY, TAB Ibuprofen (Advil) 200 Mg Tablet 600 MG PO BID PRN for PAIN-MILD, TAB Lisinopril (Lisinopril) 40 Mg Tablet 40 MG PO BID, TAB Metoprolol Tartrate (Metoprolol Tartrate) 50 Mg Tablet 50 MG PO BID, TAB Multivitamin (Multivitamins) 1 Each Tablet 1 TAB PO DAILY, TAB Pravastatin Sodium (Pravastatin Sodium) 80 Mg Tablet 80 MG PO HS, TAB Tramadol HCl (Tramadol HCl) 50 Mg Tablet 50 MG PO TID PRN for PAIN-MODERATE, TAB Warfarin Sodium (Warfarin Sodium) 5 Mg Tablet 5 MG PO HS, TAB Patient Instructions Goal/Follow Up Appt: Follow up with Juan Carlos Forrester on Thursday, February 07 at 1:40 pm. Return to The Hospital For: Worsening shortness of breath Activity & Diet Discharge Diet: Low Sodium Diet Orders-Post D/C & Referrals Pneu Vac Indicated: Yes Copy Copies To 1: KEYANNA Sena BETHANY N MD Feb 02, 2019 11:17
[2019-02-02 12:00] VITALS: BP 135/65
[2019-02-02 12:56] VITALS: BP 154/83
--- NOTE | 2019-02-02 21:02 | Discharge Summary ---
Diagnosis/Chief Complaint Date of Admission Jan 31, 2019 at 20:49 Date of Discharge Feb 02, 2019 at 12:59 Admission Diagnosis Admission Diagnosis See problem list Discharge Diagnosis See problem list Problems/Diagnosis: (1) COPD exacerbation Assessment & Plan: No previous dx of COPD, will need PFT/spirometry when improved. Required hour long treatment and has hypoxia. Started on IV solumedrol and scheduled plus prn Duonebs. Improved this am, but still requiring 2 lpm supplemental oxygen. Transition to oral prednisone and wean oxygen as tolerated. No evidence of infection on CXR or per vitals. CTA chest without PE. Already quit smoking 2 years ago but has 40 pack year history prior. On room air at d/c, given script for Combivent and prednisone Status: Acute (2) Hypertension Assessment & Plan: Resume home medications Qualifiers: Qualified Codes: I10 - Essential (primary) hypertension Status: Chronic (3) Atherosclerotic occlusive disease Assessment & Plan: Severe with history of bilateral femoral bypass multiple times. On chronic anticoagulation. 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 Denies fever, current chest pain but did have chest pain on Thursday night. Admits cough. Discharge Summary-Simple/Stand Consultations Discharge Physical Examination Allergies: Coded Allergies: No Allergy Information Available (Unverified , 11/16/18) Vitals & I&Os Vital Sign - Last 12Hours Date Time Temp Pulse Resp B/P (MAP) Pulse Ox O2 Delivery O2 Flow Rate FiO2 02/02/19 12:56 98 18 154/83 94 Room Air 02/02/19 12:00 97.9 02/02/19 08:00 1.00 Intake and Output 02/02/19 00:00 Intake Total 1462 ml Balance 1462 ml General Appearance: Alert, No Acute Distress Respiratory: Other (end expiratory wheezing) Cardiovascular: Regular Rate, No Murmurs Neuro: Normal Speech Psych/Mental Status: Mental Status NL Hospital Course See final discharge diagnosis. Radiology Reviewed CXR 01/31 no acute findings CTA no PE Discharge Instructions to patient/family Please see electronic discharge instructions given to patient. Discharge Medications Reviewed and agree with Discharge Medication list on patient's Discharge Instruction sheet Clinical Quality Measures DVT/VTE Risk/Contraindication: Risk Factor Score Per Nursin RFS Level Per Nursing on Admit: 4+=Very High Copy Copies To 1: KEYANNA Sena BETHANY N MD Feb 02, 2019 21:02
== END 2019-02-02 12:59 | disposition home or self-care (01) | DRG 192 ==
LOC: EDUNIT# 18:25 → ER 18:26 → 4TH 20:49
PROVIDERS: ADMIT Family Medicine; ATTEND Family Medicine
DX: J44.1 Chronic obstructive pulmonary disease with (acute) exacerbation (principal); I10 Essential (primary) hypertension; R09.02 Hypoxemia; I70.203 Unspecified atherosclerosis of native arteries of extremities, bilateral legs; E78.5 Hyperlipidemia, unspecified; R07.9 Chest pain, unspecified; G89.29 Other chronic pain; M79.604 Pain in right leg; M79.605 Pain in left leg; M54.9 Dorsalgia, unspecified; F41.9 Anxiety disorder, unspecified; Z87.891 Personal history of nicotine dependence; Z95.828 Presence of other vascular implants and grafts; Z77.22 Contact with and (suspected) exposure to environmental tobacco smoke (acute) (chronic); Z77.29 Contact with and (suspected) exposure to other hazardous substances; Z85.41 Personal history of malignant neoplasm of cervix uteri; Z92.3 Personal history of irradiation; Z79.01 Long term (current) use of anticoagulants
CPT/HCPCS: 36415; 71046; 71275; 80048; 80053; 80061; 83735; 83874; 83880; 84484; 85007; 85025; 85027; 85379; 85610; 85730; 86141; 93005; 93041; 94640; 94760; 96374

== ENCOUNTER 2019-07-14 00:07 | Emergency (ER) | payer MEDICARE, MEDICAID ==
[~2019-07-14] VITALS: Ht 167.7 cm; Wt 90.9 kg
[~2019-07-14 00:07] MED LIST changes: +CLOP75TA28 PO; +GABA800T10 PO; -HOLD METFORMIN - RECEIVED CONTRAST 20 ML VIAL IV SCH; +IBUP-30 PO; -IOHEXOL 350 MG/ML 100 ML (OMNIPAQUE 350) VIAL IV ONE; +IPRA4AER IH; +LISI40TA PO; +METO50TA15 PO; +MULT1TAB69 PO; +PRAV80TA2 PO; +PRD10T PO; +TRM50T PO; +WARF-48 PO
[2019-07-14] MEDS ORDERED: NS IV 1000 ML 1,000 ML IV SCH ×3 (00:13→03:50)
[2019-07-14] MEDS ORDERED: PIPERACILLIN SODIUM/TAZOBACTAM 4.5 GM in NS (IVPB) 100 ML IV ONE (00:15)
[2019-07-14] MEDS ORDERED: fentaNYL INJECTION 100 MCG/2 ML AMP IVP ONE (00:15)
[2019-07-14] MEDS ORDERED: ONDANSETRON 4 MG/2 ML (SDV) Z0FRAN IV PRN (00:15)
--- NOTE | 2019-07-14 00:17 | ED Abdominal Pain ---
General Chief Complaint: Abdominal/GI Problems Stated Complaint: ABD PAIN Source of Information: Patient, EMS Exam Limitations: No Limitations History of Present Illness Date Seen by Provider: Jul 14, 2019 Time Seen by Provider: 00:05 Initial Comments Patient presents to ER by [facility] from home with chief complaint of right sided abdominal pain starting about an hour and a half ago she was having some loose soft stools nausea and vomiting. She has a history of diverticulitis discovered by her primary care doctor as well as a history of peripheral artery disease with 3 grafts to the lower extremities. She feels nauseated. She's had no fevers or chills. She ate about 8:00 last night and had something to drink last about an hour prior to arrival, 2300. She's had cervical cancer, hysterectomy. No recent surgery or trauma. She is in remission from her cancer. She denies shortness of breath or chest pain. She does have a history of a heart attack while undergoing surgery. Allergies and Home Medications Allergies Coded Allergies: No Known Drug Allergies (Unverified , 07/14/19) Home Medications Albuterol/Ipratropium 4 Gm Aero, 2 PUFF IH QID Prescribed by: MAAME GALLAGHER on 02/02/19702 Clopidogrel Bisulfate 75 Mg Tablet, 75 MG PO DAILY, (Reported) Gabapentin 800 Mg Tablet, 800 MG PO BID, (Reported) Ibuprofen 200 Mg Tablet, 600 MG PO DAILY, (Reported) Ibuprofen 200 Mg Tablet, 600 MG PO BID PRN for PAIN-MILD, (Reported) Lisinopril 40 Mg Tablet, 40 MG PO BID, (Reported) Metoprolol Tartrate 50 Mg Tablet, 50 MG PO BID, (Reported) Multivitamin 1 Each Tablet, 1 TAB PO DAILY, (Reported) Pravastatin Sodium 80 Mg Tablet, 80 MG PO HS, (Reported) Prednisone 10 Mg Tab, 0 PO UD Take 6 tabs(60mg)daily, decrease by 1 tab(10mg) every other day. Prescribed by: MAAME GALLAGHER on 02/02/19702 Tramadol HCl 50 Mg Tablet, 50 MG PO TID PRN for PAIN-MODERATE, (Reported) Warfarin Sodium 5 Mg Tablet, 5 MG PO HS, (Reported) Patient Home Medication List Home Medication List Reviewed: Yes Review of Systems Review of Systems Constitutional: No chills, No diaphoresis EENTM: No Blurred Vision, No Double Vision Respiratory: Denies Cough, Denies Shortness of Air Cardiovascular: Denies Chest Pain, Denies Edema Gastrointestinal: See HPI, Abdominal Pain; Denies Constipated; Diarrhea, Nausea, Poor Fluid Intake, Vomiting Genitourinary: Denies Burning, Denies Discharge Musculoskeletal: back pain (right abdomen flank and back) Psychiatric/Neurological: Denies Headache, Denies Numbness, Denies Paresthesia Endocrine: Denies Flushing, Denies Increased Urine All Other Systems Reviewed Negative Unless Noted: Yes Past Aocuogk-Zrmsgf-Qtptos Hx Patient Social History Alcohol Use: Denies Use Recreational Drug Use: No Smoking Status: Never a Smoker Recent Foreign Travel: No Contact w/Someone Who Travel: No Recent Hopitalizations: No Seasonal Allergies Seasonal Allergies: No Past Medical History Surgeries: Yes (axillary femoral bypass 2011 and 2014) Hysterectomy, Vascular Surgery Respiratory: No Cardiac: Yes Hypertension, Peripheral Vascular Neurological: No 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 1.0oz. [id number]; 32.9 BMI Method:Stated General Appearance: WD/WN, no apparent distress HEENT: PERRL/EOMI, normal ENT inspection, pharynx normal Neck: non-tender, full range of motion, normal inspection Respiratory: lungs clear, normal breath sounds, no respiratory distress, no accessory muscle use Cardiovascular: normal peripheral pulses, regular rate, rhythm, tachycardia Peripheral Pulses: 2+ Radial Pulses (R), 2+ Radial Pulses (L) Gastrointestinal: normal bowel sounds; No distended; guarding, tenderness (right upper and lower abdomen but not over McBurney's point) Extremities: no pedal edema, normal capillary refill Back: normal inspection, CVA tenderness (R) Neurologic/Psychiatric: alert, normal mood/affect, oriented x 3 Skin: normal color, warm/dry Focused Exam Lactate Level 1/2/20 00:15: Lactic Acid Level 2.42*H 07/14/19 02:21: Lactic Acid Level 1.27 Lactic Acid Level Laboratory Tests Test 07/14/19 00:15 07/14/19 02:21 Lactic Acid Level 2.42 MMOL/L (0.50-2.00) *H 1.27 MMOL/L (0.50-2.00) Progress/Results/Core Measures Results/Orders Lab Results Laboratory Tests Test 07/14/19 00:15 07/14/19 00:38 07/14/19 02:21 Range/Units White Blood Count 22.7 H 4.3-11.0 10^3/uL Red Blood Count 4.79 4.35-5.85 10^6/uL Hemoglobin 15.5 11.5-16.0 G/DL Hematocrit 45 35-52 % Mean Corpuscular Volume 94 80-99 FL Mean Corpuscular Hemoglobin 32 25-34 PG Mean Corpuscular Hemoglobin Concent 34 32-36 G/DL Red Cell Distribution Width 14.0 10.0-14.5 % Platelet Count 261 130-400 10^3/uL Mean Platelet Volume 9.0 7.4-10.4 FL Neutrophils (%) (Auto) 63 42-75 % Lymphocytes (%) (Auto) 29 12-44 % Monocytes (%) (Auto) 8 0-12 % Eosinophils (%) (Auto) 0 0-10 % Basophils (%) (Auto) 0 0-10 % Neutrophils # (Auto) 14.4 H 1.8-7.8 X 10^3 Lymphocytes # (Auto) 6.5 H 1.0-4.0 X 10^3 Monocytes # (Auto) 1.8 H 0.0-1.0 X 10^3 Eosinophils # (Auto) 0.0 0.0-0.3 10^3/uL Basophils # (Auto) 0.0 0.0-0.1 10^3/uL Neutrophils % (Manual) 68 % Lymphocytes % (Manual) 7 % Monocytes % (Manual) 10 % Eosinophils % (Manual) 1 % Basophils % (Manual) 1 % Band Neutrophils 5 % Reactive Lymphocytes 8 % Smudge Cells MOD Prothrombin Time 39.5 H 12.2-14.7 SEC INR Comment 3.8 H 0.8-1.4 Activated Partial Thromboplast Time 48 H 24-35 SEC Sodium Level 139 135-145 MMOL/L Potassium Level 3.7 3.6-5.0 MMOL/L Chloride Level 104 98-107 MMOL/L Carbon Dioxide Level 20 L 21-32 MMOL/L Anion Gap 15 H 5-14 MMOL/L Blood Urea Nitrogen 10 7-18 MG/DL Creatinine 1.36 H 0.60-1.30 MG/DL Estimat Glomerular Filtration Rate 40 BUN/Creatinine Ratio 7 Glucose Level 129 H 70-105 MG/DL Lactic Acid Level 2.42 *H 1.27 0.50-2.00 MMOL/L Calcium Level 8.9 8.5-10.1 MG/DL Corrected Calcium 8.9 8.5-10.1 MG/DL Total Bilirubin 0.7 0.1-1.0 MG/DL Aspartate Amino Transf (AST/SGOT) 18 5-34 U/L Alanine Aminotransferase (ALT/SGPT) 21 0-55 U/L Alkaline Phosphatase 117 40-136 U/L Total Protein 7.1 6.4-8.2 GM/DL Albumin 4.0 3.2-4.5 GM/DL Urine Color YELLOW Urine Clarity CLOUDY Urine pH 8.0 5-9 Urine Specific [place] 1.025 H 1.016-1.022 Urine Protein 2+ H NEGATIVE Urine Glucose (UA) NEGATIVE NEGATIVE Urine Ketones NEGATIVE NEGATIVE Urine Nitrite NEGATIVE NEGATIVE Urine Bilirubin NEGATIVE NEGATIVE Urine Urobilinogen 0.2 < = 1.0 MG/DL Urine Leukocyte Esterase 1+ H NEGATIVE Urine RBC (Auto) 3+ H NEGATIVE Urine RBC 10-25 H /HPF Urine WBC TNTC H /HPF Urine Squamous Epithelial Cells 0-2 /HPF Urine Crystals NONE /LPF Urine Bacteria MODERATE H /HPF Urine Casts NONE /LPF Urine Mucus NEGATIVE /LPF Urine Culture Indicated CULTURE PENDING My Orders Orders - LO CORTES Cbc With Automated Diff (07/14/19 00:13) Comprehensive Metabolic Panel (07/14/19 00:13) Blood Culture (07/14/19 00:13) Urinalysis (07/14/19 00:13) Urine Culture (07/14/19 00:13) Protime With Inr (07/14/19 00:13) Partial Thromboplastin Time (07/14/19 00:13) Ed Iv/Invasive Line Start (1/2/20 00:13) Ed Iv/Invasive Line Start (07/14/19 00:13) Vital Signs Adult Sepsis Patie Q15M (07/14/19 00:13) Ondansetron Injection (Zofran Injectio (07/14/19 00:15) O2 (07/14/19 00:13) Remove Rings In Anticipation O (07/14/19 00:13) Lactic Acid Analyzer (07/14/19 00:13) Ns Iv 1000 Ml (Sodium Chloride 0.9%) (07/14/19 00:13) Piperacillin Sodium/Tazobactam (Zosyn Vi (07/14/19 00:15) Ed Iv/Invasive Line Start (07/14/19 00:13) Ns Iv 1000 Ml (Sodium Chloride 0.9%) (07/14/19 00:13) Ct Abdomen/Pelvis W (07/14/19 00:13) Fentanyl Injection (Sublimaze Injection (07/14/19 00:15) Manual Differential (07/14/19 00:15) Iohexol Injection (Omnipaque 350 Mg/Ml 1 (07/14/19 01:30) Ns (Ivpb) (Sodium Chloride 0.9% Ivpb Bag (07/14/19 01:30) Ed Iv/Invasive Line Start (07/14/19 03:50) Ns Iv 1000 Ml (Sodium Chloride 0.9%) (07/14/19 03:50) Medications Given in ED Current Medications Medications Dose Ordered Sig/Radha Route Start Time Stop Time Status Last Admin Dose Admin Fentanyl Citrate 75 mcg ONCE ONCE IVP 07/14/19 00:15 07/14/19 00:16 DC 07/14/19 00:24 75 MCG Iohexol 100 ml ONCE ONCE IV 07/14/19 01:30 07/14/19 02:12 DC 07/14/19 01:41 100 ML Ondansetron HCl 8 mg PRN PRN IV 07/14/19 00:15 07/14/19 00:26 DC 07/14/19 00:23 8 MG Piperacillin Sod/ Tazobactam Sod 4.5 gm/Sodium Chloride 100 ml @ 200 mls/hr ONCE ONCE IV 07/14/19 00:15 07/14/19 00:44 DC 1/2/20 01:35 200 MLS/HR Sodium Chloride 80 ml ONCE ONCE IV 07/14/19 01:30 07/14/19 02:12 DC 07/14/19 01:41 80 ML Vital Signs/I&O 07/14/19 00:28 Temp 37.1 Pulse 110 Resp 18 B/P (MAP) 136/100 (112) Pulse Ox 97 O2 Delivery Room Air Progress Progress Note : Time: 03:44 Progress Note Despite septic workup patient is still tachycardic although she is much more comfortable. CT fails to reveal stone but there does seem to be some right-sided ureteral obstruction. Diagnostic Imaging Diagonstic Imaging: CT (with IV contrast) Plain Films/CT/US/NM/MRI: abdomen, pelvis Comments Severe right hydroureter nephrosis to about the level of the sacral promontory where it can no longer trace the ureter. There is no definite distal ureteral stone. Findings could represent ureteral obstructing lesion or extrinsic compression. Urologic follow-up recommended. The patient has vascular bypass grafts and evidence of prior occluded aortobifemoral grafts. Cholelithiasis. Reviewed: Reviewed Night Wilmerk Study, Reviewed by Me Departure Impression Primary Impression: Ureteral obstruction, right Additional Impressions: Sepsis Qualified Codes: A41.9 - Sepsis, unspecified organism Pyelonephritis Disposition: XFER SHT-TRM HOSP Condition: Stable Transfer Transfer Reason: Exceeds level of care (urologist unavailable) Time Spoke to Accepting Phy: 04:[address] Porter accepts the patient for transfer. Transfer Facility: [place], [place] Method of Transfer: EMS Departure-Patient Inst. Referrals: [facility] (PCP) Primary Care Physician CINDY CALIXTO (Family) Primary Care Physician Copy Copies To 1: JASVIR JUARES TITUS J Jul 14, 2019 00:17
[2019-07-14 00:26] LABS: BASOPHILS % (AUTO) 0 % (0-10); EOSINOPHILS % (AUTO) 0 % (0-10); HEMATOCRIT 45 % (35-52); HEMOGLOBIN 15.5 G/DL (11.5-16.0); LYMPHOCYTES # (AUTO) 6.5 X 10^3 (1.0-4.0); LYMPHOCYTES % (AUTO) 29 % (12-44); MEAN CORPUSCULAR HEMOGLOBIN 32 PG (25-34); MEAN CORPUSCULAR HGB CONC 34 G/DL (32-36); MEAN CORPUSCULAR VOLUME 94 FL (80-99); MONOCYTES # (AUTO) 1.8 X 10^3 (0.0-1.0); MONOCYTES % (AUTO) 8 % (0-12); NEUTROPHILS # (AUTO) 14.4 X 10^3 (1.8-7.8); NEUTROPHILS % (AUTO) 63 % (42-75); PLATELET COUNT 261 10^3/uL (130-400); WHITE BLOOD COUNT 22.7 10^3/uL (4.3-11.0)
[2019-07-14 00:38] LABS: INR 3.8 (0.8-1.4); PROTHROMBIN TIME PATIENT 39.5 SEC (12.2-14.7)
[2019-07-14 00:44] LABS: BAND NEUTROPHILS 5 %; BASOPHILS % (MANUAL) 1 %; EOSINOPHILS % (MANUAL) 1 %; LYMPHOCYTES % (MANUAL) 7 %; MONOCYTES % (MANUAL) 10 %; NEUTROPHILS % (MANUAL) 68 %; REACTIVE LYMPHOCYTES 8 %; SMUDGE CELLS MOD
[2019-07-14 00:48] LABS: BILIRUBIN,URINE NEGATIVE (NEGATIVE); CLARITY,URINE CLOUDY; COLOR,URINE YELLOW; GLUCOSE, URINE (UA) NEGATIVE (NEGATIVE); KETONES,URINE NEGATIVE (NEGATIVE); LEUKOCYTE ESTERASE ,URINE 1+ (NEGATIVE); NITRITE,URINE NEGATIVE (NEGATIVE); PROTEIN,URINE 2+ (NEGATIVE)
[2019-07-14 00:51] LABS: BILIRUBIN,TOTAL 0.7 MG/DL (0.1-1.0); CALCIUM 8.9 MG/DL (8.5-10.1); CREATININE SERUM 1.36 MG/DL (0.60-1.30); POTASSIUM 3.7 MMOL/L (3.6-5.0); TOTAL PROTEIN 7.1 GM/DL (6.4-8.2)
[2019-07-14 00:54] LABS: BACTERIA,URINE MODERATE /HPF; SQUAMOUS EPITHELIAL CELL,UR 0-2 /HPF; WBC,URINE TNTC /HPF
[2019-07-14] MEDS ORDERED: NS 100 ML (IVPB) BAG IV ONE (01:30)
[2019-07-14] MEDS ORDERED: IOHEXOL 350 MG/ML 100 ML (OMNIPAQUE 350) VIAL IV ONE (01:30)
[2019-07-14 04:48] VITALS: BP 116/69
--- NOTE | 2019-07-14 06:59 | Diagnostic Imaging Report ---
PROCEDURE: CT abdomen and pelvis with contrast. TECHNIQUE: Multiple contiguous axial images were obtained through the abdomen and pelvis after administration of intravenous contrast. Auto Exposure Controls were utilized during the CT exam to meet ALARA standards for radiation dose reduction. INDICATION: Abdominal pain. COMPARISON: 01/31/2019 and 11/16/2018 FINDINGS: Included portions of the lung bases are clear. CT ABDOMEN: Since the exam dated 01/31/2019, there has been interval progression of severe right-sided hydroureteronephrosis. There does appear to be single punctate nonobstructive right renal calculus. No calculi are seen within the right ureter. There does appear to be abrupt transition point of the right ureter as it crosses over the the right aortofemoral bypass graft. There is significant asymmetric stranding of the right perirenal and periureteral fat. There is layering of excreted contrast within the calyces on the delayed sequence. Right ureter measures 1.6 cm in diameter. There is no evidence of obstruction on the left. Multiple benign-appearing left renal cysts are noted. Postsurgical changes of previous aortofemoral bypass graft are identified. The bypass graft, however, appears thrombosed as it shows no appreciable enhancement. Patient also appears to be status post previous brachial to femoral bypass graft. Visualized portions of the bypass graft on the right are patent. There may be mild narrowing at its femoral anastomosis. There are 2 graft limbs on the left. The more anterior limb on the left shows no enhancement. Visualized portions of the more posterior limb on the left are patent. There is fluid collection extending along its course. At its widest, fluid collection measures approximately 6.9 x 4.6 cm and may be on the basis of postsurgical fluid collection such as seroma or hematoma. Abscess cannot be entirely excluded. The adrenal glands, spleen, and pancreas have a normal CT appearance. Liver is diffusely hypodense on this postcontrast exam. Note is made of cholelithiasis. Small bowel loops are nondistended. Normal appendix is identified. There may be trace free fluid within the right paracolic gutter. There is no loculated fluid collection, free fluid, nor free air within the abdomen. No abnormal mesenteric or retroperitoneal adenopathy is seen. Osseous structures show no acute abnormalities. CT pelvis: Urinary bladder is grossly unremarkable. There is no loculated fluid collection, free fluid, nor free air within the pelvis. No abnormal pelvic adenopathy is seen. Osseous structures show no acute abnormalities. IMPRESSION: 1. Interval progression of severe right-sided hydroureteronephrosis. Again, there appears to be focal ureteral transition point as it crosses over the aortofemoral bypass graft on the right. 2. Nonobstructing right renal calculus. 3. Postsurgical changes of multiple previous aortic bypass grafts as above. Again, there is focal fluid collection surrounding the graft on the left which may be on the basis of postsurgical seroma or hematoma. Abscess cannot be entirely excluded. 4. Hepatic steatosis. 5. Cholelithiasis. Dictated by: Dictated on workstation # [id number]
== END 2019-07-14 04:48 | disposition short-term general hospital (02) ==
LOC: ER 00:07 → EDUNIT# 00:07 → ER 04:48
DX: A41.9 Sepsis, unspecified organism (principal); N11.1 Chronic obstructive pyelonephritis; I10 Essential (primary) hypertension; Z90.710 Acquired absence of both cervix and uterus; Z85.41 Personal history of malignant neoplasm of cervix uteri; Z79.02 Long term (current) use of antithrombotics/antiplatelets; Z79.01 Long term (current) use of anticoagulants; Z79.52 Long term (current) use of systemic steroids
CPT/HCPCS: 36415; 74177; 80053; 81000; 83605; 85007; 85027; 85610; 85730; 87040; 87077; 87088; 87181; 87184; 87186; 96361; 96365; 96375

== ENCOUNTER 2021-02-16 15:25 | Emergency (ER) | payer MEDICARE, MEDICAID ==
[~2021-02-16] VITALS: Ht 167 cm; Wt 81.8 kg
[~2021-02-16 15:25] MED LIST changes: -LISI40TA PO; +LISI40TA9 PO; +MULT-567 PO; -MULT1TAB69 PO
--- NOTE | 2021-02-16 17:19 | ED General ---
General Chief Complaint: General Problems/Pain Stated Complaint: L ARM SWOLLEN Nursing Triage Note: TO ROOM PER W/C FROM [facility] HAS A PICC LINE IN PLACE L ARM. WAS PLACED AT . STARTED ZOSYN ON 01/24 AND IS TO RUN FOR 25 DAYS. PATIENT NOTICED A KNOT ON BACK OF HER ARM 5 DAYS AGO. TODAY STAFF NOTICED AREA RED AND SWOLLEN. Source of Information: Patient Exam Limitations: No Limitations History of Present Illness Date Seen by Provider: Feb 16, 2021 Time Seen by Provider: 17:18 Initial Comments To ER with concern of her PICC line with some bumps to the upper aspect of her arm. No fevers or chills she is receiving Zosyn through the PICC line. Timing/Duration: 1-2 Days Severity: Moderate Associated Systoms: Denies Symptoms Allergies and Home Medications Allergies Coded Allergies: No Known Drug Allergies (Unverified , 07/14/19) Home Medications Albuterol/Ipratropium 4 Gm Aero, 2 PUFF IH QID Prescribed by: MAAME GALLAGHER on 02/02/19702 Clopidogrel Bisulfate 75 Mg Tablet, 75 MG PO DAILY, (Reported) Gabapentin 800 Mg Tablet, 800 MG PO BID, (Reported) Ibuprofen 200 Mg Tablet, 600 MG PO DAILY, (Reported) Ibuprofen 200 Mg Tablet, 600 MG PO BID PRN for PAIN-MILD, (Reported) Lisinopril 40 Mg Tablet, 40 MG PO BID, (Reported) Metoprolol Tartrate 50 Mg Tablet, 50 MG PO BID, (Reported) Multivitamin 1 Each Tablet, 1 TAB PO DAILY, (Reported) Pravastatin Sodium 80 Mg Tablet, 80 MG PO HS, (Reported) Prednisone 10 Mg Tab, 0 PO UD Take 6 tabs(60mg)daily, decrease by 1 tab(10mg) every other day. Prescribed by: MAAME GALLAGHER on 02/02/19702 Tramadol HCl 50 Mg Tablet, 50 MG PO TID PRN for PAIN-MODERATE, (Reported) Warfarin Sodium 5 Mg Tablet, 5 MG PO HS, (Reported) Patient Home Medication List Home Medication List Reviewed: Yes Review of Systems Review of Systems Constitutional: see HPI EENTM: see HPI Respiratory: no symptoms reported Cardiovascular: no symptoms reported Genitourinary: no symptoms reported Musculoskeletal: see HPI Skin: see HPI Psychiatric/Neurological: No Symptoms Reported Hematologic/Lymphatic: No Symptoms Reported Past Qgenfoz-Qfzvdm-Gflgnx Hx Patient Social History Tobacco Use?: Yes Tobacco type used: Cigarettes Substance use?: No Pt feels they are or have been: No Seasonal Allergies Seasonal Allergies: No Past Medical History Surgeries: Yes (axillary femoral bypass 2011 and 2014) Hysterectomy, Vascular Surgery Respiratory: No Cardiac: Yes Hypertension, Peripheral Vascular 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 1.0oz. 92.283867xs; 29.00 BMI Method:Stated General Appearance: No Apparent Distress, WD/WN Eyes: Bilateral Eye Normal Inspection, Bilateral Eye PERRL, Bilateral Eye EOMI Respiratory: No Accessory Muscle Use, No Respiratory Distress Cardiovascular: Regular Rate, Rhythm, Normal Peripheral Pulses Gastrointestinal: Non Tender, Soft Extremity: Normal Capillary Refill, Normal Inspection, Other (The left extremity at the PICC line insertion site is clean dry and intact with no redness. There is no swelling. There are some palpable nodules over the deltoid muscle and just posterior to this. This is not the location of any thrombophlebitis. These are small hematomas secondary to subcutaneous/intramuscular injections likely of her Lovenox. She states that she is receiving these at that location. ) Progress/Results/Core Measures Suspected Sepsis SIRS Temperature: Pulse: 92 Respiratory Rate: 18 Laboratory Tests 02/16/21 17:19: White Blood Count 5.1 Blood Pressure 146 /92 Mean: 110 Laboratory Tests 02/16/21 17:19: Platelet Count 209 Results/Orders Lab Results Laboratory Tests Test 02/16/21 17:19 Range/Units White Blood Count 5.1 4.3-11.0 10^3/uL Red Blood Count 4.07 3.80-5.11 10^6/uL Hemoglobin 11.7 11.5-16.0 g/dL Hematocrit 40 35-52 % Mean Corpuscular Volume 98 80-99 fL Mean Corpuscular Hemoglobin 29 25-34 pg Mean Corpuscular Hemoglobin Concent 29 L 32-36 g/dL Red Cell Distribution Width 17.8 H 10.0-14.5 % Platelet Count 209 130-400 10^3/uL Mean Platelet Volume 8.9 L 9.0-12.2 fL Immature Granulocyte % (Auto) 0 % Neutrophils (%) (Auto) 41 L 42-75 % Lymphocytes (%) (Auto) 29 12-44 % Monocytes (%) (Auto) 12 0-12 % Eosinophils (%) (Auto) 16 H 0-10 % Basophils (%) (Auto) 2 0-10 % Neutrophils # (Auto) 2.1 1.8-7.8 10^3/uL Lymphocytes # (Auto) 1.5 1.0-4.0 10^3/uL Monocytes # (Auto) 0.6 0.0-1.0 10^3/uL Eosinophils # (Auto) 0.8 H 0.0-0.3 10^3/uL Basophils # (Auto) 0.1 0.0-0.1 10^3/uL Immature Granulocyte # (Auto) 0.0 0.0-0.1 10^3/uL Neutrophils % (Manual) 42 % Lymphocytes % (Manual) 32 % Monocytes % (Manual) 10 % Eosinophils % (Manual) 15 % Basophils % (Manual) 1 % Band Neutrophils 0 % Anisocytosis SLIGHT D-Dimer 0.61 H 0.00-0.49 UG/ML My Orders Orders - LARS EAST APRN Cbc With Automated Diff (02/16/21 17:08) Fibrin Degradation Products (02/16/21 17:08) Manual Differential (02/16/21 17:19) Vital Signs/I&O 02/16/21 15:29 Temp 36.9 Pulse 92 Resp 18 B/P (MAP) 146/92 (110) Pulse Ox 98 Capillary Refill : Less Than 3 Seconds Blood Pressure Mean: 110 Departure Impression Primary Impression: Hematoma of arm Qualified Codes: S40.022A - Contusion of left upper arm, initial encounter Disposition: 01 HOME, SELF-CARE Condition: Stable Departure-Patient Inst. Decision time for Depature: 17:52 Referrals: [facility] (PCP) Primary Care Physician CINDY CALIXTO (Family) Primary Care Physician Patient Instructions: NO INSTRUCTIONS GIVEN Add. Discharge Instructions: Fine to continue using the PICC line. All discharge instructions reviewed with patient and/or family. Voiced unde rstanding. LARS EAST APRN Feb 16, 2021 17:19
[2021-02-16 17:24] LABS: BASOPHILS # (AUTO) 0.1 10^3/uL (0.0-0.1); BASOPHILS % (AUTO) 2 % (0-10); EOSINOPHILS # (AUTO) 0.8 10^3/uL (0.0-0.3); EOSINOPHILS % (AUTO) 16 % (0-10); HEMATOCRIT 40 % (35-52); HEMOGLOBIN 11.7 g/dL (11.5-16.0); LYMPHOCYTES # (AUTO) 1.5 10^3/uL (1.0-4.0); LYMPHOCYTES % (AUTO) 29 % (12-44); MEAN CORPUSCULAR HEMOGLOBIN 29 pg (25-34); MEAN CORPUSCULAR HGB CONC 29 g/dL (32-36); MEAN CORPUSCULAR VOLUME 98 fL (80-99); MEAN PLATELET VOLUME 8.9 fL (9.0-12.2); MONOCYTES # (AUTO) 0.6 10^3/uL (0.0-1.0); MONOCYTES % (AUTO) 12 % (0-12); NEUTROPHILS # (AUTO) 2.1 10^3/uL (1.8-7.8); NEUTROPHILS % (AUTO) 41 % (42-75); PLATELET COUNT 209 10^3/uL (130-400); WHITE BLOOD COUNT 5.1 10^3/uL (4.3-11.0)
[2021-02-16 17:47] LABS: ANISOCYTOSIS SLIGHT; BAND NEUTROPHILS 0 %; BASOPHILS % (MANUAL) 1 %; EOSINOPHILS % (MANUAL) 15 %; LYMPHOCYTES % (MANUAL) 32 %; MONOCYTES % (MANUAL) 10 %; NEUTROPHILS % (MANUAL) 42 %
[2021-02-16 17:59] VITALS: BP 138/93
== END 2021-02-16 18:04 | disposition home or self-care (01) ==
LOC: EDUNIT# 15:25 → ER 15:27
DX: S40.022A Contusion of left upper arm, initial encounter (principal); I10 Essential (primary) hypertension; Z79.01 Long term (current) use of anticoagulants; Z79.899 Other long term (current) drug therapy; Z79.52 Long term (current) use of systemic steroids; X58.XXXA Exposure to other specified factors, initial encounter
CPT/HCPCS: 36415; 85007; 85027; 85379

== ENCOUNTER 2021-06-08 09:13 | Emergency (ER) | payer MEDICARE, MEDICAID ==
[~2021-06-08] VITALS: Ht 167 cm; Wt 75.7 kg
--- NOTE | 2021-06-08 10:14 | ED Integumentary General ---
General Chief Complaint: Skin/Wound Problems Stated Complaint: WOUNDS ON LEFT LEG Nursing Triage Note: PT ARRIVES TO ER VIA W/C FROM HOME. PT REPORTS HAS HAD SEVERAL WOUNDS TO L UPPER LEG FOR THE PAST 2.5 MONTHS. REPORTS WAS SEEN AT CLINIC ON 06/05, GIVEN RX FOR AMOXIL, INSTRUCTED TO F/U WITH ER. 2 LARGE WOUNDS NOTED TO L UPPER LEG, APPROX SOFT-BALL SIZE, WOUND DRAINING, FOUL ODOR. Source: patient Exam Limitations: no limitations Allergies and Home Medications Allergies Coded Allergies: protamine (Verified Allergy, Unknown, 06/08/21) Patient Home Medication List Albuterol/Ipratropium (Combivent Respimat Inhal [place]) 4 Gm Aero, 2 PUFF IH QID Prescribed by: MAAME GALLAGHER on 02/02/19 07 Clopidogrel Bisulfate (Clopidogrel) 75 Mg Tablet, 75 MG PO DAILY, (Reported) Entered as Reported by: ELICIA SUAREZ on 02/01/19851 Gabapentin (Gabapentin) 800 Mg Tablet, 800 MG PO BID, (Reported) Entered as Reported by: ELICIA SUAREZ on 02/01/19851 Ibuprofen (Advil) 200 Mg Tablet, 600 MG PO DAILY, (Reported) Entered as Reported by: ELICIA SUAREZ on 02/01/19851 Ibuprofen (Advil) 200 Mg Tablet, 600 MG PO BID PRN for PAIN-MILD, (Reported) Entered as Reported by: ELICIA SUAREZ on 02/01/19851 Lisinopril (Lisinopril) 40 Mg Tablet, 40 MG PO BID, (Reported) Entered as Reported by: ELICIA SUAREZ on 02/01/19851 Metoprolol Tartrate (Metoprolol Tartrate) 50 Mg Tablet, 50 MG PO BID, (Reported) Entered as Reported by: ELICIA SUAREZ on 02/01/19851 Multivitamin (Multivitamins) 1 Each Tablet, 1 TAB PO DAILY, (Reported) Entered as Reported by: ELICIA SUAREZ on 02/01/19851 Pravastatin Sodium (Pravastatin Sodium) 80 Mg Tablet, 80 MG PO HS, (Reported) Entered as Reported by: ELICIA SUAREZ on 02/01/19851 Prednisone (Prednisone) 10 Mg Tab, 0 PO UD Prescribed by: MAAME GALLAGHER on 02/02/19 0703 Tramadol HCl (Tramadol HCl) 50 Mg Tablet, 50 MG PO TID PRN for PAIN-MODERATE, (Reported) Entered as Reported by: ELICIA SUAREZ on 02/01/19 0852 Warfarin Sodium (Warfarin Sodium) 5 Mg Tablet, 5 MG PO HS, (Reported) Entered as Reported by: ELICIA SUAREZ on 02/01/19 0852 Past Boimswc-Bwxlfd-Jratjr Hx Patient Social History Tobacco Use?: Yes Tobacco type used: Cigarettes Smoking Status: Current Someday Smoker Use of E-Cig and/or Vaping dev: No Substance use?: No Alcohol Use?: No Pt feels they are or have been: No Seasonal Allergies Seasonal Allergies: No Past Medical History Surgeries: Yes (axillary femoral bypass 2011 and 2014) Hysterectomy, Vascular Surgery Respiratory: No Cardiac: Yes Hypertension, Peripheral Vascular 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 Genitourinary: No Gastrointestinal: No Musculoskeletal: No Endocrine: No HEENT: No Cancer: Yes Cervical What Type of Treatment Did You: Radiation Psychosocial: No Integumentary: No Blood Disorders: No Family Medical History Unknown, adopted Physical Exam Vital Signs Vital Signs - First Documented 06/08/21 09:20 Temp 36.4 Pulse 100 Resp 20 B/P (MAP) 135/82 (99) Pulse Ox 96 O2 Delivery Room Air Capillary Refill : Progress/Results/Core Measures Results/Orders My Orders Orders - ALENA SANCHEZ MD Protime With Inr (06/08/21 10:15) Vital Signs/I&O 06/08/21 06/08/21 09:20 09:44 Temp 36.4 Pulse 100 97 Resp 20 18 B/P (MAP) 135/82 (99) 122/83 Pulse Ox 96 97 O2 Delivery Room Air Room Air Blood Pressure Mean: 96 Departure Impression Primary Impression: Open wound Disposition: 01 HOME, SELF-CARE Condition: Stable Departure-Patient Inst. Decision time for Depature: 10:12 Referrals: [facility] (PCP) Primary Care Physician CINDY CALIXTO (Family) Primary Care Physician Patient Instructions: Wound Care Add. Discharge Instructions: Follow-up with wound care as soon as possible. If your primary care provider has not already set up an appointment, you may call the [facility] wound care office at [phone]. Manage her wounds with wet to dry dressings. With gloved hands moisten gauze with saline and wring them out. Lightly packed in the wound cavity with the gauze. And then cover with a clean gauze or nonstick dressing. Perform this twice daily. Some of the debris within the wound may stick to the gauze when it is removed. This will in effect perform gradual debridement. Continue your antibiotic as prescribed. Have your INR monitored closely. If you do not receive a call from the ER by the end of today with your INR result, please call the ER at the number above. Call with questions or concerns. Return to the ER if you have worsening symptoms. All discharge instructions reviewed with patient and/or family. Voiced understanding. ALENA SANCHEZ MD Jun 08, 2021 10:14
[2021-06-08 10:25] VITALS: BP 121/77
[2021-06-08 10:27] LABS: INR 2.4 (0.8-1.4); PROTHROMBIN TIME PATIENT 26.7 SEC (12.2-14.7)
== END 2021-06-08 10:25 | disposition home or self-care (01) ==
LOC: EDUNIT# 09:13 → ER 09:17
DX: Z48.01 Encounter for change or removal of surgical wound dressing (principal); I10 Essential (primary) hypertension; F17.210 Nicotine dependence, cigarettes, uncomplicated; Z79.01 Long term (current) use of anticoagulants
CPT/HCPCS: 36415; 85610; 99281

== ENCOUNTER → 2021-06-13 | Outpatient (CLI) | payer MEDICARE, MEDICAID | LOC: WOUNDCARE 13:53 | PROVIDERS: ATTEND Family Medicine | DX: T81.31XA Disruption of external operation (surgical) wound, not elsewhere classified, initial encounter (principal); I70.241 Atherosclerosis of native arteries of left leg with ulceration of thigh; T65.222A Toxic effect of tobacco cigarettes, intentional self-harm, initial encounter; I70.242 Atherosclerosis of native arteries of left leg with ulceration of calf; L97.122 Non-pressure chronic ulcer of left thigh with fat layer exposed | CPT/HCPCS: 11042; 11045; A6260; G0463 ==

== ENCOUNTER → 2021-06-19 | Outpatient (CLI) | payer MEDICARE, MEDICAID | LOC: WOUNDCARE 13:31 | PROVIDERS: ATTEND Family Medicine | DX: T81.31XA Disruption of external operation (surgical) wound, not elsewhere classified, initial encounter (principal); I70.241 Atherosclerosis of native arteries of left leg with ulceration of thigh; I70.242 Atherosclerosis of native arteries of left leg with ulceration of calf; L97.122 Non-pressure chronic ulcer of left thigh with fat layer exposed; L97.125 Non-pressure chronic ulcer of left thigh with muscle involvement without evidence of necrosis; T65.222A Toxic effect of tobacco cigarettes, intentional self-harm, initial encounter; I96 Gangrene, not elsewhere classified | CPT/HCPCS: 11042; 11045; G0463 ==

== ENCOUNTER 2021-06-24 00:17 | Emergency (ER) | payer MEDICARE, MEDICAID ==
[~2021-06-24] VITALS: Ht 167.7 cm; Wt 74.4 kg
[2021-06-24 00:44] LABS: BASOPHILS # (AUTO) 0.1 10^3/uL (0.0-0.1); BASOPHILS % (AUTO) 1 % (0-10); EOSINOPHILS # (AUTO) 0.1 10^3/uL (0.0-0.3); EOSINOPHILS % (AUTO) 1 % (0-10); HEMATOCRIT 47 % (35-52); LYMPHOCYTES # (AUTO) 4.2 10^3/uL (1.0-4.0); LYMPHOCYTES % (AUTO) 27 % (12-44); MEAN CORPUSCULAR HEMOGLOBIN 29 pg (25-34); MEAN CORPUSCULAR HGB CONC 32 g/dL (32-36); MEAN CORPUSCULAR VOLUME 89 fL (80-99); MEAN PLATELET VOLUME 9.4 fL (9.0-12.2); MONOCYTES # (AUTO) 0.9 10^3/uL (0.0-1.0); MONOCYTES % (AUTO) 5 % (0-12); NEUTROPHILS # (AUTO) 10.4 10^3/uL (1.8-7.8); NEUTROPHILS % (AUTO) 65 % (42-75); PLATELET COUNT 239 10^3/uL (130-400); WHITE BLOOD COUNT 15.9 10^3/uL (4.3-11.0)
[2021-06-24] MEDS ORDERED: fentaNYL INJ 100 MCG/2 ML AMP IVP ONE ×2 (00:45→02:15)
[2021-06-24] MEDS ORDERED: AZITHROMYCIN INJECTION 500 MG in NS (IVPB) 250 ML IV STA (00:46)
[2021-06-24] MEDS ORDERED: cefTRIAXone 1 GM PRE-MIX 50 ML IV STA (00:46)
[2021-06-24 00:55] LABS: INR 1.8 (0.8-1.4); POTASSIUM 3.5 MMOL/L (3.6-5.0); PROTHROMBIN TIME PATIENT 21.6 SEC (12.2-14.7)
[2021-06-24 00:56] LABS: CALCIUM 8.9 MG/DL (8.5-10.1)
[2021-06-24 00:58] LABS: BAND NEUTROPHILS 2 %; LYMPHOCYTES % (MANUAL) 16 %; NEUTROPHILS % (MANUAL) 75 %
[2021-06-24 00:59] LABS: MONOCYTES % (MANUAL) 7 %; RBC MORPH NORMAL
[2021-06-24 01:01] LABS: CREATININE SERUM 1.11 MG/DL (0.60-1.30)
--- NOTE | 2021-06-24 02:19 | ED General ---
General Chief Complaint: Lower Extremity Stated Complaint: RT LEG PAIN Nursing Triage Note: PT TO ER VIA [facility] W REPORTS OF RIGHT LEG PAIN AND NUMBNESS SX 1400 YESTERDAY. PT REPORTS SHE CAN'T WALK AND CALLED EMS D/T WORSENING PAIN. PT A&OX4. Source of Information: Patient, EMS, Old Records Exam Limitations: No Limitations History of Present Illness Date Seen by Provider: Jun 24, 2021 Time Seen by Provider: 00:22 Initial Comments This is a 65-year-old woman with severe peripheral vascular disease presents to the emergency room with pain and numbness in the right leg since about 1400 yesterday. She has neuropathy but states this is a different type of pain. The right lower extremity is cool to the touch and no pedal pulses can be palpable. Nursing staff detects a very faint femoral pulse. Patient had femoral bypass surgery on the left this fall and bilaterally previously. She developed ischemic wounds as well as a surgical wound after the bypass surgery this fall. She is currently receiving wound care and is on antibiotics. She reports surgery with Dr. Hernandez and at [facility] is anticipated in the near future. She is anticoagulated on warfarin. She took an extra 2.5 mg on top of her usual 7.5 mg yesterday evening before coming to the ER thinking that would help her pain. Allergies and Home Medications Allergies Coded Allergies: protamine (Verified Allergy, Unknown, 06/08/21) Patient Home Medication List Home Medication List Reviewed: Yes Albuterol/Ipratropium (Combivent Respimat Inhal [place]) 4 Gm Aero, 2 PUFF IH QID Prescribed by: MAAME GALLAGHER on 02/02/19 0703 Clopidogrel Bisulfate (Clopidogrel) 75 Mg Tablet, 75 MG PO DAILY, (Reported) Entered as Reported by: ELICIA SUAREZ on 02/01/19 08 Gabapentin (Gabapentin) 800 Mg Tablet, 800 MG PO BID, (Reported) Entered as Reported by: ELICIA SUAREZ on 02/01/19 08 Ibuprofen (Advil) 200 Mg Tablet, 600 MG PO DAILY, (Reported) Entered as Reported by: ELICIA SUAREZ on 02/01/19 08 Ibuprofen (Advil) 200 Mg Tablet, 600 MG PO BID PRN for PAIN-MILD, (Reported) Entered as Reported by: ELICIA SUAREZ on 02/01/19 0852 Lisinopril (Lisinopril) 40 Mg Tablet, 40 MG PO BID, (Reported) Entered as Reported by: ELICIA SUAREZ on 02/01/19 08 Metoprolol Tartrate (Metoprolol Tartrate) 50 Mg Tablet, 50 MG PO BID, (Reported) Entered as Reported by: ELICIA SUAREZ on 02/01/19 08 Multivitamin (Multivitamins) 1 Each Tablet, 1 TAB PO DAILY, (Reported) Entered as Reported by: ELICIA SUAREZ on 02/01/19 08 Pravastatin Sodium (Pravastatin Sodium) 80 Mg Tablet, 80 MG PO HS, (Reported) Entered as Reported by: ELICIA SUAREZ on 02/01/19 08 Prednisone (Prednisone) 10 Mg Tab, 0 PO UD Prescribed by: MAAME GALLAGHER on 02/02/19 0703 Tramadol HCl (Tramadol HCl) 50 Mg Tablet, 50 MG PO TID PRN for PAIN-MODERATE, (Reported) Entered as Reported by: ELICIA SUAREZ on 02/01/19 08 Warfarin Sodium (Warfarin Sodium) 5 Mg Tablet, 5 MG PO HS, (Reported) Entered as Reported by: ELICIA SUAREZ on 02/01/19 0852 Review of Systems Review of Systems Constitutional: no symptoms reported EENTM: no symptoms reported Respiratory: no symptoms reported Cardiovascular: see HPI Gastrointestinal: no symptoms reported Genitourinary: no symptoms reported : No Musculoskeletal: see HPI Skin: see HPI Psychiatric/Neurological: No Symptoms Reported Hematologic/Lymphatic: No Symptoms Reported Immunological/Allergic: no symptoms reported Past Fkyptjb-Jowvfb-Kvawpl Hx Patient Social History Tobacco Use?: Yes Tobacco type used: Cigarettes Smoking Status: Former Smoker Use of E-Cig and/or Vaping dev: No Substance use?: No Alcohol Use?: No Immunizations Up To Date Influenza Vaccine Up-to-Date: No; Not Current First/Initial COVID19 Vaccinat: NONE Second COVID19 Vaccination Mac: NONE Third COVID19 Vaccination Date: NONE COVID19 Vaccine Paid Search Marketing Strategist: NONE Seasonal Allergies Seasonal Allergies: No Past Medical History Surgery/Hospitalization HX: LEFT FEMORAL BYPASS, BILAT FEMORAL BYPASS (2011), CERVICAL CA TOTAL HYSTERECTOMY (2010), APPENDECTOMY, left femoral bypass 2020 Surgeries: Yes (axillary femoral bypass 2011 and 2014) Hysterectomy, Vascular Surgery Respiratory: No Cardiac: Yes Hypertension, Peripheral Vascular (Arterial occlusion) Neurological: Yes Neuropathy 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 1.0oz. 92.160649dc; 26.00 BMI Method:Stated General Appearance: No Apparent Distress, Mild Distress HEENT: PERRL/EOMI, Normal ENT Inspection Neck: Normal Inspection Respiratory: Lungs Clear, Normal Breath Sounds, No Accessory Muscle Use Cardiovascular: Regular Rate, Rhythm, No Edema, No Murmur, Other (Dorsal pedal pulse palpable on the left. No pulse palpable on the right foot.) Gastrointestinal: Normal Bowel Sounds, Non Tender, Soft Extremity: Other (Right foot is cool to the touch with poor capillary refill and no palpable pulse. 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 Dressings on left thigh clean. ) Progress/Results/Core Measures Suspected Sepsis SIRS Temperature: Pulse: 84 Respiratory Rate: 20 Laboratory Tests 06/24/21 00:31: White Blood Count 15.9H Blood Pressure 165 /84 Mean: 111 Laboratory Tests 06/24/21 00:31: Creatinine 1.11, INR Comment 1.8H, Platelet Count 239 Results/Orders Lab Results Laboratory Tests Test 06/24/21 00:31 Range/Units White Blood Count 15.9 H 4.3-11.0 10^3/uL Red Blood Count 5.25 H 3.80-5.11 10^6/uL Hemoglobin 15.0 11.5-16.0 g/dL Hematocrit 47 35-52 % Mean Corpuscular Volume 89 80-99 fL Mean Corpuscular Hemoglobin 29 25-34 pg Mean Corpuscular Hemoglobin Concent 32 32-36 g/dL Red Cell Distribution Width 15.5 H 10.0-14.5 % Platelet Count 239 130-400 10^3/uL Mean Platelet Volume 9.4 9.0-12.2 fL Immature Granulocyte % (Auto) 1 % Neutrophils (%) (Auto) 65 42-75 % Lymphocytes (%) (Auto) 27 12-44 % Monocytes (%) (Auto) 5 0-12 % Eosinophils (%) (Auto) 1 0-10 % Basophils (%) (Auto) 1 0-10 % Neutrophils # (Auto) 10.4 H 1.8-7.8 10^3/uL Lymphocytes # (Auto) 4.2 H 1.0-4.0 10^3/uL Monocytes # (Auto) 0.9 0.0-1.0 10^3/uL Eosinophils # (Auto) 0.1 0.0-0.3 10^3/uL Basophils # (Auto) 0.1 0.0-0.1 10^3/uL Immature Granulocyte # (Auto) 0.2 H 0.0-0.1 10^3/uL Neutrophils % (Manual) 75 % Lymphocytes % (Manual) 16 % Monocytes % (Manual) 7 % Band Neutrophils 2 % Blood Morphology Comment NORMAL Prothrombin Time 21.6 H 12.2-14.7 SEC INR Comment 1.8 H 0.8-1.4 Activated Partial Thromboplast Time 33 24-35 SEC Sodium Level 138 135-145 MMOL/L Potassium Level 3.5 L 3.6-5.0 MMOL/L Chloride Level 104 98-107 MMOL/L Carbon Dioxide Level 20 L 21-32 MMOL/L Anion Gap 14 5-14 MMOL/L Blood Urea Nitrogen 18 7-18 MG/DL Creatinine 1.11 0.60-1.30 MG/DL Estimat Glomerular Filtration Rate 50 BUN/Creatinine Ratio 16 Glucose Level 77 70-105 MG/DL Calcium Level 8.9 8.5-10.1 MG/DL C-Reactive Protein High Sensitivity 0.93 H 0.00-0.50 MG/DL My Orders Orders - ALENA SANCHEZ MD Basic Metabolic Panel (06/24/21 00:33) Cbc With Automated Diff (06/24/21 00:33) Protime With Inr (06/24/21 00:33) Partial Thromboplastin Time (06/24/21 00:33) Ed Iv/Invasive Line Start (06/24/21 00:33) Us Right Low Ext [id number] (06/24/21 00:33) Fentanyl Inj (Sublimaze Injection) (06/24/21 00:45) Manual Differential (06/24/21 00:31) Hs C Reactive Protein (06/24/21 01:10) Fentanyl Inj (Sublimaze Injection) (06/24/21 02:15) Morphine Injection (Morphine Injection (06/24/21 02:35) Heparin Drip [id number] Unit/500ml (Heparin (06/24/21 03:45) Heparin (Bolus Per Protocol) (Heparin (B (06/24/21 03:45) Morphine Injection (Morphine Injection (06/24/21 04:17) Medications Given in ED Current Medications Medications Dose Ordered Sig/Radha Route Start Time Stop Time Status Last Admin Dose Admin Fentanyl Citrate 50 mcg ONCE ONCE IVP 06/24/21 00:45 06/24/21 00:46 DC 06/24/21 00:41 50 MCG Fentanyl Citrate 50 mcg ONCE ONCE IVP 06/24/21 02:15 06/24/21 02:17 DC 06/24/21 02:12 50 MCG Heparin Sodium (Porcine) HEPARIN FULL PROTOC... ONCE ONCE IV 06/24/21 03:45 06/24/21 03:47 DC 06/24/21 04:13 5,000 UNIT Heparin Sodium/ Dextrose 500 ml @ 0 mls/hr Q0M ONCE IV 06/24/21 03:45 06/24/21 03:47 DC 06/24/21 04:20 24 MLS/HR Vital Signs/I&O 06/24/21 06/24/21 00:20 04:35 Temp 36.4 Pulse 84 80 Resp 20 15 B/P (MAP) 165/84 (111) 133/68 Pulse Ox 95 94 O2 Delivery Room Air Room Air Capillary Refill : Less Than 3 Seconds Blood Pressure Mean: 111 Progress Note #1: Time: 02:19 Progress Note Patient received fentanyl for pain. Emergent ultrasound was obtained and report is pending. Patient has not been given any heparin products as she already has an INR of 1.8 and recently took an extra dose of warfarin. Progress Note #2: Time: 03:16 Progress Note Ultrasound report revealed occlusion of the common femoral with no identifiable flow. I presume this to be chronic as she has had bypass in the past. There is reconstruction of the right superficial femoral artery and popliteal arteries. H owever, only minimal amount of phasic flow noted. There is single-vessel runoff via the posterior tibial artery. The anterior tibial and dorsalis pedis arteries appear occluded. I am attempting to transfer this patient to a facility with vascular surgery and or IR therapies. [facility] and [place] facilities are all on diversion except for trauma, STEMI, or stroke. None of them will make an exception for ischemic limb. I have spoken with the patient relations coordinator at [facility]. They also are on diversion except for stroke, trauma, or STEMI. However, they are presenting the case to the vascular surgeon and I am awaiting a callback. In the meantime I have also checked with [facility]. They will review the imaging and call back. A facesheet has been faxed. Imaging has been clouded to [facility] and [facility]. [facility] is on standby for transport. Progress Note #3: Time: 03:40 Progress Note I received a call back from [facility]. They will lisa this patient exemption from their diversion criteria and Dr. Carmona excepts admission. They request a heparin bolus and drip to be initiated despite her warfarin use and elevated INR. Those have been ordered. Progress Note #4: Time: 04:01 Progress Note Triage coordinator relays that Dr. Carmona does not believe transfer for by air is necessary as long as patient remains movement of her toes. Patient is able to move her toes. [facility] has been contacted for transfer and accepts. Diagnostic Imaging Diagonstic Imaging: Ultrasound Plain Films/CT/US/NM/MRI: leg Comments Stat rad report reviewed. There is occlusion of the common femoral with no identifiable flow. There is reconstruction of the right superficial femoral artery and popliteal arteries. However, only minimal amount of phasic flow noted. There is single-vessel runoff via the posterior tibial artery. The anterior tibial and dorsalis pedis arteries appear occluded. Departure Impression Primary Impression: Ischemic pain of right foot Disposition: 02 XFER SHT-TRM HOSP Condition: Stable Transfer Transfer Reason: Exceeds level of care Time Spoke to Accepting Phy: 03:30 Transfer Progress Notes Transfer accepted by Dr. Carmona at [facility] Transfer Time: 04:44 Transfer Facility: [facility] Method of Transfer: EMS Departure-Patient Inst. Referrals: [facility]/[place] (PCP) Primary Care Physician CINDY CALIXTO (Family) Primary Care Physician ALENA SANCHEZ MD Jun 24, 2021 02:19
[2021-06-24] MEDS ORDERED: morphine INJ 10 MG/ML 1ML (SYR OR VIAL) IVP STA ×2 (02:35→04:17)
[2021-06-24] MEDS ORDERED: HEParin 1000 UNIT/ML (10ML VIAL) FOR BOLUS IV ONE (03:45)
[2021-06-24] MEDS ORDERED: HEParin DRIP 25000 UNIT/500ML 500 ML IV ONE (03:45)
[2021-06-24 04:35] VITALS: BP 133/68
--- NOTE | 2021-06-24 08:34 | Diagnostic Imaging Report ---
INDICATION: Right leg pain. Ischemia of the foot. COMPARISON: None. TECHNIQUE: Doppler, grayscale, and color-flow imaging of the right lower extremity arterial system was performed. FINDINGS: Right lower extremity: Flow cannot be demonstrated within the common femoral artery. There is severely diminished monophasic flow within the superficial femoral artery through to the posterior tibial artery at the ankle. There is no demonstrable flow within the dorsalis nor the anterior tibial arteries. IMPRESSION: 1. Findings concerning for occlusion of the right common femoral artery. 2. Diminished monophasic flow within the remainder of the right superficial femoral through to the popliteal artery, likely via collaterals. 3. No demonstrable flow within the dorsalis pedis or the anterior tibial arteries. Dictated by: Dictated on workstation # [id number]
== END 2021-06-24 04:44 | disposition short-term general hospital (02) ==
LOC: EDUNIT# 00:17 → ER 00:20
DX: M62.261 Nontraumatic ischemic infarction of muscle, right lower leg (principal); I10 Essential (primary) hypertension; Z87.891 Personal history of nicotine dependence; Z79.01 Long term (current) use of anticoagulants
CPT/HCPCS: 36415; 80048; 85007; 85027; 85610; 85730; 86141; 93926; 99291

== ENCOUNTER → 2022-03-13 | Outpatient (CLI) | payer MEDICARE, MEDICAID ==
[~2022-03-13] MED LIST changes: +RT-ALBUTEROL SULF 2.5 MG/3 ML PRE-MIX VIAL INH ONE
== END ==
LOC: RT 08:53
PROVIDERS: ATTEND Nurse Practitioner Family
DX: J44.9 Chronic obstructive pulmonary disease, unspecified (principal)
CPT/HCPCS: 94060; 94726; 94729

== ENCOUNTER 2022-07-01 09:18 | Outpatient (RCR) | payer MEDICARE, MEDICAID ==
[2022-06-23] MEDS: NS IV SCH (09:06)
[2022-06-23] MEDS: GENTAMICIN IV SCH (09:06)
[2022-06-23 09:33] VITALS: BP 147/86
[2022-06-24 08:45] VITALS: BP 162/94
[2022-06-24] MEDS: GENTAMICIN IV SCH (09:33)
[2022-06-24] MEDS: NS IV SCH (09:33)
[2022-06-25 08:35] VITALS: BP 141/87
[2022-06-25] MEDS: NS IV SCH (09:04)
[2022-06-25] MEDS: GENTAMICIN IV SCH (09:04)
[2022-06-26] MEDS: NS IV SCH (09:10)
[2022-06-26] MEDS: GENTAMICIN IV SCH (09:10)
[2022-06-26 10:15] VITALS: BP 121/75
[2022-06-27 09:03] VITALS: BP 125/79
[2022-06-27] MEDS: NS IV SCH (09:18)
[2022-06-27] MEDS: GENTAMICIN IV SCH (09:18)
[2022-06-30 09:30] VITALS: BP 139/81
[2022-06-30] MEDS: GENTAMICIN IV SCH (09:40)
[2022-06-30] MEDS: NS IV SCH (09:40)
[~2022-07-01] VITALS: Ht 167.7 cm; Wt 87.7 kg
[~2022-07-01 09:18] MED LIST changes: -RT-ALBUTEROL SULF 2.5 MG/3 ML PRE-MIX VIAL INH ONE; +TROUGH ORDER-PHARMACY XX ONE
[2022-07-01] MEDS: NS IV SCH (09:26)
[2022-07-01] MEDS: GENTAMICIN IV SCH (09:26)
[2022-07-01 09:28] VITALS: BP 164/84
== END 2022-07-01 11:25 | disposition home or self-care (01) ==
LOC: SDC 09:18
PROVIDERS: ATTEND Physician Assistant
DX: N39.0 Urinary tract infection, site not specified (principal)
CPT/HCPCS: 36410; 36415; 76937; 80170; 96365

== ENCOUNTER 2022-11-05 05:31 | Outpatient (CLI) | payer MEDICARE, MEDICAID ==
[~2022-11-05] VITALS: Ht 167.6 cm; Wt 88.0 kg
[~2022-11-05 05:31] MED LIST changes: -TROUGH ORDER-PHARMACY XX ONE
[2022-11-10] MEDS ORDERED: ASCO100024 PO (09:15)
[2022-11-10] MEDS ORDERED: WARF4TAB3 PO (09:15)
[2022-11-10] MEDS ORDERED: ASPI-999 PO (09:15)
[2022-11-10] MEDS ORDERED: FLUT1BLS3 IH (09:15)
[2022-11-10] MEDS ORDERED: ENOX80DI7 SQ (09:15)
[2022-11-10] MEDS ORDERED: NF-VITD400 PO (09:15)
[2022-11-10] MEDS ORDERED: ACET-93 PO (09:15)
[2022-11-10] MEDS ORDERED: CYAN250010 PO (09:15)
[2022-11-17] MEDS ORDERED: ENOX80DI7 SQ (13:56)
[2022-11-17] MEDS ORDERED: ACHD5005 PO ×2 (13:56→16:12)
[2022-11-17] MEDS ORDERED: DOCU-143 PO (13:56)
== END 2022-11-10 09:17 | disposition home or self-care (01) ==
LOC: PREOP 05:31
PROVIDERS: ATTEND Surgery
DX: Z01.818 Encounter for other preprocedural examination (principal)

== ENCOUNTER 2022-11-17 10:16 | Day surgery (SDC) | payer MEDICARE, MEDICAID ==
[2022-11-17] VITALS (11 sets, daily range): BP systolic 132–173; BP diastolic 64–107
[~2022-11-17] VITALS: Ht 167 cm; Wt 88.0 kg
[~2022-11-17 10:16] MED LIST changes: +ACET-93 PO; +ASCO100024 PO; +ASPI-999 PO; +CYAN250010 PO; +ENOX80DI7 SQ; +FLUT1BLS3 IH; +NF-VITD400 PO; +WARF4TAB3 PO
[2022-11-17] MEDS ORDERED: ceFAZolin INJECTION 2,000 MG in NS (IVPB) 50 ML IV ONE (11:00)
[2022-11-17 11:09] LABS: INR 1.4 (0.8-1.4); PROTHROMBIN TIME PATIENT 17.4 SEC (12.2-14.7)
[2022-11-17] MEDS ORDERED: LIDOCAINE PF 2% 5 ML (XYLOCAINE) VIAL ONE (11:11)
[2022-11-17] MEDS ORDERED: ONDANSETRON 4 MG/2 ML (SDV) Z0FRAN ONE (11:11)
[2022-11-17] MEDS ORDERED: GLYCOPYRROLATE 0.2 MG/ML (ROBINUL) 2 ML VIAL ONE (11:11)
[2022-11-17] MEDS ORDERED: proPOfol 200 MG/20 ML (DIPRIVAN) VIAL IV ONE (11:11)
[2022-11-17] MEDS ORDERED: MIDAZOLAM 2 MG/2 ML (VERSED) VIAL ONE (11:12)
[2022-11-17] MEDS ORDERED: fentaNYL INJ 100 MCG/2 ML AMP ONE (11:12)
[2022-11-17] MEDS ORDERED: NEOSTIGMINE (BLOXIVERZ ) 1 MG/1ML 10 ML VIAL ONE (11:12)
[2022-11-17] MEDS ORDERED: BUP/EPI 0.5% 1:200,000 (SENSORCAINE) 30 ML VIAL ONE (11:35)
[2022-11-17] MEDS: LACTATED RINGERS 1,000 ML IV PRN ×2 (11:53→13:15)
--- NOTE | 2022-11-17 12:01 | Progress Note-Pre Operative ---
Pre-Operative Progress Note Date H&P Reviewed: November 17, 2022 Time H&P Reviewed: 12:01 History & Physical: H&P Reviewed, Patient Examed, No changes noted Pre-Operative Diagnosis: cholelithiasis WINSOME DOUGLAS DO November 17, 2022 12:01
[2022-11-17] MEDS ORDERED: BUP/EPI 0.5% 1:200,000 (SENSORCAINE) 30 ML VIAL INJ ONE (12:53)
[2022-11-17] MEDS ORDERED: IOHEXOL 300 MG/ML 30 ML (OMNIPAQUE 300) VIAL IV ONE (12:55)
[2022-11-17] MEDS ORDERED: meTOprolol 5 MG/5 ML (LOPRESSOR) VIAL ONE (13:13)
[2022-11-17] MEDS ORDERED: ROCURONIUM 50 MG/5 ML (ZEMURON) VIAL IV ONE (13:14)
[2022-11-17] MEDS ORDERED: HYDROmorphone 2 MG/ML VIAL (DILAUDID) ONE (13:14)
[2022-11-17] MEDS ORDERED: KETOROLAC 30 MG/ML VIAL ONE (13:26)
[2022-11-17] MEDS ORDERED: SEVOFLURANE (ULTANE) 15 ML INHAL SOLN ONE (13:27)
[2022-11-17] MEDS ORDERED: ONDANSETRON 4 MG/2 ML (SDV) Z0FRAN IVP PRN (13:45)
[2022-11-17] MEDS ORDERED: HYDROmorphone 2 MG/ML VIAL (DILAUDID) IV ONE (13:45)
--- NOTE | 2022-11-17 13:53 | Progress Note-Post Operative ---
Post-Operative Progess Note Surgeon (s)/Front Worker (s) Surgeon WINSOME DOUGLAS DO Front Worker: Dr. Sanchez Pre-Operative Diagnosis cholelithiasis Post-Operative Diagnosis same Procedure & Operative Findings Date of Procedure 11/17/22 Procedure Performed/Findings lap abdoulaye c ioc Anesthesia Type general Estimated Blood Loss Estimated blood loss (mL): minimal Specimens/Packing Specimens Removed gallbladder WINSOME DOUGLAS DO November 17, 2022 13:53
[2022-11-17] MEDS ORDERED: ENOX80DI7 SQ (13:56)
[2022-11-17] MEDS ORDERED: DOCU-143 PO (13:56)
[2022-11-17] MEDS ORDERED: ACHD5005 PO ×2 (13:56→16:12)
--- NOTE | 2022-11-17 13:58 | Discharge Inst-Simple/Standard ---
Discharge Inst-Standard Discharge Medications New, Converted or Re-Newed RX: Transmitted to Pharmacy Patient Instructions/Follow Up Plan of Care/Instructions/FU: 2 weeks fiona Activity as Tolerated: No Discharge Diet: Regular Diet Other Inst to Patient Follow up Appt: Make appointment for 2 weeks. Instructions: No lifting greater than 10 pounds. No strenuous activity. May shower in 24 hours, no tub bath or soaking. Use incentive spirometer at home as directed. No Smoking Start lovenox tomorrow taking dialy, and then resume Warfarin as instructed. Skin/Wound Care: You have special glue over incision, it will fall off on it's own. Symptoms to Report: Appetite Changes, Extremity Discoloration, Numbness/Tingling, Swelling Increased, Bleeding Excessive, Eyesight Changes, Pain Increased, Urine Color Change, Constipation(Persistent), Fever over 101 degree F, Pain/Pressure in chest, Urinating Difficulty, Cough Up/Vomit Blood, Heart Beat Irreg/Pounding, Pain/Pressure in jaw, Vaginal Bleeding Increase, Cramps in feet or legs, Lightheadedness, Pain/Pressure in shoulder, Diarrhea(Persistent), Memory Changes Suddenly, Questions/Concerns, Weight gain consecutive days, Dizziness/Fainting, Nausea/Vomiting, Shortness of Breath, Weight gain over 2 pounds. If eyes or skin turn yellow notify physician. If questions or concerns contact your physician Or seek help at emergency department. WINSOME DOUGLAS DO November 17, 2022 13:58
[2022-11-17] MEDS ORDERED: HYDROcodone/APAP 5 MG/325 MG (LORTAB) TAB ONE (14:41)
--- NOTE | 2022-11-17 14:44 | Anesthesia-General Post-Op ---
General Patient Condition Mental Status/LOC: Same as Preop Cardiovascular: Satisfactory Nausea/Vomiting: Absent Respiratory: Satisfactory Pain: Controlled Complications: Absent Post Op Complications Complications None Follow Up Care/Instructions Patient Instructions None needed. Anesthesia/Patient Condition Patient Condition Patient is doing well, no complaints, stable vital signs, no apparent adverse anesthesia problems. No complications reported per nursing. [place] [facility] [place]: Yes MADIE CHAVEZ CRNA November 17, 2022 14:44
[2022-11-17] MEDS ORDERED: HYDROcodone/APAP 5 MG/325 MG (LORTAB) TAB PO ONE (14:45)
--- NOTE | 2022-11-17 19:29 | Diagnostic Imaging Report ---
INDICATION: Cholecystectomy. Operative cholangiogram performed in the routine fashion with the portable intensifier in surgery. 19.1 seconds of fluoroscopy time was used. 52 images were obtained. Contrast injection through the cystic duct stump demonstrates mild prominence of the common duct. There is a nonocclusive filling defect in the common bile duct, which may represent stone or air bubble. IMPRESSION: Nonocclusive filling defect in the distal common bile duct, which may represent air bubble or stone. Contrast does pass to the duodenum. Dictated by: Dictated on workstation # [id number]
--- NOTE | 2022-11-20 12:15 | OPERATIVE REPORT ---
DATE OF SERVICE: 11/17/2022 PREOPERATIVE DIAGNOSIS: Cholelithiasis. POSTOPERATIVE DIAGNOSIS: Cholelithiasis. PROCEDURE: Laparoscopic cholecystectomy with intraoperative cholangiogram. SURGEON: Winsome Young DO UNDER TRIMMER: Mario Sanchez DO, assisted in retraction, dissection, and closure. ANESTHESIA: General. ESTIMATED BLOOD LOSS: Minimal. COMPLICATIONS: None. INDICATIONS: The patient is a 66-year-old female with cholelithiasis that is symptomatic. She understands risks and benefits of procedure and wished to proceed. Consent was signed in chart. The patient will also have bilateral axillary-fem bypasses [ ] noted. DESCRIPTION OF PROCEDURE: The patient was taken to the operating suite. She was prepped and draped in sterile fashion. Timeout was performed. Midline incision just above the umbilicus was made after local anesthetic was infiltrated. An 11 blade scalpel was used to make a small skin incision. Cautery was used to dissect down through subcutaneous tissues, fascia was then scored and opened, the abdomen was then entered. A finger had to be inserted and there are some adhesions at the midline and bluntly taken down. A acevedo trocar was inserted and pneumoperitoneum was achieved. The scope was then reinserted noting [ ] adhesions with bowel present and adhered to the abdominal wall as well. The scope was able to be used to visualize the right side of the subxiphoid area and a 5 mm trocar was then placed in this area. An ultrasound was used to find the right axillary femoral bypass and using ultrasound, the two 5 mm trocars were placed on the right side, avoiding the bypass. Gallbladder was grasped and adhesions were taken down. The cystic duct and cystic artery were then dissected out. Clips were placed on the proximal and distal portion of cystic artery and distal portion of the duct. The duct was partially transected. Arrow catheter was inserted and cholangiogram was performed. No filling defects. Contrast made its way into the duodenum. Catheter was removed. Clips were placed on the proximal portion of cystic duct. The duct and the artery were completely transected. Hook Cautery used to dissect the gallbladder from the gallbladder fossa achieving hemostasis. Gallbladder was placed in an Endobag and removed through the 12 mm trocar site. The abdomen was irrigated and suctioned. Hemostasis was achieved. The trocars were removed. The 12 mm port site [ ] 0 Vicryl was placed [ ] fashion for closure, which was then closed. The skin was then closed using 4-0 Monocryl in subcuticular fashion. Area was washed and dried and skin Affix was placed over the incisions. The patient tolerated procedure well without any complications, taken to recovery room in stable condition. Job ID: [id number] DocumentID: [id number] Dictated Date: 11/19/2022 22:38:13 Nitrocellulose Maker Date: 11/20/2022 00:13:00 Dictated By: WINSOME YOUNG DO
== END 2022-11-17 16:30 | disposition home or self-care (01) ==
LOC: SDC 10:16
PROVIDERS: ATTEND Surgery
DX: K81.1 Chronic cholecystitis (principal); K66.0 Peritoneal adhesions (postprocedural) (postinfection); E66.9 Obesity, unspecified; Z68.31 Body mass index [BMI] 31.0-31.9, adult; Z28.310 Unvaccinated for COVID-19; Z87.891 Personal history of nicotine dependence
CPT/HCPCS: 36415; 76000; 85610; 87081; 88304; 94664

== ENCOUNTER 2023-03-27 20:34 | Outpatient (CLI) | payer MEDICARE, MEDICAID ==
[~2023-03-27 20:34] MED LIST changes: +ACHD5005 PO; +DOCU-143 PO
== END 2023-03-28 06:00 ==
LOC: SLEEP 20:34
PROVIDERS: ATTEND Nurse Practitioner Family
DX: J44.9 Chronic obstructive pulmonary disease, unspecified (principal); I73.9 Peripheral vascular disease, unspecified; G47.34 Idiopathic sleep related nonobstructive alveolar hypoventilation; G47.10 Hypersomnia, unspecified; Z99.81 Dependence on supplemental oxygen
CPT/HCPCS: 95810

== ENCOUNTER 2023-04-20 14:33 | Outpatient (RCR) | payer MEDICARE, MEDICAID ==
[2023-04-14 15:00] VITALS: BP 184/97
[2023-04-14 16:14] LABS: POTASSIUM 3.6 MMOL/L (3.6-5.0)
[2023-04-14 16:15] LABS: CALCIUM 8.3 MG/DL (8.5-10.1)
[2023-04-14 16:20] LABS: CREATININE SERUM 1.29 MG/DL (0.60-1.30)
[2023-04-14] MEDS: GENTAMICIN IV SCH (16:31)
[2023-04-14] MEDS: NS IV SCH (16:31)
[2023-04-15 10:00] VITALS: BP 184/97
--- NOTE | 2023-04-15 10:04 | Diagnostic Imaging Report ---
INDICATION: PICC PLACEMENT TECHNIQUE: Single view chest 9:35 AM CORRELATION STUDY: 01/31/2019 FINDINGS: A right upper extremity central line has been placed, tip projects over the high aspect of the right atrium. Heart size and mediastinum are stable. Soft tissue density in the right paramediastinal suprahilar region. Calcified granuloma of the left upper lobe. Surgical clips over bilateral chest wall. IMPRESSION: 1. Right upper extremity central line has been placed tip projecting over the high right atrium. Dictated by: Dictated on workstation # [id number]
[2023-04-15] MEDS: GENTAMICIN IV SCH (11:04)
[2023-04-15] MEDS: NS IV SCH (11:04)
[2023-04-16 12:20] VITALS: BP 144/99
[2023-04-16] MEDS: NS IV SCH (12:25)
[2023-04-16] MEDS: GENTAMICIN IV SCH (12:25)
[2023-04-17 13:00] VITALS: BP 180/87
[2023-04-17] MEDS: NS IV SCH (13:16)
[2023-04-17] MEDS: GENTAMICIN IV SCH (13:16)
[2023-04-18 14:04] VITALS: BP 146/82
[2023-04-18] MEDS: GENTAMICIN IV SCH (15:12)
[2023-04-18] MEDS: NS IV SCH (15:12)
[2023-04-19 14:08] VITALS: BP 157/81
[2023-04-19] MEDS: NS IV SCH (14:18)
[2023-04-19] MEDS: GENTAMICIN IV SCH (14:18)
[~2023-04-20] VITALS: Ht 167.7 cm; Wt 90.5 kg
[~2023-04-20 14:33] MED LIST changes: +TROUGH ORDER-PHARMACY XX NR
[2023-04-20 14:38] VITALS: BP 196/100
[2023-04-20] MEDS: GENTAMICIN IV SCH (14:58)
[2023-04-20] MEDS: NS IV SCH (14:58)
== END 2023-05-12 | disposition home or self-care (01) ==
LOC: SDC 14:33
PROVIDERS: ATTEND Registered Nurse
DX: Z45.2 Encounter for adjustment and management of vascular access device (principal); N39.0 Urinary tract infection, site not specified
CPT/HCPCS: 36415; 36569; 71045; 76937; 80048; 80170; 96365